=== PATIENT | female | born 1990 | race Caucasian/White ===

== ENCOUNTER 2020-12-11 07:59 | Outpatient (CLI) | payer OTHER, SELFPAY ==
--- NOTE | ~2020-12-11 | XR_ITS ---
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 TECHNIQUE: The patient drank water-soluble contrast. Fluoroscopy of the esophagus, stomach, and small bowel was performed. Fluoroscopy exposure time was 0.7 minutes. Radiographs of the abdomen were obta ined. The total number of images was 32. COMPARISON: None. FINDINGS: UPPER GASTROINTESTINAL SERIES: There is no mass or stricture of the esophagus. Esophageal motility is normal. There is a small slidi ng hiatal hernia. There was spontaneous gastroesophageal reflux. The stomach shows a normal folding p attern. SMALL BOWEL SERIES: The small bowel shows a normal folding pattern. There is reflux of contrast into the biliary tree. Tr ansit time to the colon was 30 minutes. A metal pointer was placed at the skin wound. There is no con trast in the body wall. No visible fistula. IMPRESSION: 1. No fistula identified. 2. Small sliding hiatal hernia. 3. Spontaneous gastroesophageal reflux. Reviewed, dictated and finalized at location A.
--- NOTE | ~2020-12-11 | XR_ITS ---
EXAMINATION: XR fistula/abscess DATE: 12/11/2020 08:54 INDICATION: Enterocutaneous fistula. TECHNIQUE: I introduced a syringe tip into the right abdominal wound and injected Omnipaque 240. Two fluoroscopic images were obtained. Fluoroscopy exposure time was 0.1 minutes. COMPARISON: None. FINDINGS: Contrast does not enter the wound beyond pooling at the skin. IMPRESSION: 1. No fistula identified. Reviewed, dictated and finalized at location A. IMPRESSION: 1. No fistula identified.
== END 2020-12-11 08:00 | disposition home or self-care (01) ==
PROVIDERS: PCP Family Medicine; Visit Provider Family Medicine
DX: T81.89XA Other complications of procedures, not elsewhere classified, initial encounter (principal); K44.9 Diaphragmatic hernia without obstruction or gangrene; K21.9 Gastro-esophageal reflux disease without esophagitis
CPT/HCPCS: 74240; 74248; 76080; Q9966

== ENCOUNTER 2020-12-16 07:47 | Outpatient (CLI) | payer OTHER, SELFPAY ==
--- NOTE | ~2020-12-16 | CT_ITS ---
EXAMINATION: CT abdomen pelvis w con DATE: 12/16/2020 08:21 INDICATION: Open wound of abdominal wall TECHNIQUE: Computed tomography (CT) of the abdomen and pelvis was performed with 100 cc Omnipaque 350 intravenous contrast. Automated exposure control and iterative reconstruction technique were employe d. Exam dose: 1436.06 mGy-cm total exam DLP. COMPARISON: None. FINDINGS: There is discoid atelectasis and/or scarring at the lung bases. Small bilateral fat-containing foramen of [place]chdalek hernias. Heart size is within normal range. No pericardial or pleural effusion. The gallbladder is present. There is a soft tissue tract from the skin surface at the right anterior abdominal wall to the right upper quadrant at the gallbladder. There is mild gallbladder wall thicken ing, measuring approximately 3 mm. There is pneumobilia, with air identified in the hepatic ducts as well as common bile duct. Common bi le duct measures up to 11 mm. No hepatic space-occupying mass lesion is evident. Splenic size is within normal range. No pancreatic mass lesion or calcification or pancreatic duct dilatation is evident. Normal adrenal glands. No renal mass lesion or urinary tract calculus or hydroureteronephrosis is evident. The urinary bladd er, uterus and adnexal areas are Small sliding hiatal hernia. No bowel obstruction, bowel wall thickening, pneumatosis or intraperitoneal free air There is opaque material within the appendix. No appendiceal dilatation or wall thickening or periapp endiceal fat stranding is noted. Normal caliber of the abdominal aorta. No intraperitoneal or retroperitoneal or pelvic mass lesion or adenopathy or ascites. 3.5 cm wide fat-containing umbilical hernia. Included skeletal structures are unremarkable. IMPRESSION: Cholecystostomy tract at right upper quadrant Mild gallbladder wall thickening Pneumobilia Small sliding hiatal hernia 3.5 cm wide fat-containing umbilical hernia Reviewed, dictated and finalized at Location A. Reviewed, dictated and finalized at location B.
== END 2020-12-16 07:48 | disposition home or self-care (01) ==
LOC: ANHIMG 07:56
PROVIDERS: PCP Family Medicine; Visit Provider Family Medicine
DX: S30.92XA Unspecified superficial injury of abdominal wall, initial encounter (principal); X58.XXXA Exposure to other specified factors, initial encounter; K44.9 Diaphragmatic hernia without obstruction or gangrene; Z90.49 Acquired absence of other specified parts of digestive tract
CPT/HCPCS: 74177; Q9967

== ENCOUNTER 2020-12-25 11:52 | Outpatient (CLI) | payer OTHER, SELFPAY ==
--- NOTE | ~2020-12-25 | NM_ITS ---
EXAMINATION: NM hepatobiliary wo pharm DATE: 12/25/2020 14:16 INDICATION: Unspecified abdominal pain. Open wound suspicious for a cholecystocutaneous fistula. COMPARISON: None. TECHNIQUE: 3.9 mCi Tc-99m mebrofenin (Choletec) was administered intravenously. Scintigraphic images of the abdomen were obtained for one hour. At 1 hour additional anterior and right lateral scintigra ms were obtained. FINDINGS: There is normal clearance of radiotracer from the blood pool. There is homogeneous tracer u ptake by the liver. Activity progresses to the bowel and gallbladder (or reportedly gallbladder remn ant). There is spontaneous partial emptying of the gallbladder at the 1 hour time period. No evident tract of activity extending towards the skin surface along the anterolateral right upper quadrant to suggest bile leak/fistulous tract. IMPRESSION: 1. No evident bile leak/fistulous tract. 2. Normal filling and spontaneous partial emptying of the gallbladder (reportedly gallbladder remnant ). Reviewed, dictated and finalized at location A. IMPRESSION: 1. No evident bile leak/fistulous tract. 2. Normal filling and spontaneous partial emptying of the gallbladder (reported ly gallbladder remnant).
--- NOTE | 2020-12-26 13:07 | WPDWOUNDNOTE ---
Wound Care Note Date/Time: 12/26/20 12:07 History: This patient is a pleasant morbidly obese 30-year-old white female who has a chronic wound in the right upper quadrant that it is a draining site from a previous MANPREET drain after a failed cholecystectomy. The patient has surgery in order again where because of major inflammation in around the gallbladder she had a partial cholecystectomy with a drainage procedure. Subsequently she then had an ERCP which led to no common bile duct stent and an injury to the duodenum followed by pancreatitis. She continued to be followed out there till she moved back here. We were asked to help her with this wound once she moved back here. This is a site where her last drain was removed she had a MANPREET drain in place for some time. Please see the history on her residual visit from the 2 wound clinic last month for a more extensive history regarding all that happened in [place]. Wound history: Recent history on the wound is that when she 1st presented here there was a 1 x 1 cm opening in the right upper quadrant at a site where she had previously had a MANPREET drain. She was getting about 30-40 cc of brownish fluid out from this each day. She had not been trying to pack it. Previously. Subsequently we did a upper GI study with Gastrografin which showed no leakage from the duodenum ruling out duodenal fall fistula. Two days ago she then underwent a HIDA scan to check for possible biliary leak. This showed that the remnant of the gallbladder did fill and spontaneously empty about 1 hour after the study. But there was no radiotracer tracing up to the skin in the area of the current wound. Therefore, believe we proving that she does not have a fistula related to either the gallbladder or the duodenum. Perhaps this is just a granulation lined tract from having the drain so long therefore we will try to pack it with silver rope and let it heal slowly from the inside out. She has been packing it just at night wearing a bag during the day and the drainage has decreased to about 10-20 cc each day that she has had on the last 2 days. Wound width: 0.5 cm Wound length: 0.5 cm Wound depth: 9 cm Drainage: Serosanguineous ( approximately 10-20 cc in the bag each day for the last 2-3 days ). Surrounding tissue appearance: normal appearing skin in the right upper quadrant Tunneling: none Percentage granulation tissue: 100% Treatment/Procedures: probe today to 9 cm. Applied a thin packing of quarter-inch silver rope and covered with 4 x 4. Dressings: 4 x 4 covering the packing. Assessment and Plan Assessment and plan (1) Abdominal fistula: Code(s): K63.2 - Fistula of intestine Status: Acute Assessment and Plan: This is not a fistula to either duodenum or the gallbladder eminent has noted by her recent imaging. We hope to get this to close from the inside out by using silver rope to pack it. Discussed with the patient today. She will follow up in 2 weeks. (2) History of major abdominal surgery: Code(s): Z98.890 - Other specified postprocedural states Status: Acute Assessment and Plan: Patient apparently had a very inflamed gallbladder had a partial cholecystectomy with removal of stones in or again last year. (3) Morbid obesity: Code(s): E66.01 - Morbid (severe) obesity due to excess calories Status: Acute Assessment and Plan: Patient remained suggest severely overweight. Encouraged her to follow low-fat diet. (4) Delayed surgical wound healing: Qualifiers: Encounter type: subsequent encounter Qualified Code(s): T81.89XD - Other complications of procedures, not elsewhere classified, subsequent encounter Code(s): T81.89XA - Other complications of procedures, not elsewhere classified, initial encounter Status: Acute Assessment and Plan: See wound care note above. Review of Systems Constitutional: Constitutional: Reports no ad
== END 2020-12-25 11:53 | disposition home or self-care (01) ==
LOC: ANHIMG 11:54
PROVIDERS: PCP Family Medicine; Visit Provider Surgery
DX: K63.2 Fistula of intestine (principal); Z98.890 Other specified postprocedural states; E66.01 Morbid (severe) obesity due to excess calories; T81.89XD Other complications of procedures, not elsewhere classified, subsequent encounter; R10.9 Unspecified abdominal pain
CPT/HCPCS: 78226; A9537

== ENCOUNTER 2021-02-22 09:39 | Emergency (ER) | payer OTHER, SELFPAY ==
--- NOTE | ~2021-02-22 | CT_ITS ---
EXAMINATION: CT abdomen pelvis w con DATE: 02/22/2021 13:20 INDICATION: Epigastric abdominal pain. TECHNIQUE: Computed tomography (CT) of the abdomen and pelvis was performed with 100 mL Omnipaque 350 intravenous contrast. Automated exposure control and iterative reconstruction technique were employe d. The dose-length product was 1441.97 mGy-cm. COMPARISON: CT abdomen and pelvis 12/16/2020 FINDINGS: The visualized portions of the lung bases demonstrate mild atelectasis. There is a staple l ine in left lower lobe. No pleural effusion. The heart size is normal. No pericardial effusion. There is a small sliding hiatal hernia. There is pneumobilia in the liver, likely secondary to sphincterot sobeida. There is a gallstone in the gallbladder, which is normal in size. There is a tract from the gall bladder to the skin. There is fat stranding around the tract in the abdominal wall, consistent with i nflammation. The pancreas, spleen, adrenal glands, and kidneys are normal. There is an umbilical tyson ia containing fat. There are no dilated loops of bowel. The appendix is normal. There are no patholog ically enlarged lymph nodes. There is no free intraperitoneal fluid. There is mild thoracic spondylos is. IMPRESSION: 1. Inflammation in the abdominal wall around an old cholecystostomy tube tract, stable from 12/16/2020 . 2. Cholelithiasis. No evidence of acute cholecystitis. 3. Umbilical hernia containing fat. Reviewed, dictated and finalized at location A. IMPRESSION: 1. Inflammation in the abdominal wall around an old cholecystostomy tube tract, stable from 12/16/2020. 2. Cholelithiasis. No evidence of acute cholecystitis. 3. Umbilical hernia containing fat.
--- NOTE | ~2021-02-22 | US_ITS ---
EXAMINATION: US abdomen limited DATE: 02/22/2021 12:15 INDICATION: Right upper quadrant abdominal pain. TECHNIQUE: Multiple grayscale and Doppler ultrasound images of the abdomen were obtained. COMPARISON: CT abdomen and pelvis 12/16/2020 FINDINGS: The visualized portions of the head and body of the pancreas are normal. The liver demonstr ates pneumobilia, likely secondary to sphincterotomy. There is normal flow in main portal vein. The g allbladder is normal in size and contains a gallstone. No gallbladder wall thickening or sonographic Carrillo sign. The common duct is normal and measures 5 mm. IMPRESSION: 1. Cholelithiasis. No evidence of acute cholecystitis. Reviewed, dictated and finalized at location A.
[2021-02-22 09:53] VITALS: BP 154/64; PULSE 93; RESP 18; TEMP 36.8; O2SAT 99
[2021-02-22 10:27] LABS: Basophils Percent Auto 0.2 % (0.2-1.2); Eosinophils Absolute Auto 0.1 K/mm3 (0-0.3); Eosinophils Percent Auto 1.5 % (0-4.4); Hematocrit 34.8 % (37.0-47.0); Hemoglobin 11.2 g/dL (12.0-15.0); Immature Granulocyte Absolute 0.04 K/mm3 (0.00-0.031); Immature Granulocyte Percent A 0.4 % (0-0.5); Lymphocytes Absolute Auto 1.78 K/mm3 (0.9-3.2); Lymphocytes Percent Auto 19.1 % (18.3-44.2); Mean Corpuscular HGB Conc 32.2 g/dl (32-36); Mean Corpuscular Hemoglobin 27.5 pg (26-34); Mean Corpuscular Volume 85.5 fl (80-100); Mean Platelet Volume 9.1 fl (7.4-10.4); Monocytes Absolute Auto 0.4 K/mm3 (0.1-0.6); Monocytes Percent Auto 3.9 % (2.6-8.5); Neutrophils Percent Auto 74.9 % (45.5-73.1); Platelet Count Result 281 k/mm3 (150-375); Red Blood Count 4.07 M/mm3 (4.2-5.4); Red Cell Distribution Width 13.1 % (11.5-14.5); White Blood Count 9.3 K/mm3 (4.5-10.0)
[2021-02-22 10:36] LABS: Alanine Aminotransferase 13 U/L (4-35); Albumin Level 3.9 g/dL (3.5-5.1); Alkaline Phosphatase 107 U/L (38-126); Anion Gap 6 mmol/L (8-16); Aspartate Amino Transferase 21 U/L (14-36); Bilirubin,Total 0.3 mg/dL (0.2-1.3); Blood Urea Nitrogen 12 mg/dL (7-17); Carbon Dioxide 30 mmol/L (22-30); Chloride 107 mmol/L (98-107); Estimated CRCL calculation 129 ml/min; Estimated Glomerular Filt Rate > 60; Glucose 95 mg/dL (65-105); Lipase 79 U/L (23-300); Potassium 3.9 mmol/L (3.4-5.0); Sodium 143 mmol/L (137-145)
[2021-02-22 10:54] LABS: Add Urine Microscopic? YES; Appearance Urine Cloudy (Clear); Bacteria Urine 2+ /hpf; Bilirubin Urine Negative (Negative); Blood Urine Negative (Negative); Glucose Urine UA Negative (Negative); Ketones Urine Negative (Negative); Leukocyte Esterase Ur 2+ LEU/UL (Negative); Mucus Urine Rare /lpf; Nitrate Urine Negative (Negative); Protein Urine 1+ mg/dL (Negative); Specific Grav Ur 1.017 (1.001-1.035); Squamous Epithelial Cell Urine Many /hpf (Few); Urobilinogen Urine Negative mg/dL (<2.0); WBC Urine 16-20 /hpf
[2021-02-22 10:55] LABS: Color Urine Yellow (Yellow)
--- NOTE | 2021-02-22 11:43 | ED.GENADULT ---
HPI - General Adult General Chief complaint: Abdominal Pain Stated complaint: right abd pain Time Seen by Provider: 02/22/21 10:38 Source: patient Mode of arrival: ambulatory Limitations: no limitations History of Present Illness HPI narrative: Patient presents for evaluation of abdominal pain in the right upper quadrant. She states she has experienced pain in affected area for the last five days. The majority of the week her pain was dull. She is unsure whether pain was intermittent or constant. She states that she was alternating between tylenol and ibuprofen. This morning she woke from sleep due to increase in her pain. She states her current pain is sharp and radiates into the right lower back. Of noted she is currently being followed by surgeon, Dr Uribe, for a wound to RUQ. She underwent partial cholecystectomy in 2019 while she was living in [place]. Partial as opposed to full cholecystectomy was performed due to major inflammatory changes in region of gallbladder. Following her surgery she had an ERCP and common bile duct stent placement. She had an injury to duodenum followed by pancreatitis. She has a chronic wound to RUQ following drain placement associated with her cholecystectomy. She denies any fever, chills, nausea, vomiting, urinary symptoms, vaginal bleeding. She is some chronic clear vaginal discharge which is unchanged. She states that applying pressure manually with her hand to RUQ helps alleviate her pain. Related Data Home Medications Medication Instructions Recorded Confirmed acetaminophen 500 mg tablet 1,000 mg PO BID tablet 11/22/20 12/26/20 Allergies Allergy/AdvReac Type Severity Reaction Status Date / Time adhesive tape AdvReac Rash Verified 02/22/21 10:26 TAPE Allergy Unknown PULLED Uncoded 02/22/21 09:57 SKIN OFF Review of Systems Review of Systems: Narrative: CONSTITUTIONAL: Denies fever, chills, or sweats. EYES: Denies visual changes, redness, or discharge. ENT: Denies rhinorrhea, congestion, sore throat, or otalgia. CARDIOVASCULAR: Denies chest pain, palpitations, or edema. RESPIRATORY: Denies cough or dyspnea. GASTROINTESTINAL: Reports abdominal pain. Denies nausea, vomiting, or diarrhea. GENITOURINARY: Denies dysuria or hematuria. SKIN: Denies rash or itching. MUSCULOSKELETAL: Denies back pain, joint pain, or myalgia. NEUROLOGIC: Denies headache, numbness, dizziness, or weakness. PSYCHIATRIC: Denies anxiety or depression. [facility] Past Medical History Medical History (Updated 02/22/21 @ 14:54 by JOBY Andrew, ) Allergies Asthma Asthma Delayed surgical wound healing History of jejunostomy tube placement History of sepsis (~10/2019) perforated duodenum from surgical procedure Hx of gangrene (~07/2019) gangrenous gall bladder, ruptured GB Insomnia Irregular periods/menstrual cycles Morbid obesity (Unknown) Open wound of umbilical region (~04/27/20) Psoriatic arthritis Surgical History Surgical History History of cholecystectomy (~07/2019) History of tonsillectomy Family History Family History Father Thyroid disorder Sleep apnea Mother Asthma Diabetes mellitus Hypertension Cerebrovascular accident Arthritis at at 58 Sibling Diabetes mellitus Hypertension Sjogren's disease at age 38 Social History Social History Social History: Works at [employer]. Lives with her and 3 children. Smoking status: Former smoker Tobacco type: cigarettes Smoking end date: 09/27/17 Alcohol intake: current Drinks per week: 1 Gender identity (if verbalized by the patient): Female Agree to blood products: Yes Exam Narrative: Exam Narrative: GENERAL: Well-appearing, well-nourished, and in no acute distress. HEAD: Normocephali
[2021-02-22] MEDS: MORPHINE SULFATE (*CRX) 2 MG/ML INJ IV PUSH (11:47)
[2021-02-22 12:00] VITALS: BP 160/98; PULSE 80; RESP 16; O2SAT 98
[2021-02-22] MEDS: oxyCODONE/ACETAMINOPHEN (*CRX) 5-325 MG TABLET 2 TABLET PO (14:06)
[2021-02-22 15:20] VITALS: BP 134/91; PULSE 70; RESP 16; O2SAT 97
--- NOTE | 2021-02-28 12:23 | WPDWOUNDNOTE ---
Wound Care Note Date/Time: 02/28/21 12:23 History: History: This patient is a pleasant morbidly obese 30-year-old white female who has a chronic wound in the right upper quadrant that it is a draining site from a previous MalenKrodt drain after a failed cholecystectomy. The patient had surgery in [place] last year but because of major inflammation in around the gallbladder she had a partial cholecystectomy with a drainage procedure. (Drain left in the gallbladder reaminate). Subsequently she then had an ERCP which led to no common bile duct stent and an injury to the duodenum followed by pancreatitis. She continued to be followed out there until she moved back here. We were asked to help her with this wound once she moved back here. This is a site where her last drain was removed and after review of records that were recently sent I believe she had a MalenKrodt drain in place for some time. Please see the history on her original visit to the wound clinic last month for a more extensive history regarding all that happened in [place]. Wound history: Wound history: Recent history on the wound is that when she first presented here there was a 1 x 1 cm opening in the right upper quadrant at a site where she had previously had a GB drain. She was getting about 30-40 cc of brownish fluid out from this each day. She had not been trying to pack it previously. Subsequently we did a upper GI study with Gastrografin which showed no leakage from the duodenum thereby ruling out duodenal fall fistula. Several days later she then underwent a HIDA scan to check for possible biliary leak. This showed that the remnant of the gallbladder did fill and spontaneously empty about 1 hour after the study, but that there was no radiotracer tracing up to the skin in the area of the current wound. Therefore, I believe we have proven that she does not have a fistula related to either the gallbladder or the duodenum. Perhaps this is just a granulation lined tract from having the drain so long. Therefore, we will try to pack it with silver rope and let it heal slowly from the inside out. She had been packing it just at night and wearing a bag over the opening during the day and the drainage has decreased to about 20 cc each day. Several visits ago we asked the patient to do continuous packing with the silver rope. Also, then two of the nights over each week she has placed a bag over this and taken the packing out for about 12 hours. These 2 time she had 20 and 22 cc come out into the bag before her most recent visit. She stated that this was a clearish yellow fluid. She still has some upper abdominal pain periodically but she is taking Protonix 40 mg once a day before she lays down at night and that seems to help some. between this visit in the last she had 1 ER visit where she you noticed increasing abdominal pain. A CT scan of the abdomen pelvis was done which showed some inflammatory change along the tract of the wound in the right upper quadrant which did traced track down toward the gallbladder but there was no obvious connection to the gallbladder. this also showed small umbilical hernia without bowel in it. The CT did read that there was a gallstone in the remaining gallbladder which at least on this study they seemed indicate was almost a normal sized gallbladder. There was no surrounding inflammation on around the gallbladder itself. There were no intra-abdominal abscesses. The patient bag the wound last night overnight and had just a small amount of fluid come into the bag not even measurable. Since leaving the ER she has found that she had a urinary tract infection so the PCP she now has has started her on antibiotic for 10 days. We will see if this has any help. They also gave her some more pain pills and she is trying to cut back on the she will try to use just ibuprofen 600 mg 3 or 4 times a day and cut back as much she can on the narcotic. I will plan to see
== END 2021-02-22 15:20 | disposition home or self-care (01) ==
PROVIDERS: Emergency Medicine; Emergency Provider Nurse Practitioner; PCP Family Medicine
DX: K80.20 Calculus of gallbladder without cholecystitis without obstruction (principal); J45.909 Unspecified asthma, uncomplicated; E66.01 Morbid (severe) obesity due to excess calories; Z68.42 Body mass index [BMI] 45.0-49.9, adult; L40.50 Arthropathic psoriasis, unspecified; Z87.891 Personal history of nicotine dependence; K42.9 Umbilical hernia without obstruction or gangrene
CPT/HCPCS: 36415; 74177; 76705; 80053; 81001; 81025; 83690; 85025; 87077; 87086; 87088; 87186; 96374; 99284; A9270; J2270; Q9967

== ENCOUNTER 2021-02-28 08:02 | Outpatient (RCR) | payer OTHER, SELFPAY ==
[2020-12-05 12:52] VITALS: BMI 47.0
--- NOTE | 2020-12-05 15:15 | WPDWOUNDNOTE ---
Wound Care Note Date/Time: 12/05/20 14:15 History: No known allergies to medications. Past Medical History: Psoriatic arthritis on immunosuppressant therapy, asthma, obesity, insomnia, allergies, previous acute cholecystitis with perforation and subsequent complications/sepsis in 2018 Past Surgical History: Multiple previous abdominal surgeries starting with a laparoscopic cholecystectomy for a perforated gangrenous gallbladder in August of 2019. Requesting records from [place], [place] to verify previous surgeries. See description of other surgeries below in the wound history section. Social History: Has three children (vaginal deliveries x 3). Previous smoker, quit 3 years ago. No illicit drug use. Works as a school bus attendant. Recently moved here in the fall from [place], [place]. No pertinent family history. Wound history: This is a patient that was seen in Dr. Bermudez's office by Rula Lazo NP on 11/22/20 to establish care as a new patient. She was referred to the wound clinic by her PCP for an abdominal wound. She previously was followed by her PCP and a [facility] in [place]. Her [facility] followed her for her psoriatic arthritis and had been prescribing Tremfya for this. Her last dose was just over 8 weeks ago, and she states she typically takes this every 8 weeks. She had started this last April she believes. The patient now presents today in the wound clinic for evaluation of an abdominal wound. I have been called by the wound clinic nurse, Aysha, to come evaluate this abdominal wound. The patient reports having a laparoscopic cholecystectomy in August of 2019. She was told her gallbladder was gangrenous and perforated at the time of surgery. She was also told that they left about 1/4th of the gallbladder on the bed of the liver during the surgery and then kept a drain in her RUQ of her abdomen. This drain was in place for at least 8 weeks. She reports having some issues with the sutures falling out and the drain having to be either replaced or pushed back in because of this. It sounds like she probably had a bile leak post-op and they attempted to place a biliary stent. She reports that they may have done this procedure with endoscopy and laparoscopy, but is unsure why or how. She reports then that during this surgery her duodenum and pancreas was nicked and she was told this would heal without intervention. She then had a gastrostomy-jejunostomy tube placed for her to get nutrition through this tube and bypass the duodenum to allow it to heal after it was damaged in surgery. She reports that she was not taking anything by mouth and only fed with tube feedings, up until around February of 2020. In that timeframe, she was also readmitted to the hospital for sepsis, potentially from the perforated bowel. She states that she was admitted for 2 months and then was eventually discharged. She reports that her RUQ abdominal drain was eventually removed as well in November of 2019 and she was told that the hole from the drain would heal up. Her G-J tube was removed she thinks in February of 2020 and she was tolerating a regular diet by March. She reports that the wound from the G-J tube healed up and is now a scare, but the wound from the RUQ surgical drain has remained open and continues to drain a bloody, clear drainage. She applies a dry dressing over this wound every day. Over the past year, the wound has decreased to about 1/2 the size, but remains open and drainage. She takes gabapentin that she states is for the abdominal pain where the wound is and has been weaned off of oxycodone for the pain. She reports it is drying machine back tender and painful at times. Reports now tolerating a regular diet and moving her bowels normally. She reports having a follow-up with her previous surgeons and they had released her last summer suggesting that the wound would eventually heal. She reports having multiple studies done, including a gastrografin study and other tests to lo
--- NOTE | 2021-01-15 13:28 | WPDWOUNDNOTE ---
Wound Care Note Date/Time: 01/15/21 12:28 He returns today for follow-up on her chronic wound in the right upper quadrant the abdomen. This was at a site where a drain was left as a cholecystostomy tube within the remnant of her gallbladder after a partial cholecystectomy. History: This patient is a pleasant morbidly obese 30-year-old white female who has a chronic wound in the right upper quadrant that it is a draining site from a previous MalenKrodt drain after a failed cholecystectomy. The patient had surgery in [facility] last year but because of major inflammation in around the gallbladder she had a partial cholecystectomy with a drainage procedure. (Drain left in the gallbladder reaminate). Subsequently she then had an ERCP which led to no common bile duct stent and an injury to the duodenum followed by pancreatitis. She continued to be followed out there till she moved back here. We were asked to help her with this wound once she moved back here. This is a site where her last drain was removed and after review of records that were recently sent I believe she had a MalenKrodt drain in place for some time. Please see the history on her original visit to the wound clinic last month for a more extensive history regarding all that happened in [place]. Wound history: Wound history: Recent history on the wound is that when she 1st presented here there was a 1 x 1 cm opening in the right upper quadrant at a site where she had previously had a GB drain. She was getting about 30-40 cc of brownish fluid out from this each day. She had not been trying to pack it. Previously. Subsequently we did a upper GI study with Gastrografin which showed no leakage from the duodenum ruling out duodenal fall fistula. several days before her last visit she then underwent a HIDA scan to check for possible biliary leak. This showed that the remnant of the gallbladder did fill and spontaneously empty about 1 hour after the study. But there was no radiotracer tracing up to the skin in the area of the current wound. Therefore, I believe we have proven that she does not have a fistula related to either the gallbladder or the duodenum. Perhaps this is just a granulation lined tract from having the drain so long. Therefore we will try to pack it with silver rope and let it heal slowly from the inside out. She had been packing it just at night wearing a bag during the day and the drainage has decreased to about 20 cc each day that she has had on the last 2 days. after last visit we asked the patient to do continuous packing with the silver rope. Also to of the nights over the last week she has placed a bag over this and taken the packing out for about 12 hours. These 2 time she had 20 and 22 cc come out into the bag. She stated was a clearish yellow fluid. She still has some upper abdominal pain periodically but she is taking Protonix 40 mg once a day before she lays down at night. Wound approximation: No Wound width: .07 cm Wound length: 0.6 cm Wound depth: 8.6 cm Drainage: Still slightly brownish yellow in color. When the patient did not pack it and 4 bag over the area for about 12 hours she had 20 and 22 cc out respectively. Surrounding tissue appearance: Normal skin surrounds this opening and there is some granulation tissue on the edges. Further out on the skin she has some reddish rash like change and we will use antifungal powder on this. Tunneling: None other than the the wound that goes down 8 cm Percentage granulation tissue: 100% Treatment/Procedures: today after probing and I did use 2 separate silver nitrate sticks to place all the way in total pressure one-way then the other way to cauterize the very base of the wound. We then packed it with split silver rope that was about 1/4 inch wide and punched the packing at the external opening to keep it open. Dressings: Patient places 4x4s over the external portion of the drain which collects any fluid the comes o
--- NOTE | 2021-01-25 23:23 | WPDWOUNDNOTE ---
Wound Care Note Date/Time: 01/24/21 12:23 History: This patient is a pleasant morbidly obese 30-year-old white female who has a chronic wound in the right upper quadrant that it is a draining site from a previous MalenKrodt drain after a failed cholecystectomy. (In escense this was a drian left as a Cholecystostomy drain in the remnant of her GB). The patient had surgery in [place] last year but because of major inflammation in around the gallbladder she had a partial cholecystectomy with a drainage procedure. (Drain left in the gallbladder remnant). Subsequently she then had an ERCP which led to no common bile duct stent and an injury to the duodenum followed by pancreatitis. She continued to be followed out there till she moved back here. We were asked to help her with this wound once she moved back here late this winter. This is a site where her last drain was removed and after review of records that were recently sent I believe she had a MalenKrodt drain in place for some time. Please see the history on her original visit to the wound clinic last month for a more extensive history regarding all that happened in [place]. Wound history: Wound history: Recent history on the wound is that when she 1st presented here there was a 1 x 1 cm opening in the right upper quadrant at a site where she had previously had a GB drain. She was getting about 30-40 cc of brownish fluid out from this each day. She had not been trying to pack it. Previously. Subsequently we did a upper GI study with Gastrografin which showed no leakage from the duodenum ruling out duodenal fistula. Several days before her last visit she then underwent a HIDA scan to check for possible biliary leak. This showed that the remnant of the gallbladder did fill and spontaneously empty about 1 hour after the study. But there was no radiotracer tracing up to the skin in the area of the current wound. Therefore, I believe we have proven that she does not have a fistula related to either the gallbladder or the duodenum. Perhaps this is just a granulation lined tract from having the drain in place for so long. Therefore, we will try to pack it with silver rope and let it heal slowly from the inside out. She had been packing it just at night wearing a bag during the day and the drainage has decreased to about 20 cc each day that she has had on the last 2 days prior to her last (01/15) visit. After the last visit we asked the patient to do continuous packing with the silver rope. Also two of the nights over the last week she has placed a bag over this and taken the packing out for about 12 hours. These 2 time she had 20 and 15 cc come out into the bag. She stated was a clearish yellow fluid. She still has some upper abdominal pain periodically but she is taking Protonix 40 mg once a day before she lays down at night. SHe states today that she does believe that she is getting the packing well down inside the tract each time. she is having in general less pain in and around the are of the open wound. Wound approximation: No Wound width: 0.5 cm Wound length: 0.5 cm Wound depth: 7.5 cm Drainage: Bloody after probing. otherwise she states it is a clear color after leaving the packing out and baging the opening overnight. Surrounding tissue appearance: [place] and granulating Tunneling: no Percentage granulation tissue: 100 % Treatment/Procedures: AgNo3 used again to cauterize the very depth of the wound (X2). Pt tolerated the Rx well without much pain. Dressings: Silver rope packing cut to a 1/4 width and packed all the way to the bottom of the wound. Covered with 4 X 4 gauze after appying some skin protectent to the skin of the abdomen surrounding the opening. Assessment and Plan Assessment and plan (1) Open abdominal wall wound: Onset Date: ~10/2019 Qualifiers: Encounter type: subsequent encounter Qualified Code(s): S31.109D - Unspecified open wound of abdominal wall, unspecified
--- NOTE | 2021-02-07 16:53 | WPDWOUNDNOTE ---
Wound Care Note Date/Time: 02/07/21 12:03 History: This patient is a pleasant morbidly obese 30-year-old white female who has a chronic wound in the right upper quadrant that it is a draining site from a previous MalenKrodt drain after a failed cholecystectomy. (In essence this was a drain left as a Cholecystostomy drain in the remnant of her GB). The patient had surgery in [place] last year but because of major inflammation in around the gallbladder she had a partial cholecystectomy with a drainage procedure. (Drain left in the gallbladder remnant). Subsequently she then had an ERCP which led to a common bile duct stent and an injury to the duodenum followed by pancreatitis. She continued to be followed out there till she moved back here. We were asked to help her with this wound once she moved back here late this winter. This is a site where her last drain was removed and after review of records that were recently sent from [place] I believe she had a MalenKrodt drain in place in her GB remnant for some time. Please see the history on her original visit to the wound clinic 2 months ago for a more extensive history regarding all that happened in [place]. Wound history: Wound history: Recent history on the wound is that when she 1st presented here there was a 1 x 1 cm opening in the right upper quadrant at a site where she had previously had a GB drain. She was getting about 30-40 cc of brownish fluid out from this each day. She had not been trying to pack it. Previously. Subsequently we did a upper GI study with Gastrografin which showed no leakage from the duodenum ruling out duodenal fistula. Several days before her visit two times ago she then underwent a HIDA scan to check for possible biliary leak. This showed that the remnant of the gallbladder did fill and spontaneously empty about 1 hour after the study, but there was no radiotracer tracing up to the skin in the area of the current wound. Therefore, I believe we have proven that she does not have a fistula related to either the gallbladder or the duodenum. Perhaps this is just a granulation lined tract from having the drain in place for so long. Therefore, we will try to pack it with silver rope and let it heal slowly from the inside out. She had been packing it just at night wearing a bag during the day and the drainage has decreased to about 20 cc each day that she has had on the last 2 days prior to her (01/15) visit. After the last visit we asked the patient to do continuous packing with the silver rope. Also two of the nights over the last week she has placed a bag over this and taken the packing out for about 12 hours. These 2 time she had 15 cc come out into the bag each time. She stated was a pinkish fluid. She still has some upper abdominal pain periodically but she is taking Protonix 40 mg once a day before she lays down at night. She is also trying to follow a low-fat diet and lose weight. Se states today that she does believe that she is getting the packing well down inside the tract each time. She is having in general less pain in and around the are of the open wound. -- the wound is less deep and starting to granulate in and the edges but still open externally. Wound width: 0.5 cm Wound length: 0.6 cm Wound depth: 5.5 cm Drainage: [place] to yellow Surrounding tissue appearance: normal without cellulitis Tunneling: just straight depth. Percentage granulation tissue: 100% Treatment/Procedures: I used silver nitrate to cauterize the depth of the wound again. Dressings: Silver rope packing followed by 4 x 4 gauze and tape Assessment and Plan Assessment and plan (1) Open abdominal wall wound: Onset Date: ~10/2019 Qualifiers: Encounter type: subsequent encounter Qualified Code(s): S31.109D - Unspecified open wound of abdominal wall, unspecified quadrant without penetration into peritoneal cavity, subsequent encounter Code(s): S31.109A
--- NOTE | 2021-02-14 13:55 | WPDWOUNDNOTE ---
Wound Care Note Date/Time: 01/09/21 12:55 History: This patient is a pleasant morbidly obese 30-year-old white female who has a chronic wound in the right upper quadrant that it is a draining site from a previous MalenKrodt drain after a failed cholecystectomy. The patient had surgery in [facility] last year but because of major inflammation in around the gallbladder she had a partial cholecystectomy with a drainage procedure. (Drain left in the gallbladder reaminate). Subsequently she then had an ERCP which led to no common bile duct stent and an injury to the duodenum followed by pancreatitis. She continued to be followed out there till she moved back here. We were asked to help her with this wound once she moved back here. This is a site where her last drain was removed and after review of records that were recently sent I believe she had a MalenKrodt drain in place for some time. Please see the history on her original visit to the wound clinic last month for a more extensive history regarding all that happened in [place]. Wound history: Wound history: Recent history on the wound is that when she 1st presented here there was a 1 x 1 cm opening in the right upper quadrant at a site where she had previously had a GB drain. She was getting about 30-40 cc of brownish fluid out from this each day. She had not been trying to pack it. Previously. Subsequently we did a upper GI study with Gastrografin which showed no leakage from the duodenum ruling out duodenal fall fistula. several days before her last visit she then underwent a HIDA scan to check for possible biliary leak. This showed that the remnant of the gallbladder did fill and spontaneously empty about 1 hour after the study. But there was no radiotracer tracing up to the skin in the area of the current wound. Therefore, I believe we have proven that she does not have a fistula related to either the gallbladder or the duodenum. Perhaps this is just a granulation lined tract from having the drain so long. Therefore we will try to pack it with silver rope and let it heal slowly from the inside out. She had been packing it just at night wearing a bag during the day and the drainage has decreased to about 20 cc each day that she has had on the last 2 days. after last visit we asked the patient to do continuous packing with the silver rope. Also to of the nights over the last week she has placed a bag over this and taken the packing out for about 12 hours. These 2 time she had 20 and 22 cc come out into the bag. She stated was a clearish yellow fluid. She still has some upper abdominal pain periodically but she is taking Protonix 40 mg once a day before she lays down at night Wound approximation: No ( still o.9 x 0.8 cm in size) Wound width: 0.9 cm Wound length: 0.7 cm Wound depth: 7.5 cm Drainage: clear yellowish Surrounding tissue appearance: no surrounding erythema or skin changes Tunneling: none other than straight down along the old drain site Percentage granulation tissue: 100% Treatment/Procedures: silver nitrate was used to cauterize the base of the wound and then silver rope was packed into the wound. Dressings: We are using silver rope split long sarah down into the wound as a wick and then punch in at the external opening and covering with some 4 x 4 gauze and tape. Patient will bag the wound twice overnight and tell us how much she records out of the bag or into the bag when she visits the next visit. Assessment and Plan Assessment and plan (1) Abdominal pain: Code(s): R10.9 - Unspecified abdominal pain Status: Acute Assessment and Plan: Usually controlled with Tylenol now (2) GERD without esophagitis: Onset Date: Unknown Code(s): K21.9 - Gastro-esophageal reflux disease without esophagitis Status: Acute Assessment and Plan: on pantoprazole. (3) Open abdominal wall wound: Onset Date: ~10/2019 Qualifiers:
== END 2021-03-05 23:59 | disposition home or self-care (01) ==
LOC: ANHWOC 08:02
PROVIDERS: PCP Family Medicine; Referring Provider Surgery; Visit Provider Nurse Practitioner Family
DX: T81.89XD Other complications of procedures, not elsewhere classified, subsequent encounter (principal)
CPT/HCPCS: 99212; 99213; A9270; G0463

== ENCOUNTER 2021-05-02 09:22 | Outpatient (CLI) | payer OTHER, SELFPAY ==
--- NOTE | ~2021-05-02 | CT_ITS ---
EXAMINATION: XR fistula/abscess, CT abdomen w con DATE: 05/02/2021 11:50 INDICATION: Chronic draining right upper quadrant abdominal wound. TECHNIQUE: 1. 5 fluoroscopic images of the right upper quadrant were obtained prior to and during injection of 2 0 mL of Omnipaque 240 into the red rubber catheter which had been placed by Dr. Uribe into the sinu s tract draining wound. This was performed following assessment of the initial postcontrast CT images to assess for positioning of the right rubber catheter. 2. Computed tomography (CT) of the abdomen was performed with 100 mL Omnipaque-[address] Additional delayed images were obtained following injection of an additional 20 mL Omnipaque-240 into the red rubber catheter. The dose-length product was 1705.01 mGy-cm. COMPARISON: CT dated 02/22/2021 FINDINGS: Fluoroscopy: Initial valve lapper image demonstrated the right proper catheter tip projecting over the region of the caud al tip of the liver. There is excreted contrast in the right renal collecting system from the immedia tely prior contrast enhanced CT. With contrast injection there is reflux of the majority of the injec [place] contrast along the sinus tract. There is however a thin tract of contrast which appears to extend deeper into a small ovoid space in expected position of the gallbladder fossa. CT: Unchanged small regions of pleural parenchymal scarring at the anterior right middle lobe and posteri or left lower lobe, the latter along a small suture line. Additional unchanged mild discoid atelectas is/scarring in the right lower lobe. Heart size is normal. No pericardial or pleural effusion. Small sliding-type hiatal hernia. Spleen, pancreas, bilateral adrenal glands and kidneys are normal. Partia lly visualized fat-containing umbilical hernia measuring at least 5.8 x 3.7 cm maximal transaxial dim ensions and extending through a 2.8 x 2.1 cm orifice. Visualized portion of the bowels are unremarkab le. No pathologically enlarged abdominal or pelvic lymphadenopathy. Mild lower thoracic spondylosis. Pneumobilia in the intra and extrahepatic biliary ducts likely related to prior sphincterotomy associ ated with a prior partial cholecystectomy. The red rubber catheter extends through a sinus tract exte nding from the skin surface with the distal tip within the anterior abdominal wall the right upper qu adrant in relatively close proximity to the splenic flexure of the colon as well as the gallbladder r emnant. On the delayed images following contrast injection contrast is seen extending deep to the ant erior abdominal wall with minute focus of contrast at the wall of the gallbladder remnant. A small am ount of contrast is seen layering dependently within the gallbladder remnant. This appears to outline approximately 1.3 cm stone at the neck of the gallbladder. No evident extension of contrast into the cystic duct or more distal common bile duct. IMPRESSION: 1. 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 There is also a 1.3 cm gallstone at the neck of the gallbladder which no contrast passes beyond, potentially impacted. 2. Small fat-containing umbilical hernia. Reviewed, dictated and finalized at location A. IMPRESSION: 1. 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 There is also a 1.3 cm gallstone at the neck of the g allbladder which no contrast passes beyond, potentially impacted. 2. Small fat-containing umbilical hernia.
== END 2021-05-02 09:23 | disposition home or self-care (01) ==
PROVIDERS: PCP Family Medicine; Visit Provider Surgery
DX: S31.109A Unspecified open wound of abdominal wall, unspecified quadrant without penetration into peritoneal cavity, initial encounter (principal); R10.9 Unspecified abdominal pain; K80.80 Other cholelithiasis without obstruction; K42.9 Umbilical hernia without obstruction or gangrene
CPT/HCPCS: 36415; 74160; 76080; 80053; 82150; 82248; 82565; 83690; 85025; 99212; G0463; Q9966; Q9967

== ENCOUNTER 2021-05-02 09:31 | Outpatient (CLI) | payer OTHER, SELFPAY ==
[2021-05-02 10:02] LABS: Basophils Percent Auto 0.3 % (0.2-1.2); Eosinophils Absolute Auto 0.2 K/mm3 (0-0.3); Eosinophils Percent Auto 2.4 % (0-4.4); Hematocrit 36.1 % (37.0-47.0); Hemoglobin 11.5 g/dL (12.0-15.0); Immature Granulocyte Absolute 0.03 K/mm3 (0.00-0.031); Immature Granulocyte Percent A 0.4 % (0-0.5); Lymphocytes Absolute Auto 1.73 K/mm3 (0.9-3.2); Lymphocytes Percent Auto 22.9 % (18.3-44.2); Mean Corpuscular HGB Conc 31.9 g/dl (32-36); Mean Corpuscular Hemoglobin 27.2 pg (26-34); Mean Corpuscular Volume 85.3 fl (80-100); Mean Platelet Volume 8.9 fl (7.4-10.4); Monocytes Absolute Auto 0.4 K/mm3 (0.1-0.6); Monocytes Percent Auto 5.8 % (2.6-8.5); Neutrophils Absolute Auto 5.2 K/mm3 (1.3-6.7); Neutrophils Percent Auto 68.2 % (45.5-73.1); Platelet Count Result 234 k/mm3 (150-375); Red Blood Count 4.23 M/mm3 (4.2-5.4); Red Cell Distribution Width 13.5 % (11.5-14.5); White Blood Count 7.6 K/mm3 (4.5-10.0)
[2021-05-02 10:29] LABS: Alanine Aminotransferase 14 U/L (4-35); Albumin Level 4.1 g/dL (3.5-5.1); Alkaline Phosphatase 90 U/L (38-126); Amylase 57 U/L (30-110); Anion Gap 10 mmol/L (8-16); Aspartate Amino Transferase 25 U/L (14-36); Bilirubin,Total 0.1 mg/dL (0.2-1.3); Blood Urea Nitrogen 14 mg/dL (7-17); Calcium 9.2 mg/dL (8.4-10.2); Carbon Dioxide 24 mmol/L (22-30); Chloride 104 mmol/L (98-107); Estimated Glomerular Filt Rate > 60; Glucose 99 mg/dL (65-110); Lipase 104 U/L (23-300); Potassium 3.9 mmol/L (3.4-5.0); Sodium 138 mmol/L (137-145)
== END 2021-05-02 09:32 | disposition home or self-care (01) ==
PROVIDERS: PCP Family Medicine; Visit Provider Surgery
DX: Z01.812 Encounter for preprocedural laboratory examination (principal); S31.109A Unspecified open wound of abdominal wall, unspecified quadrant without penetration into peritoneal cavity, initial encounter; K81.9 Cholecystitis, unspecified
CPT/HCPCS: 36415; 80053; 82150; 82248; 82565; 83690; 85025; 99212; G0463

== ENCOUNTER → 2021-05-03 00:26 | Outpatient (CLI) | payer OTHER, SELFPAY ==
[2021-05-03 21:24] LABS: SARS-CoV-2 RNA PCR Negative
== END ==
PROVIDERS: PCP Family Medicine; Visit Provider Surgery
DX: Z01.812 Encounter for preprocedural laboratory examination (principal); Z20.822 Contact with and (suspected) exposure to COVID-19
CPT/HCPCS: C9803; U0003; U0005

== ENCOUNTER 2021-05-06 19:05 | Observation (INO) | payer OTHER, SELFPAY ==
[2021-04-28 15:19] VITALS: BMI 47.2
--- NOTE | 2021-05-02 19:31 | WPDANESEPP ---
Anes - Eval Pre Procedure Procedure: Operation Date: 05/05/21 14:00 Proposed Procedures p Laparoscopic Cholecystectomy with Intraoperative Cholangiogram, possible Open, possible Excision of Old Drain Tube Tract-Right Upper Quadrant - Leo Uribe MD Date/Time: 05/02/21 19:31 Pre Op Diagnosis: Cholecystitis Patient Data Age: 30 Gender: F Height: 1.63 m Weight: 124.74 kg Allergies Allergy/AdvReac Type Severity Reaction Status Date / Time adhesive tape AdvReac Rash Verified 04/28/21 15:22 TAPE Allergy Unknown PULLED Uncoded 04/28/21 15:22 SKIN OFF Home Medications Medication Instructions Recorded Confirmed Type norgestimate-ethinyl estradiol 1 tablet PO DAILY #28 tablet 12/26/20 04/08/21 Rx 0.18 mg/0.215mg/0.25mg-35 mcg(28)tablet gabapentin 300 mg capsule 300 mg PO TID #270 cap 02/25/21 04/08/21 Rx tramadol 100 mg tablet 100 mg PO Q6H PRN #10 tablet 04/03/21 04/08/21 Rx albuterol sulfate 90 mcg/actuation 1 inh INHALATION Q4H PRN #8.5 g 04/08/21 04/08/21 Rx aerosol inhaler amoxicillin 875 mg-potassium 1 tablet PO BID #20 tablet 04/08/21 04/08/21 Rx clavulanate 125 mg tablet hydroxyzine HCl 10 mg tablet See Rx Instructions PO QHS PRN #60 04/14/21 Rx tablet pantoprazole 40 mg tablet,delayed 40 mg PO QAM 56 Days #56 tablet 04/23/21 Rx release oxycodone-acetaminophen 5 mg-325 1 tablet PO Q6H PRN #20 tablet 04/24/21 Rx mg tablet Patient hx anesthesia problems: none Family hx anesthesia problems: none PMFSH Past Medical History Medical History (Updated 05/02/21 @ 19:32 by Aníbal Leal DO) Allergies Asthma Asthma 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, continuous use of opioids oxycodone Delayed surgical wound healing History of jejunostomy tube placement History of sepsis (~10/2019) perforated duodenum from surgical procedure Hx of gangrene (~07/2019) gangrenous gall bladder, ruptured GB Insomnia Irregular periods/menstrual cycles Morbid obesity (Unknown) Open wound of umbilical region (~04/27/20) Psoriatic arthritis (Unknown) Surgical History Surgical History History of cholecystectomy (~07/2019) History of tonsillectomy Family History Family History Father Thyroid disorder Sleep apnea Mother Asthma Diabetes mellitus Hypertension Cerebrovascular accident Arthritis at at 58 Sibling Diabetes mellitus Hypertension Sjogren's disease at age 38 Social History Social History Social History: Works at [employer]. Lives with her and 3 children. Smoking status: Never smoker Tobacco type: cigarettes Smoking end date: 09/27/17 Alcohol intake: current Drinks per week: 1 Gender identity (if verbalized by the patient): Female Spiritual care concerns: No Agree to blood products: Yes Exam Day of Procedure 05/02/21 19:31
[2021-05-05] VITALS (11 sets, daily range): BP systolic 104–149; BP diastolic 53–88; PULSE 77–92; RESP 10–24; TEMP 36.6–36.9; O2SAT 94–99; BMI 49.4
--- NOTE | 2021-05-05 07:25 | WPDWOUNDNOTE ---
Wound Care Note Date/Time: 05/05/21 07:25 History: This patient is a pleasant morbidly obese 30-year-old white female who has a chronic wound in the right upper quadrant that it is a draining site from a previous Malenkrodt drain after a failed cholecystectomy. The patient had surgery in [place] last year but because of major inflammation in around the gallbladder she had a partial cholecystectomy with a drainage procedure. (Drain left in the gallbladder reaminate). Subsequently she then had an ERCP which led to a common bile duct stent and an injury to the duodenum followed by pancreatitis. She continued to be followed out there until she moved back here. We were asked to help her with this wound once she moved back here. This is a site where her last drain was removed and after review of records that were recently sent I believe she had a MalenKrodt drain in place for some time. Please see the history on her original visit to the wound clinic last month for a more extensive history regarding all that happened in [place]. Wound history: Wound history: Recent history on the wound is that when she first presented here there was a 1 x 1 cm opening in the right upper quadrant at a site where she had previously had a GB drain. She was getting about 30-40 cc of brownish fluid out from this each day. She had not been trying to pack it previously. Subsequently we did a upper GI study with Gastrografin which showed no leakage from the duodenum thereby ruling out duodenal fistula. Several days later she then underwent a HIDA scan to check for possible biliary leak. This showed that the remnant of the gallbladder did fill and spontaneously empty about 1 hour after the study, but that there was no radiotracer tracing up to the skin in the area of the current wound. Therefore, I believe we have proven that she does not have a fistula related to either the gallbladder or the duodenum. Perhaps this is just a granulation lined tract from having the drain so long. Therefore, we will try to pack it with silver rope and let it heal slowly from the inside out. She had been packing it just at night and wearing a bag over the opening during the day and the drainage has decreased to about 20 cc each day as of early January. Several visits ago we asked the patient to do continuous packing with the silver rope. Also, then on the night before coming in for her appt she has placed a bag over this and taken a measurement of how much fluid comes out. She stated that this was a slightly yellowish clear fluid that came out last night. There was about 5 cc of drainage last night. She still has some upper abdominal pain periodically but she is taking Protonix 40 mg once a day before she lays down at night and that seems to help some. for about 2 weeks she tried 100 mg Tramadol with success, but then had some increase in the abdominal pain so serveral days ago I sent in another script for Hydrocodone/Acetaminophen and this has again helped her more. 03/28/2021--Patient reports that she did bag the wound last evening and got 10 cc or so of slightly reddish fluid out of opening. She has been gradually shortening the silver rope that she has been packing into the wound. Otherwise no changes. She has backed off to only 1 pain pill a day usually at bedtime. (Lortab 02/18). She has taken ibuprofen q.6 hours around the clock. 04/15/2021 --- The wound is pink and granulating well, but does not seem to want to heal in from the inside out. 05/02/2021 ---- Over the last 4 weeks the patient has not seen any significant improvement in the granulating tract that is still open in the right upper quadrant of the abdomen. She did bag it overnight prior to this visit and there was less than 10 cc of slightly grayish yellow fluid in the ostomy bag that was removed today at this visit. There been other changes. The patient still occasionally takes pain medication for abdominal pain. She reports that
--- NOTE | 2021-05-05 07:58 | PM.HPGS ---
History of Present Illness History of Present Illness Consent: Risks, benefits, and alternatives have been discussed and questions answered. Patient agrees to proceed with procedure. Chief complaint: Cholecystitis Narrative: Apolonia Bailey is a 30 year old female : This patient is a pleasant morbidly obese 30-year-old white female who has a chronic wound in the right upper quadrant that it is a draining site from a previous Malenkrodt drain after a failed cholecystectomy. The patient had surgery in [place] last year but because of major inflammation in around the gallbladder she had a partial cholecystectomy with a drainage procedure. (Drain left in the gallbladder reaminate). Subsequently she then had an ERCP which led to a common bile duct stent and an injury to the duodenum followed by pancreatitis. She continued to be followed out there until she moved back here. We were asked to help her with this wound once she moved back here. This is a site where her last drain was removed and after review of records that were recently sent I believe she had a MalenKrodt drain in place for some time. Please see the history on her original visit to the wound clinic last month for a more extensive history regarding all that happened in [place]. Wound history: Recent history on the wound is that when she first presented here there was a 1 x 1 cm opening in the right upper quadrant at a site where she had previously had a GB drain. She was getting about 30-40 cc of brownish fluid out from this each day. She had not been trying to pack it previously. Subsequently we did a upper GI study with Gastrografin which showed no leakage from the duodenum thereby ruling out duodenal fistula. Several days later she then underwent a HIDA scan to check for possible biliary leak. This showed that the remnant of the gallbladder did fill and spontaneously empty about 1 hour after the study, but that there was no radiotracer tracing up to the skin in the area of the current wound. Therefore, I believe we have proven that she does not have a fistula related to either the gallbladder or the duodenum. Perhaps this is just a granulation lined tract from having the drain so long. Therefore, we will try to pack it with silver rope and let it heal slowly from the inside out. She had been packing it just at night and wearing a bag over the opening during the day and the drainage has decreased to about 20 cc each day as of early January. Several visits ago we asked the patient to do continuous packing with the silver rope. Also, then on the night before coming in for her appt she has placed a bag over this and taken a measurement of how much fluid comes out. She stated that this was a slightly yellowish clear fluid that came out last night. There was about 5 cc of drainage last night. She still has some upper abdominal pain periodically but she is taking Protonix 40 mg once a day before she lays down at night and that seems to help some. for about 2 weeks she tried 100 mg Tramadol with success, but then had some increase in the abdominal pain so serveral days ago I sent in another script for Hydrocodone/Acetaminophen and this has again helped her more. 03/28/2021--Patient reports that she did bag the wound last evening and got 10 cc or so of slightly reddish fluid out of opening. She has been gradually shortening the silver rope that she has been packing into the wound. Otherwise no changes. She has backed off to only 1 pain pill a day usually at bedtime. (Lortab 02/18). She has taken ibuprofen q.6 hours around the clock. 04/15/2021 --- The wound is pink and granulating well, but does not seem to want to heal in from the inside out. 05/02/2021--- patient has small amount of yellowish drainage come out this when it was bag. This date she had a CT scan of the abdomen abdomen with contrast prior to and after having a fistulogram of the opening described above. This revealed a thread-like
--- NOTE | 2021-05-05 11:46 | P.PNAN_ITS ---
Anes - Eval Final PreProcedure Day of Procedure 05/05/21 11:46 Patient weight: normal Heart: regular rate and rhythm Lungs: clear to auscultation Airway: Mallampati scale class II Neurological: alert and oriented Last oral intake: >/= 8 hours ASA classification: III Emergent: no Anesthetic plan: proceed Anesthesia type and monitoring: general ETT and standard monitoring Informed Consent: The patient's anesthetic plan and its attendant risks and b enefits were discussed with the patient/family/POA. Questions were solicited and answers provided to the satisfaction of the patient/family/POA.
[2021-05-05] MEDS: ACETAMINOPHEN 500 MG TABLET 1000 MG PO (12:46)
[2021-05-05] MEDS: KETOROLAC 15 MG/ML VIAL (*BKC) IV PUSH (12:47)
[2021-05-05] MEDS: LACTATED RINGERS 1,000 ML 30 ML IV CONT ×2 (12:47→20:24)
--- NOTE | 2021-05-05 13:59 | SUR.PREOP ---
Confirmed with Dr. Uribe that the patient will receive ancef 3gm for this procedure. OK to prepare ancef 3gm.
[2021-05-05] MEDS: SCOPOLAMINE 1.5 MG PATCH TRANSDERM (14:09)
--- NOTE | 2021-05-05 14:10 | SUR.PREOP ---
patient updated on slight delay to surgery start, possibly [id number]
--- NOTE | 2021-05-05 14:18 | WPDHPUPDATE1 ---
History and Physical Update Update Date/Time: 05/05/21 14:18 History and Physical has been reviewed, including an updated exam of the patient. There are NO changes in the patient's condition. Risks, benefits, and alternatives have been discussed and questions answered. Patient agrees to proceed with procedure.
[2021-05-05] MEDS: ceFAZolin 3 GM/D5W 100 ML 100 ML IVPB (14:50)
[2021-05-05] MEDS: BUPIVACAINE/EPINEPHRINE 0.5% 50 ML VIAL (15:26)
[2021-05-05] MEDS: ceFAZolin SODIUM 1 GM VIAL IV PUSH (18:31)
--- NOTE | 2021-05-05 20:14 | W.PM.PROC2 ---
Procedure Note - Detailed Date of Procedure 05/05/21 Pre-op Diagnosis 1. Chronic Cholecystitis with cholelithiasis without obstruction 2. Chronic draining wound right upper quadrant 3. Moderate-sized umbilical hernia. Post-op Diagnosis other (Same other than 4. Extensive adhesions within the upper abdomen on the right.) Procedure Performed Laparoscopic cholecystectomy with intraoperative cholangiogram 2. Extensive lysis of adhesions greater than 1 hour (laparoscopic) 3. Excision of chronic granulating wound tract right upper quadrant. 4. Repair with sutures of moderate size umbilical hernia. Surgeon Leo Uribe MD Traffic Signal Mechanic Bettie [email or web address].OR Gis Developer (for 1st 2 hours) then Rosie GARCIA for 2nd 2 hrs. Anesthesia general Indications Please see history physical Patient has had a chronic draining sinus from an old cholecystostomy tube after she underwent a partial cholecystectomy in July 2020 when she was living in [place]. With imaging it was found that she still had a nearly normal size gallbladder and review of [facility] records showed that she also had a ERCP with sphincterotomy and a perforation of the duodenum which required subsequent GJ tube placement and multiple percutaneous drainage of abscesses. Been trying to get the chronic wound where cholecystostomy tube used to be closed over the last 4 months however this has not been successful. Studies have revealed that this may still connect her gallbladder and that there was a 3 cm stone within her gallbladder. Therefore because of continued upper abdominal pain she needs to have her gallbladder removed. She realizes that she has more than a 50 50 chance that we may have to convert to an open procedure for this operation. Findings Extensive adhesions to the anterior abdominal wall of the omentum and right side of the transverse colon along with the adhesions to the gallbladder and duodenum and the right lobe of the liver under surface. After extensive lysis of adhesions for greater than 1 hour I was able to expose the gallbladder and other than dense adhesions around it that were filmy and able to be dissected we had no further problems performing the laparoscopic cholecystectomy with intraoperative cholangiogram Intraop cholangiogram revealed what appeared to be some small bubbles of air in the common duct which passed out on the 2nd run. She was known to have pneumobilia because of a previous ERCP by her CT scan last Wednesday. Otherwise cholangiogram was unremarkable and showed a greater than 2 cm long cystic duct. Description of Procedure Procedure Details: Patient was seen preoperatively in the holding area and risks, benefits and alternatives confirmed. Patient was taken to the operating room and general anesthesia was induced. A time out was then preformed with the surgery team confirming patient and site of surgery. The abdomen was prepped and draped in the usual sterile fashion. Prior to making any incisions I used a 14 red rubber catheter to cannulate the chronic draining sinus in the right upper quadrant of the abdomen inserting this about 7 cm and then suturing it to the skin with a 2-0 silk suture. Incision was made and a fairly long transverse one just below the umbilicus. She had an obvious fairly large umbilical hernia and so I carefully dissected out the hernia sac down to the fascial defect which was circular and about 3 cm in diameter. As I dissected the skin of the umbilicus off the umbilical hernia sac I ran into a chronic skin wound there that I thought had been healed but was still granulating in . This led to an approximately 2 cm long by 1 cm wide defect in the skin of the umbilicus. At the end of surgery all the granulation tissue in this area was excised and this was run closed with a 4-0 Monocryl suture. Once the hernia sac was well dissected out, I amputated it and some omentum at its base and expose the fascial defect. Then stay sutures of 0 Vicryl were placed on either
[2021-05-05] MEDS: diphenhydrAMINE HCl INJ 50 MG/ML VIAL 12.5 MG IV PUSH ×2 (20:34→20:46)
[2021-05-05] MEDS: fentaNYL CITRATE INJ (*CRX) 100 MCG/2 ML VIAL 25 MCG IV PUSH ×3 (21:16→22:09)
[2021-05-05] MEDS: ONDANSETRON INJ 4 MG/2 ML VIAL IV PUSH (22:07)
[2021-05-05] MEDS: MORPHINE SULFATE (*CRX) 4 MG/ML INJ IV PUSH (23:18)
[2021-05-05] MEDS: ceFAZolin 2 GM/D5W 50 ML 2 GM/50 ML BAG IVPB (23:27)
[2021-05-05] MEDS: LACTATED RINGERS 1,000 ML 100 ML IV CONT (23:27)
[2021-05-06] VITALS (9 sets, daily range): BP systolic 93–129; BP diastolic 50–69; PULSE 85–104; RESP 16–20; TEMP 36.3–37.3; O2SAT 95–99
--- NOTE | ~2021-05-06 | XR_ITS ---
EXAMINATION: XR cholangiogram surg 1st inj DATE: 05/05/2021 18:17 INDICATION: Intraoperative evaluation during laparoscopic cholecystectomy TECHNIQUE: Multiple fluoroscopic images of the right upper quadrant were obtained during intraoperati ve cholangiography. A total of 273 fluoroscopic images were obtained. The amount of fluoroscopy time used during this procedure was 0.8 minutes. Total DAP was 1.17 mGycm^2 COMPARISON: CT dated 05/02/2021 FINDINGS: Cannulation of the cystic duct demonstrates filling of a normal caliber common bile duct. T here are a few lucent filling defects in the distal duct on the initial run of images which are too c hange in size and configuration during the course of the injection most consistent with gas bubbles a nd with corresponding pneumobilia evident on the prior CT. Contrast extends into the duodenum and kami tral intrahepatic biliary tree which appear normal. 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 No evident bile leak. IMPRESSION: 1. Small lucent filling defects in the distal common bile duct which change in size and configuration of the course of the injection consistent with previously seen pneumobilia. Reviewed, dictated and finalized at location A. IMPRESSION: 1. Small lucent filling defects in the distal common bile duct which change in size and configuration of the course of the injection consistent with previousl y seen pneumobilia.
--- NOTE | ~2021-05-06 | XR_ITS ---
EXAMINATION: XR chest 2V DATE: 05/07/2021 16:14 INDICATION: Postoperative fever TECHNIQUE: AP and lateral views of the chest are obtained. COMPARISON: None available FINDINGS: There are minimal opacities of the lung bases. There is no pleural effusion or pneumothorax . The cardiomediastinal silhouette is normal. The visualized bones and soft tissues are unremarkable. IMPRESSION: 1. Minimal opacities of the lung bases, likely atelectasis. Reviewed, dictated and finalized at location B.
[2021-05-06] MEDS: MORPHINE SULFATE (*CRX) 4 MG/ML INJ IV PUSH ×5 (02:15→17:45)
[2021-05-06] MEDS: ceFAZolin 2 GM/D5W 50 ML 2 GM/50 ML BAG IVPB ×3 (05:36→20:55)
[2021-05-06 06:22] LABS: Alanine Aminotransferase 12 U/L (4-35); Albumin Level 3.4 g/dL (3.5-5.1); Alkaline Phosphatase 83 U/L (38-126); Anion Gap 9 mmol/L (8-16); Aspartate Amino Transferase 20 U/L (14-36); Bilirubin,Total 0.4 mg/dL (0.2-1.3); Blood Urea Nitrogen 10 mg/dL (7-17); Calcium 8.5 mg/dL (8.4-10.2); Carbon Dioxide 22 mmol/L (22-30); Chloride 103 mmol/L (98-107); Estimated CRCL calculation 154 ml/min; Estimated Glomerular Filt Rate > 60; Glucose 110 mg/dL (65-110); Hematocrit 33.8 % (37.0-47.0); Hemoglobin 10.9 g/dL (12.0-15.0); Mean Corpuscular HGB Conc 32.2 g/dl (32-36); Mean Corpuscular Hemoglobin 27.3 pg (26-34); Mean Corpuscular Volume 84.7 fl (80-100); Mean Platelet Volume 9.3 fl (7.4-10.4); Platelet Count Result 209 k/mm3 (150-375); Potassium 4.1 mmol/L (3.4-5.0); Red Blood Count 3.99 M/mm3 (4.2-5.4); Red Cell Distribution Width 13.4 % (11.5-14.5); Sodium 134 mmol/L (137-145); White Blood Count 13.5 K/mm3 (4.5-10.0)
--- NOTE | 2021-05-06 07:51 | ADMGEN ---
This patient, Apolonia Bailey, was admitted to [facility] Surg Room 319-01. Patient/family oriented to hospital policies and general routines including ID bracelet, bed and alarms, visiting hours, pain management, procedures, bathroom and other care routines, personal items, smoking policy, room service/diet, and visiting hours. Information on how to activate the Rapid Response Team has been discussed. Patient/Family are encouraged to report perceived risks to care and to ask questions if they do not understand what they are told or what they should do. Patient's VS were stable on arrival though she was very sleepy/sedated and had a poor attention span. After allowing her to rest for 1 hour I was able to ask her admission questions. She stated that her pain was 7-9 through the shift and she appeared to be resting quietly for approximately 1-2 hours between doses of morphine.
[2021-05-06] MEDS: HYDROcodone/acetaminophen (*CRX) 7.5-325 MG TABLET 1 TAB PO ×2 (09:40→16:27)
[2021-05-06] MEDS: GABAPENTIN 300 MG CAPSULE PO ×3 (09:58→18:07)
[2021-05-06] MEDS: ENOXAPARIN 40 MG/0.4 ML SYRINGE SUB-Q (09:59)
--- NOTE | 2021-05-06 14:51 | WPDANESPN ---
Anes - Prog Note Post-Op Date/Time: 05/06/21 14:51 Cardiovascular status: normal Respiratory status: normal Airway patency: baseline Mental status: baseline Post-Op hydration status: normal Vital Signs: Last Vital Signs Temp 36.3 C L 05/06/21 12:05 Pulse 91 05/06/21 12:05 Resp 20 05/06/21 12:05 BP 119/64 05/06/21 12:05 Pulse Ox 96 05/06/21 12:05 Pain Score (VAS): 3 I/O: Intake & Output 05/05/21 05/06/21 05/06/21 23:59 07:59 15:59 Intake Total 1450 750 460 Output Total 250 1945 Balance 1200 -1195 460 Laboratory Tests 05/06/21 05:48 05/06/21 05:48 05/06/21 05/06/21 05:48 05:48 WBC 13.5 H RBC 3.99 L Hgb 10.9 L Hct 33.8 L MCV 84.7 MCH 27.3 MCHC 32.2 RDW 13.4 Plt Count 209 MPV 9.3 Sodium 134 L Potassium 4.1 Chloride 103 Carbon Dioxide 22 Anion Gap 9 BUN 10 Creatinine 0.60 L Estim Creat Clear Calc 154 Estimated GFR > 60 Glucose 110 Calcium 8.5 Total Bilirubin 0.4 AST 20 ALT 12 Alkaline Phosphatase 83 Total Protein 6.0 L Albumin 3.4 L Post-procedural complaints: none Patient Feedback: Patient satisfied with anesthetic care.
[2021-05-06] MEDS: IBUPROFEN IV 600 MG in SODIUM CHLORIDE 0.9% IV 100 ML 200 MG IVPB (17:59)
[2021-05-06] MEDS: HYDROcodone/acetaminophen (*CRX) 10-325 MG TABLET 1 TAB PO (20:55)
--- NOTE | 2021-05-06 21:26 | PM.PNGS ---
Progress Note: A&P Assessment and Plan (1) Cholecystitis: Onset Date: ~10/2019 Code(s): K81.9 - Cholecystitis, unspecified Status: Acute Assessment and Plan: I have been working with the nurse all day to try to control the patient's pain. The plan is to go to alternating ibuprofen hydrocodone 10/325 to try to get the patient to stop using IV pain medication. Will shoot to try to discharge lunch. Strongly encouraged the patient to get walk hour after she has taken of the 2 above medicines. We have also talked using abdominal binder because of the pressure she feels near the umbilicus to see if that will help with support. (2) Chronic narcotic use: Code(s): F11.90 - Opioid use, unspecified, uncomplicated Status: Acute Assessment and Plan: I have discussed with the patient plan to increase her to 10/325 [place] will be more pull it to Percocet she was taking in prior to the surgery and alternating that 600 mg of ibuprofen so that she can take something every 3 hours for pain. Patient's nurse expressed concern to me that she sees the patient feeling fairly comfortable but still asking for pain medicine. This is often behavior known for patients with chronic use of narcotics. Try to work the patient now to get her over surgical pain and then consider referral to a pain management group for weaning from the narcotics. (3) Abdominal pain: Onset Date: ~01/2021 Code(s): R10.9 - Unspecified abdominal pain Status: Acute Assessment and Plan: secondary to surgical discomfort. (4) GERD without esophagitis: Onset Date: Unknown Code(s): K21.9 - Gastro-esophageal reflux disease without esophagitis Status: Acute Assessment and Plan: will resume p.o. Protonix and do twice a day for a while. (5) History of major abdominal surgery: Onset Date: ~10/2019 Code(s): Z98.890 - Other specified postprocedural states Status: Acute Assessment and Plan: See H and P. Patient very difficult or again last fall when she presented with acute cholecystitis and procedures including a partial cholecystectomy. (6) Morbid obesity: Onset Date: Unknown Code(s): E66.01 - Morbid (severe) obesity due to excess calories Status: Acute (7) Psoriatic arthritis: Onset Date: Unknown Code(s): L40.50 - Arthropathic psoriasis, unspecified Status: Acute Assessment and Plan: When she presented with her original disease in organ she was on a immunosuppressive for her psoriatic arthritis. At this time she is this has not been since started seeing in September 2020. (8) Incarcerated umbilical hernia: Code(s): K42.0 - Umbilical hernia with obstruction, without gangrene Status: Acute Assessment and Plan: This was repaired with sutures at the time of closure from the surgery 05/05. There was omentum incarcerated within hernia sac. Because of the size of this and may be contributing to patient's pain issues. Will her start trying to wear abdominal binder when she gets up and around and increase her pain medication. Subjective Subjective Date/Time Seen: 05/06/21 21:26 Post Op day: 1 (Covering slowly status post difficult laparoscopic cholecystectomy with repair of umbilical hernia.) Patient reports: still having pain Interval history: tolerating a low-fat diet. The nausea has passed which was the main reason for keeping overnight. However, new has a Marcial which is a intolerance to pain and requirement for high-dose narcotics. Patient has a history using chronic narcotics due to her long-term wounds and history difficult surgery last year in [place]. She also has morbid obesity. Patient's nurse reports she has been trying to get her to get out of but this is been very difficult patient keeps saying that her pain is 8/10 whenever she tries to move. Review of Systems Constitutional: Constitutional:
[2021-05-06] MEDS: IBUPROFEN 600 MG TABLET PO (23:25)
[2021-05-06] MEDS: PANTOPRAZOLE 40 MG TABLET PO (23:26)
[2021-05-07] MEDS: IBUPROFEN 600 MG TABLET PO ×3 (05:08→17:45)
[2021-05-07 06:00] VITALS: BP 104/62; PULSE 102; RESP 18; TEMP 37.8; O2SAT 95
[2021-05-07] MEDS: HYDROcodone/acetaminophen (*CRX) 10-325 MG TABLET 1 TAB PO ×3 (06:04→14:57)
[2021-05-07 06:35] LABS: Basophils Percent Auto 0.3 % (0.2-1.2); Eosinophils Absolute Auto 0.1 K/mm3 (0-0.3); Eosinophils Percent Auto 0.9 % (0-4.4); Hematocrit 31.2 % (37.0-47.0); Hemoglobin 9.8 g/dL (12.0-15.0); Immature Granulocyte Absolute 0.05 K/mm3 (0.00-0.031); Immature Granulocyte Percent A 0.5 % (0-0.5); Lymphocytes Absolute Auto 1.45 K/mm3 (0.9-3.2); Lymphocytes Percent Auto 14.3 % (18.3-44.2); Mean Corpuscular HGB Conc 31.4 g/dl (32-36); Mean Corpuscular Hemoglobin 27.2 pg (26-34); Mean Corpuscular Volume 86.7 fl (80-100); Monocytes Absolute Auto 0.8 K/mm3 (0.1-0.6); Monocytes Percent Auto 8.1 % (2.6-8.5); Neutrophils Absolute Auto 7.7 K/mm3 (1.3-6.7); Neutrophils Percent Auto 75.9 % (45.5-73.1); Platelet Count Result 172 k/mm3 (150-375); White Blood Count 10.1 K/mm3 (4.5-10.0)
[2021-05-07 06:47] LABS: Alanine Aminotransferase 7 U/L (4-35); Albumin Level 3.1 g/dL (3.5-5.1); Alkaline Phosphatase 76 U/L (38-126); Anion Gap 8 mmol/L (8-16); Aspartate Amino Transferase 13 U/L (14-36); Bilirubin,Total 0.3 mg/dL (0.2-1.3); Blood Urea Nitrogen 6 mg/dL (7-17); Calcium 8.3 mg/dL (8.4-10.2); Carbon Dioxide 24 mmol/L (22-30); Chloride 102 mmol/L (98-107); Estimated CRCL calculation 154 ml/min; Estimated Glomerular Filt Rate > 60; Glucose 95 mg/dL (65-110); Potassium 3.7 mmol/L (3.4-5.0); Sodium 134 mmol/L (137-145)
[2021-05-07 08:10] VITALS: TEMP 36.8
[2021-05-07] MEDS: ENOXAPARIN 40 MG/0.4 ML SYRINGE SUB-Q (08:35)
[2021-05-07] MEDS: PANTOPRAZOLE 40 MG TABLET PO (08:36)
[2021-05-07] MEDS: GABAPENTIN 300 MG CAPSULE PO ×3 (08:36→17:39)
[2021-05-07 12:08] VITALS: O2SAT 95
[2021-05-07 14:00] VITALS: BP 118/63; PULSE 117; RESP 16; TEMP 38.3; O2SAT 97
--- NOTE | 2021-05-07 14:16 | PM.DS ---
DS: Admitting Diagnosis Admitting Diagnosis 1. chronic cholecystitis with cholelithiasis 2. abdominal pain 3. chronic right upper quadrant wound (status post cholecystostomy tube placement 2019). DS: Discharge Diagnosis Discharge Diagnosis (1) Cholecystitis: Onset Date: ~10/2019 Code(s): K81.9 - Cholecystitis, unspecified Status: Acute Assessment and Plan: patient had a difficult laparoscopic cholecystectomy and was very nauseated after the procedure requiring admission. Subsequently she had difficulty getting off narcotics because of her long history of narcotic use since her abdominal surgery in [place] in 2019. (2) Abdominal pain: Onset Date: ~01/2021 Code(s): R10.9 - Unspecified abdominal pain Status: Acute Assessment and Plan: I believe this was a combination of her chronic right upper quadrant wound and chronic cholecystitis. (3) Chronic narcotic use: Onset Date: ~2019 Code(s): F11.90 - Opioid use, unspecified, uncomplicated Status: Acute Assessment and Plan: Patient has been taking Percocet 5/325 periodically at home sometimes 3 times a day sometimes just once at night before she goes to bed. This been ongoing since she had her difficult show cholecystectomy and multiple drainage procedures in [place] last year. (4) Incarcerated umbilical hernia: Onset Date: ~2019 Code(s): K42.0 - Umbilical hernia with obstruction, without gangrene Status: Acute Assessment and Plan: I suspect this was actually a ventral incisional hernia at the umbilicus at the site where she had the incision to enter abdomen for her previously failed laparoscopic cholecystectomy. Of note she did have a granulating vertical approximately 1.5 cm wound in the umbilicus from that previous surgery was never healed most likely because of poor circulation due to the herniation. (5) History of major abdominal surgery: Onset Date: ~10/2019 Code(s): Z98.890 - Other specified postprocedural states Status: Acute Assessment and Plan: When she lives on the [facility] she developed acute cholecystitis while she was on immunosuppressive for her psoriatic arthritis. I suspect from reviewing the old records that she had delayed presentation and then a very difficult hospital course and surgery to try to remove her gallbladder. She states that they removed almost 3/4 of her gallbladder however on imaging here and also at the time of surgery she has almost a normal gallbladder size now. (6) Open abdominal wall wound: Onset Date: ~10/2019 Qualifiers: Encounter type: subsequent encounter Qualified Code(s): S31.109D - Unspecified open wound of abdominal wall, unspecified quadrant without penetration into peritoneal cavity, subsequent encounter Code(s): S31.109A - Unspecified open wound of abdominal wall, unspecified quadrant without penetration into peritoneal cavity, initial encounter Status: Acute Assessment and Plan: From review of the old records from the [facility] surgery last year I believe this was the site where a cholecystostomy tube was eventually removed and it never granulated in. CT scan and fistulogram done at this wound site 3 days before the current surgery in planning for my surgery showed a very here like tract from the base of the wound going to the gallbladder with small opacification of the gallbladder at the very end of the injection. Therefore this confirms that this was most likely her tract from her cholecystostomy tube drain. Also the reason why it continued to drain and not heal. (7) Morbid obesity: Onset Date: Unknown Code(s): E66.01 - Morbid (severe) obesity due to excess calories Status: Acute Assessment and Plan: With the weight this time when she came into the hospital she has almost super [place] morbid of the city therefore I have discussed with her contin
[2021-05-07 17:13] LABS: Add Urine Microscopic? YES; Appearance Urine Cloudy (Clear); Bacteria Urine Trace /hpf; Bilirubin Urine Negative (Negative); Blood Urine 1+ (Negative); Color Urine Yellow (Yellow); Glucose Urine UA Negative (Negative); Ketones Urine Negative (Negative); Leukocyte Esterase Ur 3+ LEU/UL (Negative); Mucus Urine Rare /lpf; Nitrate Urine Negative (Negative); Protein Urine 1+ mg/dL (Negative); Specific Grav Ur 1.014 (1.001-1.035); Squamous Epithelial Cell Urine Rare /hpf (Few); Urobilinogen Urine Negative mg/dL (<2.0); WBC Urine 31-50 /hpf
== END 2021-05-07 19:40 | disposition home or self-care (01) ==
LOC: ANHSURGERY 19:17 → ANH3MEDSUR 19:17
PROVIDERS: Admitting Provider Surgery; PCP Family Medicine; Visit Provider Surgery
PROC: 0FT44ZZ Resection of Gallbladder, Percutaneous Endoscopic Approach (ICD-10-PCS; CPT 47562; principal; 2021-05-05 14:00)
DX: K80.10 Calculus of gallbladder with chronic cholecystitis without obstruction (principal); K42.0 Umbilical hernia with obstruction, without gangrene; K66.0 Peritoneal adhesions (postprocedural) (postinfection); S31.109A Unspecified open wound of abdominal wall, unspecified quadrant without penetration into peritoneal cavity, initial encounter; R50.9 Fever, unspecified; R11.0 Nausea; R10.9 Unspecified abdominal pain; J45.909 Unspecified asthma, uncomplicated; K21.9 Gastro-esophageal reflux disease without esophagitis; L40.50 Arthropathic psoriasis, unspecified; Z98.890 Other specified postprocedural states; Z79.51 Long term (current) use of inhaled steroids; E66.01 Morbid (severe) obesity due to excess calories; Z68.42 Body mass index [BMI] 45.0-49.9, adult; Z79.891 Long term (current) use of opiate analgesic
CPT/HCPCS: 47563; 36415; 71046; 74300; 80053; 81001; 85025; 85027; 87086; 87088; 88302; 88304; A9270; C1713; G0378; G0379; J0131; J0690; J1100; J1170; J1200; J1650; J1741; J1885; J2250; J2270; J2405; J2704; J2710; J3010; J7030; J7120; Q9966

== ENCOUNTER 2021-06-10 07:30 | Outpatient (RCR) | payer OTHER, SELFPAY ==
[2021-03-06 00:08] VITALS: BMI 47.0
--- NOTE | 2021-03-14 11:58 | WPDWOUNDNOTE ---
Wound Care Note Date/Time: 03/14/21 11:58 History: This patient is a pleasant morbidly obese 30-year-old white female who has a chronic wound in the right upper quadrant that it is a draining site from a previous MalenKrodt drain after a failed cholecystectomy. The patient had surgery in [place] last year but because of major inflammation in around the gallbladder she had a partial cholecystectomy with a drainage procedure. (Drain left in the gallbladder reaminate). Subsequently she then had an ERCP which led to a common bile duct stent and an injury to the duodenum followed by pancreatitis. She continued to be followed out there until she moved back here. We were asked to help her with this wound once she moved back here. This is a site where her last drain was removed and after review of records that were recently sent I believe she had a MalenKrodt drain in place for some time. Please see the history on her original visit to the wound clinic last month for a more extensive history regarding all that happened in [place]. . Wound history: Wound history: Wound history: Recent history on the wound is that when she first presented here there was a 1 x 1 cm opening in the right upper quadrant at a site where she had previously had a GB drain. She was getting about 30-40 cc of brownish fluid out from this each day. She had not been trying to pack it previously. Subsequently we did a upper GI study with Gastrografin which showed no leakage from the duodenum thereby ruling out duodenal fistula. Several days later she then underwent a HIDA scan to check for possible biliary leak. This showed that the remnant of the gallbladder did fill and spontaneously empty about 1 hour after the study, but that there was no radiotracer tracing up to the skin in the area of the current wound. Therefore, I believe we have proven that she does not have a fistula related to either the gallbladder or the duodenum. Perhaps this is just a granulation lined tract from having the drain so long. Therefore, we will try to pack it with silver rope and let it heal slowly from the inside out. She had been packing it just at night and wearing a bag over the opening during the day and the drainage has decreased to about 20 cc each day. Several visits ago we asked the patient to do continuous packing with the silver rope. Also, then two of the nights over each week she has placed a bag over this and taken the packing out for about 12 hours. These 2 time she had 20 and 22 cc come out into the bag before her most recent visit. She stated that this was a clearish yellow fluid. She still has some upper abdominal pain periodically but she is taking Protonix 40 mg once a day before she lays down at night and that seems to help some. Between the last visit and the previous, she had 1 ER visit where she noticed increasing abdominal pain. A CT scan of the abdomen pelvis was done which showed some inflammatory change along the tract of the wound in the right upper quadrant which did track down toward the gallbladder but there was no obvious connection to the gallbladder. This also showed a small umbilical hernia without bowel in it. The CT did read that there was a gallstone in the remaining gallbladder which at least on this study they seemed indicate was almost a normal sized gallbladder. There was no surrounding inflammation or around the gallbladder itself. There were no intra-abdominal abscesses. The patient did put a bag on the wound last night overnight and had really no fluid come into the bag . Wound width: 0.5 cm Wound length: 0.5 cm Wound depth: 10 cm Drainage: minimal Surrounding tissue appearance: normal skin Tunneling: just the depth noted above. Percentage granulation tissue: 100% Treatment/Procedures: continued packing with a strip of silver rope. Over the next 2 weeks she will gradually put less and less and see if this will seal in. Dressings: Silver rope fol
--- NOTE | 2021-03-28 15:28 | WPDWOUNDNOTE ---
Wound Care Note Date/Time: 03/28/21 15:28 History: This patient is a pleasant morbidly obese 30-year-old white female who has a chronic wound in the right upper quadrant that it is a draining site from a previous Malenkrodt drain after a failed cholecystectomy. The patient had surgery in [place] last year but because of major inflammation in around the gallbladder she had a partial cholecystectomy with a drainage procedure. (Drain left in the gallbladder reaminate). Subsequently she then had an ERCP which led to a common bile duct stent and an injury to the duodenum followed by pancreatitis. She continued to be followed out there until she moved back here. We were asked to help her with this wound once she moved back here. This is a site where her last drain was removed and after review of records that were recently sent I believe she had a MalenKrodt drain in place for some time. Please see the history on her original visit to the wound clinic last month for a more extensive history regarding all that happened in [place]. Wound history: Recent history on the wound is that when she first presented here there was a 1 x 1 cm opening in the right upper quadrant at a site where she had previously had a GB drain. She was getting about 30-40 cc of brownish fluid out from this each day. She had not been trying to pack it previously. Subsequently we did a upper GI study with Gastrografin which showed no leakage from the duodenum thereby ruling out duodenal fistula. Several days later she then underwent a HIDA scan to check for possible biliary leak. This showed that the remnant of the gallbladder did fill and spontaneously empty about 1 hour after the study, but that there was no radiotracer tracing up to the skin in the area of the current wound. Therefore, I believe we have proven that she does not have a fistula related to either the gallbladder or the duodenum. Perhaps this is just a granulation lined tract from having the drain so long. Therefore, we will try to pack it with silver rope and let it heal slowly from the inside out. She had been packing it just at night and wearing a bag over the opening during the day and the drainage has decreased to about 20 cc each day as of early January.. Several visits ago we asked the patient to do continuous packing with the silver rope. Also, then on the night before coming in for her appt she has placed a bag over this and taken a measurement of how much fluid comes out. She stated that this was a slighly reddish fluid that came out last night. She still has some upper abdominal pain periodically but she is taking Protonix 40 mg once a day before she lays down at night and that seems to help some. 03/28/2021--Patient reports that she did bag the wound last evening and got 10 cc or so of slightly reddish fluid out of opening. She has been gradually shortening the silver rope that she has been packing into the wound. Otherwise no changes. She has backed off to only 1 pain pill a day usually at bedtime. (Lortab 02/18). She has taken ibuprofen q.6 hours around the clock. Wound approximation: No Wound width: 1 cm Wound length: 1 cm Wound depth: 8 cm Drainage: reddish clear Surrounding tissue appearance: normal Tunneling: yes --- to the depth noted above. Percentage granulation tissue: 100 % Treatment/Procedures: I used approximately 3 silver nitrates sticks to cauterized the inner lining of this tract. Dressings: An approximate 7 cm length of quarter-inch wide silver rope was placed into the wound has packing and then it was covered with 2 x 2, 4 x 4 and tape Assessment and Plan Assessment and plan (1) Open abdominal wall wound: Onset Date: ~10/2019 Qualifiers: Encounter type: subsequent encounter Qualified Code(s): S31.109D - Unspecified open wound of abdominal wall, unspecified quadrant without penetration into peritoneal cavity, subsequent encounter Code(s): S31.109A - Unspec
--- NOTE | 2021-04-15 19:34 | WPDWOUNDNOTE ---
Wound Care Note Date/Time: 04/15/21 19:34 History: This patient is a pleasant morbidly obese 30-year-old white female who has a chronic wound in the right upper quadrant that it is a draining site from a previous Malenkrodt drain after a failed cholecystectomy. The patient had surgery in [place] last year but because of major inflammation in around the gallbladder she had a partial cholecystectomy with a drainage procedure. (Drain left in the gallbladder reaminate). Subsequently she then had an ERCP which led to a common bile duct stent and an injury to the duodenum followed by pancreatitis. She continued to be followed out there until she moved back here. We were asked to help her with this wound once she moved back here. This is a site where her last drain was removed and after review of records that were recently sent I believe she had a MalenKrodt drain in place for some time. Please see the history on her original visit to the wound clinic last month for a more extensive history regarding all that happened in [place]. Wound history: Wound history: Recent history on the wound is that when she first presented here there was a 1 x 1 cm opening in the right upper quadrant at a site where she had previously had a GB drain. She was getting about 30-40 cc of brownish fluid out from this each day. She had not been trying to pack it previously. Subsequently we did a upper GI study with Gastrografin which showed no leakage from the duodenum thereby ruling out duodenal fistula. Several days later she then underwent a HIDA scan to check for possible biliary leak. This showed that the remnant of the gallbladder did fill and spontaneously empty about 1 hour after the study, but that there was no radiotracer tracing up to the skin in the area of the current wound. Therefore, I believe we have proven that she does not have a fistula related to either the gallbladder or the duodenum. Perhaps this is just a granulation lined tract from having the drain so long. Therefore, we will try to pack it with silver rope and let it heal slowly from the inside out. She had been packing it just at night and wearing a bag over the opening during the day and the drainage has decreased to about 20 cc each day as of early January. Several visits ago we asked the patient to do continuous packing with the silver rope. Also, then on the night before coming in for her appt she has placed a bag over this and taken a measurement of how much fluid comes out. She stated that this was a slightly yellowish clear fluid that came out last night. There was about 5 cc of drainage last night. She still has some upper abdominal pain periodically but she is taking Protonix 40 mg once a day before she lays down at night and that seems to help some. for about 2 weeks she tried 100 mg Tramadol with success, but then had some increase in the abdominal pain so serveral days ago I sent in another script for Hydrocodone/Acetaminophen and this has again helped her more. 03/28/2021--Patient reports that she did bag the wound last evening and got 10 cc or so of slightly reddish fluid out of opening. She has been gradually shortening the silver rope that she has been packing into the wound. Otherwise no changes. She has backed off to only 1 pain pill a day usually at bedtime. (Lortab 02/18). She has taken ibuprofen q.6 hours around the clock. 04/15/2021 --- The wound is pink and granulating well, but does not seem to want to heal in from the inside out. Wound approximation: No Wound width: 0.5 cm Wound length: 0.5 cm Wound depth: 7 - 8 cm Drainage: clear yellow Surrounding tissue appearance: normal slightly irritated skin. Tunneling: no Percentage granulation tissue: 100 % Treatment/Procedures: I used AgNo3 to again cauterize the ruiz of the tract at the 6 and 4 cm levels today. WE then packed it again with silver rope and covered it with gauze. Dressings: It was packed again with silver rope and cov
--- NOTE | 2021-05-27 13:09 | WPDWOUNDNOTE ---
Wound Care Note Date/Time: 05/27/21 13:09 History: Apolonia is a morbidly obese 30-year-old female who had a chronic wound in the right upper quadrant that it is a draining site from a previous drain after a failed cholecystectomy. The patient had surgery in [place] last year but because of major inflammation in and around the gallbladder she had a partial cholecystectomy with a drainage procedure. (Drain left in the gallbladder reaminate). Subsequently she then had an ERCP which led to a common bile duct stent and an injury to the duodenum followed by pancreatitis. She continued to be followed out there until she moved back here late last year. We were asked to help her with this wound once she moved to [place]. This is a site where her last drain was removed and after review of records that were sent, it appears she had that drain in place for some time. Please see the history on her original visit to the wound clinic for a more extensive history from her care in [place]. She also holds the diagnosis of psoriatic arthritis and was previously treated with Humira and Tremfya for this. She was off all medications prior to surgery. She has seen Rheumatology 1 week ago, who is keeping her off all biologics, and decided to start her on Otezla. She does reports arthralgias and takes Ibuprofen during the day to help with this pain currently. She will follow-up again with Rheumatology in 3 months. Wound history: Patient underwent a a laparoscopic cholecystectomy with IOC and extensive lysis and adhesions greater than 1 hour, excision of chronic granulating wound tract right upper quadrant, and repair with sutures of moderate size umbilical hernia on 05/05/21. Pathology showed a hernia sac with omentum and chronic cholecystitis with cholelithiasis and one benign reactive lymph node. Patient reports she continues to improve post-operatively. She was transitioned from [place] to Tramadol for pain control, and has only been taking one Tramadol at night for comfort and Ibuprofen throughout the day. This has controlled her pain well. She does not feel that Tylenol helps with her pain. She reports having RUQ pain near the incisions and open wound, but this has improved over the past two weeks. She is tolerating a low fat diet without any issues. She reports having some nausea after taking her Otezla in the morning and at night, but this improves if the medication is taken with food or if she eats quickly after. No vomiting. Bowels are moving normally. She has been packing the RUQ wound with silver Ag rope and the umbilical wound with iodoform gauze, then covering with ABDs. She reports only having to change these ABD dressings once daily, and there is only scant bloody drainage from the RUQ wound. The umbilical wound does have some serosanguineous drainage that is saturated on most of the dressing, but the drainage seems to be decreasing since surgery. Showering daily still. No fever or chills. No other complaints at this time. She presents in the wound clinic today for wound check and post-op evaluation. Wound approximation: No Wound width: RUQ: Umbilical: Wound length: RUQ: Umbilical: Wound depth: RUQ: Umbilical: Drainage: RUQ: no significant drainage noted Umbilical: serosanguineous drainage Surrounding tissue appearance: RUQ: some mild superficial red irritation of the skin superior to the open wound, no signs of infection/cellulitis, skin intact Umbilical: inferior to the umbilical wound is superficial maceration and irritation of the skin with a small open area that has healthy granulation tissue forming All other incisions, and the site where previous MANPREET drain was removed, are healing well with small scab overlying the incision where the MANPREET drain was located. Percentage granulation tissue: RUQ: 100% Umbilical: 100% Treatment/Procedures: Dressings changed and wounds evaluated. Dressings: RUQ wound: pack with silver Ag rope, apply antifungal powder to skin irritation around woun
--- NOTE | 2021-06-10 16:59 | WPDWOUNDNOTE ---
Wound Care Note Date/Time: 06/10/21 11:59 History: Apolonia is a morbidly obese 30-year-old female who had a chronic wound in the right upper quadrant that it is a draining site from a previous drain after a partial cholecystectomy with placement of a cholecystostomy tube in or again during 2019. The patient had surgery in [place] last year but because of major inflammation in and around the gallbladder she had a partial cholecystectomy with a drainage procedure. (Drain left in the gallbladder reaminate). Subsequently she then had an ERCP which led to a common bile duct stent and an injury to the duodenum followed by pancreatitis. She continued to be followed out there until she moved back here late last year. We were asked to help her with this wound once she moved to [place]. This is a site where her last drain was removed and after review of records that were sent, it appears she had that drain in place for some time. Please see the history on her original visit to the wound clinic for a more extensive history from her care in [place]. She also holds the diagnosis of psoriatic arthritis and was previously treated with Humira and Tremfya for this. She was off all medications prior to her recent surgery. She has now seen Rheumatology 3 weeks ago, and is keeping her off all biologics, and decided to start her on Otezla. She does report arthralgias and takes Ibuprofen during the day to help with this pain currently. She will follow-up again with Rheumatology in 3 months. Wound history: Wound history: Patient underwent a a laparoscopic cholecystectomy with IOC and extensive lysis and adhesions greater than 1 hour, excision of chronic granulating wound tract right upper quadrant, and repair with sutures of a moderate size umbilical hernia on 05/05/21. Pathology showed a hernia sac with omentum and chronic cholecystitis with cholelithiasis and one benign reactive lymph node. Patient reports she continues to improve post-operatively. She was transitioned from [place] to Tramadol for pain control, and has only been taking one Tramadol at night for comfort and Ibuprofen throughout the day. This has controlled her pain well. She does not feel that Tylenol helps with her pain. She reports having RUQ pain near the incisions and open wound, but this has improved. She is tolerating a low fat diet without any issues. She reports having some nausea after taking her Otezla in the morning and at night, but this improves if the medication is taken with food or if she eats quickly after. No vomiting. Bowels are moving normally. She has been packing the RUQ wound with silver Ag rope and the umbilical wound with iodoform gauze, then covering with ABDs. She reports only having to change these ABD dressings once daily, and there is only scant bloody drainage from the RUQ wound. The umbilical wound does have some now serous drainage that is saturated on most of the dressing, but the drainage seems to be decreasing since surgery. Showering daily still. No fever or chills. No other complaints at this time. She presents in the wound clinic today for wound check and post-op evaluation. Wound approximation: No Wound width: Right upper quadrant: 0.6 cm Umbilical: 0.5 cm Wound length: Right upper quadrant: 0.5 cm Umbilical: 0.5 cm Wound depth: Right upper quadrant: 2.5 cm Umbilical: 4 cm Drainage: Right upper quadrant: Serosanguineous Umbilical: Serous Surrounding tissue appearance: patient has dry crusty use slightly reddish patches around each of the openings at the 2 sites listed above. She wonders if this may be some element of her psoriasis coming back however she has started Ozempic based on recommendations from a new market research senior project manager she is seen at [place]. Tunneling: None Percentage granulation tissue: 100% Treatment/Procedures: continue packing was silver rope at the right upper quadrant site Continue packing with a single strand of plain Nu Gauze followed by
== END 2021-06-12 23:59 | disposition home or self-care (01) ==
LOC: ANHWOC 07:30
PROVIDERS: PCP Family Medicine; Referring Provider Nurse Practitioner Family; Visit Provider Surgery
DX: T81.31XD Disruption of external operation (surgical) wound, not elsewhere classified, subsequent encounter (principal)
CPT/HCPCS: 99212; 99213; A9270; G0463

== ENCOUNTER 2021-07-07 10:53 | Emergency (ER) | payer OTHER, SELFPAY ==
--- NOTE | ~2021-07-07 | XR_ITS ---
EXAMINATION: XR chest 2V DATE: 07/07/2021 11:08 INDICATION: Cough and upper back pain. TECHNIQUE: PA and lateral views of the chest were obtained. COMPARISON: Chest radiograph dated 05/07/2021 FINDINGS: Persistent mild opacities at the bilateral lung bases with blunting at the costophrenic angles but no t at the posterior sulci most consistent with chronic atelectasis/scarring. Remainder of the lungs ar e clear. No pulmonary edema, pleural effusion or pneumothorax. The cardiomediastinal silhouette is no rmal. Cholecystectomy clips in the upper abdomen. Visualized bones and soft tissues are unremarkable. IMPRESSION: 1. Unchanged mild bibasilar atelectasis/scarring. Reviewed, dictated and finalized at location A.
--- NOTE | 2021-07-07 10:55 | ED.URI ---
HPI - URI/Sore Throat General Chief Complaint: Upper Respiratory Infection Stated Complaint: cough Time Seen by Provider: 07/07/21 10:56 Source: patient and RN notes reviewed History of Present Illness HPI Narrative: Patient is a 31-year-old female who presents the urgent care with complaints of cough, runny nose and pain across the back. Patient states that the pain started happening after her bad cough. States that she has had some postop surgical pain from her cholecystitis in April however it is exacerbated within the last week. Patient believes it is due to the cough and not post surgery. States that she has not followed up with her surgeon regarding her pain. Currently denies of any abdominal pain, nausea, vomiting, fever. States that she is taken DayQuil for her symptoms one time. Denies of any shortness of breath or chest pain. Patient has been seen at her doctor's office approximately every week this year. Appears that patient has many chronic issues. No other acute complaints. No acute distress noted. Patient aware of the plan of care. Some parts of this dictation were generated by voice recognition software and may contain typographical and/or grammatical inaccuracies. Related Data Home Medications Medication Instructions Recorded Confirmed vitamin B complex [B 1 tablet PO DAILY 05/05/21 05/30/21 Complex-Vitamin B12] Allergies Allergy/AdvReac Type Severity Reaction Status Date / Time amoxicillin Allergy Mild Rash Verified 06/05/21 08:11 adhesive tape AdvReac Rash Verified 05/30/21 15:00 TAPE Allergy Unknown PULLED Uncoded 05/30/21 15:00 SKIN OFF Review of Systems Review of Systems: CONSTITUTIONAL: Denies fever, chills, or sweats. EYES: Denies visual changes, redness, or discharge. ENT: Denies congestion, sore throat, or otalgia. Reports of rhinorrhea CARDIOVASCULAR: Denies chest pain, palpitations, or edema. RESPIRATORY: Reports of nonproductive cough GASTROINTESTINAL: Denies abdominal pain, nausea, vomiting, or diarrhea. GENITOURINARY: Denies dysuria or hematuria. SKIN: Denies rash or itching. MUSCULOSKELETAL: Reports of upper back pain NEUROLOGIC: Denies headache, numbness, or weakness. All other systems reviewed are negative, except as documented in HPI. [facility] Past Medical History Medical History (Updated 07/07/21 @ 11:31 by JOBY Tirado) Allergies Asthma Asthma 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, continuous use of opioids oxycodone Delayed surgical wound healing History of jejunostomy tube placement History of sepsis (~10/2019) perforated duodenum from surgical procedure Hx of gangrene (~07/2019) gangrenous gall bladder, ruptured GB Immunosuppression due to drug therapy Insomnia Irregular periods/menstrual cycles Morbid obesity (Unknown) Open wound of umbilical region (~04/27/20) Psoriatic arthritis (Unknown) Surgical History Surgical History (Updated 05/30/21 @ 16:07 by Rula Lazo NP) History of cholecystectomy (~07/2019) 05/05/21 Laparoscopic cholecystectomy with intraoperative cholangiogram 2. Extensive lysis of adhesions greater than 1 hour (laparoscopic) 3. Excision of chronic granulating wound tract right upper quadrant. 4. Repair with sutures of moderate size umbilical hernia. History of tonsillectomy Family History Family History Father Thyroid disorder Sleep apnea Mother Asthma Diabetes mellitus Hypertension Cerebrovascular accident Arthritis at at 58 Sibling Diabetes mellitus Hypertension Sjogren's disease at age 38 Social History Social History Social History: Works at [employer]. Lives with her and 3 children. Smoking packs per day: 1 Smoking cigarettes per day: 20.0 Years smoked: 10 Smoking pack-years: 10.00 Smoking status: Former smoker Smoking end date:
[2021-07-07 11:01] VITALS: BP 146/97; PULSE 92; RESP 16; TEMP 37.1; O2SAT 99
== END 2021-07-07 11:34 | disposition home or self-care (01) ==
PROVIDERS: Emergency Provider Nurse Practitioner Family; PCP Family Medicine
DX: R05.9 Cough, unspecified (principal); Z87.891 Personal history of nicotine dependence; J45.909 Unspecified asthma, uncomplicated; E66.01 Morbid (severe) obesity due to excess calories; Z68.42 Body mass index [BMI] 45.0-49.9, adult; L40.50 Arthropathic psoriasis, unspecified; Z93.4 Other artificial openings of gastrointestinal tract status
CPT/HCPCS: 71046; 99213; G0463

== ENCOUNTER 2021-07-12 10:48 | Emergency (ER) | payer OTHER, SELFPAY ==
--- NOTE | ~2021-07-12 | CT_ITS ---
EXAMINATION: CT abdomen pelvis w con DATE: 07/12/2021 12:05 INDICATION: Epigastric pain. History of perforated ulcer. TECHNIQUE: Computed tomography (CT) of the abdomen and pelvis was performed with 100 cc Omnipaque 350 intravenous contrast. The dose-length product was 1419.80 mGy-cm. Automated exposure control and ite rative reconstruction technique were employed. COMPARISON: CT dated 05/02/2021. FINDINGS: Heart size is normal. No significant pleural or pericardial effusion. There is pneumobilia. Status post cholecystectomy. Small hiatal hernia. Small umbilical hernia with fistula to the skin macias rface. Mild surrounding inflammation. The spleen, pancreas, adrenal glands and kidneys are unremarkable. No free air or free fluid. No acut e osseous abnormality. IMPRESSION: 1. Small umbilical hernia with fistula extending to the skin surface. Mild surrounding inflammatory c hanges seen, suspicious for superimposed infection. 2: Status post cholecystectomy with pneumobilia. Reviewed, dictated and finalized at location A. IMPRESSION: 1. Small umbilical hernia with fistula extending to the skin surface. Mild surr ounding inflammatory changes seen, suspicious for superimposed infection. 2: Status post cholecystectomy with pneumobilia.
[2021-07-12 11:08] VITALS: BP 155/97; PULSE 77; RESP 18; TEMP 36.8; O2SAT 99
[2021-07-12 11:22] LABS: Basophils Percent Auto 0.3 % (0.2-1.2); Eosinophils Absolute Auto 0.1 K/mm3 (0-0.3); Eosinophils Percent Auto 0.8 % (0-4.4); Hematocrit 39.7 % (37.0-47.0); Hemoglobin 12.8 g/dL (12.0-15.0); Immature Granulocyte Absolute 0.06 K/mm3 (0.00-0.031); Immature Granulocyte Percent A 0.4 % (0-0.5); Lymphocytes Absolute Auto 3.05 K/mm3 (0.9-3.2); Lymphocytes Percent Auto 20.3 % (18.3-44.2); Mean Corpuscular HGB Conc 32.2 g/dl (32-36); Mean Corpuscular Hemoglobin 28.1 pg (26-34); Mean Corpuscular Volume 87.3 fl (80-100); Monocytes Percent Auto 6.5 % (2.6-8.5); Neutrophils Absolute Auto 10.8 K/mm3 (1.3-6.7); Neutrophils Percent Auto 71.7 % (45.5-73.1); Platelet Count Result 342 k/mm3 (150-375); Red Blood Count 4.55 M/mm3 (4.2-5.4); Red Cell Distribution Width 13.5 % (11.5-14.5)
[2021-07-12] MEDS: SODIUM CHLORIDE 0.9% IV 1,000 ML 999 ML IV CONT (11:22)
[2021-07-12] MEDS: ONDANSETRON INJ 4 MG/2 ML VIAL IV PUSH (11:22)
[2021-07-12] MEDS: FAMOTIDINE 20 MG/2 ML VIAL IV PUSH (11:22)
[2021-07-12 11:26] LABS: Add Urine Microscopic? YES; Appearance Urine Cloudy (Clear); Bacteria Urine Trace /hpf; Bilirubin Urine Negative (Negative); Blood Urine Negative (Negative); Color Urine Yellow (Yellow); Glucose Urine UA Negative (Negative); Ketones Urine Negative (Negative); Leukocyte Esterase Ur 3+ LEU/UL (Negative); Mucus Urine Rare /lpf; Nitrate Urine Negative (Negative); Protein Urine Negative (Negative); Specific Grav Ur 1.019 (1.001-1.035); Squamous Epithelial Cell Urine Many /hpf (Few); Urobilinogen Urine Negative mg/dL (<2.0); WBC Urine >75 /hpf
[2021-07-12 11:38] LABS: Alanine Aminotransferase 33 U/L (4-35); Albumin Level 4.8 g/dL (3.5-5.1); Alkaline Phosphatase 160 U/L (38-126); Anion Gap 11 mmol/L (8-16); Aspartate Amino Transferase 59 U/L (14-36); Bilirubin,Total 0.7 mg/dL (0.2-1.3); Blood Urea Nitrogen 22 mg/dL (7-17); Calcium 9.5 mg/dL (8.4-10.2); Carbon Dioxide 26 mmol/L (22-30); Chloride 103 mmol/L (98-107); Estimated CRCL calculation 113 ml/min; Estimated Glomerular Filt Rate > 60; Glucose 99 mg/dL (65-110); Lipase 202 U/L (23-300); Sodium 140 mmol/L (137-145)
--- NOTE | 2021-07-12 12:20 | ED.ABDPAIN ---
HPI - Abdominal Pain General Chief Complaint: Abdominal Pain Stated Complaint: abdominal pain Time Seen by Provider: 07/12/21 11:02 Source: patient History of Present Illness HPI narrative: Patient presents with abdominal pain. Patient reports pain has been present for the past several days and getting worse she was seen in urgent care given steroids but that did not resolve her pain so she came to the ER for evaluation. Pain is achy, constant, radiates up into her chest associated with nausea but no vomiting she does report some diarrhea. She reports prior history of cholecystectomy twice . She reports subjective fevers at home denies urinary symptoms Related Data Home Medications Medication Instructions Recorded Confirmed vitamin B complex [B 1 tablet PO DAILY 05/05/21 05/30/21 Complex-Vitamin B12] Allergies Allergy/AdvReac Type Severity Reaction Status Date / Time amoxicillin Allergy Mild Rash Verified 07/12/21 11:01 adhesive tape AdvReac Rash Verified 07/12/21 11:01 TAPE Allergy Unknown PULLED Uncoded 07/12/21 11:01 SKIN OFF Review of Systems Review of Systems: CONSTITUTIONAL: Reports subjective fevers EYES: Denies visual changes, redness, or discharge. ENT: Denies rhinorrhea, congestion, sore throat, or otalgia. CARDIOVASCULAR: Denies chest pain, palpitations, or edema. RESPIRATORY: Denies cough or dyspnea. GASTROINTESTINAL: Reports abdominal pain nausea and diarrhea GENITOURINARY: Denies dysuria or hematuria. SKIN: Denies rash or itching. MUSCULOSKELETAL: Denies back pain, joint pain, or myalgia. NEUROLOGIC: Denies headache, numbness, dizziness, or weakness. PSYCHIATRIC: Denies anxiety or depression. All systems reviewed & are unremarkable except as noted in HPI and below PMFSH Past Medical History Medical History Allergies Asthma Asthma Bronchocentric granulomatosis 2012 Chronic, continuous use of opioids oxycodone Delayed surgical wound healing History of jejunostomy tube placement History of sepsis (~10/2019) perforated duodenum from surgical procedure Hx of gangrene (~07/2019) gangrenous gall bladder, ruptured GB Immunosuppression due to drug therapy Insomnia Irregular periods/menstrual cycles Morbid obesity (Unknown) Open wound of umbilical region (~04/27/20) Psoriatic arthritis (Unknown) Surgical History Surgical History History of cholecystectomy (~07/2019) 05/05/21 Laparoscopic cholecystectomy with intraoperative cholangiogram 2. Extensive lysis of adhesions greater than 1 hour (laparoscopic) 3. Excision of chronic granulating wound tract right upper quadrant. 4. Repair with sutures of moderate size umbilical hernia. History of tonsillectomy Family History Family History Father Thyroid disorder Sleep apnea Mother Asthma Diabetes mellitus Hypertension Cerebrovascular accident Arthritis at at 58 Sibling Diabetes mellitus Hypertension Sjogren's disease at age 38 Social History Social History Social History: Works at [employer]. Lives with her and 3 children. Smoking packs per day: 1 Smoking cigarettes per day: 20.0 Years smoked: 10 Smoking pack-years: 10.00 Smoking status: Former smoker Smoking end date: 04/28/17 Alcohol intake: current Drinks per week: 1 Substance use: never Gender identity (if verbalized by the patient): Female Sexual Orientation (if Verbalized by the Patient): Straight or Heterosexual Spiritual care concerns: No Agree to blood products: Yes Exam Narrative: GENERAL: Well-appearing, well-nourished, and in no acute distress. HEAD: Normocephalic, atraumatic. EYES: PERRLA and EOMI. ENT: Nares clear, no rhinorrhea or epistaxis. Mucous membranes moist. NECK:
[2021-07-12] MEDS: LIDOCAINE HCL 2% VISC SOLN 15 ML UDC 20 ML PO (13:31)
[2021-07-12] MEDS: MAG HYDROX/AL HYDROX/SIMETH 30 ML UDC PO (13:31)
== END 2021-07-12 13:49 | disposition home or self-care (01) ==
PROVIDERS: Emergency Provider Emergency Medicine; PCP Family Medicine
DX: K29.70 Gastritis, unspecified, without bleeding (principal); N39.0 Urinary tract infection, site not specified; J45.909 Unspecified asthma, uncomplicated; E66.01 Morbid (severe) obesity due to excess calories; Z68.42 Body mass index [BMI] 45.0-49.9, adult; Z87.891 Personal history of nicotine dependence; K42.9 Umbilical hernia without obstruction or gangrene
CPT/HCPCS: 36415; 74177; 80053; 81001; 81025; 83690; 85025; 87077; 87086; 87088; 96361; 96374; 96375; 99284; A9270; J2405; J7030; Q9967

== ENCOUNTER 2021-07-22 07:26 | Outpatient (RCR) | payer OTHER, SELFPAY ==
[2021-06-13 00:03] VITALS: BMI 47.0
--- NOTE | 2021-06-24 16:21 | WPDWOUNDNOTE ---
Wound Care Note Date/Time: 06/24/21 12:21 History: Apolonia is a morbidly obese 30-year-old female who had a chronic wound in the right upper quadrant that it is a draining site from a previous drain after a failed cholecystectomy. The patient had surgery in [place] last year but because of major inflammation in and around the gallbladder she had a partial cholecystectomy with a drainage procedure. (Drain left in the gallbladder reaminate). Subsequently she then had an ERCP which led to a common bile duct stent and an injury to the duodenum followed by pancreatitis. She continued to be followed out there until she moved back here late last year. We were asked to help her with this wound once she moved to [place]. This is a site where her last drain was removed and after review of records that were sent, it appears she had that drain in place for some time. Please see the history on her original visit to the wound clinic for a more extensive history from her care in [place]. She also holds the diagnosis of psoriatic arthritis and was previously treated with Humira and Tremfya for this. She was off all medications prior to surgery. After surgery, she has been following up with Rheumatology and was started on Otezla. She reports this has helped with her pain from the psoriatic arthritis, but not as helpful as the Tremfya. She plans to continue on this while healing from the surgery. Wound history: Patient underwent a a laparoscopic cholecystectomy with IOC and extensive lysis and adhesions greater than 1 hour, excision of chronic granulating wound tract right upper quadrant, and repair with sutures of moderate size umbilical hernia on 05/05/21. Following surgery, she has been seen in the wound clinic for wound checks and post-op care. She was last seen by Dr. Uribe about 2 weeks ago. At that time, her RUQ abdominal wound and umbilical wound had come down in size/depth. She reports that since that last visit she has stopped packing the RUQ wound because there has been no drainage the opening of the wound was painful to even pack since it was so small. She feels it has closed. Umbilical wound she has been packing daily with iodoform gauze. She reports that she has also been washing over these wounds daily. She feels the surrounding irritated skin has also improved with the antifungal ointment. No fever or chills. She reports just bloody drainage from the umbilical incision. Tolerating her diet and moving her bowels normally. No other complaints at this time. She presents today for a wound check. Wound approximation: No Wound width: RUQ: 0.3 cm Umbilical: GRAHAM due to body habitus and location Wound length: RUQ: 0.3 cm Umbilical: GRAHAM due to body habitus and location Wound depth: RUQ: 2.5 cm Umbilical: 4.8 cm Drainage: RUQ: scant serous drainage Umbilical: bloody drainage Surrounding tissue appearance: RUQ: superficial maceration improving Umbilical: superficial maceration improving Percentage granulation tissue: 100% Treatment/Procedures: Dressing change, wound care, and assessment. Dressings: Apply triple care antifungal ointment to surrounding reddened skin around both wounds on the abdomen. Cover RUQ abdominal wound with gauze and tape, change daily. Pack umbilical wound with silver rope and cover with gauze and tape, change daily. Assessment and Plan Assessment and plan (1) Open abdominal wall wound: Onset Date: ~10/2019 Qualifiers: Encounter type: subsequent encounter Qualified Code(s): S31.109D - Unspecified open wound of abdominal wall, unspecified quadrant without penetration into peritoneal cavity, subsequent encounter Code(s): S31.109A - Unspecified open wound of abdominal wall, unspecified quadrant without penetration into peritoneal cavity, initial encounter Status: Acute Assessment and Plan: Continues to slowly heal following surgery. Continue to wash over wounds daily with soap and water, and
--- NOTE | 2021-07-22 20:43 | WPDWOUNDNOTE ---
Wound Care Note Date/Time: 07/22/21 12:43 History: Apolonia is a morbidly obese 30-year-old female who had a chronic wound in the right upper quadrant that it is a draining site from a previous drain after a failed cholecystectomy. The patient had surgery in [place] last year but because of major inflammation in and around the gallbladder she had a partial cholecystectomy with a drainage procedure. (Drain left in the gallbladder reaminate). Subsequently she then had an ERCP which led to a common bile duct stent and an injury to the duodenum followed by pancreatitis. She continued to be followed out there until she moved back here late last year. We were asked to help her with this wound once she moved to [place]. This is a site where her last drain was removed and after review of records that were sent, it appears she had that drain in place for some time. Please see the history on her original visit to the wound clinic for a more extensive history from her care in [place]. She also holds the diagnosis of psoriatic arthritis and was previously treated with Humira and Tremfya for this. She was off all medications prior to her recent surgery, which was a completion cholecystectomy, laparoscopic. After surgery, she has been following up with Rheumatology and was started on Otezla. She reports this has helped with her pain from the psoriatic arthritis, but not as helpful as the Tremfya. She plans to continue on this while healing from the surgery and then switch back to the Tremfya which was better for her arthritis. . Wound history: Wound history: Patient underwent a a laparoscopic cholecystectomy with IOC and extensive lysis for greater than 1 hour, excision of chronic granulating wound tract right upper quadrant, and repair with sutures of a moderate sized umbilical hernia on 05/05/21. Following surgery, she has been seen in the wound clinic for wound checks and post-op care. 4 weeks ago her RUQ abdominal wound (old cholecystostomy tube site) and umbilical wound had come down in size/depth. She reports that since that last visit At which time she saw our nurse practitioner Roseanna, she has stopped packing the RUQ wound because there has been no drainage the opening of the wound was painful to even pack since it was so small. She feels it has closed. The umbilical wound she had been packing daily with iodoform gauze at that time, but she has not needed any drainage from her umbilicus and has not seen any open wound. She reports that she has also been washing over these wounds daily. She feels the surrounding irritated skin has also improved with the antifungal ointment. However now she has some breakdown from her psoriatic arthritis and psoriasis with very pink reddish skin around both her umbilicus several the place on her abdomen and around the old site of the cholecystostomy tube which is closed. She has had no fever or chills. She reports just bloody drainage from the umbilical incision. She is tolerating her diet and moving her bowels normally. I encouraged her to still follow low-fat diet and follow up with her maintenance services dispatcher to convert to the Tremfya. No other complaints at this time. She presents today for a wound check. Assessment and Plan Assessment and plan (1) Encounter for surgical aftercare following surgery on the digestive system: Code(s): Z48.815 - Encounter for surgical aftercare following surgery on the digestive system Status: Acute Assessment and Plan: Patient is now close to 3 months postop from the umbilical hernia repair and laparoscopic cholecystectomy with IOC. All wounds appear to be healed now. She is released from my care. I told her was okay to proceed with changing over to a different drug for her arthritis that works better. She will discuss this with maintenance services dispatcher. Will not be planning to provide her with any more narcotic pain medicines. She will need to get these from her PCP or maintenance services dispatcher if there are
== END 2021-07-30 13:46 | disposition home or self-care (01) ==
LOC: ANHWOC 07:26
PROVIDERS: PCP Family Medicine; Referring Provider Nurse Practitioner Family; Visit Provider Surgery
DX: Z48.815 Encounter for surgical aftercare following surgery on the digestive system (principal); T81.89XD Other complications of procedures, not elsewhere classified, subsequent encounter
CPT/HCPCS: 99212; G0463

== ENCOUNTER 2021-08-11 14:53 | Inpatient (IN) | payer OTHER, SELFPAY ==
[2021-08-11] VITALS (20 sets, daily range): BP systolic 95–146; BP diastolic 65–101; PULSE 99–148; RESP 14–25; TEMP 36.4–37.9; O2SAT 93–98; BMI 48.9
--- NOTE | ~2021-08-11 | XR_ITS ---
EXAMINATION: XR chest 1V portable DATE: 08/15/2021 22:07 INDICATION: Shortness of breath and sudden onset midsternal chest pain TECHNIQUE: frontal view of the chest was obtained. COMPARISON: Chest radiograph dated 08/11/[address] dated 08/13/2021 FINDINGS: Minimal progression in still relatively mild airspace opacities in the bilateral mid and lower lung z ones with appearance on prior CT suggesting COVID pneumonia. No pleural effusion or pneumothorax. The cardiomediastinal silhouette is normal. IMPRESSION: 1. Slight progression in opacities in the bilateral mid and lower lung zones suspicious for pneumonia , specifically COVID, with differential including mild pulmonary edema. Reviewed, dictated and finalized at location A. CAR DRIVER IMPRESSION: 1. Slight progression in opacities in the bilateral mid and lower lung zones macias spicious for pneumonia, specifically COVID, with differential including mild pu lmonary edema.
--- NOTE | ~2021-08-11 | XR_ITS ---
EXAMINATION: XR chest 2V DATE: 08/11/2021 15:26 INDICATION: Shortness of breath. COVID-19 positive. TECHNIQUE: Frontal and lateral views of the chest were obtained. COMPARISON: Chest 2 views 07/07/2021, CT abdomen and pelvis 07/12/2021 FINDINGS: There is a staple line in left lower lung zone. There are mild airspace opacities in right lower lung zone and left mid and lower lung zones. No pleural effusion or pneumothorax. The heart siz e is normal. Surgical clips in the right upper quadrant are likely from cholecystectomy. IMPRESSION: 1. Worsened mild airspace opacities in right lower lung zone and left mid and lower lung zones, consi stent with atelectasis/scarring versus pneumonia. Reviewed, dictated and finalized at location A. ICIAN PRACTICE MANAGER IMPRESSION: 1. Worsened mild airspace opacities in right lower lung zone and left mid and l ower lung zones, consistent with atelectasis/scarring versus pneumonia.
--- NOTE | ~2021-08-11 | CT_ITS ---
EXAMINATION: CTA chest DATE: 08/13/2021 17:54 INDICATION: Back pain. COVID positive with hypoxia and shortness of breath. TECHNIQUE: Computed tomographic angiography (CTA) of the chest was performed without and with 100 mL Omnipaque-350 intravenous contrast. Volume-rendered 3D-reconstructions of the aorta and large arterie s were constructed by the technologist on a separate workstation. Automated exposure control and iter ative reconstruction technique were employed. The dose-length product was 890.27 mGy-cm. COMPARISON: CT abdomen dated 05/02/2021 FINDINGS: Suture line extending across the basilar left lower lobe. Unchanged regions of pleural parenchymal sc arring at the periphery of the bilateral lower lungs. New scattered patchy groundglass opacities and linear atelectasis/scarring throughout both lungs consistent with COVID pneumonia. No pleural effusio n or pneumothorax. Although not performed as a dedicated pulmonary embolism protocol study there is g ood contrast bifurcation of the pulmonary arteries demonstrating no pulmonary embolism. Heart size is normal. No pericardial effusion. Thoracic aorta is normal in caliber with no dissection. No patholog ically enlarged thoracic lymphadenopathy. Small sliding-type hiatal hernia. Pneumobilia likely relate d to prior cholecystectomy and centrally with surgical clips at the gallbladder fossa. Mild upper tho racic levocurvature. Likely developmental fusion at the medial aspect of the posterior left 11th and 12th ribs. IMPRESSION: 1. Normal caliber thoracic aorta with no dissection. 2. Scattered patchy airspace opacities throughout both lungs with appearance favoring COVID pneumonia . Pulmonary edema considered less likely. 3. Small sliding-type hiatal hernia. Reviewed, dictated and finalized at location A. SPEED WARPER TENDER IMPRESSION: 1. Normal caliber thoracic aorta with no dissection. 2. Scattered patchy airspace opacities throughout both lungs with appearance fa voring COVID pneumonia. Pulmonary edema considered less likely. 3. Small sliding-type hiatal hernia.
--- NOTE | ~2021-08-11 | XR_ITS ---
EXAMINATION: XR chest 1V portable EXAM DATE: 08/19/2021 05:48 INDICATION: COVID 19. TECHNIQUE: Portable AP frontal chest x-ray was obtained. Comparison is made to prior examination from 08/15/2021. FINDINGS: There is bilateral ill-defined airspace disease, pneumonia and/or edema. The cardiomediasti nal silhouette is prominent but magnified on this AP technique. Small pleural effusions. No pneumotho rax. There are mild bony degenerative changes. IMPRESSION: No significant change in ill-defined bilateral pneumonia or edema. Reviewed, dictated and finalized at location A. N RESOURCES TALENT MANAGER
--- NOTE | ~2021-08-11 | CT_ITS ---
EXAMINATION: CTA chest PE protocol DATE: 08/15/2021 22:47 INDICATION: Sudden onset sharp midsternal chest pain TECHNIQUE: Computed tomography (CT) pulmonary angiogram of the chest was performed with 100 mL Omnipa que-350 intravenous contrast. Additional 3D reconstructions utilizing coronal maximum intensity proje ction (MIP) were performed. The dose-length product was 884.09 mGy-cm. COMPARISON: 08/13/2021 FINDINGS: Excellent contrast opacification of the pulmonary arteries. There is mild streak artifact from dense contrast in the superior vena cava and right atrium. Mild scattered respiratory motion artifact. This mildly decreases sensitivity in some of the smaller pulmonary arteries. No pulmonary embolism. Enhan cing tenosynovitis extending along the basilar left lower lobe. Chronic pleural parenchymal scarring along the bilateral lung bases. Minimal interval progression in additional more recent patchy groundg lass opacities and linear atelectasis/scarring throughout both lungs consistent with COVID pneumonia. No pleural effusion or pneumothorax. Heart size is normal. No pericardial effusion. Thoracic aorta i s normal in caliber with no dissection. No pathologically enlarged thoracic lymphadenopathy. Small s liding-type hiatal hernia. Pneumobilia likely related to prior cholecystectomy and some chronic mucou s surgical clips at the gallbladder fossa. Mild upper thoracic levocurvature. Likely developmental fu allie at the radial aspect of the posterior left 11th and 12th ribs. IMPRESSION: 1. No pulmonary embolism. 2. Slight interval progression in scattered patchy airspace opacities throughout both lungs with appe arance favoring COVID pneumonia. Pulmonary edema considered less likely. 3. Small sliding-type hiatal hernia. Reviewed, dictated and finalized at location A. PULLING MACHINE OPERATOR IMPRESSION: 1. No pulmonary embolism. 2. Slight interval progression in scattered patchy airspace opacities throughou t both lungs with appearance favoring COVID pneumonia. Pulmonary edema consider ed less likely. 3. Small sliding-type hiatal hernia.
--- NOTE | 2021-08-11 15:04 | ECG_ITS ---
Measurements Intervals Rebecca Rate: 117 P: 50 MT: 125 QRS: 26 QRSD: 82 T: 35 QT: 307 QTc: 430 Interpretive Statements SINUS TACHYCARDIA DELAYED PRECORDIAL R/S TRANSITION CONSIDER INFERIOR INFARCT, AGE INDETERMINATE BASELINE ARTIFACT- I, III, AVR, AVL ABNORMAL ECG Electronically Signed On 08-11-2021 15:13:26 GENERAL PRODUCTION MANAGER by Nuno Rosenberg D.O.
[2021-08-11 15:22] LABS: Basophils Percent Auto 0.1 % (0.2-1.2); Hematocrit 42.7 % (37.0-47.0); Hemoglobin 13.6 g/dL (12.0-15.0); Immature Granulocyte Absolute 0.05 K/mm3 (0.00-0.031); Immature Granulocyte Percent A 0.5 % (0-0.5); Lymphocytes Absolute Auto 0.64 K/mm3 (0.9-3.2); Lymphocytes Percent Auto 5.8 % (18.3-44.2); Mean Corpuscular HGB Conc 31.9 g/dl (32-36); Mean Corpuscular Hemoglobin 27.8 pg (26-34); Mean Corpuscular Volume 87.3 fl (80-100); Mean Platelet Volume 8.7 fl (7.4-10.4); Monocytes Absolute Auto 0.3 K/mm3 (0.1-0.6); Monocytes Percent Auto 2.8 % (2.6-8.5); Neutrophils Percent Auto 90.8 % (45.5-73.1); Platelet Count Result 195 k/mm3 (150-375); Red Blood Count 4.89 M/mm3 (4.2-5.4); Red Cell Distribution Width 14.5 % (11.5-14.5)
[2021-08-11 15:31] LABS: Potassium 3.7 mmol/L (3.4-5.0)
[2021-08-11 15:37] LABS: Anion Gap 10 mmol/L (8-16); Blood Urea Nitrogen 16 mg/dL (7-17); Calcium 9.8 mg/dL (8.4-10.2); Carbon Dioxide 27 mmol/L (22-30); Chloride 104 mmol/L (98-107); Estimated CRCL calculation 147 ml/min; Estimated Glomerular Filt Rate > 60; Glucose 123 mg/dL (65-110); Sodium 141 mmol/L (137-145)
--- NOTE | 2021-08-11 21:13 | PC.NURSE ---
Pt off floor to radiology
--- NOTE | 2021-08-11 21:42 | ED.SOB ---
HPI - SOB/Dyspnea General Chief Complaint: Shortness of Breath/Dyspnea Stated Complaint: COVID +, SOB Time Seen by Provider: 08/11/21 21:07 Source: patient Mode of arrival: ambulatory Limitations: no limitations History of Present Illness HPI Narrative: Patient is a 31-year-old female complaining of shortness of breath, body aches, fever, cough, loss of taste and smell started 5 days ago, was diagnosed with Covid this past Wednesday. Patient states that she is unvaccinated. Related Data Home Medications Medication Instructions Recorded Confirmed vitamin B complex [B 1 tablet PO DAILY 05/05/21 05/30/21 Complex-Vitamin B12] Allergies Allergy/AdvReac Type Severity Reaction Status Date / Time amoxicillin Allergy Mild Rash Verified 08/11/21 21:28 adhesive tape AdvReac Rash Verified 08/11/21 21:28 TAPE Allergy Unknown PULLED Uncoded 08/11/21 21:28 SKIN OFF Review of Systems Review of Systems: All systems reviewed & are unremarkable except as noted in HPI and below Constitutional: Constitutional: Denies excessive sweating, Denies fatigue, Denies headache(s), Denies lethargy, Denies weakness and Denies weight loss Eyes: Eyes: Denies blurry vision, Denies change in vision and Denies loss of vision ENT: Denies dizziness, Denies ear discharge, Denies headache(s), Denies lip swelling, Denies epistaxis, Denies nasal congestion, Denies neck pain, Denies throat swelling and Denies tongue swelling Cardiovascular: Cardiovascular: Denies chest pain, Denies chest pain at rest, Denies chest pain with activity, Denies diaphoresis, Denies rapid heart rate, Denies edema, Denies irregular heart rhythm, Denies lightheadedness and Denies palpitations Respiratory: Respiratory: Denies chest congestion and Denies hemoptysis Gastrointestinal: Gastrointestinal: Denies abdominal pain, Denies melena, Denies hematochezia, Denies diarrhea, Denies nausea, Denies vomiting and Denies hematemesis Musculoskeletal: Musculoskeletal: Denies abnormal gait, Denies deformity, Denies joint swelling, Denies limited range of motion, Denies neck pain and Denies numbness Neurologic: Denies Abnormal speech present, Denies abnormal gait, Denies confusion, Denies dizziness, Denies headache(s), Denies focal weakness, Denies loss of vision, Denies numbness, Denies Other visual disturbances, Denies Sensory deficit (Neuro) and Denies weakness Psychiatric: Psychiatric: Denies confusion, Denies depression, Denies auditory hallucinations, Denies homicidal ideation and Denies suicidal ideation Endocrine: Endocrine: Denies cold intolerance, Denies excessive sweating, Denies fatigue, Denies heat intolerance and Denies palpitations Hematologic/Lymphatic: Hematologic/Lymphatic: Denies easy bleeding and Denies easy bruising Allergic/Immunologic: Allergic/Immunologic: Denies lip swelling, Denies throat swelling and Denies tongue swelling PMFSH Past Medical History Medical History Allergies Asthma Asthma 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, continuous use of opioids oxycodone Delayed surgical wound healing possibly related to the immunosuppressive arthritis drugs History of jejunostomy tube placement History of sepsis (~10/2019) perforated duodenum from surgical procedure Hx of gangrene (~07/2019) gangrenous gall bladder, ruptured GB Immunosuppression due to drug therapy Insomnia Irregular periods/menstrual cycles Morbid obesity (Unknown) Open wound of umbilical region (~04/27/20) Psoriatic arthritis (Unknown) Surgical History Surgical History History of cholecystectomy (~07/2019) 05/05/21 Laparoscopic cholecystectomy with intraoperative cholangiogram 2. Extensive lysis of adhesions greater than 1 hour (laparoscopic) 3. Excision of chronic granulating wound tract right upper quadrant. 4. Repair with sutures of moderate size umbilical hernia. History
[2021-08-11 22:00] LABS: Lactic Acid Reflex 1.9 mmol/L (0.7-2.1)
[2021-08-11 22:09] LABS: NT Pro B Type Natriuretic Pept 90 pg/mL (5-100)
[2021-08-11 22:09] LABS: D Dimer 0.27 ug/mL (<0.48)
[2021-08-11 22:15] LABS: Alveolar/Arterial O2 Gradient 47.1 mmHg; Base Excess ABG 3.7 mEq/l (+/-2.0); Carboxyhemoglobin 0.7 % THb (0-2.0); Fractional Inspired Oxygen 21 %; HCO3 ABG 26.6 mEq/l (22.0-26.0); Methemoglobin ABG 0.1 %THb (0-1.5); Oxygen Content ABG 17.9 %vol (16.0-22.0); Oxygen Saturation ABG 93.4 % (95.0-100.0); Oxyhemoglobin 91.7 % THb (90.0-100.0); PO2 ABG 60.7 mmHg (80.0-100.0); PO2 FiO2 Ratio Arterial Blood 2.89 %; Reduced Hemoglobin 7.5 %THb (0-5.0); Total Hemoglobin 13.9 g/dL (12.0-18.0); pH ABG 7.499 (7.350-7.450)
[2021-08-11 22:16] LABS: Device ROOM AIR; Modified Allen's Test Pass; Site Drawn RIGHT RADIAL
[2021-08-11] MEDS: ALBUTEROL SULFATE NEB 2.5 MG/0.5 ML INH 5 MG INHALATION (22:20)
[2021-08-11] MEDS: IPRATROPIUM BR 0.02% INH SOLN 0.5 MG/2.5 ML VIAL INHALATION (22:21)
--- NOTE | 2021-08-11 22:22 | PC.NURSE ---
Blood cultures drawn and sent x2
[2021-08-11] MEDS: DEXAMETHASONE SOD PHOS INJ 4 MG/ML VIAL 10 MG IV PUSH (22:35)
[2021-08-11] MEDS: HYDROcodone/acetaminophen (*CRX) 5-325 MG TABLET 2 TAB PO (23:17)
[2021-08-12] VITALS (11 sets, daily range): BP systolic 114–140; BP diastolic 65–85; PULSE 64–125; RESP 15–20; TEMP 35.8–36.8; O2SAT 84–98; BMI 48.9
--- NOTE | 2021-08-12 00:46 | ADMGEN ---
This patient, Apolonia Bailey, was admitted to [facility] Surg Room 329-01. Patient/family oriented to hospital policies and general routines including ID bracelet, bed and alarms, visiting hours, pain management, procedures, bathroom and other care routines, personal items, smoking policy, room service/diet, and visiting hours. Information on how to activate the Rapid Response Team has been discussed. Patient/Family are encouraged to report perceived risks to care and to ask questions if they do not understand what they are told or what they should do.
--- NOTE | 2021-08-12 01:25 | PM.IMHP ---
H&P: HPI History of Present Illness Date/Time: 08/12/21 01:25 Chief Complaint: SHORTNESS OF BREATH Narrative: This is a 31-year-old female with past medical history significant for morbid obesity, psoriasis, psoriatic arthritis, 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 Patient presented to the emergency room due to shortness of breath ,cough, chills, fevers, rigors, decreased appetite, loss of sense of taste and smell some nausea and diarrhea according to patient she had tested positive for COVID last Wednesday and she presented today to the emergency room due to worsening of symptoms. In emergency room preliminary workup was significant for chest x-ray with airspace opacities. It was noted the patient was on clindamycin q.i.d. and she had a surgical procedure back in June. Review of Systems Review of Systems: Shortness of breath, cough, sputum production, chills ,fevers, rigors. Constitutional: Constitutional: Reports chills, Reports fatigue, Reports fever(s), Reports malaise and Reports night sweats Eyes: Eyes: Denies change in vision ENT: Denies dysphagia, Denies vertigo, Denies dizziness, Denies nasal congestion, Denies nasal discharge, Denies nasal obstruction and Denies odynophagia Cardiovascular: Cardiovascular: Denies chest pain at rest, Denies irregular heart rhythm, Denies lightheadedness, Denies radiating jaw, neck or arm pain, Denies palpitations, Denies dyspnea, Denies dyspnea on exertion, Denies orthopnea and Denies paroxysmal nocturnal dyspnea Respiratory: Respiratory: Reports change in phlegm color, Reports cough, Reports excessive phlegm production and Reports dyspnea Gastrointestinal: Gastrointestinal: Denies abdominal pain, Denies dyspepsia, Denies heartburn, Reports diarrhea and Reports vomiting Genitourinary: Genitourinary: Denies dysuria Musculoskeletal: Musculoskeletal: Reports myalgias Integumentary/Breasts: Skin/Breast: Denies rash Neurologic: Denies dizziness, Denies focal weakness and Denies Sensory deficit (Neuro) Psychiatric: Psychiatric: Reports no additional psychiatric complaints and Reports as per HPI Endocrine: Endocrine: Reports no additional endocrine complaints and Reports as per HPI Hematologic/Lymphatic: Hematologic/Lymphatic: Reports no additional hematologic/lymphatic complaints and Reports as per HPI Allergic/Immunologic: Allergic/Immunologic: Reports no additional allergic/immunologic complaints and Reports as per HPI [facility] Past Medical History Medical History (Updated 08/12/21 @ 04:01 by Rhina Martinez MD) Allergies Asthma Asthma 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, continuous use of opioids oxycodone Delayed surgical wound healing possibly related to the immunosuppressive arthritis drugs History of jejunostomy tube placement History of sepsis (~10/2019) perforated duodenum from surgical procedure Hx of gangrene (~07/2019) gangrenous gall bladder, ruptured GB Immunosuppression due to drug therapy Insomnia Irregular periods/menstrual cycles Morbid obesity (Unknown) Open wound of umbilical region (~04/27/20) Psoriatic arthritis (Unknown) Surgical History Surgical History History of cholecystectomy (~07/2019) 05/05/21 Laparoscopic cholecystectomy with intraoperative cholangiogram 2. Extensive lysis of adhesions greater than 1 hour (laparoscopic) 3. Excision of chronic granulating wound tract right upper quadrant. 4. Repair with sutures of moderate size umbilical hernia. History of tonsillectomy Family History Family History Father Thyroid disorder Sleep apnea Mother Asthma Diabetes mellitus Hypertension Cerebrovascular accident Arthritis at at 58 Sibling Diabetes mellitus Hypertension Sjogren's disease at age 38 Social History Soc
[2021-08-12 06:36] LABS: Alanine Aminotransferase 21 U/L (4-35); Estimated CRCL calculation 172 ml/min; Estimated Glomerular Filt Rate > 60
[2021-08-12 06:51] LABS: INR 0.9; Prothrombin Time 11.7 Seconds (11.1-14.7)
[2021-08-12] MEDS: DEXAMETHASONE SOD PHOS INJ 4 MG/ML VIAL IV PUSH ×4 (07:18→23:54)
[2021-08-12] MEDS: REMDESIVIR 200 MG/NS 250 ML 200 MG/250 ML BAG 250 MG IVPB (07:19)
[2021-08-12 07:33] LABS: Basophils Percent Auto 0.1 % (0.2-1.2); Hematocrit 41.1 % (37.0-47.0); Immature Granulocyte Absolute 0.04 K/mm3 (0.00-0.031); Immature Granulocyte Percent A 0.4 % (0-0.5); Lymphocytes Absolute Auto 0.75 K/mm3 (0.9-3.2); Lymphocytes Percent Auto 7.2 % (18.3-44.2); Mean Corpuscular HGB Conc 31.6 g/dl (32-36); Mean Corpuscular Hemoglobin 27.9 pg (26-34); Mean Corpuscular Volume 88.2 fl (80-100); Mean Platelet Volume 8.4 fl (7.4-10.4); Monocytes Absolute Auto 0.2 K/mm3 (0.1-0.6); Monocytes Percent Auto 1.9 % (2.6-8.5); Neutrophils Absolute Auto 9.4 K/mm3 (1.3-6.7); Neutrophils Percent Auto 90.4 % (45.5-73.1); Platelet Count Result 168 k/mm3 (150-375); Red Blood Count 4.66 M/mm3 (4.2-5.4); Red Cell Distribution Width 14.7 % (11.5-14.5); White Blood Count 10.4 K/mm3 (4.5-10.0)
[2021-08-12 07:48] LABS: Alanine Aminotransferase 21 U/L (4-35); Albumin Level 3.9 g/dL (3.5-5.1); Alkaline Phosphatase 79 U/L (38-126); Anion Gap 6 mmol/L (8-16); Aspartate Amino Transferase 21 U/L (14-36); Bilirubin,Total 0.4 mg/dL (0.2-1.3); Blood Urea Nitrogen 19 mg/dL (7-17); Calcium 9.3 mg/dL (8.4-10.2); Carbon Dioxide 31 mmol/L (22-30); Chloride 99 mmol/L (98-107); Estimated CRCL calculation 146 ml/min; Estimated Glomerular Filt Rate > 60; Glucose 137 mg/dL (65-110); Potassium 4.1 mmol/L (3.4-5.0); Sodium 136 mmol/L (137-145)
[2021-08-12] MEDS: PANTOPRAZOLE 40 MG TABLET PO (08:38)
[2021-08-12] MEDS: CLINDAMYCIN HCL 150 MG CAP 300 MG PO ×4 (08:38→20:45)
[2021-08-12] MEDS: ENOXAPARIN 40 MG/0.4 ML SYRINGE SUB-Q ×2 (08:38→20:44)
[2021-08-12] MEDS: GABAPENTIN 300 MG CAPSULE PO ×3 (08:38→17:07)
--- NOTE | 2021-08-12 12:20 | PM.IMPN ---
Progress Note: A&P Assessment and Plan (1) Pneumonia due to COVID-19 virus: Code(s): U07.1 - COVID-19; J12.82 - Pneumonia due to coronavirus disease 2019 Status: Acute Assessment and Plan: Covid positive last Wednesday remdesivir and dexamethasone started day 1 No oxygen demand Chest xray: Worsened mild airspace opacities in right lower lung zone and left mid and lower lung zones, consistent with atelectasis/scarring versus pneumonia. Will start azithromycin Blood cultures pending Inflammatory makers: Dimer 0.27, will check inflammatory markers BNP is 90 Albuterol inhaler 1 puff Q4h PRN Supplemental oxygen if indicated Cornete and IS (2) Asthma: Qualifiers: Asthma complication type: uncomplicated Asthma persistence: intermittent Asthma severity: mild Qualified Code(s): J45.20 - Mild intermittent asthma, uncomplicated Code(s): J45.909 - Unspecified asthma, uncomplicated Status: Acute Assessment and Plan: Albuterol inhaler No wheezes noted on exam (3) Morbid obesity: Onset Date: Unknown Code(s): E66.01 - Morbid (severe) obesity due to excess calories Status: Acute Assessment and Plan: Lifestyle and diet modification 1800 calorie restricted diet carb consistent District Sales Representative consult (4) Delayed surgical wound healing: Qualifiers: Encounter type: subsequent encounter Qualified Code(s): T81.89XD - Other complications of procedures, not elsewhere classified, subsequent encounter Code(s): T81.89XA - Other complications of procedures, not elsewhere classified, initial encounter Status: Inactive Assessment and Plan: This is no longer a problem, wounds are healed Local care Wound nurse consult Dressing and care per wound nurse. Wonder if this is why she is on the clindamycin (5) Psoriatic arthritis: Onset Date: Unknown Code(s): L40.50 - Arthropathic psoriasis, unspecified Status: Acute Assessment and Plan: Patient gets monthly shots, just got her shot last week For follow up in the outpatient setting (6) Irregular periods/menstrual cycles: Code(s): N92.6 - Irregular menstruation, unspecified Status: Acute Assessment and Plan: Holding norgestimate due to patient's increased risk for acute DVT (7) GERD without esophagitis: Onset Date: Unknown Code(s): K21.9 - Gastro-esophageal reflux disease without esophagitis Status: Acute Assessment and Plan: Continue pantoprazole (8) Back pain: Code(s): M54.9 - Dorsalgia, unspecified Status: Acute Assessment and Plan: Rating her back pain a 05/[address] scan [place] 5/325mg PO Q6hr Onetime dose of 1mg Morphine IV Time Spent With Patient Time with patient: Greater than 35 minutes Subjective Date/time seen: 08/12/21 12:20 Interval history: Date/Time: 08/12/21 01:25 Narrative: This is a 31-year-old female with past medical history significant for morbid obesity, psoriasis, psoriatic arthritis, 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 Patient presented to the emergency room due to shortness of breath ,cough, chills, fevers, rigors, decreased appetite, loss of sense of taste and smell some nausea and diarrhea according to patient she had tested positive for COVID last Wednesday and she presented today to the emergency room due to worsening of symptoms. In emergency room preliminary workup was significant for chest x-ray with airspace opacities. It was noted the patient was on clindamycin q.i.d. and she had a surgical procedure back in June. Date/time seen 08/12/21 12:20 Today patient stated that she almost had a near syncopal episode in the bathroom today. She stated that she was up brushing her teeth when
--- NOTE | 2021-08-12 12:20 | P.PNIM_ITS ---
Progress Note: A&P Assessment and Plan (1) Pneumonia due to COVID-19 virus: Code(s): U07.1 - COVID-19; J12.82 - Pneumonia due to coronavirus disease 2018 Status: Acute Assessment and Plan: * Covid positive last Wednesday * remdesivir and dexamethasone started day 1 * No oxygen demand * Chest xray: Worsened mild airspace opacities in right lower lung zone and left mid and lower lung zones, consistent with atelectasis/scarring versus pneumonia. * Will start azithromycin * Blood cultures pending * Inflammatory makers: Dimer 0.27, will check inflammatory markers * BNP is 90 * Albuterol inhaler 1 puff Q4h PRN * Supplemental oxygen if indicated * Cornete and IS (2) Asthma: Qualifiers: Asthma complication type: uncomplicated Asthma persistence: intermittent Asthma severity: mild Qualified Code(s): J45.20 - Mild intermittent asthma, uncomplicated Code(s): J45.909 - Unspecified asthma, uncomplicated Status: Acute Assessment and Plan: * Albuterol inhaler * No wheezes noted on exam (3) Morbid obesity: Onset Date: Unknown Code(s): E66.01 - Morbid (severe) obesity due to excess calories Status: Acute Assessment and Plan: * Lifestyle and diet modification * 1800 calorie restricted diet carb consistent * Chicken And Fish Cleaner consult (4) Delayed surgical wound healing: Qualifiers: Encounter type: subsequent encounter Qualified Code(s): T81.89XD - Other complications of procedures, not elsewhere classified, subsequent encounter Code(s): T81.89XA - Other complications of procedures, not elsewhere classified, initial encounter Status: Inactive Assessment and Plan: * This is no longer a problem, wounds are healed * Local care * Wound nurse consult * Dressing and care per wound nurse. * Wonder if this is why she is on the clindamycin (5) Psoriatic arthritis: Onset Date: Unknown Code(s): L40.50 - Arthropathic psoriasis, unspecified Status: Acute Assessment and Plan: * Patient gets monthly shots, just got her shot last week * For follow up in the outpatient setting (6) Irregular periods/menstrual cycles: Code(s): N92.6 - Irregular menstruation, unspecified Status: Acute Assessment and Plan: * Holding norgestimate due to patient's increased risk for acute DVT (7) GERD without esophagitis: Onset Date: Unknown Code(s): K21.9 - Gastro-esophageal reflux disease without esophagitis Status: Acute Assessment and Plan: * Continue pantoprazole (8) Back pain: Code(s): M54.9 - Dorsalgia, unspecified Status: Acute Assessment and Plan: * Rating her back pain a 05/06 * Consider CT scan * [place] 5/325mg PO Q6hr * Onetime dose of 1mg Morphine IV Time Spent With Patient Time with patient: Greater than 35 minutes Subjective Date/time seen: 08/12/21 12:20 Interval history: Date/Time: 08/12/21 01:25 Narrative: This is a 31-year-old female with past medical history significant for morbid obesity, psoriasis, psoriatic arthritis, chronic right upper quadrant wound sequelae of acute cholecystitis, multiple surgical procedures to the abdom en. Patient presented to the emergency room due to shortness of breath ,cough, chills, fevers, rigors, decrease
[2021-08-12] MEDS: ALBUTEROL SULFATE (*SP) AEROSOL 1 PUFF INHALATION (13:04)
[2021-08-12] MEDS: MORPHINE SULFATE (*CRX) 2 MG/ML INJ 1 MG IV PUSH (13:52)
[2021-08-12] MEDS: HYDROcodone/acetaminophen (*CRX) 5-325 MG TABLET 1 TAB PO ×2 (17:17→23:53)
[2021-08-12] MEDS: hydrOXYzine HCL 10 MG TABLET PO (23:56)
[2021-08-13] VITALS (9 sets, daily range): BP systolic 122–127; BP diastolic 62–78; PULSE 55–91; RESP 16–22; TEMP 35.8–36.7; O2SAT 92–97
[2021-08-13] MEDS: DEXAMETHASONE SOD PHOS INJ 4 MG/ML VIAL IV PUSH ×3 (05:50→17:58)
[2021-08-13 06:27] LABS: Basophils Percent Auto 0.1 % (0.2-1.2); Immature Granulocyte Absolute 0.05 K/mm3 (0.00-0.031); Immature Granulocyte Percent A 0.5 % (0-0.5); Lymphocytes Absolute Auto 0.86 K/mm3 (0.9-3.2); Lymphocytes Percent Auto 8.5 % (18.3-44.2); Mean Corpuscular HGB Conc 31.7 g/dl (32-36); Mean Corpuscular Hemoglobin 27.9 pg (26-34); Mean Platelet Volume 8.7 fl (7.4-10.4); Monocytes Absolute Auto 0.3 K/mm3 (0.1-0.6); Monocytes Percent Auto 2.8 % (2.6-8.5); Neutrophils Percent Auto 88.1 % (45.5-73.1); Platelet Count Result 192 k/mm3 (150-375); Red Blood Count 4.66 M/mm3 (4.2-5.4); Red Cell Distribution Width 14.6 % (11.5-14.5); White Blood Count 10.2 K/mm3 (4.5-10.0)
[2021-08-13 06:49] LABS: INR 0.9; Prothrombin Time 12.5 Seconds (11.1-14.7)
[2021-08-13 06:54] LABS: Alanine Aminotransferase 20 U/L (4-35); Albumin Level 4.1 g/dL (3.5-5.1); Alkaline Phosphatase 77 U/L (38-126); Anion Gap 9 mmol/L (8-16); Aspartate Amino Transferase 20 U/L (14-36); Bilirubin,Total 0.4 mg/dL (0.2-1.3); Blood Urea Nitrogen 18 mg/dL (7-17); CRP 5.2 mg/dL (<1.0); Calcium 9.1 mg/dL (8.4-10.2); Carbon Dioxide 28 mmol/L (22-30); Chloride 98 mmol/L (98-107); Estimated CRCL calculation 146 ml/min; Estimated Glomerular Filt Rate > 60; Glucose 128 mg/dL (65-110); Lactate Dehydrogenase 498 U/L (313-618); Magnesium 2.1 mg/dL (1.6-2.3); Sodium 135 mmol/L (137-145)
[2021-08-13 06:57] LABS: Potassium 4.2 mmol/L (3.4-5.0)
[2021-08-13 07:22] LABS: D Dimer 0.17 ug/mL (<0.48)
[2021-08-13] MEDS: HYDROcodone/acetaminophen (*CRX) 5-325 MG TABLET 1 TAB PO ×3 (08:40→22:06)
[2021-08-13] MEDS: CLINDAMYCIN HCL 150 MG CAP 300 MG PO ×4 (08:41→22:02)
[2021-08-13] MEDS: ENOXAPARIN 40 MG/0.4 ML SYRINGE SUB-Q ×2 (08:41→22:01)
[2021-08-13] MEDS: PANTOPRAZOLE 40 MG TABLET PO (08:41)
[2021-08-13] MEDS: GABAPENTIN 300 MG CAPSULE PO ×3 (08:41→17:57)
--- NOTE | 2021-08-13 10:00 | PM.IMPN ---
Progress Note: A&P Assessment and Plan (1) Pneumonia due to COVID-19 virus: Code(s): U07.1 - COVID-19; J12.82 - Pneumonia due to coronavirus disease 2019 Status: Acute Assessment and Plan: Covid positive last Wednesday remdesivir and dexamethasone started day 2 Desaturated last evening and required oxygen supplementations Chest xray: Worsened mild airspace opacities in right lower lung zone and left mid and lower lung zones, consistent with atelectasis/scarring versus pneumonia. Will start azithromycin Blood cultures pending Inflammatory makers: Dimer 0.27, CRp 5.2, LDH 498, Ferritin 69.30, Dimer 0.17 BNP is 90 Albuterol inhaler 1 puff Q4h PRN Supplemental oxygen if indicated Cornete and IS (2) Hypoxia: Code(s): R09.02 - Hypoxemia Status: Acute Assessment and Plan: Desaturated to 82% last evening Supplemental oxygen of 2-3L per NC placed Probably related to covid 19 Wean as tolerated (3) Asthma: Qualifiers: Asthma severity: mild Asthma persistence: intermittent Asthma complication type: uncomplicated Qualified Code(s): J45.20 - Mild intermittent asthma, uncomplicated Code(s): J45.909 - Unspecified asthma, uncomplicated Status: Acute Assessment and Plan: Albuterol inhaler No wheezes noted on exam (4) Morbid obesity: Onset Date: Unknown Code(s): E66.01 - Morbid (severe) obesity due to excess calories Status: Acute Assessment and Plan: Lifestyle and diet modification 1800 calorie restricted diet carb consistent Yarn Salvager consult (5) Delayed surgical wound healing: Qualifiers: Encounter type: subsequent encounter Qualified Code(s): T81.89XD - Other complications of procedures, not elsewhere classified, subsequent encounter Code(s): T81.89XA - Other complications of procedures, not elsewhere classified, initial encounter Status: Inactive Assessment and Plan: This is no longer a problem, wounds are healed Local care Wound nurse consult Dressing and care per wound nurse. Wonder if this is why she is on the clindamycin (6) Psoriatic arthritis: Onset Date: Unknown Code(s): L40.50 - Arthropathic psoriasis, unspecified Status: Acute Assessment and Plan: Patient gets monthly shots, just got her shot last week Due to her monthly shots patient is more immunocompromised and more susceptible to illness For follow up in the outpatient setting (7) Back pain: Code(s): M54.9 - Dorsalgia, unspecified Status: Acute Assessment and Plan: Rating her back pain a 05/[address] ordered [place] 5/325mg PO Q6hr Onetime dose of 1mg Morphine IV Time Spent With Patient Time with patient: Greater than 35 minutes Subjective Date/time seen: 08/13/21 1000 Interval history: Date/Time: 08/12/21 01:25 Narrative: This is a 31-year-old female with past medical history significant for morbid obesity, psoriasis, psoriatic arthritis, 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 Patient presented to the emergency room due to shortness of breath ,cough, chills, fevers, rigors, decreased appetite, loss of sense of taste and smell some nausea and diarrhea according to patient she had tested positive for COVID last Wednesday and she presented today to the emergency room due to worsening of symptoms. In emergency room preliminary workup was significant for chest x-ray with airspace opacities. It was noted the patient was on clindamycin q.i.d. and she had a surgical procedure back in June. Date/time seen 08/12/21 12:20 Today patient stated that she almost had a near syncopal episode in the bathroom today. She stated that she was up brushing her teeth when she stated that her knees got weak and felt as if they were goi
--- NOTE | 2021-08-13 10:00 | P.PNIM_ITS ---
Progress Note: A&P Assessment and Plan (1) Pneumonia due to COVID-19 virus: Code(s): U07.1 - COVID-19; J12.82 - Pneumonia due to coronavirus disease 2019 Status: Acute Assessment and Plan: * Covid positive last Wednesday * remdesivir and dexamethasone started day 2 * Desaturated last evening and required oxygen supplementations * Chest xray: Worsened mild airspace opacities in right lower lung zone and left mid and lower lung zones, consistent with atelectasis/scarring versus pneumonia. * Will start azithromycin * Blood cultures pending * Inflammatory makers: Dimer 0.27, CRp 5.2, LDH 498, Ferritin 69.30, Dimer 0.17 * BNP is 90 * Albuterol inhaler 1 puff Q4h PRN * Supplemental oxygen if indicated * Cornete and IS (2) Hypoxia: Code(s): R09.02 - Hypoxemia Status: Acute Assessment and Plan: * Desaturated to 82% last evening * Supplemental oxygen of 2-3L per NC placed * Probably related to covid 19 * Wean as tolerated (3) Asthma: Qualifiers: Asthma severity: mild Asthma persistence: intermittent Asthma complication type: uncomplicated Qualified Code(s): J45.20 - Mild intermittent asthma, uncomplicated Code(s): J45.909 - Unspecified asthma, uncomplicated Status: Acute Assessment and Plan: * Albuterol inhaler * No wheezes noted on exam (4) Morbid obesity: Onset Date: Unknown Code(s): E66.01 - Morbid (severe) obesity due to excess calories Status: Acute Assessment and Plan: * Lifestyle and diet modification * 1800 calorie restricted diet carb consistent * Hood Fitter consult (5) Delayed surgical wound healing: Qualifiers: Encounter type: subsequent encounter Qualified Code(s): T81.89XD - Other complications of procedures, not elsewhere classified, subsequent encounter Code(s): T81.89XA - Other complications of procedures, not elsewhere classified, initial encounter Status: Inactive Assessment and Plan: * This is no longer a problem, wounds are healed * Local care * Wound nurse consult * Dressing and care per wound nurse. * Wonder if this is why she is on the clindamycin (6) Psoriatic arthritis: Onset Date: Unknown Code(s): L40.50 - Arthropathic psoriasis, unspecified Status: Acute Assessment and Plan: * Patient gets monthly shots, just got her shot last week * Due to her monthly shots patient is more immunocompromised and more susceptible to illness * For follow up in the outpatient setting (7) Back pain: Code(s): M54.9 - Dorsalgia, unspecified Status: Acute Assessment and Plan: * Rating her back pain a 05/06 * Chest CT ordered * [place] 5/325mg PO Q6hr * Onetime dose of 1mg Morphine IV Time Spent With Patient Time with patient: Greater than 35 minutes Subjective Date/time seen: 08/13/21 1000 Interval history: Date/Time: 08/12/21 01:25 Narrative: This is a 31-year-old female with past medical history significant for morbid obesity, psoriasis, psoriatic arthritis, 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 Patient presented to the emergency room due to shortness of breath ,cough, chills, fevers, rigors, decreased appetite, loss of sense of taste and smell some nausea and diarrhea according to artis
[2021-08-13] MEDS: REMDESIVIR 100 MG/NS 250 ML 100 MG/250 ML BAG 250 MG IVPB (11:00)
[2021-08-13] MEDS: ALBUTEROL SULFATE (*SP) AEROSOL 1 PUFF INHALATION (11:16)
[2021-08-13] MEDS: hydrOXYzine HCL 10 MG TABLET PO (22:07)
[2021-08-14] VITALS (11 sets, daily range): BP systolic 105–123; BP diastolic 49–73; PULSE 65–95; RESP 18–20; TEMP 36.1–36.9; O2SAT 90–98
[2021-08-14] MEDS: DEXAMETHASONE SOD PHOS INJ 4 MG/ML VIAL IV PUSH ×4 (00:36→16:36)
[2021-08-14 06:56] LABS: Alanine Aminotransferase 19 U/L (4-35); Albumin Level 3.8 g/dL (3.5-5.1); Alkaline Phosphatase 77 U/L (38-126); Anion Gap 10 mmol/L (8-16); Aspartate Amino Transferase 20 U/L (14-36); Bilirubin,Total 0.3 mg/dL (0.2-1.3); Blood Urea Nitrogen 20 mg/dL (7-17); Calcium 9.1 mg/dL (8.4-10.2); Carbon Dioxide 26 mmol/L (22-30); Chloride 99 mmol/L (98-107); Estimated CRCL calculation 146 ml/min; Estimated Glomerular Filt Rate > 60; Glucose 121 mg/dL (65-110); Magnesium 2.1 mg/dL (1.6-2.3); Potassium 4.1 mmol/L (3.4-5.0); Sodium 135 mmol/L (137-145)
[2021-08-14 08:04] LABS: Basophils Percent Auto 0.1 % (0.2-1.2); Hematocrit 38.8 % (37.0-47.0); Hemoglobin 12.7 g/dL (12.0-15.0); Immature Granulocyte Absolute 0.03 K/mm3 (0.00-0.031); Immature Granulocyte Percent A 0.3 % (0-0.5); Lymphocytes Absolute Auto 0.87 K/mm3 (0.9-3.2); Lymphocytes Percent Auto 9.6 % (18.3-44.2); Mean Corpuscular HGB Conc 32.7 g/dl (32-36); Mean Corpuscular Hemoglobin 27.7 pg (26-34); Mean Corpuscular Volume 84.7 fl (80-100); Mean Platelet Volume 8.7 fl (7.4-10.4); Monocytes Absolute Auto 0.2 K/mm3 (0.1-0.6); Monocytes Percent Auto 2.5 % (2.6-8.5); Neutrophils Percent Auto 87.5 % (45.5-73.1); Platelet Count Result 217 k/mm3 (150-375); Red Blood Count 4.58 M/mm3 (4.2-5.4); Red Cell Distribution Width 14.6 % (11.5-14.5); White Blood Count 9.1 K/mm3 (4.5-10.0)
[2021-08-14] MEDS: CLINDAMYCIN HCL 150 MG CAP 300 MG PO ×4 (08:56→21:11)
[2021-08-14] MEDS: HYDROcodone/acetaminophen (*CRX) 5-325 MG TABLET 1 TAB PO ×3 (08:56→22:40)
[2021-08-14] MEDS: GABAPENTIN 300 MG CAPSULE PO ×3 (08:57→16:36)
[2021-08-14] MEDS: PANTOPRAZOLE 40 MG TABLET PO (08:57)
[2021-08-14] MEDS: ENOXAPARIN 40 MG/0.4 ML SYRINGE SUB-Q ×2 (08:57→21:12)
--- NOTE | 2021-08-14 10:30 | P.PNIM_ITS ---
Progress Note: A&P Assessment and Plan (1) Pneumonia due to COVID-19 virus: Code(s): U07.1 - COVID-19; J12.82 - Pneumonia due to coronavirus disease 2019 Status: Acute Assessment and Plan: * Covid positive last Wednesday * remdesivir and dexamethasone started day 3 * Desaturated last evening and required oxygen supplementations * Chest xray: Worsened mild airspace opacities in right lower lung zone and left mid and lower lung zones, consistent with atelectasis/scarring versus pneumonia. * Will start azithromycin day 2 * Blood cultures NGTD * Inflammatory makers: Dimer 0.27, CRp 5.2, LDH 498, Ferritin 69.30, Dimer 0.17 from 08/13/21 * Chest CTA showed PNA consistent with COVID * Give 20mg IV lasix x 1 * Albuterol inhaler 1 puff Q4h PRN * Supplemental oxygen if indicated * Cornete and IS (2) Hypoxia: Code(s): R09.02 - Hypoxemia Status: Acute Assessment and Plan: * Desaturation noted to 88 * Supplemental oxygen of per NC placed * Probably related to covid 19 * Wean as tolerated (3) Asthma: Qualifiers: Asthma complication type: uncomplicated Asthma persistence: intermittent Asthma severity: mild Qualified Code(s): J45.20 - Mild intermittent asthma, uncomplicated Code(s): J45.909 - Unspecified asthma, uncomplicated Status: Acute Assessment and Plan: * Albuterol inhaler * No wheezes noted on exam (4) Morbid obesity: Onset Date: Unknown Code(s): E66.01 - Morbid (severe) obesity due to excess calories Status: Acute Assessment and Plan: * Lifestyle and diet modification * changed to regular diet * Talked to patient about lifestyle changes * Buckle Strap Puncher consult (5) Psoriatic arthritis: Onset Date: Unknown Code(s): L40.50 - Arthropathic psoriasis, unspecified Status: Acute Assessment and Plan: * Patient gets monthly shots, just got her shot last week * Due to her monthly shots patient is more immunocompromised and more susceptible to illness * For follow up in the outpatient setting (6) Back pain: Code(s): M54.9 - Dorsalgia, unspecified Status: Acute Assessment and Plan: * Rating her back pain a 8/10 * Chest CT ordered * [place] 5/325mg PO Q6hr * Onetime dose of 1mg Morphine IV (7) Tachycardia: Code(s): R00.0 - Tachycardia, unspecified Status: Acute Assessment and Plan: * Heart rate does elevate with activity in the 130s * Subsides on its own * Monitor Time Spent With Patient Time with patient: Greater than 35 minutes Subjective Date/time seen: 08/14/21 10:30 Interval history: Date/Time: 08/12/21 01:25 Narrative: This is a 31-year-old female with past medical history significant for morbid obesity, psoriasis, psoriatic arthritis, 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 Patient presented to the emergency room due to shortness of breath ,cough, chills, fevers, rigors, decreased appetite, loss of sense of taste and smell some nausea and diarrhea according to patient she had tested positive for COVID last Wednesday and she presented today to the emergency room due to worsening of symptoms. In emergency room preliminary workup was significant for chest x- ray with airspace opacities. It was noted the patient was on clindamycin q.i.d. and she had a
--- NOTE | 2021-08-14 10:30 | PM.IMPN ---
Progress Note: A&P Assessment and Plan (1) Pneumonia due to COVID-19 virus: Code(s): U07.1 - COVID-19; J12.82 - Pneumonia due to coronavirus disease 2019 Status: Acute Assessment and Plan: Covid positive last Wednesday remdesivir and dexamethasone started day 3 Desaturated last evening and required oxygen supplementations Chest xray: Worsened mild airspace opacities in right lower lung zone and left mid and lower lung zones, consistent with atelectasis/scarring versus pneumonia. Will start azithromycin day 2 Blood cultures NGTD Inflammatory makers: Dimer 0.27, CRp 5.2, LDH 498, Ferritin 69.30, Dimer 0.17 from 08/13/21 Chest CTA showed PNA consistent with COVID Give 20mg IV lasix x 1 Albuterol inhaler 1 puff Q4h PRN Supplemental oxygen if indicated Cornete and IS (2) Hypoxia: Code(s): R09.02 - Hypoxemia Status: Acute Assessment and Plan: Desaturation noted to 88 Supplemental oxygen of per NC placed Probably related to covid 19 Wean as tolerated (3) Asthma: Qualifiers: Asthma complication type: uncomplicated Asthma persistence: intermittent Asthma severity: mild Qualified Code(s): J45.20 - Mild intermittent asthma, uncomplicated Code(s): J45.909 - Unspecified asthma, uncomplicated Status: Acute Assessment and Plan: Albuterol inhaler No wheezes noted on exam (4) Morbid obesity: Onset Date: Unknown Code(s): E66.01 - Morbid (severe) obesity due to excess calories Status: Acute Assessment and Plan: Lifestyle and diet modification changed to regular diet Talked to patient about lifestyle changes Microsoft Application Developer consult (5) Psoriatic arthritis: Onset Date: Unknown Code(s): L40.50 - Arthropathic psoriasis, unspecified Status: Acute Assessment and Plan: Patient gets monthly shots, just got her shot last week Due to her monthly shots patient is more immunocompromised and more susceptible to illness For follow up in the outpatient setting (6) Back pain: Code(s): M54.9 - Dorsalgia, unspecified Status: Acute Assessment and Plan: Rating her back pain a 8/[address] ordered [place] 5/325mg PO Q6hr Onetime dose of 1mg Morphine IV (7) Tachycardia: Code(s): R00.0 - Tachycardia, unspecified Status: Acute Assessment and Plan: Heart rate does elevate with activity in the 130s Subsides on its own Monitor Time Spent With Patient Time with patient: Greater than 35 minutes Subjective Date/time seen: 08/14/21 10:30 Interval history: Date/Time: 08/12/21 01:25 Narrative: This is a 31-year-old female with past medical history significant for morbid obesity, psoriasis, psoriatic arthritis, 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 Patient presented to the emergency room due to shortness of breath ,cough, chills, fevers, rigors, decreased appetite, loss of sense of taste and smell some nausea and diarrhea according to patient she had tested positive for COVID last Wednesday and she presented today to the emergency room due to worsening of symptoms. In emergency room preliminary workup was significant for chest x-ray with airspace opacities. It was noted the patient was on clindamycin q.i.d. and she had a surgical procedure back in June. Date/time seen 08/12/21 12:20 Today patient stated that she almost had a near syncopal episode in the bathroom today. She stated that she was up brushing her teeth when she stated that her knees got weak and felt as if they were going to give out. She was also having a BM at that time. She does look like she feels a bit puny. She is also complaining of a dry cough. She is hungry and is wondering where her lunch tray is at. She would also like to have some breathing treatments or albuter
[2021-08-14] MEDS: REMDESIVIR 100 MG/NS 250 ML 100 MG/250 ML BAG 250 MG IVPB (10:45)
[2021-08-14] MEDS: FUROSEMIDE INJ 40 MG/4 ML VIAL 20 MG IV PUSH (16:39)
[2021-08-15] VITALS (8 sets, daily range): BP systolic 117–135; BP diastolic 58–87; PULSE 60–85; RESP 12–20; TEMP 36.6–37; O2SAT 90–95
[2021-08-15 06:26] LABS: Basophils Percent Auto 0.1 % (0.2-1.2); Eosinophils Percent Auto 0.4 % (0-4.4); Hematocrit 43.5 % (37.0-47.0); Hemoglobin 13.9 g/dL (12.0-15.0); Immature Granulocyte Absolute 0.04 K/mm3 (0.00-0.031); Immature Granulocyte Percent A 0.5 % (0-0.5); Immature Platelet Fraction Pct 2.3 % (0.9-11.2); Lymphocytes Absolute Auto 0.85 K/mm3 (0.9-3.2); Lymphocytes Percent Auto 11.6 % (18.3-44.2); Mean Corpuscular Hemoglobin 28.3 pg (26-34); Mean Corpuscular Volume 88.4 fl (80-100); Mean Platelet Volume 9.6 fl (7.4-10.4); Monocytes Absolute Auto 0.2 K/mm3 (0.1-0.6); Monocytes Percent Auto 2.7 % (2.6-8.5); Neutrophils Absolute Auto 6.2 K/mm3 (1.3-6.7); Neutrophils Percent Auto 84.7 % (45.5-73.1); Platelet Count Result 223 k/mm3 (150-375); Red Blood Count 4.92 M/mm3 (4.2-5.4); Red Cell Distribution Width 14.6 % (11.5-14.5); White Blood Count 7.4 K/mm3 (4.5-10.0)
[2021-08-15 06:37] LABS: Alanine Aminotransferase 18 U/L (4-35); Alkaline Phosphatase 77 U/L (38-126); Anion Gap 8 mmol/L (8-16); Aspartate Amino Transferase 20 U/L (14-36); Bilirubin,Total 0.6 mg/dL (0.2-1.3); Blood Urea Nitrogen 26 mg/dL (7-17); Calcium 9.2 mg/dL (8.4-10.2); Carbon Dioxide 28 mmol/L (22-30); Chloride 99 mmol/L (98-107); Estimated CRCL calculation 146 ml/min; Estimated Glomerular Filt Rate > 60; Glucose 126 mg/dL (65-110); Magnesium 2.5 mg/dL (1.6-2.3); Potassium 4.7 mmol/L (3.4-5.0); Sodium 135 mmol/L (137-145)
[2021-08-15 06:41] LABS: INR 0.9; Prothrombin Time 12.2 Seconds (11.1-14.7)
[2021-08-15] MEDS: GABAPENTIN 300 MG CAPSULE PO ×2 (10:03→17:36)
[2021-08-15] MEDS: REMDESIVIR 100 MG/NS 250 ML 100 MG/250 ML BAG 250 MG IVPB (10:03)
[2021-08-15] MEDS: ENOXAPARIN 40 MG/0.4 ML SYRINGE SUB-Q ×2 (10:03→21:11)
[2021-08-15] MEDS: CLINDAMYCIN HCL 150 MG CAP 300 MG PO ×3 (10:04→21:11)
[2021-08-15] MEDS: PANTOPRAZOLE 40 MG TABLET PO (10:05)
--- NOTE | 2021-08-15 10:20 | P.PNIM_ITS ---
Progress Note: A&P Assessment and Plan (1) Pneumonia due to COVID-19 virus: Code(s): U07.1 - COVID-19; J12.82 - Pneumonia due to coronavirus disease 2019 Status: Acute Assessment and Plan: * Covid positive last Wednesday * remdesivir and dexamethasone started day 4 * Desaturated last evening and required oxygen supplementations * Chest xray: Worsened mild airspace opacities in right lower lung zone and left mid and lower lung zones, consistent with atelectasis/scarring versus pneumonia. * Will start azithromycin day 3 * Blood cultures NGTD * Inflammatory makers: Dimer 0.27, CRp 5.2, LDH 498, Ferritin 69.30, Dimer 0.17 will repeat in the AM * Chest CTA showed PNA consistent with COVID * Give 20mg IV lasix x 1 * Albuterol inhaler 1 puff Q4h PRN * Supplemental oxygen if indicated * Cornete and IS (2) Hypoxia: Code(s): R09.02 - Hypoxemia Status: Acute Assessment and Plan: * Desaturation noted to 87 * Supplemental oxygen of 2L per NC, titrated down to room air and maintain saturations of 90% with activity and talking * Probably related to covid 19 * Wean as tolerated (3) Acute respiratory failure due to COVID-19: Code(s): U07.1 - COVID-19; J96.00 - Acute respiratory failure, unspecified whether with hypoxia or hypercapnia Status: Acute Assessment and Plan: * See hypoxia (4) Asthma: Qualifiers: Asthma severity: mild Asthma persistence: intermittent Asthma complication type: uncomplicated Qualified Code(s): J45.20 - Mild intermittent asthma, uncomplicated Code(s): J45.909 - Unspecified asthma, uncomplicated Status: Acute Assessment and Plan: * Albuterol inhaler * No wheezes noted on exam (5) Morbid obesity: Onset Date: Unknown Code(s): E66.01 - Morbid (severe) obesity due to excess calories Status: Acute Assessment and Plan: * Lifestyle and diet modification * changed to regular diet * Talked to patient about lifestyle changes * Concrete Batcher consult (6) Psoriatic arthritis: Onset Date: Unknown Code(s): L40.50 - Arthropathic psoriasis, unspecified Status: Acute Assessment and Plan: * Patient gets monthly shots, just got her shot last week * Due to her monthly shots patient is more immunocompromised and more susceptible to illness * For follow up in the outpatient setting (7) Back pain: Code(s): M54.9 - Dorsalgia, unspecified Status: Acute Assessment and Plan: * Rating her back pain a 05/06 * Chest CT ordered * [place] 5/325mg PO Q6hr * Onetime dose of 1mg Morphine IV (8) Tachycardia: Code(s): R00.0 - Tachycardia, unspecified Status: Acute Assessment and Plan: * Heart rate does elevate with activity in the 130s * Subsides on its own * Monitor Time Spent With Patient Time with patient: Greater than 35 minutes Subjective Date/time seen: 08/15/21 15:47 Interval history: Date/Time: 08/12/21 01:25 Narrative: This is a 31-year-old female with past medical history significant for morbid obesity, psoriasis, psoriatic arthritis, 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 Patient presented to the emergency room due to shortness of breath ,cough, chills, fevers, rigors, decreased appetite, loss of sense of taste a
--- NOTE | 2021-08-15 10:20 | PM.IMPN ---
Progress Note: A&P Assessment and Plan (1) Pneumonia due to COVID-19 virus: Code(s): U07.1 - COVID-19; J12.82 - Pneumonia due to coronavirus disease 2019 Status: Acute Assessment and Plan: Covid positive last Wednesday remdesivir and dexamethasone started day 4 Desaturated last evening and required oxygen supplementations Chest xray: Worsened mild airspace opacities in right lower lung zone and left mid and lower lung zones, consistent with atelectasis/scarring versus pneumonia. Will start azithromycin day 3 Blood cultures NGTD Inflammatory makers: Dimer 0.27, CRp 5.2, LDH 498, Ferritin 69.30, Dimer 0.17 will repeat in the AM Chest CTA showed PNA consistent with COVID Give 20mg IV lasix x 1 Albuterol inhaler 1 puff Q4h PRN Supplemental oxygen if indicated Cornete and IS (2) Hypoxia: Code(s): R09.02 - Hypoxemia Status: Acute Assessment and Plan: Desaturation noted to 87 Supplemental oxygen of 2L per NC, titrated down to room air and maintain saturations of 90% with activity and talking Probably related to covid 19 Wean as tolerated (3) Acute respiratory failure due to COVID-19: Code(s): U07.1 - COVID-19; J96.00 - Acute respiratory failure, unspecified whether with hypoxia or hypercapnia Status: Acute Assessment and Plan: See hypoxia (4) Asthma: Qualifiers: Asthma severity: mild Asthma persistence: intermittent Asthma complication type: uncomplicated Qualified Code(s): J45.20 - Mild intermittent asthma, uncomplicated Code(s): J45.909 - Unspecified asthma, uncomplicated Status: Acute Assessment and Plan: Albuterol inhaler No wheezes noted on exam (5) Morbid obesity: Onset Date: Unknown Code(s): E66.01 - Morbid (severe) obesity due to excess calories Status: Acute Assessment and Plan: Lifestyle and diet modification changed to regular diet Talked to patient about lifestyle changes Combat Systems Engineer consult (6) Psoriatic arthritis: Onset Date: Unknown Code(s): L40.50 - Arthropathic psoriasis, unspecified Status: Acute Assessment and Plan: Patient gets monthly shots, just got her shot last week Due to her monthly shots patient is more immunocompromised and more susceptible to illness For follow up in the outpatient setting (7) Back pain: Code(s): M54.9 - Dorsalgia, unspecified Status: Acute Assessment and Plan: Rating her back pain a 05/[address] ordered [place] 5/325mg PO Q6hr Onetime dose of 1mg Morphine IV (8) Tachycardia: Code(s): R00.0 - Tachycardia, unspecified Status: Acute Assessment and Plan: Heart rate does elevate with activity in the 130s Subsides on its own Monitor Time Spent With Patient Time with patient: Greater than 35 minutes Subjective Date/time seen: 08/15/21 15:47 Interval history: Date/Time: 08/12/21 01:25 Narrative: This is a 31-year-old female with past medical history significant for morbid obesity, psoriasis, psoriatic arthritis, 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 Patient presented to the emergency room due to shortness of breath ,cough, chills, fevers, rigors, decreased appetite, loss of sense of taste and smell some nausea and diarrhea according to patient she had tested positive for COVID last Wednesday and she presented today to the emergency room due to worsening of symptoms. In emergency room preliminary workup was significant for chest x-ray with airspace opacities. It was noted the patient was on clindamycin q.i.d. and she had a surgical procedure back in June. Date/time seen 08/12/21 12:20 Today patient stated that she almost had a near syncopal episode in the bathroom today. She stated that she was up brushing her teeth when she state
[2021-08-15] MEDS: HYDROcodone/acetaminophen (*CRX) 5-325 MG TABLET 1 TAB PO (12:12)
[2021-08-15] MEDS: FUROSEMIDE INJ 40 MG/4 ML VIAL 20 MG IV PUSH (17:40)
--- NOTE | 2021-08-15 21:53 | ECG_ITS ---
Measurements Intervals [place] Rate: 75 P: 43 IL: 129 QRS: 49 QRSD: 85 T: 34 QT: 372 QTc: 416 Interpretive Statements SINUS RHYTHM DELAYED PRECORDIAL R/S TRANSITION MINIMAL Q WAVES- INFERIOPR LEADS BORDERLINE ECG Electronically Signed On 08-16-2021 7:59:58 CASTING COORDINATOR by Nuno Rosenberg D.O.
[2021-08-15 22:37] LABS: Alveolar/Arterial O2 Gradient 79.4 mmHg; Base Excess ABG 1.2 mEq/l (+/-2.0); Fractional Inspired Oxygen 26 %; HCO3 ABG 24.5 mEq/l (22.0-26.0); Oxygen Content ABG 19.5 %vol (16.0-22.0); Oxygen Saturation ABG 93.7 % (95.0-100.0); Oxyhemoglobin 92.5 % THb (90.0-100.0); PCO2 ABG 35.3 mmHg (35.0-45.0); PO2 ABG 64.2 mmHg (80.0-100.0); PO2 FiO2 Ratio Arterial Blood 2.47 %
[2021-08-15 22:38] LABS: Device NASAL CANNULA; Liters per Minute 1.5 LPM; Modified Allen's Test Pass; Site Drawn RIGHT RADIAL
[2021-08-15 22:55] LABS: Troponin I < 0.012 ng/mL (0.000-0.034)
[2021-08-16] VITALS (9 sets, daily range): BP systolic 113–156; BP diastolic 68–91; PULSE 57–99; RESP 18–20; TEMP 35.7–36.8; O2SAT 91–98
[2021-08-16] MEDS: HYDROcodone/acetaminophen (*CRX) 5-325 MG TABLET 1 TAB PO ×3 (00:06→18:18)
--- NOTE | 2021-08-16 08:45 | PM.IMPN ---
Progress Note: A&P Assessment and Plan (1) Pneumonia due to COVID-19 virus: Code(s): U07.1 - COVID-19; J12.82 - Pneumonia due to coronavirus disease 2019 Status: Acute Assessment and Plan: Covid positive last Wednesday remdesivir and dexamethasone started day 5 Desaturated last evening and required oxygen supplementations Chest xray: Worsened mild airspace opacities in right lower lung zone and left mid and lower lung zones, consistent with atelectasis/scarring versus pneumonia. Will start azithromycin day 4 Blood cultures NGTD Inflammatory makers: Dimer 0.27, CRp <0.5, LDH 502, Ferritin 53.10 Chest CTA showed PNA consistent with COVID Albuterol inhaler 1 puff Q4h PRN Supplemental oxygen increasing Encouraged prone positioning Actamera 800mg IV 08/16/21 Cornete and IS She might be getting worse due to immunocompromise from her psoriasis medication (2) Acute respiratory failure due to COVID-19: Code(s): U07.1 - COVID-19; J96.00 - Acute respiratory failure, unspecified whether with hypoxia or hypercapnia Status: Acute Assessment and Plan: Patient stated that she desaturated to the 70s with no noted recovery Maintained a saturation of 85% and need to be titrated up Supplemental oxygen at 4 L continue to wean to maintain saturation greater than 90% Related to COVID-19 Blood gas indicated hypoxia with a saturation of 93% CT of the chest showed mild progression of covid Check BNP (3) Asthma: Qualifiers: Asthma severity: mild Asthma persistence: intermittent Asthma complication type: uncomplicated Qualified Code(s): J45.20 - Mild intermittent asthma, uncomplicated Code(s): J45.909 - Unspecified asthma, uncomplicated Status: Acute Assessment and Plan: Albuterol inhaler No wheezes noted on exam (4) Morbid obesity: Onset Date: Unknown Code(s): E66.01 - Morbid (severe) obesity due to excess calories Status: Acute Assessment and Plan: Lifestyle and diet modification changed to regular diet Talked to patient about lifestyle changes Waterproof Bag Cutting Machine Operator consult (5) Psoriatic arthritis: Onset Date: Unknown Code(s): L40.50 - Arthropathic psoriasis, unspecified Status: Acute Assessment and Plan: Patient gets monthly shots, just got her shot last week Due to her monthly shots patient is more immunocompromised and more susceptible to illness For follow up in the outpatient setting (6) Back pain: Code(s): M54.9 - Dorsalgia, unspecified Status: Acute Assessment and Plan: Rating her back pain a 8/10 No back issues noted on CT [place] 5/325mg PO Q6hr (7) Tachycardia: Code(s): R00.0 - Tachycardia, unspecified Status: Acute Assessment and Plan: Heart rate does elevate with activity in the 130s Subsides on its own Monitor (8) Chest pain: Code(s): R07.9 - Chest pain, unspecified Status: Acute Assessment and Plan: Complained of chest pain over night Stated that it started in back and radiated to the epigastric region Could be GERD, will increase protonix to BID Trop neg, chest CT showed no PE mildly progression of COVID, EKG showed sinus rhythm the rate is 70 Not show any signs of CAD or ischemic changes Time Spent With Patient Time with patient: Greater than 35 minutes Subjective Date/time seen: 08/16/21 08:45 Interval history: Date/Time: 08/12/21 01:25 Narrative: This is a 31-year-old female with past medical history significant for morbid obesity, psoriasis, psoriatic arthritis, 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 Patient presented to the emergency room due to shortness of breath ,cough, chills, fevers, rigors, decreased appetite, loss of sense of taste and smell some nausea and di
--- NOTE | 2021-08-16 08:45 | P.PNIM_ITS ---
Progress Note: A&P Assessment and Plan (1) Pneumonia due to COVID-19 virus: Code(s): U07.1 - COVID-19; J12.82 - Pneumonia due to coronavirus disease 2019 Status: Acute Assessment and Plan: * Covid positive last Wednesday * remdesivir and dexamethasone started day 5 * Desaturated last evening and required oxygen supplementations * Chest xray: Worsened mild airspace opacities in right lower lung zone and left mid and lower lung zones, consistent with atelectasis/scarring versus pneumonia. * Will start azithromycin day 4 * Blood cultures NGTD * Inflammatory makers: Dimer 0.27, CRp <0.5, LDH 502, Ferritin 53.10 * Chest CTA showed PNA consistent with COVID * Albuterol inhaler 1 puff Q4h PRN * Supplemental oxygen increasing * Encouraged prone positioning * Actamera 800mg IV 08/16/21 * Cornete and IS * She might be getting worse due to immunocompromise from her psoriasis medication (2) Acute respiratory failure due to COVID-19: Code(s): U07.1 - COVID-19; J96.00 - Acute respiratory failure, unspecified whether with hypoxia or hypercapnia Status: Acute Assessment and Plan: * Patient stated that she desaturated to the 70s with no noted recovery * Maintained a saturation of 85% and need to be titrated up * Supplemental oxygen at 4 L continue to wean to maintain saturation greater than 90% * Related to COVID-19 * Blood gas indicated hypoxia with a saturation of 93% * CT of the chest showed mild progression of covid * Check BNP (3) Asthma: Qualifiers: Asthma severity: mild Asthma persistence: intermittent Asthma complication type: uncomplicated Qualified Code(s): J45.20 - Mild intermittent asthma, uncomplicated Code(s): J45.909 - Unspecified asthma, uncomplicated Status: Acute Assessment and Plan: * Albuterol inhaler * No wheezes noted on exam (4) Morbid obesity: Onset Date: Unknown Code(s): E66.01 - Morbid (severe) obesity due to excess calories Status: Acute Assessment and Plan: * Lifestyle and diet modification * changed to regular diet * Talked to patient about lifestyle changes * Practice Physician consult (5) Psoriatic arthritis: Onset Date: Unknown Code(s): L40.50 - Arthropathic psoriasis, unspecified Status: Acute Assessment and Plan: * Patient gets monthly shots, just got her shot last week * Due to her monthly shots patient is more immunocompromised and more susceptible to illness * For follow up in the outpatient setting (6) Back pain: Code(s): M54.9 - Dorsalgia, unspecified Status: Acute Assessment and Plan: * Rating her back pain a 8/10 * No back issues noted on CT * [place] 5/325mg PO Q6hr (7) Tachycardia: Code(s): R00.0 - Tachycardia, unspecified Status: Acute Assessment and Plan: * Heart rate does elevate with activity in the 130s * Subsides on its own * Monitor (8) Chest pain: Code(s): R07.9 - Chest pain, unspecified Status: Acute Assessment and Plan: * Complained of chest pain over night * Stated that it started in back and radiated to the epigastric region * Could be GERD, will increase protonix to BID * Trop neg, chest CT showed no PE mildly progression of COVID, EKG showed sinus rhythm the rate is 70 * Not show any signs of CAD or ischemic changes
[2021-08-16] MEDS: ENOXAPARIN 40 MG/0.4 ML SYRINGE SUB-Q ×2 (08:49→21:07)
[2021-08-16] MEDS: PANTOPRAZOLE 40 MG TABLET PO (08:50)
[2021-08-16] MEDS: CLINDAMYCIN HCL 150 MG CAP 300 MG PO ×4 (08:50→21:07)
[2021-08-16] MEDS: GABAPENTIN 300 MG CAPSULE PO ×3 (08:50→17:00)
[2021-08-16 08:55] LABS: Hematocrit 41.5 % (37.0-47.0); Hemoglobin 13.5 g/dL (12.0-15.0); Immature Granulocyte Absolute 0.07 K/mm3 (0.00-0.031); Immature Granulocyte Percent A 0.7 % (0-0.5); Lymphocytes Absolute Auto 1.11 K/mm3 (0.9-3.2); Lymphocytes Percent Auto 10.8 % (18.3-44.2); Mean Corpuscular HGB Conc 32.5 g/dl (32-36); Mean Corpuscular Hemoglobin 28.1 pg (26-34); Mean Corpuscular Volume 86.5 fl (80-100); Mean Platelet Volume 8.7 fl (7.4-10.4); Monocytes Absolute Auto 0.3 K/mm3 (0.1-0.6); Monocytes Percent Auto 2.8 % (2.6-8.5); Neutrophils Absolute Auto 8.9 K/mm3 (1.3-6.7); Neutrophils Percent Auto 85.7 % (45.5-73.1); Platelet Count Result 238 k/mm3 (150-375); Red Cell Distribution Width 14.3 % (11.5-14.5); White Blood Count 10.3 K/mm3 (4.5-10.0)
[2021-08-16 09:07] LABS: Alanine Aminotransferase 20 U/L (4-35); Albumin Level 3.9 g/dL (3.5-5.1); Alkaline Phosphatase 73 U/L (38-126); Anion Gap 6 mmol/L (8-16); Aspartate Amino Transferase 20 U/L (14-36); Bilirubin,Total 0.4 mg/dL (0.2-1.3); Blood Urea Nitrogen 27 mg/dL (7-17); CRP < 0.5 mg/dL (<1.0); Calcium 9.1 mg/dL (8.4-10.2); Carbon Dioxide 30 mmol/L (22-30); Chloride 97 mmol/L (98-107); Estimated CRCL calculation 127 ml/min; Estimated Glomerular Filt Rate > 60; Glucose 114 mg/dL (65-110); Lactate Dehydrogenase 502 U/L (313-618); Magnesium 2.5 mg/dL (1.6-2.3); Potassium 4.3 mmol/L (3.4-5.0); Sodium 133 mmol/L (137-145)
[2021-08-16 09:21] LABS: INR 0.9; Prothrombin Time 12.3 Seconds (11.1-14.7)
[2021-08-16 10:18] LABS: D Dimer 0.27 ug/mL (<0.48)
[2021-08-16] MEDS: REMDESIVIR 100 MG/NS 250 ML 100 MG/250 ML BAG 250 MG IVPB (11:23)
[2021-08-16 11:44] LABS: NT Pro B Type Natriuretic Pept 27 pg/mL (5-100)
[2021-08-16] MEDS: TOCILIZUMAB 800 MG in SODIUM CHLORIDE 0.9% IV 60 ML 100 MG IVPB (14:00)
[2021-08-17] VITALS (7 sets, daily range): BP systolic 113–129; BP diastolic 64–81; PULSE 60–87; RESP 16–20; TEMP 36.1–37.1; O2SAT 91–98
[2021-08-17] MEDS: HYDROcodone/acetaminophen (*CRX) 5-325 MG TABLET 1 TAB PO ×4 (00:27→23:23)
[2021-08-17] MEDS: hydrOXYzine HCL 10 MG TABLET PO ×2 (00:28→23:22)
[2021-08-17 06:55] LABS: Basophils Percent Auto 0.2 % (0.2-1.2); Hematocrit 42.8 % (37.0-47.0); Hemoglobin 13.9 g/dL (12.0-15.0); Immature Granulocyte Absolute 0.07 K/mm3 (0.00-0.031); Immature Granulocyte Percent A 0.7 % (0-0.5); Lymphocytes Absolute Auto 0.91 K/mm3 (0.9-3.2); Mean Corpuscular HGB Conc 32.5 g/dl (32-36); Mean Corpuscular Hemoglobin 27.6 pg (26-34); Mean Corpuscular Volume 84.9 fl (80-100); Mean Platelet Volume 8.4 fl (7.4-10.4); Monocytes Absolute Auto 0.2 K/mm3 (0.1-0.6); Monocytes Percent Auto 2.1 % (2.6-8.5); Neutrophils Absolute Auto 8.9 K/mm3 (1.3-6.7); Platelet Count Result 244 k/mm3 (150-375); Red Blood Count 5.04 M/mm3 (4.2-5.4); Red Cell Distribution Width 13.8 % (11.5-14.5); White Blood Count 10.1 K/mm3 (4.5-10.0)
--- NOTE | 2021-08-17 07:10 | PM.IMPN ---
Progress Note: A&P Assessment and Plan (1) Pneumonia due to COVID-19 virus: Code(s): U07.1 - COVID-19; J12.82 - Pneumonia due to coronavirus disease 2019 Status: Acute Assessment and Plan: Covid positive last Wednesday remdesivir and dexamethasone started day 5, resume for 5 more days Still hovering in the high 80s on room air Chest xray: Worsened mild airspace opacities in right lower lung zone and left mid and lower lung zones, consistent with atelectasis/scarring versus pneumonia. 08/15/2021 Will start azithromycin day 5 Blood cultures NGTD Inflammatory makers: Dimer 0.27, CRP <0.5, LDH 502, Ferritin 53.10 Chest CTA showed PNA consistent with COVID Albuterol inhaler 1 puff Q4h PRN Supplemental oxygen increasing Encouraged prone positioning Actamera 800mg IV 08/16/21 Cornete and IS She might be getting worse due to immunocompromise from her psoriasis medication (2) Acute respiratory failure due to COVID-19: Code(s): U07.1 - COVID-19; J96.00 - Acute respiratory failure, unspecified whether with hypoxia or hypercapnia Status: Acute Assessment and Plan: Patient remains on oxygen Maintained a saturation of 85% on room air Supplemental oxygen at 2 L, continue to wean to maintain saturation greater than 90% Related to COVID-19 CT of the chest showed mild progression of covid BNP 27 (3) Asthma: Qualifiers: Asthma severity: mild Asthma persistence: intermittent Asthma complication type: uncomplicated Qualified Code(s): J45.20 - Mild intermittent asthma, uncomplicated Code(s): J45.909 - Unspecified asthma, uncomplicated Status: Acute Assessment and Plan: Albuterol inhaler No wheezes noted on exam (4) Morbid obesity: Onset Date: Unknown Code(s): E66.01 - Morbid (severe) obesity due to excess calories Status: Acute Assessment and Plan: Lifestyle and diet modification changed to regular diet Talked to patient about lifestyle changes Hemodialysis Technician consult (5) Psoriatic arthritis: Onset Date: Unknown Code(s): L40.50 - Arthropathic psoriasis, unspecified Status: Acute Assessment and Plan: Patient gets monthly shots, just got her shot last week Due to her monthly shots patient is more immunocompromised and more susceptible to illness For follow up in the outpatient setting (6) Back pain: Code(s): M54.9 - Dorsalgia, unspecified Status: Acute Assessment and Plan: Seems to be resolved at this time No back issues noted on CT [place] 5/325mg PO Q6hr (7) Tachycardia: Code(s): R00.0 - Tachycardia, unspecified Status: Acute Assessment and Plan: Heart rate does elevate with activity in the 130s Subsides on its own Monitor (8) Chest pain: Code(s): R07.9 - Chest pain, unspecified Status: Acute Assessment and Plan: Complained of chest pain over night 08/16/21 Seems to be resolved, no notable chest pain overnight Stated that it started in back and radiated to the epigastric region Could be GERD, will increase protonix to BID Trop neg, chest CT showed no PE mildly progression of COVID, EKG showed sinus rhythm the rate is 70 Not show any signs of CAD or ischemic changes Time Spent With Patient Time with patient: Greater than 35 minutes Subjective Date/time seen: 08/17/21 07:10 Interval history: Date/Time: 08/12/21 01:25 Narrative: This is a 31-year-old female with past medical history significant for morbid obesity, psoriasis, psoriatic arthritis, 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 Patient presented to the emergency room due to shortness of breath ,cough, chills, fevers, rigors, decreased appetite, loss of sense of taste and smell some nausea and diarrhea according to patient
--- NOTE | 2021-08-17 07:10 | P.PNIM_ITS ---
Progress Note: A&P Assessment and Plan (1) Pneumonia due to COVID-19 virus: Code(s): U07.1 - COVID-19; J12.82 - Pneumonia due to coronavirus disease 2019 Status: Acute Assessment and Plan: * Covid positive last Wednesday * remdesivir and dexamethasone started day 5, resume for 5 more days * Still hovering in the high 80s on room air * Chest xray: Worsened mild airspace opacities in right lower lung zone and left mid and lower lung zones, consistent with atelectasis/scarring versus pneumonia. 08/15/2021 * Will start azithromycin day 5 * Blood cultures NGTD * Inflammatory makers: Dimer 0.27, CRP <0.5, LDH 502, Ferritin 53.10 * Chest CTA showed PNA consistent with COVID * Albuterol inhaler 1 puff Q4h PRN * Supplemental oxygen increasing * Encouraged prone positioning * Actamera 800mg IV 08/16/21 * Cornete and IS * She might be getting worse due to immunocompromise from her psoriasis medication (2) Acute respiratory failure due to COVID-19: Code(s): U07.1 - COVID-19; J96.00 - Acute respiratory failure, unspecified whether with hypoxia or hypercapnia Status: Acute Assessment and Plan: * Patient remains on oxygen * Maintained a saturation of 85% on room air * Supplemental oxygen at 2 L, continue to wean to maintain saturation greater than 90% * Related to COVID-19 * CT of the chest showed mild progression of covid * BNP 27 (3) Asthma: Qualifiers: Asthma severity: mild Asthma persistence: intermittent Asthma complication type: uncomplicated Qualified Code(s): J45.20 - Mild intermittent asthma, uncomplicated Code(s): J45.909 - Unspecified asthma, uncomplicated Status: Acute Assessment and Plan: * Albuterol inhaler * No wheezes noted on exam (4) Morbid obesity: Onset Date: Unknown Code(s): E66.01 - Morbid (severe) obesity due to excess calories Status: Acute Assessment and Plan: * Lifestyle and diet modification * changed to regular diet * Talked to patient about lifestyle changes * Sand Conditioner consult (5) Psoriatic arthritis: Onset Date: Unknown Code(s): L40.50 - Arthropathic psoriasis, unspecified Status: Acute Assessment and Plan: * Patient gets monthly shots, just got her shot last week * Due to her monthly shots patient is more immunocompromised and more susceptible to illness * For follow up in the outpatient setting (6) Back pain: Code(s): M54.9 - Dorsalgia, unspecified Status: Acute Assessment and Plan: * Seems to be resolved at this time * No back issues noted on CT * [place] 5/325mg PO Q6hr (7) Tachycardia: Code(s): R00.0 - Tachycardia, unspecified Status: Acute Assessment and Plan: * Heart rate does elevate with activity in the 130s * Subsides on its own * Monitor (8) Chest pain: Code(s): R07.9 - Chest pain, unspecified Status: Acute Assessment and Plan: * Complained of chest pain over night 08/16/21 * Seems to be resolved, no notable chest pain overnight * Stated that it started in back and radiated to the epigastric region * Could be GERD, will increase protonix to BID * Trop neg, chest CT showed no PE mildly progression of COVID, EKG showed sinus rhythm the rate is 70 * Not show any signs of CAD or ischemic changes Time Spent With Patient
[2021-08-17 07:29] LABS: Alanine Aminotransferase 22 U/L (4-35); Albumin Level 3.9 g/dL (3.5-5.1); Alkaline Phosphatase 69 U/L (38-126); Anion Gap 11 mmol/L (8-16); Aspartate Amino Transferase 19 U/L (14-36); Bilirubin,Total 0.4 mg/dL (0.2-1.3); Blood Urea Nitrogen 23 mg/dL (7-17); Calcium 9.2 mg/dL (8.4-10.2); Carbon Dioxide 24 mmol/L (22-30); Chloride 99 mmol/L (98-107); Estimated CRCL calculation 146 ml/min; Estimated Glomerular Filt Rate > 60; Glucose 123 mg/dL (65-110); Magnesium 2.4 mg/dL (1.6-2.3); Potassium 4.3 mmol/L (3.4-5.0); Sodium 134 mmol/L (137-145)
[2021-08-17] MEDS: CLINDAMYCIN HCL 150 MG CAP 300 MG PO ×4 (07:57→20:47)
[2021-08-17] MEDS: GABAPENTIN 300 MG CAPSULE PO ×3 (07:57→17:13)
[2021-08-17] MEDS: PANTOPRAZOLE 40 MG TABLET PO (07:58)
[2021-08-17] MEDS: ENOXAPARIN 40 MG/0.4 ML SYRINGE SUB-Q ×2 (07:58→20:48)
[2021-08-17 12:28] LABS: INR 0.9; Prothrombin Time 12.2 Seconds (11.1-14.7)
[2021-08-17] MEDS: REMDESIVIR 100 MG/NS 250 ML 100 MG/250 ML BAG 250 MG IVPB (13:29)
[2021-08-18 04:00] VITALS: BP 128/61; PULSE 56; RESP 20; TEMP 37.1; O2SAT 96
[2021-08-18 06:03] LABS: Basophils Percent Auto 0.3 % (0.2-1.2); Hematocrit 43.7 % (37.0-47.0); Hemoglobin 14.4 g/dL (12.0-15.0); Immature Granulocyte Absolute 0.09 K/mm3 (0.00-0.031); Lymphocytes Absolute Auto 0.88 K/mm3 (0.9-3.2); Mean Corpuscular Hemoglobin 27.9 pg (26-34); Mean Corpuscular Volume 84.7 fl (80-100); Mean Platelet Volume 8.5 fl (7.4-10.4); Monocytes Absolute Auto 0.3 K/mm3 (0.1-0.6); Monocytes Percent Auto 3.1 % (2.6-8.5); Neutrophils Absolute Auto 7.5 K/mm3 (1.3-6.7); Neutrophils Percent Auto 85.6 % (45.5-73.1); Platelet Count Result 234 k/mm3 (150-375); Red Blood Count 5.16 M/mm3 (4.2-5.4); Red Cell Distribution Width 13.5 % (11.5-14.5); White Blood Count 8.8 K/mm3 (4.5-10.0)
[2021-08-18 06:10] LABS: INR 0.9
[2021-08-18 06:13] LABS: Alanine Aminotransferase 24 U/L (4-35); Albumin Level 3.9 g/dL (3.5-5.1); Alkaline Phosphatase 68 U/L (38-126); Anion Gap 5 mmol/L (8-16); Aspartate Amino Transferase 21 U/L (14-36); Bilirubin,Total 0.4 mg/dL (0.2-1.3); Blood Urea Nitrogen 24 mg/dL (7-17); Calcium 9.1 mg/dL (8.4-10.2); Carbon Dioxide 29 mmol/L (22-30); Chloride 99 mmol/L (98-107); Estimated CRCL calculation 127 ml/min; Estimated Glomerular Filt Rate > 60; Glucose 128 mg/dL (65-110); Magnesium 2.4 mg/dL (1.6-2.3); Potassium 4.4 mmol/L (3.4-5.0); Sodium 133 mmol/L (137-145)
[2021-08-18] MEDS: ALBUTEROL SULFATE (*SP) AEROSOL 1 PUFF INHALATION (06:53)
[2021-08-18 08:00] VITALS: BP 121/69; PULSE 79; RESP 21; TEMP 35.7; O2SAT 91
[2021-08-18] MEDS: GABAPENTIN 300 MG CAPSULE PO ×3 (08:04→16:04)
[2021-08-18] MEDS: CLINDAMYCIN HCL 150 MG CAP 300 MG PO ×4 (08:04→20:46)
[2021-08-18] MEDS: PANTOPRAZOLE 40 MG TABLET PO (08:04)
[2021-08-18] MEDS: ENOXAPARIN 40 MG/0.4 ML SYRINGE SUB-Q ×2 (08:04→20:46)
[2021-08-18] MEDS: HYDROcodone/acetaminophen (*CRX) 5-325 MG TABLET 1 TAB PO ×3 (08:06→23:04)
--- NOTE | 2021-08-18 09:40 | P.PNIM_ITS ---
Progress Note: A&P Assessment and Plan (1) Pneumonia due to COVID-19 virus: Code(s): U07.1 - COVID-19; J12.82 - Pneumonia due to coronavirus disease 2018 Status: Acute Assessment and Plan: * Covid positive last Wednesday * remdesivir and dexamethasone started day 5, resume for 5 more days, day 7 * Maintaining 90-91% on room air * Chest xray: Worsened mild airspace opacities in right lower lung zone and left mid and lower lung zones, consistent with atelectasis/scarring versus pneumonia. 08/15/2021, will repeat in the am * Will start azithromycin day 5, completed * Blood cultures NGTD * Inflammatory makers: Dimer 0.27, CRP <0.5, LDH 502, Ferritin 53.10 08/16/21 * Chest CTA showed PNA consistent with COVID * Albuterol inhaler 1 puff Q4h PRN * Encouraged prone positioning she performed overnight * Actamera 800mg IV 08/16/21 * Cornete and IS * She might be getting worse due to immunocompromise from her psoriasis medication * Home O2 evaluation upon discharge (2) Acute respiratory failure due to COVID-19: Code(s): U07.1 - COVID-19; J96.00 - Acute respiratory failure, unspecified whether with hypoxia or hypercapnia Status: Acute Assessment and Plan: * Patient remains on oxygen * Maintained a saturation of 90-91% on room air * Supplemental oxygen wean to maintain saturation greater than 90% * Related to COVID-19 * CT of the chest showed mild progression of covid 08/15/21 * BNP 27 08/16/21 * reports feeling better with intermittent doses of lasix will give her onetime dose (3) Asthma: Qualifiers: Asthma severity: mild Asthma persistence: intermittent Asthma complication type: uncomplicated Qualified Code(s): J45.20 - Mild intermittent asthma, uncomplicated Code(s): J45.909 - Unspecified asthma, uncomplicated Status: Acute Assessment and Plan: * Albuterol inhaler * No wheezes noted on exam (4) Morbid obesity: Onset Date: Unknown Code(s): E66.01 - Morbid (severe) obesity due to excess calories Status: Acute Assessment and Plan: * Lifestyle and diet modification * changed to regular diet * Talked to patient about lifestyle changes * Airline Pilot Flight Instructor consult (5) Psoriatic arthritis: Onset Date: Unknown Code(s): L40.50 - Arthropathic psoriasis, unspecified Status: Acute Assessment and Plan: * Patient gets monthly shots, just got her shot last week * Due to her monthly shots patient is more immunocompromised and more susceptible to illness * For follow up in the outpatient setting (6) Back pain: Code(s): M54.9 - Dorsalgia, unspecified Status: Acute Assessment and Plan: * Seems to be resolved at this time * No back issues noted on CT * [place] 5/325mg PO Q6hr (7) Tachycardia: Code(s): R00.0 - Tachycardia, unspecified Status: Acute Assessment and Plan: * Heart rate does elevate with activity in the 130s * Subsides on its own * Monitor (8) Chest pain: Code(s): R07.9 - Chest pain, unspecified Status: Acute Assessment and Plan: * Complained of chest pain over night 08/16/21 * Seems to be resolved, no notable chest pain overnight * Stated that it started in back and radiated to the epigastric region * Could be GERD, will increase protonix to BID * Trop neg, chest CT showed no PE mildly progression o
--- NOTE | 2021-08-18 09:40 | PM.IMPN ---
Progress Note: A&P Assessment and Plan (1) Pneumonia due to COVID-19 virus: Code(s): U07.1 - COVID-19; J12.82 - Pneumonia due to coronavirus disease 2019 Status: Acute Assessment and Plan: Covid positive last Wednesday remdesivir and dexamethasone started day 5, resume for 5 more days, day 7 Maintaining 90-91% on room air Chest xray: Worsened mild airspace opacities in right lower lung zone and left mid and lower lung zones, consistent with atelectasis/scarring versus pneumonia. 08/15/2021, will repeat in the am Will start azithromycin day 5, completed Blood cultures NGTD Inflammatory makers: Dimer 0.27, CRP <0.5, LDH 502, Ferritin 53.10 08/16/21 Chest CTA showed PNA consistent with COVID Albuterol inhaler 1 puff Q4h PRN Encouraged prone positioning she performed overnight Actamera 800mg IV 08/16/21 Cornete and IS She might be getting worse due to immunocompromise from her psoriasis medication Home O2 evaluation upon discharge (2) Acute respiratory failure due to COVID-19: Code(s): U07.1 - COVID-19; J96.00 - Acute respiratory failure, unspecified whether with hypoxia or hypercapnia Status: Acute Assessment and Plan: Patient remains on oxygen Maintained a saturation of 90-91% on room air Supplemental oxygen wean to maintain saturation greater than 90% Related to COVID-19 CT of the chest showed mild progression of covid 08/15/21 BNP 27 08/16/21 reports feeling better with intermittent doses of lasix will give her onetime dose (3) Asthma: Qualifiers: Asthma severity: mild Asthma persistence: intermittent Asthma complication type: uncomplicated Qualified Code(s): J45.20 - Mild intermittent asthma, uncomplicated Code(s): J45.909 - Unspecified asthma, uncomplicated Status: Acute Assessment and Plan: Albuterol inhaler No wheezes noted on exam (4) Morbid obesity: Onset Date: Unknown Code(s): E66.01 - Morbid (severe) obesity due to excess calories Status: Acute Assessment and Plan: Lifestyle and diet modification changed to regular diet Talked to patient about lifestyle changes [place] consult (5) Psoriatic arthritis: Onset Date: Unknown Code(s): L40.50 - Arthropathic psoriasis, unspecified Status: Acute Assessment and Plan: Patient gets monthly shots, just got her shot last week Due to her monthly shots patient is more immunocompromised and more susceptible to illness For follow up in the outpatient setting (6) Back pain: Code(s): M54.9 - Dorsalgia, unspecified Status: Acute Assessment and Plan: Seems to be resolved at this time No back issues noted on CT [place] 5/325mg PO Q6hr (7) Tachycardia: Code(s): R00.0 - Tachycardia, unspecified Status: Acute Assessment and Plan: Heart rate does elevate with activity in the 130s Subsides on its own Monitor (8) Chest pain: Code(s): R07.9 - Chest pain, unspecified Status: Acute Assessment and Plan: Complained of chest pain over night 08/16/21 Seems to be resolved, no notable chest pain overnight Stated that it started in back and radiated to the epigastric region Could be GERD, will increase protonix to BID Trop neg, chest CT showed no PE mildly progression of COVID, EKG showed sinus rhythm the rate is 70 Not show any signs of CAD or ischemic changes Time Spent With Patient Time with patient: Greater than 35 minutes Subjective Date/time seen: 08/18/21 0940 Interval history: Date/Time: 08/12/21 01:25 Narrative: This is a 31-year-old female with past medical history significant for morbid obesity, psoriasis, psoriatic arthritis, 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 Patient presented to the emergency room due to
[2021-08-18] MEDS: REMDESIVIR 100 MG/NS 250 ML 100 MG/250 ML BAG 250 MG IVPB (10:14)
[2021-08-18 11:50] VITALS: BP 116/72; PULSE 91; RESP 21; TEMP 36; O2SAT 91
[2021-08-18] MEDS: FUROSEMIDE INJ 40 MG/4 ML VIAL IV PUSH (12:04)
[2021-08-18 16:00] VITALS: BP 120/79; PULSE 94; RESP 21; TEMP 36.1; O2SAT 94
[2021-08-18 20:00] VITALS: BP 105/77; PULSE 68; PULSE 77; RESP 16; RESP 20; TEMP 36.1; O2SAT 94; O2SAT 95
[2021-08-18] MEDS: hydrOXYzine HCL 10 MG TABLET PO (23:06)
[2021-08-18 23:50] VITALS: PULSE 62; RESP 17; O2SAT 96
[2021-08-19] VITALS (10 sets, daily range): BP systolic 100–131; BP diastolic 64–72; PULSE 62–99; RESP 16–20; TEMP 35.9–36.4; O2SAT 88–95
[2021-08-19 06:39] LABS: Basophils Percent Auto 0.2 % (0.2-1.2); Hematocrit 43.1 % (37.0-47.0); Hemoglobin 14.4 g/dL (12.0-15.0); Lymphocytes Absolute Auto 0.91 K/mm3 (0.9-3.2); Lymphocytes Percent Auto 9.3 % (18.3-44.2); Mean Corpuscular HGB Conc 33.4 g/dl (32-36); Mean Corpuscular Hemoglobin 27.7 pg (26-34); Mean Platelet Volume 8.6 fl (7.4-10.4); Monocytes Absolute Auto 0.4 K/mm3 (0.1-0.6); Monocytes Percent Auto 3.6 % (2.6-8.5); Neutrophils Absolute Auto 8.4 K/mm3 (1.3-6.7); Neutrophils Percent Auto 85.9 % (45.5-73.1); Platelet Count Result 296 k/mm3 (150-375); Red Blood Count 5.19 M/mm3 (4.2-5.4); Red Cell Distribution Width 13.7 % (11.5-14.5); White Blood Count 9.7 K/mm3 (4.5-10.0)
[2021-08-19 06:56] LABS: Alanine Aminotransferase 26 U/L (4-35); Albumin Level 3.9 g/dL (3.5-5.1); Alkaline Phosphatase 68 U/L (38-126); Anion Gap 10 mmol/L (8-16); Aspartate Amino Transferase 21 U/L (14-36); Bilirubin,Total 0.5 mg/dL (0.2-1.3); Blood Urea Nitrogen 29 mg/dL (7-17); Carbon Dioxide 25 mmol/L (22-30); Chloride 98 mmol/L (98-107); Estimated CRCL calculation 146 ml/min; Estimated Glomerular Filt Rate > 60; Glucose 117 mg/dL (65-110); Magnesium 2.4 mg/dL (1.6-2.3); Potassium 4.2 mmol/L (3.4-5.0); Sodium 133 mmol/L (137-145)
[2021-08-19 06:57] LABS: INR 0.9; Prothrombin Time 12.3 Seconds (11.1-14.7)
[2021-08-19] MEDS: CLINDAMYCIN HCL 150 MG CAP 300 MG PO ×2 (09:00→13:40)
[2021-08-19] MEDS: GABAPENTIN 300 MG CAPSULE PO ×2 (09:00→13:40)
[2021-08-19] MEDS: ENOXAPARIN 40 MG/0.4 ML SYRINGE SUB-Q (09:00)
[2021-08-19] MEDS: PANTOPRAZOLE 40 MG TABLET PO (09:00)
[2021-08-19] MEDS: HYDROcodone/acetaminophen (*CRX) 5-325 MG TABLET 1 TAB PO (09:06)
--- NOTE | 2021-08-19 10:30 | PM.DS ---
DS: Admitting Diagnosis Discharge Date Date of service 08/19/2021 at 10:30 Admitting Diagnosis COVID-19 pneumonia DS: Discharge Diagnosis Discharge Diagnosis (1) Pneumonia due to COVID-19 virus: Code(s): U07.1 - COVID-19; J12.82 - Pneumonia due to coronavirus disease 2018 Status: Acute Assessment and Plan: Covid positive last Wednesday remdesivir and dexamethasone started day 5, resume for 5 more days, day 7 Maintaining 90-91% on room air Chest xray: Worsened mild airspace opacities in right lower lung zone and left mid and lower lung zones, consistent with atelectasis/scarring versus pneumonia. 08/15/2021, will repeat in the am Will start azithromycin day 5, completed Blood cultures NGTD Inflammatory makers: Dimer 0.27, CRP <0.5, LDH 502, Ferritin 53.10 08/16/21 Chest CTA showed PNA consistent with COVID Albuterol inhaler 1 puff Q4h PRN Encouraged prone positioning she performed overnight Actamera 800mg IV 08/16/21 Cornete and IS She might be getting worse due to immunocompromise from her psoriasis medication Home O2 evaluation upon discharge (2) Acute respiratory failure due to COVID-19: Code(s): U07.1 - COVID-19; J96.00 - Acute respiratory failure, unspecified whether with hypoxia or hypercapnia Status: Acute Assessment and Plan: Patient remains on oxygen Maintained a saturation of 90-91% on room air Supplemental oxygen wean to maintain saturation greater than 90% Related to COVID-19 CT of the chest showed mild progression of covid 08/15/21 BNP 27 08/16/21 reports feeling better with intermittent doses of lasix will give her onetime dose (3) Asthma: Qualifiers: Asthma complication type: uncomplicated Asthma persistence: intermittent Asthma severity: mild Qualified Code(s): J45.20 - Mild intermittent asthma, uncomplicated Code(s): J45.909 - Unspecified asthma, uncomplicated Status: Acute Assessment and Plan: Albuterol inhaler No wheezes noted on exam (4) Morbid obesity: Onset Date: Unknown Code(s): E66.01 - Morbid (severe) obesity due to excess calories Status: Acute Assessment and Plan: Lifestyle and diet modification changed to regular diet Talked to patient about lifestyle changes [id number] Operator consult (5) Psoriatic arthritis: Onset Date: Unknown Code(s): L40.50 - Arthropathic psoriasis, unspecified Status: Acute Assessment and Plan: Patient gets monthly shots, just got her shot last week Due to her monthly shots patient is more immunocompromised and more susceptible to illness For follow up in the outpatient setting (6) Back pain: Code(s): M54.9 - Dorsalgia, unspecified Status: Acute Assessment and Plan: Seems to be resolved at this time No back issues noted on CT [place] 5/325mg PO Q6hr (7) Tachycardia: Code(s): R00.0 - Tachycardia, unspecified Status: Acute Assessment and Plan: Heart rate does elevate with activity in the 130s Subsides on its own Monitor (8) Chest pain: Code(s): R07.9 - Chest pain, unspecified Status: Acute Assessment and Plan: Complained of chest pain over night 08/16/21 Seems to be resolved, no notable chest pain overnight Stated that it started in back and radiated to the epigastric region Could be GERD, will increase protonix to BID Trop neg, chest CT showed no PE mildly progression of COVID, EKG showed sinus rhythm the rate is 70 Not show any signs of CAD or ischemic changes DS: Summary Hospital Course Hospital Course: Patient is a 31-year-old female with a past medical history of asthma, psoriatic arthritis, appendectomy who presented to the ED with shortness of breath patient had tested COVID positive on 08/08/2021. Since admission patient was treated with 8 days of remdesivir and Decadron.
--- NOTE | 2021-08-19 10:30 | P.DS_ITS ---
DS: Admitting Diagnosis Discharge Date Date of service 08/19/2021 at 10:30 Admitting Diagnosis COVID-19 pneumonia DS: Discharge Diagnosis Discharge Diagnosis (1) Pneumonia due to COVID-19 virus: Code(s): U07.1 - COVID-19; J12.82 - Pneumonia due to coronavirus disease 2018 Status: Acute Assessment and Plan: * Covid positive last Wednesday * remdesivir and dexamethasone started day 5, resume for 5 more days, day 7 * Maintaining 90-91% on room air * Chest xray: Worsened mild airspace opacities in right lower lung zone and left mid and lower lung zones, consistent with atelectasis/scarring versus pneumonia. 08/15/2021, will repeat in the am * Will start azithromycin day 5, completed * Blood cultures NGTD * Inflammatory makers: Dimer 0.27, CRP <0.5, LDH 502, Ferritin 53.10 08/16/21 * Chest CTA showed PNA consistent with COVID * Albuterol inhaler 1 puff Q4h PRN * Encouraged prone positioning she performed overnight * Actamera 800mg IV 08/16/21 * Cornete and IS * She might be getting worse due to immunocompromise from her psoriasis medication * Home O2 evaluation upon discharge (2) Acute respiratory failure due to COVID-19: Code(s): U07.1 - COVID-19; J96.00 - Acute respiratory failure, unspecified whether with hypoxia or hypercapnia Status: Acute Assessment and Plan: * Patient remains on oxygen * Maintained a saturation of 90-91% on room air * Supplemental oxygen wean to maintain saturation greater than 90% * Related to COVID-19 * CT of the chest showed mild progression of covid 08/15/21 * BNP 27 08/16/21 * reports feeling better with intermittent doses of lasix will give her onetime dose (3) Asthma: Qualifiers: Asthma complication type: uncomplicated Asthma persistence: intermittent Asthma severity: mild Qualified Code(s): J45.20 - Mild intermittent asthma, uncomplicated Code(s): J45.909 - Unspecified asthma, uncomplicated Status: Acute Assessment and Plan: * Albuterol inhaler * No wheezes noted on exam (4) Morbid obesity: Onset Date: Unknown Code(s): E66.01 - Morbid (severe) obesity due to excess calories Status: Acute Assessment and Plan: * Lifestyle and diet modification * changed to regular diet * Talked to patient about lifestyle changes * Route Salesperson consult (5) Psoriatic arthritis: Onset Date: Unknown Code(s): L40.50 - Arthropathic psoriasis, unspecified Status: Acute Assessment and Plan: * Patient gets monthly shots, just got her shot last week * Due to her monthly shots patient is more immunocompromised and more susceptible to illness * For follow up in the outpatient setting (6) Back pain: Code(s): M54.9 - Dorsalgia, unspecified Status: Acute Assessment and Plan: * Seems to be resolved at this time * No back issues noted on CT * [place] 5/325mg PO Q6hr (7) Tachycardia: Code(s): R00.0 - Tachycardia, unspecified Status: Acute Assessment and Plan: * Heart rate does elevate with activity in the 130s * Subsides on its own * Monitor (8) Chest pain: Code(s): R07.9 - Chest pain, unspecified Status: Acute Assessment and Plan: * Complained of chest pain over night 08/16/21 * Seems to be resolved, no notable chest pain overnight * Stated that it started in back
[2021-08-19] MEDS: REMDESIVIR 100 MG/NS 250 ML 100 MG/250 ML BAG 200 MG IVPB (10:37)
--- NOTE | 2021-08-19 11:40 | HOMEO2EVAL ---
Evaluation was performed at [facility] Home Oxygen Evaluation RC: Home Oxygen (O2) Evaluation Start: 08/19/21 10:06 Freq: ONCE Status: Active Protocol: RPE Activity Type Activity Date Activity User E-Sign Co-Sign Detail Recorded Client Recorded Date Recorded By Document 08/19/21 11:20 ТАТЬЯНА [id number] 08/19/21 11:40 ТАТЬЯНА Document 08/19/21 11:25 [email or web address] 08/19/21 11:40 ТАТЬЯНА Document 08/19/21 11:26 ТАТЬЯНА [email or web address] 08/19/21 11:40 ТАТЬЯНА Document 08/19/21 11:27 ТАТЬЯНА [id number] 08/19/21 11:40 ТАТЬЯНА Document 08/19/21 11:35 ТАТЬЯНА [id number] 08/19/21 11:40 ТАТЬЯНА 08/19/21 08/19/21 08/19/21 11:20 11:25 11:26 Home O2 Evaluation Test Phase Resting Exercise Exercise Oxygen Delivery Room Air Room Air Nasal Cannula Oxygen Flow Rate (L/min) 1 Pulse Oximetry (90-100 %) 94 88 L 88 L Pulse Rate (60-100 beats/min) 82 99 Ambulation Distance (feet) Home Oxygen Evaluation Comments Treatment Charges O2 Evaluation - Inpatient 08/19/21 08/19/21 11:27 11:35 Home O2 Evaluation Test Phase Exercise Resting Oxygen Delivery Nasal Cannula Room Air Oxygen Flow Rate (L/min) 2 Pulse Oximetry (90-100 %) 90 93 Pulse Rate (60-100 beats/min) 85 Ambulation Distance (feet) 150 Home Oxygen Evaluation Comments Pt requires 2 L O2 with activity Treatment Charges
--- NOTE | 2021-08-19 11:47 | PCRCNOTE ---
Home O2 eval completed. O2 needed with activity at 2 L. Set up with [facility]. Tank in room prior to D/C for transport home. RN notified.
== END 2021-08-19 15:30 | disposition home or self-care (01) | DRG 177 ==
LOC: ANHED 22:40 → ANH3MEDSUR 23:15
PROVIDERS: Emergency Medicine; Nurse Practitioner; Admitting Provider Internal Medicine; Emergency Provider Emergency Medicine; PCP Family Medicine; Visit Provider Nurse Practitioner
DX: U07.1 COVID-19 (principal); J12.82 Pneumonia due to coronavirus disease 2019; J96.01 Acute respiratory failure with hypoxia; Z68.42 Body mass index [BMI] 45.0-49.9, adult; J45.909 Unspecified asthma, uncomplicated; E66.01 Morbid (severe) obesity due to excess calories; L40.50 Arthropathic psoriasis, unspecified; R00.0 Tachycardia, unspecified; N92.6 Irregular menstruation, unspecified; K21.9 Gastro-esophageal reflux disease without esophagitis; M54.9 Dorsalgia, unspecified; Z90.49 Acquired absence of other specified parts of digestive tract; Z87.891 Personal history of nicotine dependence
CPT/HCPCS: 36415; 36600; 71045; 71046; 71275; 80048; 80053; 81025; 82375; 82565; 82728; 82805; 83050; 83605; 83615; 83735; 83880; 84460; 84484; 85025; 85055; 85380; 85610; 86140; 87040; 93005; 94618; 94640; 94667; 96365; 96372; 96375; 96376; 99285; A9270; G0378; J0456; J0696; J1100; J1650; J1940; J2270; Q0249; Q9967

== ENCOUNTER 2021-09-29 16:02 | Outpatient (CLI) | payer OTHER, SELFPAY ==
--- NOTE | ~2021-09-29 | US_ITS ---
EXAMINATION: US renal BI EXAM DATE: 09/29/2021 16:52 INDICATION: Painful menstruation, dysuria. TECHNIQUE: Multiple grayscale and Doppler images of the kidneys were obtained (by a technologist who performed the scan) and subsequently reviewed. Comparison is made to prior examination from 02/23/2020 . FINDINGS: Right kidney: There is normal contour and echogenicity. It measures 9.5 x 4.8 x 5.2 centimeters. Th ere are no focal renal lesions identified. There is no hydronephrosis. Left kidney: There is normal contour and echogenicity. It measures 11.5 x 4.9 x 4.5 centimeters. Th ere are no focal renal lesions identified. There is no hydronephrosis. Bladder unremarkable. IMPRESSION: Sonographically unremarkable kidneys and bladder. Reviewed, dictated and finalized at location A. OSITE WORKER
== END 2021-09-29 16:03 | disposition home or self-care (01) ==
LOC: ANHIMG 16:09
PROVIDERS: PCP Family Medicine; Visit Provider Nurse Practitioner
DX: R30.9 Painful micturition, unspecified (principal)
CPT/HCPCS: 76775

== ENCOUNTER 2022-01-07 14:23 | Outpatient (CLI) | payer OTHER, SELFPAY ==
--- NOTE | ~2022-01-07 | CT_ITS ---
EXAMINATION: CT abdomen pelvis wo con DATE: 01/07/2022 14:42 INDICATION: RIGHT FLANK PAIN TECHNIQUE: Computed tomography (CT) of the abdomen and pelvis was performed without intravenous contr ast. Automated exposure control and iterative reconstruction technique were employed. The dose-length product was 1530.22 mGy-cm. COMPARISON: 07/12/2021. FINDINGS: Lower thorax: Bibasilar respiratory motion artifact, atelectasis, and scarring. Small hiatal hernia. Liver: Normal. Biliary/Gallbladder: Gallbladder is absent. No bile duct dilation. Pneumobilia, unchanged. Spleen: Normal. Pancreas: No mass or duct dilation. Adrenals:No mass. Kidneys: No mass, stone, or hydronephrosis. GI tract: No small or large bowel dilation. Normal appendix. Mesentery/Peritoneum: No ascites, mass, or free air. Very mild thickening of the right lateral conal fascia. Prominent right lower quadrant lymph nodes measuring up to 8 mm. Retroperitoneum: No mass. Pelvis: Pelvic organs are within normal limits. 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 Moderate fat-containing uncomplicated umbilical hernia. No acute osseous finding. Additional Findings: None. IMPRESSION: No definite acute abdominopelvic process detected. Prominent right lower quadrant lymph nodes and mil d adjacent fascial inflammatory change, with an absolutely normal-appearing appendix. These findings could represent mesenteric adenitis in the appropriate clinical context, keeping in mind this remains the diagnosis of exclusion. Reviewed, dictated and finalized at location K. IMPRESSION: No definite acute abdominopelvic process detected. Prominent right lower quadra nt lymph nodes and mild adjacent fascial inflammatory change, with an absolutel y normal-appearing appendix. These findings could represent mesenteric adenitis in the appropriate clinical context, keeping in mind this remains the diagnosi s of exclusion.
== END 2022-01-07 14:24 | disposition home or self-care (01) ==
LOC: ANHIMG 14:27
PROVIDERS: PCP Family Medicine; Visit Provider Nurse Practitioner
DX: R10.9 Unspecified abdominal pain (principal)
CPT/HCPCS: 74176

== ENCOUNTER 2022-05-08 12:31 | Outpatient (CLI) | payer BC, OTHER, SELFPAY ==
[2022-05-08 18:53] LABS: Basophils Percent Auto 0.4 % (0.2-1.2); Eosinophils Absolute Auto 0.2 K/mm3 (0-0.3); Hematocrit 36.3 % (37.0-47.0); Hemoglobin 11.5 g/dL (12.0-15.0); Immature Granulocyte Absolute 0.02 K/mm3 (0.00-0.031); Immature Granulocyte Percent A 0.2 % (0-0.5); Lymphocytes Absolute Auto 2.17 K/mm3 (0.9-3.2); Lymphocytes Percent Auto 20.4 % (18.3-44.2); Mean Corpuscular HGB Conc 31.7 g/dl (32-36); Mean Corpuscular Hemoglobin 27.4 pg (26-34); Mean Corpuscular Volume 86.4 fl (80-100); Mean Platelet Volume 9.9 fl (7.4-10.4); Monocytes Absolute Auto 0.5 K/mm3 (0.1-0.6); Monocytes Percent Auto 4.5 % (2.6-8.5); Neutrophils Absolute Auto 7.7 K/mm3 (1.3-6.7); Neutrophils Percent Auto 72.5 % (45.5-73.1); Platelet Count Result 259 k/mm3 (150-375); Red Cell Distribution Width 13.9 % (11.5-14.5); White Blood Count 10.7 K/mm3 (4.5-10.0)
[2022-05-08 19:35] LABS: Alanine Aminotransferase 18 U/L (6-35); Albumin Level 3.7 g/dL (3.5-5.1); Alkaline Phosphatase 97 U/L (38-126); Amylase 53 U/L (30-110); Anion Gap 10 mmol/L (8-16); Aspartate Amino Transferase 24 U/L (14-36); Bilirubin,Total 0.4 mg/dL (0.2-1.3); Blood Urea Nitrogen 11 mg/dL (7-17); Calcium 9.1 mg/dL (8.4-10.2); Carbon Dioxide 25 mmol/L (22-30); Chloride 105 mmol/L (98-107); Cholesterol 179 mg/dL (0-200); Estimated Glomerular Filt Rate > 60; Glucose 101 mg/dL (65-110); HDL Direct 32 mg/dL; Lipase 49 U/L (23-300); Potassium 3.9 mmol/L (3.4-5.0); Sodium 140 mmol/L (137-145); Triglycerides 214 mg/dL (<150)
[2022-05-08 19:45] LABS: LDL Cholesterol Direct 99 mg/dL
== END 2022-05-08 12:32 | disposition home or self-care (01) ==
LOC: ANHGOSHLAB 12:34
PROVIDERS: PCP Nurse Practitioner Family; Visit Provider Nurse Practitioner Family
DX: Z13.220 Encounter for screening for lipoid disorders (principal); R10.12 Left upper quadrant pain
CPT/HCPCS: 36415; 80053; 80061; 82150; 83690; 85025

== ENCOUNTER 2022-06-02 10:02 | Outpatient (CLI) | payer BC, OTHER, SELFPAY ==
--- NOTE | ~2022-06-02 | XR_ITS ---
EXAMINATION: XR lumbar spine min 4V DATE: 06/02/2022 11:13 INDICATION: Arthropathic psoriasis TECHNIQUE: Anteroposterior, lateral, and bilateral oblique views of the lumbar spine, and cone-down l ateral view of the lumbosacral junction were obtained. COMPARISON: None. FINDINGS: Bone alignment is normal. There is no fracture. There is mild lower thoracic spondylosis. M ild facet osteoarthritis is noted in the lower lumbar spine. Cholecystectomy clips are present in the right upper quadrant. IMPRESSION: 1. Mild spondylosis of the lower thoracic and lower lumbar spine. Reviewed, dictated and finalized at location B.
--- NOTE | ~2022-06-02 | XR_ITS ---
EXAMINATION: XR hand BI arthritis min 3V DATE: 06/02/2022 11:13 INDICATION: Arthropathic psoriasis, unspecified. TECHNIQUE: 4 views of right hand and 4 views of left hand on a total of 7 radiographs were obtained. COMPARISON: None. FINDINGS: RIGHT HAND: Bone alignment is normal. No fracture. Joint spaces are well maintained. LEFT HAND: Bone alignment is normal. No fracture. Joint spaces are well maintained. IMPRESSION: 1. No arthritis. Reviewed, dictated and finalized at location A. IMPRESSION: 1. No arthritis.
--- NOTE | ~2022-06-02 | XR_ITS ---
EXAMINATION: XR sacroiliac joints min 3V DATE: 06/02/2022 11:13 INDICATION: Arthropathic psoriasis, unspecified. TECHNIQUE: 3 views of the sacroiliac joints were obtained. COMPARISON: CT abdomen and pelvis 01/07/2022 FINDINGS: Bone alignment is normal. No fracture. There is mild osteoarthritis of the sacroiliac joint s. IMPRESSION: 1. Mild osteoarthritis of the sacroiliac joints. No evidence of inflammatory arthropathy. Reviewed, dictated and finalized at location A. IMPRESSION: 1. Mild osteoarthritis of the sacroiliac joints. No evidence of inflammatory ar thropathy.
--- NOTE | ~2022-06-02 | XR_ITS ---
EXAM: XR foot LT standing 2V, XR foot RT standing 2V DATE: 06/02/2022 11:13 HISTORY: L40.50 - Arthropathic psoriasis, unspecified CHRONIC PAIN . COMPARISON: None available. FINDINGS: Uncomplicated appearing hardware fixation of the right proximal fifth metatarsal Normal mi neralization. No fracture or dislocation. No lytic or blastic lesion. Hallux valgus with first MTP de generative change, severe in the right foot, mild in the left foot. Small right os navicularis. Large , fused left os navicularis. Loss of the longitudinal arch bilaterally. Bilateral mild plantar and Ac hilles enthesopathy No erosion or periosteal change. Soft tissues within normal limits. Prominent os trigonum bilaterally. Small bilateral ankle effusions. IMPRESSION: No radiographic evidence of erosive arthropathy in the feet. Prominent left os trigonum a nd bilaterally prominent os trigonum which can be a source of chronic pain in some patients. Severe r ight hallux valgus and first MTP degenerative change. Bilateral pes planus. Reviewed, dictated and finalized at location K. IMPRESSION: No radiographic evidence of erosive arthropathy in the feet. Promin ent left os trigonum and bilaterally prominent os trigonum which can be a sourc e of chronic pain in some patients. Severe right hallux valgus and first MTP de generative change. Bilateral pes planus.
[2022-06-02 10:41] LABS: Hematocrit 36.8 % (37.0-47.0); Hemoglobin 12.2 g/dL (12.0-15.0); Mean Corpuscular HGB Conc 33.2 g/dl (32-36); Mean Corpuscular Hemoglobin 28.3 pg (26-34); Mean Corpuscular Volume 85.4 fl (80-100); Mean Platelet Volume 9.6 fl (7.4-10.4); Platelet Count Result 286 k/mm3 (150-375); Red Blood Count 4.31 M/mm3 (4.2-5.4); Red Cell Distribution Width 13.9 % (11.5-14.5); White Blood Count 13.4 K/mm3 (4.5-10.0)
[2022-06-02 10:48] LABS: Alanine Aminotransferase 14 U/L (6-35); Albumin Level 3.9 g/dL (3.5-5.1); Alkaline Phosphatase 106 U/L (38-126); Anion Gap 9 mmol/L (8-16); Aspartate Amino Transferase 20 U/L (14-36); Bilirubin,Total 0.5 mg/dL (0.2-1.3); Blood Urea Nitrogen 16 mg/dL (7-17); CRP 2.3 mg/dL (<1.0); Carbon Dioxide 27 mmol/L (22-30); Chloride 104 mmol/L (98-107); Creatine Kinase 39 U/L (30-135); Estimated Glomerular Filt Rate > 60; Glucose 112 mg/dL (65-110); Potassium 3.7 mmol/L (3.4-5.0); Sodium 140 mmol/L (137-145)
[2022-06-02 11:12] LABS: Appearance Urine Cloudy (Clear); Bilirubin Urine Negative (Negative); Blood Urine 3+ (Negative); Color Urine Yellow (Yellow); Glucose Urine UA Negative (Negative); Ketones Urine Negative (Negative); Leukocyte Esterase Ur 3+ LEU/UL (Negative); Nitrate Urine Negative (Negative); Protein Urine 1+ mg/dL (Negative); Urobilinogen Urine 0.2 mg/dL (<2.0)
[2022-06-02 11:14] LABS: Complement C3 148 mg/dL (88-165); Rheumatoid Factor < 8.6 IU/ML (<12)
[2022-06-02 11:36] LABS: Add Urine Microscopic? YES
[2022-06-02 11:37] LABS: Bacteria Urine 2+ /hpf; RBC Urine 21-50 /hpf (0-2); Squamous Epithelial Cell Urine Many /hpf (Few); WBC Clumps Urine Present /hpf; WBC Urine >75 /hpf (0-3)
[2022-06-02 11:45] LABS: Hepatitis B Surface Antigen Negative (Negative)
[2022-06-02 12:16] LABS: Hepatitis C Virus Antibody Negative (Negative)
[2022-06-02 12:24] LABS: Erythrocyte Sedimentation Rate 51 mm/hr (0-20)
[2022-06-02 14:34] LABS: Hepatitis B Surface Anti Res Indeterminate
[2022-06-04 03:48] LABS: Angiotensin Converting Enzyme 25 U/L (9-67)
[2022-06-04 14:21] LABS: NIL 0.01 IU/mL; Quantiferon TB Plus, 1T NEGATIVE (NEGATIVE)
[2022-06-04 19:46] LABS: SM Antibody <1.0; SM/RNP Antibody <1.0
[2022-06-04 22:46] LABS: Anti Cyclic Citrullinated Pept <16 Units (<20)
[2022-06-09 12:14] LABS: Anti Nuclear Antibody Pattern Nuclear, Speckled; Anti Nuclear Antibody Titer 1:40 (Negative)
[2022-06-10 16:21] LABS: SS-A <1.0; SS-B <1.0
== END 2022-06-02 10:03 | disposition home or self-care (01) ==
LOC: ANHLAB 10:09
PROVIDERS: PCP Family Medicine; Visit Provider Internal Medicine
DX: L40.50 Arthropathic psoriasis, unspecified (principal); M19.90 Unspecified osteoarthritis, unspecified site; M47.898 Other spondylosis, sacral and sacrococcygeal region; M47.815 Spondylosis without myelopathy or radiculopathy, thoracolumbar region
CPT/HCPCS: 36415; 72110; 72202; 73130; 73620; 80053; 81001; 82164; 82550; 85027; 85652; 86038; 86039; 86140; 86160; 86200; 86225; 86235; 86430; 86480; 86706; 86803; 87086; 87088; 87340

== ENCOUNTER 2022-06-11 06:45 | Outpatient (CLI) | payer BC, OTHER, SELFPAY ==
--- NOTE | ~2022-06-11 | MR_ITS ---
EXAMINATION: MR sacroiliac jts wo/w con DATE: 06/11/2022 07:45 INDICATION: Sacroiliitis. Possible psoriatic arthritis. TECHNIQUE: Magnetic resonance imaging (MRI) of the sacrum and coccyx was performed without and with 1 5 mL Multihance intravenous contrast. Sequences included sagittal PD-weighted FS FSE, coronal obliqu e T2-weighted FS FSE, coronal oblique T1-weighted FSE, oblique axial T2-weighted FS FSE, oblique axia l fluid sensitive FSE STIR, oblique axial T1-weighted FS FSE and oblique axial T1-weighted FSE. Nilson tional postcontrast axial and coronal T1-weighted FS FSE sequences were also obtained. COMPARISON: Radiographs dated 06/02/2022 FINDINGS: Mild joint space narrowing at the bilateral sacroiliac joints. Thickening of the low signal intensity along the articular cortex at the iliac side of the bilateral sacroiliac joints. At the inferior rig ht sacroiliac joint there are small enhancing erosions which would be consistent with a sacroiliitis. No other erosions or enhancing synovitis. Visualized portion of the bilateral hip joint spaces appea r normal. Bone marrow signal is otherwise normal. No fracture or pathologic marrow replacing process. Bilateral adnexal cysts, the larger on the left measuring 2.9 cm in maximal diameter with several cy sts on the right, the largest measuring 1.3 cm. IMPRESSION: 1. Mild asymmetric bilateral sacroiliitis with a few right-sided enhancing erosions which would be co nsistent with an inflammatory sacroiliitis such as psoriatic arthritis. Differential would include ot her inflammatory arthritides, gout or osteoarthritis. Reviewed, dictated and finalized at location A. IMPRESSION: 1. Mild asymmetric bilateral sacroiliitis with a few right-sided enhancing eros ions which would be consistent with an inflammatory sacroiliitis such as psoria tic arthritis. Differential would include other inflammatory arthritides, gout or osteoarthritis.
== END 2022-06-11 06:46 | disposition home or self-care (01) ==
PROVIDERS: PCP Family Medicine; Visit Provider Internal Medicine
DX: L40.50 Arthropathic psoriasis, unspecified (principal); M46.1 Sacroiliitis, not elsewhere classified
CPT/HCPCS: 72197; A9577

== ENCOUNTER 2022-08-07 10:15 | Outpatient (CLI) | payer BC, OTHER, SELFPAY ==
[2022-08-07 18:32] LABS: Appearance Urine Cloudy (Clear); Bilirubin Urine Negative (Negative); Blood Urine Negative (Negative); Color Urine Yellow (Yellow); Glucose Urine UA Negative (Negative); Hemoglobin 12.2 g/dL (12.0-15.0); Ketones Urine Negative (Negative); Leukocyte Esterase Ur 1+ LEU/UL (Negative); Mean Corpuscular Hemoglobin 29.2 pg (26-34); Mean Corpuscular Volume 88.5 fl (80-100); Mean Platelet Volume 9.6 fl (7.4-10.4); Nitrate Urine Negative (Negative); Platelet Count Result 305 k/mm3 (150-375); Protein Urine Negative (Negative); Red Blood Count 4.18 M/mm3 (4.2-5.4); Red Cell Distribution Width 13.6 % (11.5-14.5); Specific Grav Ur >= 1.030 (1.001-1.035); Urobilinogen Urine 0.2 mg/dL (<2.0); White Blood Count 9.5 K/mm3 (4.5-10.0); pH Urine 5.5 (5.0-9.0)
[2022-08-07 18:34] LABS: Alanine Aminotransferase 17 U/L (6-35); Albumin Level 4.1 g/dL (3.5-5.1); Alkaline Phosphatase 77 U/L (38-126); Anion Gap 13 mmol/L (8-16); Aspartate Amino Transferase 20 U/L (14-36); Bilirubin,Total 0.3 mg/dL (0.2-1.3); Blood Urea Nitrogen 17 mg/dL (7-17); CRP 2.4 mg/dL (<1.0); Calcium 8.8 mg/dL (8.4-10.2); Carbon Dioxide 21 mmol/L (22-30); Chloride 106 mmol/L (98-107); Estimated Glomerular Filt Rate > 60; Glucose 104 mg/dL (65-110); Potassium 3.9 mmol/L (3.4-5.0); Sodium 140 mmol/L (137-145)
[2022-08-07 18:39] LABS: Bacteria Urine Trace /hpf; Mucus Urine Rare /lpf; RBC Urine 0-2 /hpf (0-2); Squamous Epithelial Cell Urine Many /hpf (Few)
[2022-08-07 18:41] LABS: Add Urine Microscopic? YES
[2022-08-07 19:02] LABS: Erythrocyte Sedimentation Rate 33 mm/hr (0-20)
== END 2022-08-07 10:16 | disposition home or self-care (01) ==
LOC: ANHGOSHLAB 10:18
PROVIDERS: PCP Family Medicine; Visit Provider Internal Medicine
DX: L40.50 Arthropathic psoriasis, unspecified (principal); M19.90 Unspecified osteoarthritis, unspecified site
CPT/HCPCS: 36415; 80053; 81001; 85027; 85652; 86140; 87086

== ENCOUNTER 2023-01-04 12:28 | Outpatient (CLI) | payer BC, OTHER, SELFPAY ==
--- NOTE | 2023-01-04 12:32 | ECG_ITS ---
Measurements Intervals [place] Rate: 88 P: 53 WA: 133 QRS: 57 QRSD: 93 T: 43 QT: 373 QTc: 452 Interpretive Statements SINUS RHYTHM NORMAL ECG COMPARED TO ECG 08/15/2021 22:15:14 NO SIGNIFICANT CHANGES Electronically Signed On 01-04-2023 17:04:20 CDT by Alexandru Powers M.D.
== END 2023-01-04 12:29 | disposition home or self-care (01) ==
PROVIDERS: PCP Family Medicine; Visit Provider Nurse Practitioner Family
DX: Z01.818 Encounter for other preprocedural examination (principal)
CPT/HCPCS: 93005

== ENCOUNTER 2023-01-26 18:57 | Emergency (ER) | payer BC, OTHER, SELFPAY ==
--- NOTE | ~2023-01-26 | XR_ITS ---
EXAMINATION: XR chest 2V Exam Date/Time: 01/26/2023 19:14 CDT HISTORY: SOB, L.UPPER CP ON INSPIRATION. HAD GASTRIC BYPASS RECENTLY Comparison: 08/19/2021; CTPA 08/15/2021. RESULT: Lines, tubes, and devices: Cholecystectomy clips. Lungs and pleura: Segmental consolidation in the superior and lateral portion of the left lower lobe . Linear bibasilar opacities, likely representing scar/atelectasis. Hemidiaphragm flattening as can b e seen with emphysematous change. Cardiomediastinal silhouette: Stable. Other: No acute osseous or upper abdominal finding. IMPRESSION: Left lower lobe consolidation, concerning for pneumonia. Reviewed, dictated and finalized at location K.
--- NOTE | ~2023-01-26 | CT_ITS ---
EXAMINATION: CTA chest PE protocol DATE: 01/26/2023 21:25 INDICATION: recent sx, shortness of breath TECHNIQUE: Computed tomography angiography (CTA) of the chest was performed with 100 mL Omnipaque-350 intravenous contrast timed to evaluate the pulmonary arteries. Coronal maximum intensity projection 3D-reconstructions were created by the technologist. The dose-length product (DLP) was 823.18 mGy-cm. Automated exposure control and iterative reconstruction technique were employed. COMPARISON: X-ray chest, same date; CTPA 08/15/2021. FINDINGS: Lung parenchyma and airways: Segmental consolidation in the left lower lobe. Bibasilar scarring. No C T evidence of emphysematous change. Pleura: Unremarkable. Thoracic inlet, axillae and chest wall: Unremarkable. Thoracic aorta: Normal. Mediastinum: Lymphadenopathy. Heart and pericardium: Normal. Coronary artery calcifications: Absent. Upper abdomen: Pneumobilia. Bones: No acute osseous finding. Pulmonary arteries: Study quality: Adequate. No pulmonary emboli detected. IMPRESSION: No CT evidence of acute pulmonary embolus. Left lower lobe pneumonia. Mediastinal lymphadenopathy. Reviewed, dictated and finalized at location K. IMPRESSION: No CT evidence of acute pulmonary embolus. Left lower lobe pneumonia. Mediastin al lymphadenopathy.
[2023-01-26 19:07] VITALS: BP 132/92; PULSE 118; RESP 20; TEMP 37; O2SAT 97
--- NOTE | 2023-01-26 19:12 | ECG_ITS ---
Measurements Intervals [place] Rate: 119 P: 42 W[place]: 121 QRS: 34 QRSD: 89 T: 46 QT: 391 QTc: 551 Interpretive Statements SINUS TACHYCARDIA DELAYED PRECORDIAL R/S TRANSITION BORDERLINE ST-T WAVE ABNORMALITY- DIFFUSE LEADS BASELINE ARTIFACT- III, AVL ABNORMAL ECG COMPARED TO ECG 01/04/2023 12:48:08 SINUS TACHYCARDIA NOW PRESENT Electronically Signed On 01-26-2023 21:26:42 CDT by Nuno Rosenberg D.O.
[2023-01-26 20:04] VITALS: TEMP 37.6
[2023-01-26 20:15] LABS: Basophils Percent Auto 0.2 % (0.2-1.2); Eosinophils Absolute Auto 0.4 K/mm3 (0-0.3); Eosinophils Percent Auto 2.4 % (0-4.4); Hematocrit 34.6 % (37.0-47.0); Hemoglobin 11.3 g/dL (12.0-15.0); Immature Granulocyte Absolute 0.07 K/mm3 (0.00-0.031); Immature Granulocyte Percent A 0.5 % (0-0.5); Lymphocytes Absolute Auto 1.35 K/mm3 (0.9-3.2); Lymphocytes Percent Auto 8.8 % (18.3-44.2); Mean Corpuscular HGB Conc 32.7 g/dl (32-36); Mean Corpuscular Hemoglobin 27.7 pg (26-34); Mean Corpuscular Volume 84.8 fl (80-100); Mean Platelet Volume 8.5 fl (7.4-10.4); Monocytes Absolute Auto 0.9 K/mm3 (0.1-0.6); Monocytes Percent Auto 5.8 % (2.6-8.5); Neutrophils Absolute Auto 12.6 K/mm3 (1.3-6.7); Neutrophils Percent Auto 82.3 % (45.5-73.1); Platelet Count Result 361 k/mm3 (150-375); Red Blood Count 4.08 M/mm3 (4.2-5.4); Red Cell Distribution Width 13.8 % (11.5-14.5); White Blood Count 15.3 K/mm3 (4.5-10.0)
[2023-01-26 20:24] VITALS: O2SAT 97
[2023-01-26 20:25] LABS: Alanine Aminotransferase 17 U/L (6-35); Albumin Level 3.8 g/dL (3.5-5.1); Alkaline Phosphatase 82 U/L (38-126); Anion Gap 6 mmol/L (8-16); Aspartate Amino Transferase 23 U/L (14-36); Bilirubin,Total 0.6 mg/dL (0.2-1.3); Blood Urea Nitrogen 5 mg/dL (7-17); Calcium 8.8 mg/dL (8.4-10.2); Carbon Dioxide 31 mmol/L (22-30); Chloride 99 mmol/L (98-107); Estimated CRCL calculation 143 ml/min; Estimated Glomerular Filt Rate > 60; Glucose 104 mg/dL (65-110); Potassium 3.1 mmol/L (3.4-5.0); Sodium 136 mmol/L (137-145)
[2023-01-26 20:26] LABS: Lactic Acid Reflex 0.8 mmol/L (0.7-2.0)
[2023-01-26] MEDS: HYDROmorphone HCL INJ (*CRX) 1 MG/ML SYR 0.5 MG IV PUSH (20:59)
[2023-01-26] MEDS: SODIUM CHLORIDE 0.9% IV 2,000 ML 999 ML IV CONT (21:02)
[2023-01-26 21:31] VITALS: BP 133/69; PULSE 96; RESP 20; O2SAT 97
--- NOTE | 2023-01-26 21:35 | ED.GENADULT ---
HPI - General Adult General Chief complaint: Shortness of Breath/Dyspnea Stated complaint: shortness of breath Time Seen by Provider: 01/26/23 20:18 History of Present Illness HPI narrative: A 32-year-old female presents ED with chief complaint of chest pain shortness of breath. The patient had a gastric sleeve procedure approximately 1 week ago. After she was discharged she was doing well until yesterday when she developed a sharp pain in the back left of her chest. It is nonradiating 7 out 10 intensity and constant. It is getting worse. It is worse with deep breaths. It is associated with fever, productive cough. She has no swelling of her lower extremities or history of DVT. She has been taking Hycet at home although she did develop a rash. She take Tylenol prior to arrival. Related Data Home Medications Medication Instructions Recorded Confirmed duloxetine 30 mg capsule,delayed 30 mg PO BID 01/08/23 01/08/23 release methocarbamol 750 mg tablet 750 mg PO TID PRN 01/08/23 01/08/23 Allergies Allergy/AdvReac Type Severity Reaction Status Date / Time zolpidem [From Ambien] Allergy Severe Rash Verified 01/08/23 11:30 amoxicillin Allergy Mild Rash Verified 01/08/23 11:30 adhesive tape AdvReac Rash, Verified 01/08/23 11:30 Pulled skin off PMFSH Past Medical History Medical History (Updated 01/26/23 @ 23:52 by Jace Wells MD) Abdominal wall pain Allergies Asthma Asthma 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, continuous use of opioids oxycodone COVID-19 GERD without esophagitis History of jejunostomy tube placement History of sepsis (~10/2019) perforated duodenum from surgical procedure Hx of gangrene (~07/2019) gangrenous gall bladder, ruptured GB Immunosuppression due to drug therapy Insomnia Morbid obesity (Unknown) Open wound of umbilical region (~04/27/20) Pneumonia Psoriatic arthritis (Unknown) Surgical History Surgical History History of abdominal surgery 2018 -2020 - exploratory la History of cholecystectomy (~07/2019) 05/05/21 Laparoscopic cholecystectomy with intraoperative cholangiogram 2. Extensive lysis of adhesions greater than 1 hour (laparoscopic) 3. Excision of chronic granulating wound tract right upper quadrant. 4. Repair with sutures of moderate size umbilical hernia. History of foot surgery 2009 - ORIF fracture 5th metatarsal. History of tonsillectomy Family History Family History Father Thyroid disorder Sleep apnea Mother Asthma Diabetes mellitus Hypertension Cerebrovascular accident Arthritis at at 58 Sibling Diabetes mellitus Hypertension Sjogren's disease at age 38 Social History Social History Social History: Works at [employer]. Lives with her and 3 children. Smoking packs per day: 1 Smoking cigarettes per day: 20.0 Years smoked: 10 Smoking pack-years: 10.00 Smoking status: Former smoker Tobacco type: cigarettes Second hand tobacco smoke exposure: No Smoking end date: 06/01/17 Alcohol intake: unknown Drinks per week: 1 Substance use: never Substance use type: does not use Lack of Transportation: No Lack of Food: Never True Current Housing: I Have Housing Concerned About Future Housing: No Difficulty Paying Gas/Electric Bills: No Difficulty Paying for Meds: No Currently Unemployed: No Education: High School Diploma/GED Difficulty w/ Childcare or Family Care: No Living arrangements: with family Occupation/Education: occupation Gender identity (if verbalized by the patient): Female Sexual Orientation (if Verbalized by the Patient): Straight or Heterosexual Spiritual care concerns: No Agree to blood products: Yes Exam Narrative: APPEARANCE: Patient appears uncomfortabl
[2023-01-26] MEDS: POTASSIUM CHLORIDE 20 MEQ TABLET 40 MEQ PO (22:39)
[2023-01-26 23:45] VITALS: BP 112/78; PULSE 90; RESP 20; O2SAT 97
[2023-01-27 00:07] VITALS: BP 122/71; PULSE 94; RESP 20; O2SAT 100
== END 2023-01-27 00:08 | disposition home or self-care (01) ==
PROVIDERS: Emergency Provider Emergency Medicine; PCP Family Medicine
DX: J18.9 Pneumonia, unspecified organism (principal); J45.909 Unspecified asthma, uncomplicated; L40.50 Arthropathic psoriasis, unspecified; K21.9 Gastro-esophageal reflux disease without esophagitis; E66.01 Morbid (severe) obesity due to excess calories; Z68.42 Body mass index [BMI] 45.0-49.9, adult; Z90.49 Acquired absence of other specified parts of digestive tract; Z86.16 Personal history of COVID-19; Z87.01 Personal history of pneumonia (recurrent); Z87.891 Personal history of nicotine dependence; R00.0 Tachycardia, unspecified; R94.31 Abnormal electrocardiogram [ECG] [EKG]
CPT/HCPCS: 36415; 71046; 71275; 80053; 83605; 85025; 87040; 93005; 96365; 96367; 96375; 99284; A9270; J0131; J0456; J0696; J1170; J7030; Q9967

== ENCOUNTER 2023-03-10 11:09 | Emergency (ER) | payer BC, OTHER, SELFPAY ==
--- NOTE | ~2023-03-10 | XR_ITS ---
EXAMINATION: XR chest 2V INDICATION: Shortness of breath TECHNIQUE: PA and lateral views of the chest are obtained. COMPARISON: None available at the time of interpretation FINDINGS: There are airspace opacities in the superior segment of the left lower lobe. There is a que stionable suture line in the left lower lobe. There are small pleural effusions. No pneumothorax is i dentified. The cardiomediastinal silhouette is normal. The visualized bones and soft tissues are unre markable. Surgical clips in the right upper quadrant are likely from prior cholecystectomy. IMPRESSION: 1. Left lower lobe pneumonia. Consider followup radiographs or chest CT in six weeks if symptoms pers ist after appropriate therapy or if the patient is at high risk for malignancy. 2. Small pleural effusions with probable associated atelectasis. Reviewed, dictated and finalized at location A. IMPRESSION: 1. Left lower lobe pneumonia. Consider followup radiographs or chest CT in six weeks if symptoms persist after appropriate therapy or if the patient is at hig h risk for malignancy. 2. Small pleural effusions with probable associated atelectasis.
--- NOTE | ~2023-03-10 | CT_ITS ---
Clinical Indication: Chest pain, pneumonia CT Angiogram of the Chest with Contrast: Technique: Contiguous sections were acquired throughout the chest after intravenous administration of 100 cc of Omnipaque 350. Dose reduction technique was used on this scan by utilizing automated expos ure control and iterative reconstruction technique. The dose-length product (DLP) was 731.74 mGy-cm. COMPARISON: 01/26/2023 Findings: There is a single enlarged left paratracheal lymph node. No other lymphadenopathy evident. There is n o filling defect in the pulmonary arterial tree to suggest pulmonary embolus. There is no evidence of aortic dissection or aneurysm. There is no evidence of pleural or pericardial effusion. There is extensive left upper lobe consolidation, consistent with pneumonia, especially involving the superior segment. Probable focal nodular scarring at the left lung apex is unchanged. Images through the upper abdomen reveal pneumobilia and cholecystectomy clips. Impression: Left lower lobe pneumonia is essentially unchanged from prior exam. Given lack of interval change, co nsider less typical chronic pneumonias or underlying neoplasm. Consider tissue sampling as indicated. Single enlarged left paratracheal lymph node, unchanged. Reviewed, dictated and finalized at [facility]. Impression: Left lower lobe pneumonia is essentially unchanged from prior exam. Given lack of interval change, consider less typical chronic pneumonias or underlying neop lasm. Consider tissue sampling as indicated. Single enlarged left paratracheal lymph node, unchanged.
[2023-03-11 12:44] LABS: Basophils Percent Auto 0.3 % (0.2-1.2); Eosinophils Absolute Auto 0.2 K/mm3 (0-0.3); Eosinophils Percent Auto 2.4 % (0-4.4); Hematocrit 31.6 % (37.0-47.0); Immature Granulocyte Absolute 0.03 K/mm3 (0.00-0.031); Immature Granulocyte Percent A 0.3 % (0-0.5); Immature Platelet Fraction Pct 1.6 % (0.9-11.2); Lymphocytes Absolute Auto 1.85 K/mm3 (0.9-3.2); Lymphocytes Percent Auto 19.9 % (18.3-44.2); Mean Corpuscular HGB Conc 31.6 g/dl (32-36); Mean Corpuscular Hemoglobin 26.9 pg (26-34); Mean Corpuscular Volume 84.9 fl (80-100); Mean Platelet Volume 8.9 fl (7.4-10.4); Monocytes Absolute Auto 0.5 K/mm3 (0.1-0.6); Monocytes Percent Auto 5.6 % (2.6-8.5); Neutrophils Absolute Auto 6.7 K/mm3 (1.3-6.7); Neutrophils Percent Auto 71.5 % (45.5-73.1); Platelet Count Result 407 k/mm3 (150-375); Red Blood Count 3.72 M/mm3 (4.2-5.4); Red Cell Distribution Width 14.3 % (11.5-14.5); White Blood Count 9.3 K/mm3 (4.5-10.0)
[2023-03-11 12:55] LABS: D Dimer 0.66 ug/mL (<0.48)
[2023-03-11 12:56] LABS: Alanine Aminotransferase 40 U/L (6-35); Albumin Level 3.9 g/dL (3.5-5.1); Alkaline Phosphatase 86 U/L (38-126); Anion Gap 7 mmol/L (8-16); Aspartate Amino Transferase 34 U/L (14-36); Bilirubin,Total 0.5 mg/dL (0.2-1.3); Blood Urea Nitrogen 9 mg/dL (7-17); Calcium 8.6 mg/dL (8.4-10.2); Carbon Dioxide 30 mmol/L (22-30); Chloride 102 mmol/L (98-107); Estimated Glomerular Filt Rate > 60; Glucose 90 mg/dL (65-110); Potassium 3.2 mmol/L (3.4-5.0); Sodium 139 mmol/L (137-145); Total Protein 7.6 g/dL (6.3-8.2); Troponin I < 0.012 ng/mL (0.000-0.034)
== END 2023-03-10 20:10 | disposition home or self-care (01) ==
LOC: ANHED 16:48
PROVIDERS: Emergency Provider Physician Assistant; PCP Family Medicine
DX: J18.9 Pneumonia, unspecified organism (principal); Z98.84 Bariatric surgery status
CPT/HCPCS: 36415; 71046; 71275; 80053; 84484; 85025; 85055; 85380; 87040; 96374; 96375; 99284; A9270; J0456; J0696; J2270; J2405; Q9967

== ENCOUNTER 2023-03-24 11:37 | Outpatient (CLI) | payer BC, OTHER, SELFPAY ==
--- NOTE | ~2023-03-24 | XR_ITS ---
Clinical Indication: Pneumonia PA and lateral views of the chest: Comparison: 03/10/2023 Findings: Persistent left perihilar consolidation is present. Suspected minimal bilateral pleural eff usions. Right lung otherwise clear. Cardiomediastinal silhouette is within normal limits. Bones and soft tissues are unremarkable. Impression: Stable left perihilar consolidation, compatible with pneumonia. Continued follow-up advised. Minimal bilateral pleural effusions. Reviewed, dictated and finalized at location M. Impression: Stable left perihilar consolidation, compatible with pneumonia. Continued follo w-up advised. Minimal bilateral pleural effusions.
== END 2023-03-24 11:38 | disposition home or self-care (01) ==
PROVIDERS: PCP Nurse Practitioner Family; Visit Provider Nurse Practitioner Family
DX: J18.9 Pneumonia, unspecified organism (principal); J90 Pleural effusion, not elsewhere classified
CPT/HCPCS: 71046

== ENCOUNTER 2023-04-20 09:02 | Outpatient (CLI) | payer BC, OTHER, SELFPAY ==
--- NOTE | ~2023-04-20 | XR_ITS ---
XR chest 2V DATE: 04/20/2023 09:17 INDICATION: Pneumonia follow-up TECHNIQUE: PA and lateral views COMPARISON: 03/16/2023 PA and lateral chest FINDINGS: There is prominent consolidation at the superior segment of the left lower lobe, with lesse r infiltrate and/atelectasis elsewhere in the left lower lobe. There is mild left lung atelectasis co mpared to the right. The consolidation appears slightly improved compared to 03/16/2023. Continued fol low-up is recommended. Minimal blunting of the costophrenic angles may indicate slight pleural effusions. Normal heart size. Surgical clips, right upper quadrant, consistent with cholecystectomy. IMPRESSION: Possible slight improvement of prominent left lower lobe superior segment consolidation s marie 03/24/2023. Continued follow-up is recommended Reviewed, dictated and finalized at location L. IMPRESSION: Possible slight improvement of prominent left lower lobe superior s egment consolidation since 03/24/2023. Continued follow-up is recommended
== END 2023-04-20 09:03 | disposition home or self-care (01) ==
PROVIDERS: PCP Nurse Practitioner Family; Visit Provider Nurse Practitioner Family
DX: J18.9 Pneumonia, unspecified organism (principal)
CPT/HCPCS: 71046

== ENCOUNTER 2023-04-21 16:50 | Outpatient (CLI) | payer BC, OTHER, SELFPAY ==
[2023-04-21 17:38] LABS: Basophils Percent Auto 0.3 % (0.2-1.2); Eosinophils Absolute Auto 0.2 K/mm3 (0-0.3); Hemoglobin 10.8 g/dL (12.0-15.0); Immature Granulocyte Absolute 0.05 K/mm3 (0.00-0.031); Immature Granulocyte Percent A 0.4 % (0-0.5); Lymphocytes Absolute Auto 2.35 K/mm3 (0.9-3.2); Lymphocytes Percent Auto 20.4 % (18.3-44.2); Mean Corpuscular HGB Conc 30.9 g/dl (32-36); Mean Corpuscular Hemoglobin 25.8 pg (26-34); Mean Corpuscular Volume 83.7 fl (80-100); Mean Platelet Volume 8.8 fl (7.4-10.4); Monocytes Absolute Auto 0.5 K/mm3 (0.1-0.6); Monocytes Percent Auto 4.6 % (2.6-8.5); Neutrophils Absolute Auto 8.3 K/mm3 (1.3-6.7); Neutrophils Percent Auto 72.3 % (45.5-73.1); Platelet Count Result 422 k/mm3 (150-375); Red Blood Count 4.18 M/mm3 (4.2-5.4); Red Cell Distribution Width 14.1 % (11.5-14.5); White Blood Count 11.5 K/mm3 (4.5-10.0)
[2023-04-21 18:04] LABS: CRP 4.3 mg/dL (<1.0); Creatine Kinase 31 U/L (30-135)
[2023-04-21 18:28] LABS: Erythrocyte Sedimentation Rate 76 mm/hr (0-20)
[2023-04-22 07:51] LABS: Rheumatoid Factor < 12.0 IU/ML (<12)
[2023-04-23 11:34] LABS: NIL 0.01 IU/mL; Quantiferon TB Plus, 1T NEGATIVE (NEGATIVE)
[2023-04-25 14:54] LABS: Immunoglobulin G, Serum 1086 mg/dL (600-1640); Immunoglobulin G1 751 mg/dL (382-929); Immunoglobulin G2 257 mg/dL (241-700); Immunoglobulin G3 65 mg/dL (22-178); Immunoglobulin G4 77.3 mg/dL (4.0-86.0)
[2023-04-26 12:55] LABS: Blastomyces Antibody Negative (Negative)
[2023-04-26 22:09] LABS: Anti Cyclic Citrullinated Pept <16 Units (<20)
[2023-04-27 04:53] LABS: Immunoglobulin A 476 mg/dL (47-310); Immunoglobulin G 1220 mg/dL (600-1640); Immunoglobulin M 105 mg/dL (50-300)
[2023-04-27 08:30] LABS: Immunoglobulin E 100 kU/L (<=114)
[2023-04-27 08:32] LABS: Aspergillus Fumigatus K/UL <0.10 (<0.10); Conventional Class 0 (0)
[2023-04-27 17:23] LABS: Aspergillus fumigatus (m3) IgG 10.8 mcg/mL (<2.0)
[2023-04-28 16:44] LABS: Coccidioides Ab to F Ag (IgG) NEGATIVE; Coccidioides Ab to TP Ag (IgM) NEGATIVE
[2023-04-28 21:52] LABS: ANCA Screen C-ANCA POS (Negative); C-ANCA Titer Reflex Chg Test YES
== END 2023-04-21 16:51 | disposition home or self-care (01) ==
PROVIDERS: PCP Nurse Practitioner Family; Visit Provider Internal Medicine Pulmonary Disease
DX: J84.9 Interstitial pulmonary disease, unspecified (principal); J44.9 Chronic obstructive pulmonary disease, unspecified; J98.4 Other disorders of lung; R91.1 Solitary pulmonary nodule; J45.909 Unspecified asthma, uncomplicated
CPT/HCPCS: 36415; 82085; 82550; 82784; 82785; 82787; 85025; 85652; 86001; 86003; 86036; 86140; 86200; 86331; 86430; 86480; 86606; 86609; 86612; 86635; 87015; 87070; 87102; 87106; 87116; 87205; 87206

== ENCOUNTER 2023-04-27 09:58 | Outpatient (CLI) | payer BC, OTHER, SELFPAY ==
[2023-05-02 14:30] LABS: ANA Cascade Screen Positive (Negative)
[2023-05-02 17:40] LABS: Chromatin (Nucleosomal) Ab <1.0; Chromatin Antibody Charge YES; DNA (ds) Antibody Charge YES; RNP Antibody <1.0; RNP Antibody Charge YES; Sm Antibody <1.0; Sm Antibody Charge YES; Sm/RNP Antibody <1.0; Sm/RNP Antibody Charge YES
[2023-05-02 19:20] LABS: JO1 Antibody Charge YES; Jo-1 Antibody <1.0; SCL70 Antibody Charge YES; SSA Antibody Charge YES; SSB Antibody Charge YES; Sjogren's Antibody (SS-B) <1.0
[2023-05-02 20:25] LABS: Centromere Antibody Charge YES; Centromere B Antibody 1.4; Ribosomal Antibody <1.0; Ribosomal Antibody Charge YES
== END 2023-04-27 09:59 | disposition home or self-care (01) ==
PROVIDERS: PCP Nurse Practitioner Family; Visit Provider Internal Medicine Pulmonary Disease
DX: J84.9 Interstitial pulmonary disease, unspecified (principal)
CPT/HCPCS: 36415; 86038; 87070; 87205

== ENCOUNTER 2023-04-30 11:57 | Outpatient (CLI) | payer BC, OTHER, SELFPAY | END 2023-04-30 11:58 | disposition home or self-care (01) | LOC: ANHLAB 11:59 | PROVIDERS: PCP Nurse Practitioner Family; Visit Provider Internal Medicine Pulmonary Disease | DX: J18.9 Pneumonia, unspecified organism (principal) | CPT/HCPCS: 87015; 87116; 87206 ==

== ENCOUNTER 2023-05-14 08:33 | Outpatient (CLI) | payer BC, OTHER, SELFPAY ==
--- NOTE | ~2023-05-14 | XR_ITS ---
EXAMINATION: XR chest 2V DATE: 05/14/2023 08:43 INDICATION: Left upper lobe pneumonia. TECHNIQUE: Frontal and lateral views of the chest were obtained. COMPARISON: Chest 2 views 04/20/2023, 03/24/2023, chest CT 03/10/2023, 01/26/23 FINDINGS: There are airspace opacities in superior segment left lower lobe. There is a staple line in left lung lower lobe. There is mild atelectasis at the lung bases. No pleural effusion or pneumothor ax. The heart size is normal. IMPRESSION: 1. Persistent airspace opacities in superior segment left lower lobe, consistent with pneumonia. Reviewed, dictated and finalized at location A. IMPRESSION: 1. Persistent airspace opacities in superior segment left lower lobe, consisten t with pneumonia.
== END 2023-05-14 08:34 | disposition home or self-care (01) ==
LOC: ANHIMG 08:36
PROVIDERS: PCP Nurse Practitioner Family; Visit Provider Internal Medicine Pulmonary Disease
DX: J18.9 Pneumonia, unspecified organism (principal)
CPT/HCPCS: 71046

== ENCOUNTER 2023-05-24 09:18 | Outpatient (CLI) | payer OTHER, SELFPAY ==
[2023-05-24 10:37] LABS: INR 1.1; Partial Thromboplastin Time 31.2 SECONDS (22.3-36.8); Prothrombin Time 14.5 Seconds (11.1-14.7)
[2023-05-24 10:44] LABS: Alanine Aminotransferase 18 U/L (6-35); Albumin Level 4.1 g/dL (3.5-5.1); Alkaline Phosphatase 80 U/L (38-126); Anion Gap 12 mmol/L (8-16); Aspartate Amino Transferase 23 U/L (14-36); Bilirubin,Total 0.5 mg/dL (0.2-1.3); Blood Urea Nitrogen 6 mg/dL (7-17); Calcium 8.8 mg/dL (8.4-10.2); Carbon Dioxide 28 mmol/L (22-30); Chloride 101 mmol/L (98-107); Estimated Glomerular Filt Rate > 60; Glucose 100 mg/dL (65-110); Potassium 2.8 mmol/L (3.4-5.0); Sodium 141 mmol/L (137-145)
[2023-05-24 10:55] LABS: Basophils Percent Auto 0.4 % (0.2-1.2); Eosinophils Absolute Auto 0.1 K/mm3 (0-0.3); Eosinophils Percent Auto 1.5 % (0-4.4); Hematocrit 34.9 % (37.0-47.0); Hemoglobin 10.9 g/dL (12.0-15.0); Immature Granulocyte Absolute 0.01 K/mm3 (0.00-0.031); Immature Granulocyte Percent A 0.2 % (0-0.5); Lymphocytes Absolute Auto 0.73 K/mm3 (0.9-3.2); Lymphocytes Percent Auto 16.1 % (18.3-44.2); Mean Corpuscular HGB Conc 31.2 g/dl (32-36); Mean Corpuscular Hemoglobin 25.6 pg (26-34); Mean Corpuscular Volume 82.1 fl (80-100); Mean Platelet Volume 9.4 fl (7.4-10.4); Monocytes Absolute Auto 0.5 K/mm3 (0.1-0.6); Neutrophils Absolute Auto 3.2 K/mm3 (1.3-6.7); Neutrophils Percent Auto 70.8 % (45.5-73.1); Platelet Count Result 279 k/mm3 (150-375); Red Blood Count 4.25 M/mm3 (4.2-5.4); Red Cell Distribution Width 14.6 % (11.5-14.5); White Blood Count 4.5 K/mm3 (4.5-10.0)
== END 2023-05-24 09:19 | disposition home or self-care (01) ==
LOC: ANHLAB 09:19
PROVIDERS: PCP Nurse Practitioner Family; Visit Provider Internal Medicine Pulmonary Disease
DX: J18.9 Pneumonia, unspecified organism (principal); J44.9 Chronic obstructive pulmonary disease, unspecified
CPT/HCPCS: 36415; 80053; 85025; 85610; 85730

== ENCOUNTER 2023-05-26 01:15 | Day surgery (SDC) | payer OTHER, SELFPAY ==
[2023-05-17 15:54] VITALS: BMI 39.9
[2023-05-26] VITALS (8 sets, daily range): BP systolic 120–149; BP diastolic 78–104; PULSE 69–80; RESP 14–27; TEMP 36.2; O2SAT 99–100
--- NOTE | ~2023-05-26 | XR_ITS ---
EXAMINATION: XR chest 1V portable Exam Date/Time: 05/26/2023 14:25 CDT HISTORY: POST BRONCH Comparison: Same date at 12:24 PM. RESULT: Lines, tubes, and devices: None. Lungs and pleura: Worsening airspace disease in the left upper and midlung. No pneumothorax. Cardiomediastinal silhouette: Stable. Other: No acute osseous or upper abdominal finding. IMPRESSION: Worsening left upper/mid lung airspace disease, may represent asymmetric edema, aspiration/airway flu id, atelectasis, or pulmonary hemorrhage. Reviewed, dictated and finalized at location K. IMPRESSION: Worsening left upper/mid lung airspace disease, may represent asymmetric edema, aspiration/airway fluid, atelectasis, or pulmonary hemorrhage.
--- NOTE | ~2023-05-26 | XR_ITS ---
XR chest 1V portable DATE: 05/26/2023 12:29 INDICATION: Pre-bronchoscopy TECHNIQUE: Portable AP chest on 05/26/2023 at 1224 hours COMPARISON: 05/14/2023 2 view chest FINDINGS: There are patchy bilateral pulmonary infiltrates, most prominent in the left mid lung, invo lving both mid and lower lung black. There are small bilateral pleural effusions. Normal heart size. IMPRESSION: Persistent bilateral pulmonary infiltrates, greater on left, mildly increased since 2022 Reviewed, dictated and finalized at location B. IMPRESSION: Persistent bilateral pulmonary infiltrates, greater on left, mildly increased since 05/26/2023
[2023-05-26 11:44] LABS: Potassium 3.7 mmol/L (3.4-5.0)
--- NOTE | 2023-05-26 12:24 | PM.IMHP ---
H&P: HPI History of Present Illness Date/Time: 05/26/23 12:24 Chief Complaint: The patient presents for outpatient bronchoscopy Narrative: 32-year-old with a history of asthma, bronchocentric granulomatosis 2011, GERD, and psoriatic arthritis on Taltz (ixekizumab, anti [id number]), status post bariatric surgery in 01/17, gangrenous ruptured gallbladder 07/2019. Patient currently with non resolving consolidation of the superior segment of the left lower lobe despite multiple courses of antibiotics. She presents for bronchoscopy. Patient states that over the last week she has had increased coughing and continues to have phlegm which is pinkish in color. She has been afebrile. Patient seen in the clinic on 04/21/2023 with following note: Regarding her broncho centric granulomatosis the patient developed respiratory symptoms when she was in organ at age 22 in 2012.? She had persistent cough and was 1st diagnosed with chronic bronchitis.? A chest x-ray in 2013 showed a spot on her lung that increased in size with subsequent x-rays.? She was initially placed on a prednisone taper and this helped her symptoms and the prednisone was tapered off and she got .? Throughout her her lung symptoms improved but after a few weeks later she developed worsening cold symptoms with cough, sneezing, chest pain.? Patient underwent CT scans and ultimately had an open lung biopsy in 2013.? The open lung biopsy was reviewed by [facility] and she was told she had acute necrotizing bronchiolitis, bronchocentric granulomatosis with abscesses and also told she had cryptogenic organizing pneumonia.? She was placed on a prednisone 100 mg a day and her symptoms went away and she was tapered over a year.? In 2014 she got and was again tapered off steroids and after this she had no further problems.? She tells me that she was followed by her folder and notcher through 2017 and 2018 an organ and she has been off medicines for this lung condition since then.? I have none of these medical records Regarding her asthma the patient was diagnosed at age 14 and her asthma symptoms include dyspnea on exertion, wheezing, intermittent cough, intermittent phlegm production.? Her asthma triggers include seasonal changes, dust, sinus drainage, reflux, strong perfumes and strong chemicals. The patient started smoking in 2005 and quit in 2016 at 1 pack per day for total of 12 pack years.? Patient was exposed to secondhand smoke from her mother.? Patient denies vaping, illicit drug use.? 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 The [facility] does not recommend respiratory protection.? Currently patient is taking albuterol 1-2 puffs a day and the patient says that she has been instructed not to take any inhaled corticosteroids for 6 months after her gastric sleeve which was performed on 01/20/2023. 11/27/2022.? Patient saw Rheumatology:? Notes state in May 2019 she developed a rash was diagnosed with psoriasis by Dermatology and given Humira from 06/2019 to 08/2019 then had a gallbladder infection and surgery with rupture.? Humira was stopped, readmitted 10/2019 to 12/2019 due to infection.? She took Otezla from 04/2021 through 07/2021 and stopped due to in efficiency.? She was on Temfya through 03/2022 and in 05/2022 she was still in excruciating pain.? Pam (ixekizumab) since 05/2022, she had a painful left elbow with no other painful joints, pam is helping.? Prednisone 10 mg a day for 5 days with a taper to off over 20 days. 01/26/2023: ?Patient presented to the emergency department with shortness of breath and dyspnea.? Status post gastric sleeve about 7 days ago and she developed 1 day of sharp left back pain, 7 and 10 intensity. ?Room air saturations 97%.? White blood cell count 15.3, creatinine 0.6, serum bicarbonate 31, eosinoph
--- NOTE | 2023-05-26 12:51 | WPDANESEPPF ---
Anes - Initial Pre Proc Eval Procedure: Operation Date: 05/26/23 13:15 Proposed Procedures p Flexible Bronchoscopy With Fluoroscopy - Deni Horvath MD Date/Time: 05/26/23 12:51 Surgeon: Deni Horvath MD Pre Op Diagnosis: Left Lower Lobe Pneumonia Patient Data Age: 33 Gender: F Height: 1.6 m Weight: 99.1 kg Last Vital Signs Temp 97.1 F L 05/26/23 11:18 Pulse 69 05/26/23 11:18 Resp 18 05/26/23 11:18 BP 138/78 05/26/23 11:18 Pulse Ox 99 05/26/23 11:18 O2 Del Method Room Air 05/26/23 11:18 Allergies Allergy/AdvReac Type Severity Reaction Status Date / Time amoxicillin Allergy Severe Swelling Verified 05/26/23 11:17 of Lip/Tongue/Throat zolpidem [From Ambien] Allergy Severe Rash Verified 05/26/23 11:17 adhesive tape Allergy Intermediate Rash, Verified 05/26/23 11:17 Pulled skin off Home Medications Medication Instructions Recorded Confirmed Type pantoprazole 40 mg tablet,delayed 40 mg PO DAILY #90 tabs 01/04/23 05/17/23 Rx release methocarbamol 750 mg tablet 750 mg PO TID PRN Pain 01/08/23 05/17/23 History ondansetron 4 mg disintegrating 4 mg PO Q8H PRN nausea and 01/26/23 05/17/23 Rx tablet vomiting #30 tabs albuterol sulfate 90 mcg/actuation 1 inh inhalation Q4H PRN shortness 01/28/23 05/17/23 Rx aerosol inhaler (Ventolin HFA) of breath or wheezing #8.5 grams duloxetine 60 mg capsule,delayed 60 mg PO BID #180 caps 05/04/23 05/17/23 Rx release hydroxychloroquine 200 mg tablet 400 mg PO DAILY #180 tabs 05/04/23 05/17/23 Rx (Plaquenil) Adult Multivitamin with Iron 1 cap PO DAILY 05/17/23 05/17/23 History Calcium 500 + D (D3) 1 cap PO DAILY 05/17/23 05/17/23 History trazodone 50 mg tablet 50 mg PO QHS 05/17/23 05/17/23 History potassium chloride 20 mEq 40 meq PO DAILY #6 tabs 05/24/23 05/26/23 Rx tablet,extended release(part/cryst) Laboratory Tests 05/26/23 11:34 Potassium 3.7 mmol/L (3.4-5.0) Patient hx anesthesia problems: none Family hx anesthesia problems: none Results Review: All pre-operative results and documents have been reviewed as part of the pre-operative evaluation. [facility] Past Medical History Medical History Abdominal wall pain Allergies Asthma Asthma 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, continuous use of opioids oxycodone COVID-19 GERD without esophagitis History of jejunostomy tube placement History of sepsis (~10/2019) perforated duodenum from surgical procedure Hx of gangrene (~07/2019) gangrenous gall bladder, ruptured GB Immunosuppression due to drug therapy Insomnia Morbid obesity (Unknown) Open wound of umbilical region (~04/27/20) Pneumonia Psoriatic arthritis (Unknown) Surgical History Surgical History History of abdominal surgery 2018 -2020 - exploratory la History of cholecystectomy (~07/2019) 05/05/21 Laparoscopic cholecystectomy with intraoperative cholangiogram 2. Extensive lysis of adhesions greater than 1 hour (laparoscopic) 3. Excision of chronic granulating wound tract right upper quadrant. 4. Repair with sutures of moderate size umbilical hernia. History of foot surgery 2008 - ORIF fracture 5th metatarsal. History of tonsillectomy Family History Family History Father Thyroid disorder Sleep apnea Mother Asthma Diabetes mellitus Hypertension Cerebrovascular accident Arthritis at at 58 Sibling Diabetes mellitus Hypertension Sjogren's disease at age 38 Social History Social History Social History: Works at [employer]. Lives with her and 3 children. Smoking packs per day: 1 Smoking cigarettes per day: 20.0 Years smoked: 10 Smoking pack-years: 10.00 Smoking status: Former smoker Tobac
[2023-05-26] MEDS: LACTATED RINGERS 1,000 ML 150 ML IV CONT (13:41)
[2023-05-26] MEDS: LIDOCAINE HCL 2% LOCAL INJ 20 ML VIAL INFILTRATE (14:16)
--- NOTE | 2023-05-26 14:18 | SUR.OPER ---
150 ml NS in and 40ml out for BAL. 10ml NS in and 18 ml out for washings.
[2023-05-26 16:00] LABS: Source Bronchial Fluid Bronchial Lavage
[2023-05-26 16:01] LABS: Appearance Bronchial Fluid Hazy; Color Bronchial Fluid Colorless; Lymphocytes Bronchial Fluid 15 %; Macrophages Bronchial Fluid 12; Monocytes Bronchial Fluid 40 %; Neutrophils Bronchial Fluid 33 %
[2023-05-26 16:02] LABS: Eosinophils Bronchial Fluid 0 %; Other Cells Bronchial Fluid 0 %
== END 2023-05-26 15:41 | disposition home or self-care (01) ==
PROVIDERS: PCP Nurse Practitioner Family; Visit Provider Internal Medicine Pulmonary Disease
PROC: BB1DZZZ Fluoroscopy of Upper Airways (ICD-10-PCS; CPT 31624; principal; 2023-05-26 13:00)
DX: J18.9 Pneumonia, unspecified organism (principal); J45.909 Unspecified asthma, uncomplicated; K21.9 Gastro-esophageal reflux disease without esophagitis; L40.50 Arthropathic psoriasis, unspecified; Z79.51 Long term (current) use of inhaled steroids; Z87.891 Personal history of nicotine dependence; E66.9 Obesity, unspecified; Z68.38 Body mass index [BMI] 38.0-38.9, adult
CPT/HCPCS: 31624; 36415; 71045; 84132; 85999; 87015; 87070; 87102; 87116; 87205; 87206; J2405; J2704; J7040; J7120

== ENCOUNTER 2023-06-07 11:39 | Outpatient (CLI) | payer OTHER, SELFPAY ==
[2023-06-07 13:07] LABS: Basophils Percent Auto 0.5 % (0.2-1.2); Eosinophils Absolute Auto 0.2 K/mm3 (0-0.3); Eosinophils Percent Auto 2.3 % (0-4.4); Hematocrit 34.8 % (37.0-47.0); Immature Granulocyte Absolute 0.02 K/mm3 (0.00-0.031); Immature Granulocyte Percent A 0.2 % (0-0.5); Lymphocytes Absolute Auto 2.15 K/mm3 (0.9-3.2); Mean Corpuscular HGB Conc 31.6 g/dl (32-36); Mean Corpuscular Hemoglobin 26.4 pg (26-34); Mean Corpuscular Volume 83.7 fl (80-100); Mean Platelet Volume 9.4 fl (7.4-10.4); Monocytes Absolute Auto 0.5 K/mm3 (0.1-0.6); Monocytes Percent Auto 5.8 % (2.6-8.5); Neutrophils Absolute Auto 5.4 K/mm3 (1.3-6.7); Neutrophils Percent Auto 65.2 % (45.5-73.1); Platelet Count Result 300 k/mm3 (150-375); Red Blood Count 4.16 M/mm3 (4.2-5.4); Red Cell Distribution Width 14.6 % (11.5-14.5); White Blood Count 8.3 K/mm3 (4.5-10.0)
[2023-06-07 13:20] LABS: Appearance Urine Turbid (Clear); Bacteria Urine 4+ /hpf; Bilirubin Urine 1+ (Negative); Blood Urine Negative (Negative); Calcium Oxalate Crystals Urine Present /hpf; Color Urine Dark Yellow (Yellow); Glucose Urine UA Negative (Negative); Ketones Urine Trace mg/dL (Negative); Leukocyte Esterase Ur 2+ LEU/UL (Negative); Mucus Urine Present /lpf; Need Manual Microscopic Reviewed; Nitrate Urine Negative (Negative); Protein Urine 2+ mg/dL (Negative); Specific Grav Ur 1.033 (1.001-1.035); Squamous Epithelial Cell Urine Many /hpf (Few); WBC Urine >100 /hpf; pH Urine 5.5 (5.0-9.0)
[2023-06-07 13:22] LABS: Add Urine Microscopic? YES
[2023-06-07 13:37] LABS: Alanine Aminotransferase 24 U/L (6-35); Albumin Level 4.1 g/dL (3.5-5.1); Alkaline Phosphatase 91 U/L (38-126); Anion Gap 9 mmol/L (8-16); Aspartate Amino Transferase 30 U/L (14-36); Bilirubin,Total 0.5 mg/dL (0.2-1.3); Blood Urea Nitrogen 11 mg/dL (7-17); Calcium 9.1 mg/dL (8.4-10.2); Carbon Dioxide 30 mmol/L (22-30); Chloride 104 mmol/L (98-107); Estimated Glomerular Filt Rate > 60; Glucose 88 mg/dL (65-110); Potassium 2.8 mmol/L (3.4-5.0); Sodium 143 mmol/L (137-145)
[2023-06-10 19:23] LABS: Aspergillus Fumigatus K/UL <0.10 (<0.10); Conventional Class 0 (0)
[2023-06-12 18:12] LABS: Aspergillus fumigatus (m3) IgG 9.9 mcg/mL (<2.0)
== END 2023-06-07 11:40 | disposition home or self-care (01) ==
LOC: ANHLAB 11:41
PROVIDERS: PCP Nurse Practitioner Family; Visit Provider Internal Medicine Pulmonary Disease
DX: J18.1 Lobar pneumonia, unspecified organism (principal); J44.9 Chronic obstructive pulmonary disease, unspecified
CPT/HCPCS: 36415; 80053; 81001; 85025; 86001; 86003; 86606; 87086; 87088

== ENCOUNTER 2023-06-10 13:09 | Outpatient (CLI) | payer OTHER, SELFPAY ==
--- NOTE | ~2023-06-10 | CT_ITS ---
EXAMINATION: CT diagnostic chest wo con DATE: 06/10/2023 13:25 INDICATION: Lobar pneumonia, unspecified organism TECHNIQUE: Computed tomography (CT) of the chest was performed without intravenous contrast. The dose -length product (DLP) was 534.92 mGy-cm. Automated exposure control and iterative reconstruction tech nique were employed. COMPARISON: 03/10/2023 FINDINGS: There are persistent but decreased airspace opacities of the left lower lobe. No new airspa ce opacities are identified. There is a stable 9 mm nodule of the left lung apex. Mild mediastinal ly mphadenopathy persists with interval improvement. The heart size is normal. Changes in the stomach li luciana reflect gastric sleeve surgery. There is chronic pneumobilia in the liver. There is mild thoraci c spondylosis. IMPRESSION: 1. Persistent but improving left lower lobe pneumonia. Reviewed, dictated and finalized at location F.
== END 2023-06-10 13:10 | disposition home or self-care (01) ==
PROVIDERS: PCP Nurse Practitioner Family; Visit Provider Internal Medicine Pulmonary Disease
DX: J18.1 Lobar pneumonia, unspecified organism (principal)
CPT/HCPCS: 71250

== ENCOUNTER 2023-11-01 18:44 | Emergency (ER) | payer OTHER, SELFPAY ==
--- NOTE | ~2023-11-01 | XR_ITS ---
EXAMINATION: XR chest 2V Exam Date/Time: 11/01/2023 23:30 DIE MACHINE OPERATOR HISTORY: L anterolateral chest pain Comparison: 09/08/2023 and 05/14/2023; CT chest 06/10/2023. RESULT: Lines, tubes, and devices: Suture line versus chronic calcification in the left lower lung. Cholecys tectomy clips. Lungs and pleura: No focal consolidation, effusion, or pneumothorax. Chronic mid and bilateral lower lung scarring and pleural blunting. Stable left upper lobe nodular opacity Cardiomediastinal silhouette: Stable. Other: No acute osseous or upper abdominal finding. IMPRESSION: No acute cardiopulmonary process. Reviewed, dictated and finalized at location K. MACHINE OPERATOR
--- NOTE | ~2023-11-01 | CT_ITS ---
EXAMINATION: CTA chest PE protocol DATE: 11/02/2023 01:02 INDICATION: Left chest pain. TECHNIQUE: Computed tomography angiography (CTA) of the chest was performed with 100 mL Omnipaque-350 intravenous contrast timed to evaluate the pulmonary arteries. Coronal maximum intensity projection 3D-reconstructions were created by the technologist. Automated exposure control and iterative reconst ruction technique were employed. The dose-length product was 735.16 mGy-cm. COMPARISON: Chest CT 06/10/2023, 08/15/21 FINDINGS: There are mild airspace opacities with architectural distortion and volume loss in all lobe s, worst in left lower lobe, consistent with atelectasis and chronic lung disease. There is a staple line in left lower lobe. There is a stable 9 mm nodule in left upper lobe, likely benign. No pleural effusion. The heart size is normal. No pericardial effusion. There is no pulmonary embolus. There is a small sliding hiatal hernia. There are surgical changes in the stomach, likely a gastric sleeve pro cedure. Pneumobilia is noted, likely secondary to sphincterotomy. Again seen is mild intrahepatic ted iary duct dilatation without change, likely secondary to cholecystectomy. There is mild thoracic spon dylosis. IMPRESSION: 1. No pulmonary embolus. 2. Atelectasis and chronic lung disease involving all lobes, worst in left lower lobe. Reviewed, dictated and finalized at location A. TICE OFFICE ASSOCIATE IMPRESSION: 1. No pulmonary embolus. 2. Atelectasis and chronic lung disease involving all lobes, worst in left lowe r lobe.
--- NOTE | 2023-11-01 18:49 | ECG_ITS ---
Measurements Intervals Marcella Rate: 82 P: 32 WI: 122 QRS: 21 QRSD: 89 T: 30 QT: 364 QTc: 426 Interpretive Statements SINUS RHYTHM INTERPRETATION BASED ON A DEFAULT AGE OF 40 YEARS COMPARED TO ECG 01/26/2023 19:54:35 SINUS RHYTHM NOW PRESENT Electronically Signed On 11-02-2023 8:40:15 THEATRICAL VARIETY AGENT by Wendy Barroso M.D.
[2023-11-01 19:15] VITALS: BP 131/85; PULSE 86; TEMP 36.1; O2SAT 95
[2023-11-01 21:35] VITALS: BP 147/87; PULSE 85; TEMP 36.2; O2SAT 94
[2023-11-01 22:40] VITALS: BP 127/87; PULSE 89; RESP 20; O2SAT 97
[2023-11-01] MEDS: SODIUM CHLORIDE 0.9% IV 1,000 ML 999 ML IV CONT (23:44)
[2023-11-01] MEDS: MORPHINE SULFATE (*CRX) 4 MG/ML INJ IV PUSH (23:45)
[2023-11-01 23:58] LABS: Basophils Percent Auto 0.2 % (0.2-1.2); Eosinophils Absolute Auto 0.3 K/mm3 (0-0.3); Eosinophils Percent Auto 1.9 % (0-4.4); Hematocrit 36.4 % (37.0-47.0); Hemoglobin 11.4 g/dL (12.0-15.0); Immature Granulocyte Absolute 0.04 K/mm3 (0.00-0.031); Immature Granulocyte Percent A 0.3 % (0-0.5); Lymphocytes Absolute Auto 2.91 K/mm3 (0.9-3.2); Lymphocytes Percent Auto 22.1 % (18.3-44.2); Mean Corpuscular HGB Conc 31.3 g/dl (32-36); Mean Corpuscular Hemoglobin 28.2 pg (26-34); Mean Corpuscular Volume 90.1 fl (80-100); Mean Platelet Volume 9.2 fl (7.4-10.4); Monocytes Absolute Auto 0.8 K/mm3 (0.1-0.6); Monocytes Percent Auto 6.2 % (2.6-8.5); Neutrophils Absolute Auto 9.1 K/mm3 (1.3-6.7); Neutrophils Percent Auto 69.3 % (45.5-73.1); Platelet Count Result 283 k/mm3 (150-375); Red Blood Count 4.04 M/mm3 (4.2-5.4); Red Cell Distribution Width 13.7 % (11.5-14.5); White Blood Count 13.2 K/mm3 (4.5-10.0)
[2023-11-02 00:03] LABS: Appearance Urine Cloudy (Clear); Bacteria Urine None Seen /hpf; Bilirubin Urine Negative (Negative); Blood Urine Negative (Negative); Color Urine Dark Yellow (Yellow); Glucose Urine UA Negative (Negative); Ketones Urine Negative (Negative); Leukocyte Esterase Ur 2+ LEU/UL (Negative); Nitrate Urine Negative (Negative); Non Pathogenic Casts 0-2; Protein Urine Negative (Negative); RBC Urine 0-2 /hpf (0-2); Specific Grav Ur 1.026 (1.001-1.035); Squamous Epithelial Cell Urine Occasional /hpf (Few); WBC Urine 21-50 /hpf
[2023-11-02 00:07] LABS: Add Urine Microscopic? YES
[2023-11-02 00:09] LABS: Prothrombin Time 13.5 Seconds (11.1-14.7)
[2023-11-02 00:10] LABS: Partial Thromboplastin Time 26.4 SECONDS (22.3-36.8)
[2023-11-02 00:11] LABS: Alanine Aminotransferase 14 U/L (6-35); Albumin Level 4.1 g/dL (3.5-5.1); Alkaline Phosphatase 76 U/L (38-126); Anion Gap 4 mmol/L (8-16); Aspartate Amino Transferase 27 U/L (14-36); Blood Urea Nitrogen 17 mg/dL (7-17); Calcium 9.1 mg/dL (8.4-10.2); Carbon Dioxide 31 mmol/L (22-30); Chloride 105 mmol/L (98-107); Estimated CRCL calculation 105 ml/min; Estimated Glomerular Filt Rate > 60; Glucose 96 mg/dL (65-110); Lipase 60 U/L (23-300); Magnesium 2.2 mg/dL (1.6-2.3); Potassium 3.6 mmol/L (3.4-5.0); Sodium 140 mmol/L (137-145)
[2023-11-02 00:21] LABS: NT Pro B Type Natriuretic Pept 71 pg/mL (19.9-100); Troponin I < 0.012 ng/mL (0.000-0.034)
[2023-11-02 00:26] LABS: Creatine Kinase 24 U/L (30-135)
[2023-11-02 02:22] VITALS: BP 118/77; PULSE 73; RESP 14; O2SAT 98
[2023-11-02] MEDS: MORPHINE SULFATE (*CRX) 4 MG/ML INJ IV PUSH (02:22)
[2023-11-02 02:25] VITALS: PULSE 75
--- NOTE | 2023-11-02 02:42 | ED.CHESTPAIN ---
HPI - Chest Pain General Chief Complaint: Chest Pain Stated Complaint: L LATERAL SIDE PAIN Time Seen by Provider: 11/01/23 22:36 History of Present Illness HPI narrative: 33-year-old female with a history of microscopic polyangiitis reports for evaluation for left-sided posterior rib/back pain for the past few weeks that is now radiating to her anterior chest wall today. She describes the chest pain as ?tight?. States the back and chest pain is worse with movement. Reports mild cough, denies shortness of breath, fever, abdominal pain, nausea vomiting, diarrhea. She is also reporting dysuria and generalized muscle cramping. She has been taking Tylenol without improvement. Related Data Home Medications Medication Instructions Recorded Confirmed Adult Multivitamin with Iron 1 cap PO DAILY 05/17/23 05/17/23 Calcium 500 + D (D3) 1 cap PO DAILY 05/17/23 05/17/23 trazodone 50 mg tablet 50 mg PO QHS 05/17/23 05/17/23 Allergies Allergy/AdvReac Type Severity Reaction Status Date / Time amoxicillin Allergy Severe Swelling Verified 05/26/23 11:17 of Lip/Tongue/Throat zolpidem [From Ambien] Allergy Severe Rash Verified 05/26/23 11:17 adhesive tape Allergy Intermediate Rash, Verified 05/26/23 11:17 Pulled skin off Review of Systems Review of Systems: CONSTITUTIONAL: Denies fever, chills, or sweats. EYES: Denies visual changes, redness, or discharge. ENT: Denies rhinorrhea, congestion, sore throat, or otalgia. CARDIOVASCULAR: See HPI RESPIRATORY: Denies cough or dyspnea. GASTROINTESTINAL: Denies abdominal pain, nausea, vomiting, or diarrhea. GENITOURINARY: Denies dysuria or hematuria. SKIN: Denies rash or itching. MUSCULOSKELETAL: Denies back pain, joint pain, or myalgia. NEUROLOGIC: Denies headache, numbness, or weakness. PSYCHIATRIC: Denies anxiety or depression. [facility] Past Medical History Medical History Abdominal wall pain Allergies Asthma Asthma Bronchocentric granulomatosis 2012 Chronic, continuous use of opioids oxycodone COVID-19 GERD without esophagitis History of jejunostomy tube placement History of sepsis (~10/2019) perforated duodenum from surgical procedure Hx of gangrene (~07/2019) gangrenous gall bladder, ruptured GB Immunosuppression due to drug therapy Insomnia Morbid obesity (Unknown) Open wound of umbilical region (~04/27/20) Pneumonia Psoriatic arthritis (Unknown) Surgical History Surgical History History of abdominal surgery 2018 -2020 - exploratory la History of cholecystectomy (~07/2019) 05/05/21 Laparoscopic cholecystectomy with intraoperative cholangiogram 2. Extensive lysis of adhesions greater than 1 hour (laparoscopic) 3. Excision of chronic granulating wound tract right upper quadrant. 4. Repair with sutures of moderate size umbilical hernia. History of foot surgery 2008 - ORIF fracture 5th metatarsal. History of tonsillectomy Family History Family History Father Thyroid disorder Sleep apnea Mother Asthma Diabetes mellitus Hypertension Cerebrovascular accident Arthritis at at 58 Sibling Diabetes mellitus Hypertension Sjogren's disease at age 38 Social History Social History Social History: Works at [employer]. Lives with her and 3 children. Smoking packs per day: 1 Smoking cigarettes per day: 20.0 Years smoked: 10 Smoking pack-years: 10.00 Smoking status: Former smoker Tobacco type: cigarettes Second hand tobacco smoke exposure: No Smoking end date: 06/01/17 Alcohol intake: current Drinks per week: 1 Substance use: never Substance use type: does not use Lack of Transportation: No Lack of Food: Never True Current Housing: I Have Housing Con
[2023-11-02 02:53] LABS: Troponin I < 0.012 ng/mL (0.000-0.034)
[2023-11-02] MEDS: SULFAMETHOXAZOLE/TRIMETHOPRIM 800/160 MG DS TABLET 1 TAB PO (04:15)
[2023-11-02 04:19] VITALS: BP 120/84; PULSE 77; RESP 15; O2SAT 99
== END 2023-11-02 04:21 | disposition home or self-care (01) ==
PROVIDERS: Emergency Provider Physician Assistant
DX: R07.89 Other chest pain (principal); N30.00 Acute cystitis without hematuria; J45.909 Unspecified asthma, uncomplicated; E66.01 Morbid (severe) obesity due to excess calories; Z68.36 Body mass index [BMI] 36.0-36.9, adult; L40.50 Arthropathic psoriasis, unspecified; Z86.16 Personal history of COVID-19; Z87.01 Personal history of pneumonia (recurrent); Z87.891 Personal history of nicotine dependence; Z90.49 Acquired absence of other specified parts of digestive tract
CPT/HCPCS: 36415; 71046; 71275; 80053; 81001; 82550; 83690; 83735; 83880; 84484; 85025; 85610; 85730; 87086; 93005; 96361; 96374; 96375; 99284; A9270; J1200; J2270; J2405; J2930; J7030; Q9967

== ENCOUNTER 2023-11-02 05:31 | Emergency (ER) | payer OTHER, SELFPAY ==
[2023-11-02 05:34] VITALS: BP 152/99; PULSE 96; RESP 17; TEMP 36.4; O2SAT 97
[2023-11-02] MEDS: methylPREDNISolone SOD SUCC 125 MG VIAL IV PUSH (05:53)
[2023-11-02] MEDS: FAMOTIDINE 20 MG/2 ML VIAL IV PUSH (05:53)
[2023-11-02] MEDS: diphenhydrAMINE HCl INJ 50 MG/ML VIAL IV PUSH (05:53)
--- NOTE | 2023-11-02 06:19 | ED.GENADULT ---
HPI - General Adult General Chief complaint: Allergic Reaction Stated complaint: hives, throat closing, SOB, dry heaving Time Seen by Provider: 11/02/23 05:46 History of Present Illness HPI narrative: patient is a 33-year-old female who presents emergency department with chief complaint of urticaria a itching. Patient reports that she was seen in the emergency department and diagnosed with the UTI started on Bactrim and reports that she has been having itching that developed since then has a tingling sensation in her throat. Related Data Home Medications Medication Instructions Recorded Confirmed Adult Multivitamin with Iron 1 cap PO DAILY 05/17/23 05/17/23 Calcium 500 + D (D3) 1 cap PO DAILY 05/17/23 05/17/23 trazodone 50 mg tablet 50 mg PO QHS 05/17/23 05/17/23 Allergies Allergy/AdvReac Type Severity Reaction Status Date / Time amoxicillin Allergy Severe Swelling Verified 05/26/23 11:17 of Lip/Tongue/Throat zolpidem [From Ambien] Allergy Severe Rash Verified 05/26/23 11:17 adhesive tape Allergy Intermediate Rash, Verified 05/26/23 11:17 Pulled skin off Review of Systems Review of Systems: A 10 system review of systems was completed on the patient and is negative except for what is stated in the HPI. Nursing and ancillary documentation was reviewed. [facility] Past Medical History Medical History Abdominal wall pain Allergies Asthma Asthma 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, continuous use of opioids oxycodone COVID-19 GERD without esophagitis History of jejunostomy tube placement History of sepsis (~10/2019) perforated duodenum from surgical procedure Hx of gangrene (~07/2019) gangrenous gall bladder, ruptured GB Immunosuppression due to drug therapy Insomnia Morbid obesity (Unknown) Open wound of umbilical region (~04/27/20) Pneumonia Psoriatic arthritis (Unknown) Surgical History Surgical History History of abdominal surgery 2018 -2020 - exploratory la History of cholecystectomy (~07/2019) 05/05/21 Laparoscopic cholecystectomy with intraoperative cholangiogram 2. Extensive lysis of adhesions greater than 1 hour (laparoscopic) 3. Excision of chronic granulating wound tract right upper quadrant. 4. Repair with sutures of moderate size umbilical hernia. History of foot surgery 2009 - ORIF fracture 5th metatarsal. History of tonsillectomy Family History Family History Father Thyroid disorder Sleep apnea Mother Asthma Diabetes mellitus Hypertension Cerebrovascular accident Arthritis at at 58 Sibling Diabetes mellitus Hypertension Sjogren's disease at age 38 Social History Social History Social History: Works at [employer] Lives with her and 3 children. Smoking packs per day: 1 Smoking cigarettes per day: 20.0 Years smoked: 10 Smoking pack-years: 10.00 Smoking status: Former smoker Tobacco type: cigarettes Second hand tobacco smoke exposure: No Smoking end date: 06/01/17 Alcohol intake: current Drinks per week: 1 Substance use: never Substance use type: does not use Lack of Transportation: No Lack of Food: Never True Current Housing: I Have Housing Concerned About Future Housing: No Difficulty Paying Gas/Electric Bills: No Difficulty Paying for Meds: No Currently Unemployed: No Education: High School Diploma/GED Difficulty w/ Childcare or Family Care: No Living arrangements: with family Occupation/Education: occupation Gender identity (if verbalized by the patient): Female Sexual Orientation (if Verbalized by the Patient): Straight or Heterosexual Spiritual care concerns: No Agree to blood products: Yes
[2023-11-02] MEDS: ONDANSETRON INJ 4 MG/2 ML VIAL (06:21)
[2023-11-02 07:32] VITALS: BP 123/79; PULSE 72; RESP 20; O2SAT 96
== END 2023-11-02 07:33 | disposition home or self-care (01) ==
PROVIDERS: Emergency Provider Emergency Medicine
DX: T78.40XA Allergy, unspecified, initial encounter (principal); N39.0 Urinary tract infection, site not specified; J45.909 Unspecified asthma, uncomplicated; K21.9 Gastro-esophageal reflux disease without esophagitis
CPT/HCPCS: 96374; 96375; 99284; J1200; J2405; J2930

== ENCOUNTER 2023-11-10 17:48 | Emergency (ER) | payer OTHER, SELFPAY ==
[2023-11-10 18:22] VITALS: BP 143/95; PULSE 99; RESP 18; TEMP 37.1; O2SAT 97
[2023-11-10 21:08] LABS: Basophils Absolute Auto 0.1 K/mm3 (0.0-0.1); Basophils Percent Auto 0.5 % (0.2-1.2); Eosinophils Absolute Auto 0.2 K/mm3 (0-0.3); Eosinophils Percent Auto 1.9 % (0-4.4); Hematocrit 35.6 % (37.0-47.0); Hemoglobin 11.1 g/dL (12.0-15.0); Immature Granulocyte Absolute 0.05 K/mm3 (0.00-0.031); Immature Granulocyte Percent A 0.5 % (0-0.5); Lymphocytes Absolute Auto 2.39 K/mm3 (0.9-3.2); Lymphocytes Percent Auto 22.2 % (18.3-44.2); Mean Corpuscular HGB Conc 31.2 g/dl (32-36); Mean Corpuscular Hemoglobin 28.3 pg (26-34); Mean Corpuscular Volume 90.8 fl (80-100); Mean Platelet Volume 8.8 fl (7.4-10.4); Monocytes Absolute Auto 0.7 K/mm3 (0.1-0.6); Monocytes Percent Auto 6.4 % (2.6-8.5); Neutrophils Absolute Auto 7.4 K/mm3 (1.3-6.7); Neutrophils Percent Auto 68.5 % (45.5-73.1); Platelet Count Result 285 k/mm3 (150-375); Red Blood Count 3.92 M/mm3 (4.2-5.4); Red Cell Distribution Width 14.5 % (11.5-14.5); White Blood Count 10.8 K/mm3 (4.5-10.0)
[2023-11-10 21:21] LABS: Alanine Aminotransferase 14 U/L (6-35); Alkaline Phosphatase 90 U/L (38-126); Anion Gap 3 mmol/L (8-16); Aspartate Amino Transferase 20 U/L (14-36); Bilirubin,Total 0.9 mg/dL (0.2-1.3); Blood Urea Nitrogen 14 mg/dL (7-17); Calcium 9.1 mg/dL (8.4-10.2); Carbon Dioxide 32 mmol/L (22-30); Chloride 102 mmol/L (98-107); Estimated CRCL calculation 105 ml/min; Estimated Glomerular Filt Rate > 60; Glucose 89 mg/dL (65-110); Potassium 3.8 mmol/L (3.4-5.0); Sodium 137 mmol/L (137-145)
[2023-11-10 21:30] VITALS: BP 129/74; PULSE 68; RESP 16; TEMP 37.1; O2SAT 97
[2023-11-10 21:43] LABS: Appearance Urine Cloudy (Clear); Bacteria Urine None Seen /hpf; Bilirubin Urine Negative (Negative); Blood Urine Trace (Negative); Color Urine Yellow (Yellow); Glucose Urine UA Negative (Negative); Ketones Urine Negative (Negative); Leukocyte Esterase Ur 2+ LEU/UL (Negative); Nitrate Urine Negative (Negative); Non Pathogenic Casts 0-2; Protein Urine Negative (Negative); RBC Urine 0-2 /hpf (0-2); Specific Grav Ur 1.022 (1.001-1.035); Squamous Epithelial Cell Urine None seen /hpf (Few); WBC Urine 21-50 /hpf
[2023-11-10 21:44] LABS: Add Urine Microscopic? YES
--- NOTE | 2023-11-10 21:45 | ED.BACK ---
HPI - Back Pain/Injury General Chief Complaint: Back Pain/Injury Stated Complaint: B/L flank pain Time Seen by Provider: 11/10/23 21:00 History of Present Illness HPI Narrative: Patient is a 33-year-old female who presents to the emergency department this afternoon complaining of bilateral flank pain and joint pain. Patient does have a history of microscopic polyangiitis and psoriatic arthritis and follows up with [facility] through [facility]. Patient also admits to having a history of recurrent urinary tract infections and recently was treated for urinary tract infection approximately 1 week ago and finished a course of antibiotics with cephalexin. Patient states that her urinary symptoms improved while she was on the antibiotics and this morning she woke up with flank pain. She is unsure if the kidney pain is due to her microscopic polyangiitis or a kidney infection such as pyelonephritis. Patient also admits that she has been having rib pain which she attributes to her autoimmune diseases. Patient is currently denying any chest pain or shortness of breath. The remainder history of present illness and review of systems negative unless stated otherwise in HPI. Related Data Home Medications Medication Instructions Recorded Confirmed Adult Multivitamin with Iron 1 cap PO DAILY 05/17/23 05/17/23 Calcium 500 + D (D3) 1 cap PO DAILY 05/17/23 05/17/23 trazodone 50 mg tablet 50 mg PO QHS 05/17/23 05/17/23 Allergies Allergy/AdvReac Type Severity Reaction Status Date / Time amoxicillin Allergy Severe Swelling Verified 11/10/23 17:49 of Lip/Tongue/Throat zolpidem [From Ambien] Allergy Severe Rash Verified 11/10/23 17:49 adhesive tape Allergy Intermediate Rash, Verified 11/10/23 17:49 Pulled skin off sulfamethoxazole Allergy Hives Verified 11/10/23 17:49 [From Bactrim] trimethoprim [From Bactrim] Allergy Hives Verified 11/10/23 17:49 Review of Systems Review of Systems: All systems are reviewed and are negative unless stated otherwise in the HPI. 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, continuous use of opioids oxycodone COVID-19 GERD without esophagitis History of jejunostomy tube placement History of sepsis (~10/2019) perforated duodenum from surgical procedure Hx of gangrene (~07/2019) gangrenous gall bladder, ruptured GB Immunosuppression due to drug therapy Insomnia Morbid obesity (Unknown) Open wound of umbilical region (~04/27/20) Pneumonia Psoriatic arthritis (Unknown) Surgical History Surgical History History of abdominal surgery 2018 -2020 - exploratory la History of cholecystectomy (~07/2019) 05/05/21 Laparoscopic cholecystectomy with intraoperative cholangiogram 2. Extensive lysis of adhesions greater than 1 hour (laparoscopic) 3. Excision of chronic granulating wound tract right upper quadrant. 4. Repair with sutures of moderate size umbilical hernia. History of foot surgery 2008 - ORIF fracture 5th metatarsal. History of tonsillectomy Family History Family History Father Thyroid disorder Sleep apnea Mother Asthma Diabetes mellitus Hypertension Cerebrovascular accident Arthritis at at 58 Sibling Diabetes mellitus Hypertension Sjogren's disease at age 38 Social History Social History Social History: Works at [employer]. Lives with her and 3 children. Smoking packs per day: 1 Smoking cigarettes per day: 20.0 Years smoked: 10 Smoking pack-years: 10.00 Smoking status: Former smoker Tobacco type: cigarettes Second hand tobacco smoke exposure: No Smoking end date: 06/01/17 Horace
[2023-11-10 22:03] LABS: SPREG INTERNAL CONTROL Positive; Serum Qual hCG Negative
[2023-11-10] MEDS: ONDANSETRON INJ 4 MG/2 ML VIAL IV PUSH (22:08)
[2023-11-10] MEDS: MORPHINE SULFATE (*CRX) 4 MG/ML INJ IV PUSH (22:09)
[2023-11-10 22:44] VITALS: BP 122/75; PULSE 71; RESP 16; TEMP 36.9; O2SAT 96
[2023-11-10 23:14] VITALS: BP 119/82; PULSE 64; RESP 16; TEMP 36.4; O2SAT 97
== END 2023-11-10 23:25 | disposition home or self-care (01) ==
PROVIDERS: Emergency Provider Emergency Medicine
DX: N39.0 Urinary tract infection, site not specified (principal); R10.9 Unspecified abdominal pain; J45.909 Unspecified asthma, uncomplicated; L40.50 Arthropathic psoriasis, unspecified; M31.7 Microscopic polyangiitis; K21.9 Gastro-esophageal reflux disease without esophagitis; E66.01 Morbid (severe) obesity due to excess calories; Z68.36 Body mass index [BMI] 36.0-36.9, adult; Z87.01 Personal history of pneumonia (recurrent); Z86.16 Personal history of COVID-19; Z87.891 Personal history of nicotine dependence; Z90.49 Acquired absence of other specified parts of digestive tract
CPT/HCPCS: 36415; 80053; 81001; 84703; 85025; 87086; 96374; 96375; 99284; J2270; J2405

== ENCOUNTER 2023-11-11 21:20 | Emergency (ER) | payer OTHER, SELFPAY ==
[2023-11-11 21:22] VITALS: BP 140/91; PULSE 113; RESP 14; TEMP 36.7; O2SAT 96
[2023-11-11 21:41] VITALS: BP 138/89; PULSE 99; RESP 20; O2SAT 100
[2023-11-11 22:14] LABS: Basophils Percent Auto 0.2 % (0.2-1.2); Eosinophils Absolute Auto 0.2 K/mm3 (0-0.3); Eosinophils Percent Auto 1.5 % (0-4.4); Hematocrit 39.3 % (37.0-47.0); Hemoglobin 12.5 g/dL (12.0-15.0); Immature Granulocyte Absolute 0.06 K/mm3 (0.00-0.031); Immature Granulocyte Percent A 0.5 % (0-0.5); Lymphocytes Absolute Auto 1.93 K/mm3 (0.9-3.2); Lymphocytes Percent Auto 14.7 % (18.3-44.2); Mean Corpuscular HGB Conc 31.8 g/dl (32-36); Mean Corpuscular Hemoglobin 28.5 pg (26-34); Mean Corpuscular Volume 89.7 fl (80-100); Mean Platelet Volume 9.1 fl (7.4-10.4); Monocytes Absolute Auto 0.6 K/mm3 (0.1-0.6); Monocytes Percent Auto 4.9 % (2.6-8.5); Neutrophils Absolute Auto 10.3 K/mm3 (1.3-6.7); Neutrophils Percent Auto 78.2 % (45.5-73.1); Platelet Count Result 331 k/mm3 (150-375); Red Blood Count 4.38 M/mm3 (4.2-5.4); Red Cell Distribution Width 14.6 % (11.5-14.5); White Blood Count 13.1 K/mm3 (4.5-10.0)
[2023-11-11 22:15] VITALS: BP 129/82; PULSE 99; RESP 20; O2SAT 100
[2023-11-11] MEDS: methylPREDNISolone SOD SUCC 40 MG VIAL 120 MG IV PUSH (22:16)
[2023-11-11] MEDS: diphenhydrAMINE HCl INJ 50 MG/ML VIAL IV PUSH (22:17)
--- NOTE | 2023-11-11 22:18 | ED.ALLEREA ---
HPI - Allergic Reaction General Chief complaint: Allergic Reaction Stated complaint: allergic reaction Time Seen by Provider: 11/11/23 21:31 Source: patient Limitations: no limitations History of Present Illness HPI narrative: Patient is a 33-year-old female presents to the emergency department complaining of an allergic reaction. Patient states that she was just prescribed clindamycin for urinary tract infection and took 2 doses and then this evening a couple hours prior to coming into the emergency department she developed a red rash on her legs and back and a scant to monitor arms and took 3 Benadryl which helped with the itching and now it just feels like a burning sensation and she is also having some tingling of her lips and some difficulty swallowing. Patient is to history of allergic reactions in the past that were similar to this. Patient denies any new exposures a 2nd clindamycin. Patient denies nausea, vomiting, difficulty breathing, mouth sores, eye pain, vaginal sores, recent injuries, fever, lip swelling, tongue swelling. Patient denies any history of taking clindamycin. Patient admits to being on steroids and regular basis for vasculitis. Related Data Home Medications Medication Instructions Recorded Confirmed Adult Multivitamin with Iron 1 cap PO DAILY 05/17/23 05/17/23 Calcium 500 + D (D3) 1 cap PO DAILY 05/17/23 05/17/23 trazodone 50 mg tablet 50 mg PO QHS 05/17/23 05/17/23 Allergies Allergy/AdvReac Type Severity Reaction Status Date / Time amoxicillin Allergy Severe Swelling Verified 11/10/23 17:49 of Lip/Tongue/Throat zolpidem [From Ambien] Allergy Severe Rash Verified 11/10/23 17:49 adhesive tape Allergy Intermediate Rash, Verified 11/10/23 17:49 Pulled skin off clindamycin Allergy Swelling Verified 11/11/23 21:27 of Lip/Tongue/Throat sulfamethoxazole Allergy Hives Verified 11/10/23 17:49 [From Bactrim] trimethoprim [From Bactrim] Allergy Hives Verified 11/10/23 17:49 Review of Systems Review of Systems: A 10 system review of systems was completed on the patient and is negative except for what is stated in the HPI. Nursing and ancillary documentation was reviewed. 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, continuous use of opioids oxycodone COVID-19 GERD without esophagitis History of jejunostomy tube placement History of sepsis (~10/2019) perforated duodenum from surgical procedure Hx of gangrene (~07/2019) gangrenous gall bladder, ruptured GB Immunosuppression due to drug therapy Insomnia Morbid obesity (Unknown) Open wound of umbilical region (~04/27/20) Pneumonia Psoriatic arthritis (Unknown) Surgical History Surgical History History of abdominal surgery 2018 -2020 - exploratory la History of cholecystectomy (~07/2019) 05/05/21 Laparoscopic cholecystectomy with intraoperative cholangiogram 2. Extensive lysis of adhesions greater than 1 hour (laparoscopic) 3. Excision of chronic granulating wound tract right upper quadrant. 4. Repair with sutures of moderate size umbilical hernia. History of foot surgery 2008 - ORIF fracture 5th metatarsal. History of tonsillectomy Family History Family History Father Thyroid disorder Sleep apnea Mother Asthma Diabetes mellitus Hypertension Cerebrovascular accident Arthritis at at 58 Sibling Diabetes mellitus Hypertension Sjogren's disease at age 38 Social History Social History Social History: Works at [employer]. Lives with her and 3 children. Smoking packs per day: 1 Smoking cigarettes per day: 20.0 Years smoked: 10 Smoking pac
[2023-11-11] MEDS: FAMOTIDINE 20 MG/2 ML VIAL IV PUSH (22:20)
[2023-11-11 22:23] LABS: Alanine Aminotransferase 15 U/L (6-35); Alkaline Phosphatase 87 U/L (38-126); Anion Gap 6 mmol/L (8-16); Aspartate Amino Transferase 23 U/L (14-36); Bilirubin,Total 0.9 mg/dL (0.2-1.3); Blood Urea Nitrogen 16 mg/dL (7-17); Calcium 9.1 mg/dL (8.4-10.2); Carbon Dioxide 31 mmol/L (22-30); Chloride 100 mmol/L (98-107); Estimated CRCL calculation 93 ml/min; Estimated Glomerular Filt Rate > 60; Glucose 96 mg/dL (65-110); Magnesium 2.2 mg/dL (1.6-2.3); Potassium 3.5 mmol/L (3.4-5.0); Sodium 137 mmol/L (137-145)
[2023-11-11] MEDS: EPINEPHrine HCL INJ 1 MG/ML AMPUL 0.3 MG IM (22:23)
[2023-11-11 22:26] LABS: Prothrombin Time 13.1 Seconds (11.1-14.7)
[2023-11-11 22:28] LABS: Partial Thromboplastin Time 27.9 SECONDS (22.3-36.8)
[2023-11-11 23:24] VITALS: BP 110/90; PULSE 95; RESP 22; O2SAT 96
--- NOTE | 2023-11-11 23:25 | PC.NURSE ---
this rn took patient report from RADHA Mueller. this rn assumed care of patient.
[2023-11-11 23:52] VITALS: BP 121/67; PULSE 94; RESP 19; O2SAT 98
[2023-11-11 23:58] LABS: Free T4 Free Thyroxine Reflex 0.92 ng/dL (0.78-2.19)
[2023-11-12 00:46] LABS: Total Triiodothyronine (T3) 1.17 NG/ML (0.97-1.69)
[2023-11-12 00:57] VITALS: BP 113/68; PULSE 95; RESP 14; O2SAT 95
== END 2023-11-12 00:59 | disposition home or self-care (01) ==
PROVIDERS: Emergency Provider Student in an Organized Health Care Education/Training Program
DX: L27.0 Generalized skin eruption due to drugs and medicaments taken internally (principal); T36.8X5A Adverse effect of other systemic antibiotics, initial encounter; N39.0 Urinary tract infection, site not specified; J45.909 Unspecified asthma, uncomplicated; E66.01 Morbid (severe) obesity due to excess calories; Z68.36 Body mass index [BMI] 36.0-36.9, adult; K21.9 Gastro-esophageal reflux disease without esophagitis; Z86.16 Personal history of COVID-19; Z87.01 Personal history of pneumonia (recurrent); Z87.891 Personal history of nicotine dependence; Z90.49 Acquired absence of other specified parts of digestive tract
CPT/HCPCS: 36415; 80053; 83735; 84439; 84443; 84480; 85025; 85610; 85730; 96365; 96372; 96374; 96375; 99284; J0171; J0696; J1200; J2920

== ENCOUNTER 2023-12-18 10:39 | Emergency (ER) | payer OTHER, SELFPAY ==
--- NOTE | ~2023-12-18 | CT_ITS ---
EXAMINATION: CT abdomen pelvis wo con DATE: 12/18/2023 11:51 INDICATION: Bilateral flank pain. UTI. TECHNIQUE: Computed tomography (CT) of the abdomen and pelvis was performed without intravenous contr ast. The dose-length product was 931.40 mGy-cm. Automated exposure control and iterative reconstructi on technique were employed. COMPARISON: CT dated 01/07/2022 FINDINGS: There is left lower lobe infiltrates which may represent atelectasis/scarring or pneumonia. Status post cholecystectomy with pneumobilia. The spleen, pancreas, adrenal glands and kidneys are u nremarkable. There is an umbilical hernia containing nonobstructed bowel. No free air or free fluid. There is a left adnexal cyst measuring approximately 3.5 cm, likely ovarian. IMPRESSION: 1. Left adnexal cyst measuring approximately 3.5 cm, likely ovarian. 2: Left lower lobe infiltrates which may represent atelectasis/scarring or pneumonia. 3: Umbilical hernia containing nonobstructed bowel. Reviewed, dictated and finalized at location A. IMPRESSION: 1. Left adnexal cyst measuring approximately 3.5 cm, likely ovarian. 2: Left lower lobe infiltrates which may represent atelectasis/scarring or pneu monia. 3: Umbilical hernia containing nonobstructed bowel.
[2023-12-18 10:41] VITALS: BP 150/105; PULSE 91; RESP 16; TEMP 36.1; O2SAT 100
[2023-12-18 10:58] LABS: Basophils Percent Auto 0.3 % (0.2-1.2); Eosinophils Absolute Auto 0.1 K/mm3 (0-0.3); Eosinophils Percent Auto 0.9 % (0-4.4); Hematocrit 34.7 % (37.0-47.0); Hemoglobin 11.1 g/dL (12.0-15.0); Immature Granulocyte Absolute 0.05 K/mm3 (0.00-0.031); Immature Granulocyte Percent A 0.5 % (0-0.5); Lymphocytes Absolute Auto 1.95 K/mm3 (0.9-3.2); Lymphocytes Percent Auto 17.9 % (18.3-44.2); Mean Corpuscular Hemoglobin 29.2 pg (26-34); Mean Corpuscular Volume 91.3 fl (80-100); Mean Platelet Volume 8.8 fl (7.4-10.4); Monocytes Absolute Auto 0.6 K/mm3 (0.1-0.6); Monocytes Percent Auto 5.6 % (2.6-8.5); Neutrophils Absolute Auto 8.2 K/mm3 (1.3-6.7); Neutrophils Percent Auto 74.8 % (45.5-73.1); Platelet Count Result 364 k/mm3 (150-375); Red Cell Distribution Width 13.3 % (11.5-14.5); White Blood Count 10.9 K/mm3 (4.5-10.0)
[2023-12-18] MEDS: ACETAMINOPHEN 500 MG TABLET 1000 MG PO (10:59)
--- NOTE | 2023-12-18 10:59 | ED.FEMALEGU ---
HPI - Female Genitourinary General Chief complaint: Urogenital-Female Stated complaint: UTI? Time Seen by Provider: 12/18/23 10:52 Source: patient Mode of arrival: ambulatory Limitations: no limitations History of Present Illness HPI Narrative: Patient is a 33-year-old female, with PMH of gastric sleeve surgery, who presents the ED with report of flank pain. Patient reports having persistent and worsening bilateral flank pain for the last 1 week. Reports having dysuria, urinary frequency and urgency over the last several days. Believes she has a UTI. Has history of frequent UTIs. Denies hematuria, fevers, abdominal pain, N/V. Denies hx of kidney stones. Has not taken anything for pain today. Related Data Home Medications Medication Instructions Recorded Confirmed Adult Multivitamin with Iron 1 cap PO DAILY 05/17/23 05/17/23 Calcium 500 + D (D3) 1 cap PO DAILY 05/17/23 05/17/23 trazodone 50 mg tablet 50 mg PO QHS 05/17/23 05/17/23 Allergies Allergy/AdvReac Type Severity Reaction Status Date / Time amoxicillin Allergy Severe Swelling Verified 12/18/23 10:51 of Lip/Tongue/Throat zolpidem [From Ambien] Allergy Severe Rash Verified 12/18/23 10:51 adhesive tape Allergy Intermediate Rash, Verified 12/18/23 10:51 Pulled skin off clindamycin Allergy Swelling Verified 12/18/23 10:51 of Lip/Tongue/Throat sulfamethoxazole Allergy Hives Verified 12/18/23 10:51 [From Bactrim] trimethoprim [From Bactrim] Allergy Hives Verified 12/18/23 10:51 Review of Systems Review of Systems: CONSTITUTIONAL: Denies fever, chills, or sweats. GASTROINTESTINAL: Denies abdominal pain, nausea, vomiting, or diarrhea. GENITOURINARY: see HPI. MUSCULOSKELETAL: See HPI. All systems reviewed & are unremarkable except as noted in HPI and below PMFSH Past Medical History Medical History Abdominal wall pain Allergies Asthma Asthma 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, continuous use of opioids oxycodone COVID-19 GERD without esophagitis History of jejunostomy tube placement History of sepsis (~10/2019) perforated duodenum from surgical procedure Hx of gangrene (~07/2019) gangrenous gall bladder, ruptured GB Immunosuppression due to drug therapy Insomnia Morbid obesity (Unknown) Open wound of umbilical region (~04/27/20) Pneumonia Psoriatic arthritis (Unknown) Surgical History Surgical History H/O gastric sleeve History of abdominal surgery 2018 -2020 - exploratory la History of cholecystectomy (~07/2019) 05/05/21 Laparoscopic cholecystectomy with intraoperative cholangiogram 2. Extensive lysis of adhesions greater than 1 hour (laparoscopic) 3. Excision of chronic granulating wound tract right upper quadrant. 4. Repair with sutures of moderate size umbilical hernia. History of foot surgery 2008 - ORIF fracture 5th metatarsal. 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 Lives with her and 3 children. Smoking packs per day: 1 Smoking cigarettes per day: 20.0 Years smoked: 10 Smoking pack-years: 10.00 Smoking status: Former smoker Tobacco type: cigarettes Second hand tobacco smoke exposure: No Smoking end date: 06/01/17 Alcohol intake: current Drinks per week: 1 Substance use: never Substance use type: does not use Lack of Transportation: No Lack of Food: Never True Current James
[2023-12-18 11:09] LABS: Alanine Aminotransferase 20 U/L (6-35); Albumin Level 4.2 g/dL (3.5-5.1); Alkaline Phosphatase 109 U/L (38-126); Anion Gap 7 mmol/L (8-16); Aspartate Amino Transferase 31 U/L (14-36); Bilirubin,Total 0.5 mg/dL (0.2-1.3); Blood Urea Nitrogen 15 mg/dL (7-17); Calcium 9.4 mg/dL (8.4-10.2); Carbon Dioxide 28 mmol/L (22-30); Chloride 104 mmol/L (98-107); Estimated CRCL calculation 120 ml/min; Estimated Glomerular Filt Rate > 60; Glucose 91 mg/dL (65-110); Potassium 3.4 mmol/L (3.4-5.0); Sodium 139 mmol/L (137-145)
[2023-12-18 11:25] LABS: Appearance Urine Turbid (Clear); Bacteria Urine 4+ /hpf; Bilirubin Urine 2+ (Negative); Blood Urine 3+ (Negative); Color Urine Dark Yellow (Yellow); Glucose Urine UA Negative (Negative); Ketones Urine Trace mg/dL (Negative); Leukocyte Esterase Ur 3+ LEU/UL (Negative); Nitrate Urine Negative (Negative); Non Pathogenic Casts 0-2; Protein Urine 2+ mg/dL (Negative); RBC Urine 51-100 /hpf (0-2); Specific Grav Ur 1.026 (1.001-1.035); Squamous Epithelial Cell Urine Moderate /hpf (Few); WBC Urine >100 /hpf (0-3); pH Urine 5.5 (5.0-9.0)
[2023-12-18 11:33] LABS: Add Urine Microscopic? YES
[2023-12-18] MEDS: CEPHALEXIN 500 MG CAPSULE PO (11:33)
[2023-12-18 11:34] VITALS: BP 147/93; PULSE 84; RESP 17; O2SAT 100
[2023-12-18] MEDS: KETOROLAC (*BKC) 60 MG/2 ML VIAL IM (11:38)
[2023-12-18] MEDS: PHENAZOPYRIDINE HCL 100 MG TABLET 200 MG PO (11:38)
== END 2023-12-18 12:35 | disposition home or self-care (01) ==
PROVIDERS: Emergency Provider Physician Assistant
DX: N30.01 Acute cystitis with hematuria (principal); N83.202 Unspecified ovarian cyst, left side; J45.909 Unspecified asthma, uncomplicated; L40.50 Arthropathic psoriasis, unspecified; E66.01 Morbid (severe) obesity due to excess calories; Z68.35 Body mass index [BMI] 35.0-35.9, adult; Z98.84 Bariatric surgery status; Z86.16 Personal history of COVID-19; Z87.01 Personal history of pneumonia (recurrent); Z87.891 Personal history of nicotine dependence; Z90.49 Acquired absence of other specified parts of digestive tract; K42.9 Umbilical hernia without obstruction or gangrene; R91.8 Other nonspecific abnormal finding of lung field
CPT/HCPCS: 36415; 74176; 80053; 81001; 81025; 85025; 87086; 87088; 96372; 99284; A9270; J1885

== ENCOUNTER 2024-08-30 14:50 | Emergency (ER) | payer OTHER, SELFPAY ==
--- NOTE | 2024-08-30 14:58 | ED_ITS ---
HPI - Eye Problem General Chief complaint: Eye Problems Stated complaint: R EYE REDNESS/PAIN Source: patient Mode of arrival: ambulatory Limitations: no limitations History of Present Illness HPI Narrative: 34 y/o female presented for c/o right eye redness, swelling, pain and frequent tearing for 6 days. Endorses photophobia and blurred vision of the right eye. Rates pain 8/10. Denies known injury or foreign body. Pt is 30 weeks gestation, hx gestational diabetes and psoriatic arthritis MD chief complaint: eye pain Related Data Home Medications Medication Instructions Recorded Confirmed Calcium 500 + D (D3) 1 cap PO DAILY 05/17/23 08/30/24 aspirin 81 mg tablet,delayed mg 08/30/24 release cephalexin 500 mg capsule 500 mg PO DAILY 08/30/24 08/30/24 clobetasol 0.05 % scalp solution topical 08/30/24 cyclobenzaprine 10 mg tablet mg 08/30/24 docusate sodium 100 mg capsule mg PO 08/30/24 ferrous sulfate 325 mg (65 mg mg 08/30/24 iron) tablet folic acid 1 mg tablet 08/30/24 insulin glargine 100 unit/mL (3 unit subcut 08/30/24 mL) subcutaneous pen (Lantus Solostar U-100 Insulin) pantoprazole 40 mg tablet,delayed mg PO 08/30/24 release pregabalin 100 mg capsule mg 08/30/24 08/30/24 Allergies Allergy/AdvReac Type Severity Reaction Status Date / Time amoxicillin Allergy Severe Swelling Verified 08/30/24 15:07 of Lip/Tongue/Throat zolpidem [From Ambien] Allergy Severe Rash Verified 08/30/24 15:07 adhesive tape Allergy Intermediate Rash, Verified 08/30/24 15:07 Pulled skin off clindamycin Allergy Swelling Verified 08/30/24 15:07 of Lip/Tongue/Throat sulfamethoxazole Allergy Hives Verified 08/30/24 15:07 [From Bactrim] trimethoprim [From Bactrim] Allergy Hives Verified 08/30/24 15:07 Review of Systems Review of Systems: CONSTITUTIONAL: Denies body aches, fever, chills EYES:Endorses swelling, redness, photophobia and pain to right eye; Denies visual changes, FB sensation ENT: Denies rhinorrhea, congestion, sore throat, or otalgia. CARDIOVASCULAR: Denies chest pain, palpitations RESPIRATORY: Denies cough or dyspnea. SKIN: Denies rash, itching, or wounds. MUSCULOSKELETAL: Denies back pain, joint pain, or myalgia. NEUROLOGIC: Denies headache, numbness, tingling, or weakness. All systems reviewed & are unremarkable except as noted in HPI and below PMFSH Past Medical History Medical History Abdominal wall pain Allergies Asthma Asthma Bronchocentric granulomatosis 2012 Chronic, continuous use of opioids oxycodone COVID-19 GERD without esophagitis History of jejunostomy tube placement History of sepsis (~10/2019) perforated duodenum from surgical procedure Hx of gangrene (~07/2019) gangrenous gall bladder, ruptured GB Immunosuppression due to drug therapy Insomnia Morbid obesity (Unknown) Open wound of umbilical region (~04/27/20) Pneumonia Psoriatic arthritis (Unknown) Surgical History Surgical History H/O gastric sleeve History of abdominal surgery 2018 -2020 - exploratory la History of cholecystectomy (~07/2019) 05/05/21 Laparoscopic cholecystectomy with intraoperative cholangiogram 2. Extensive lysis of adhesions greater than 1 hour (laparoscopic) 3. Excision of chronic granulating wound tract right upper quadrant. 4. Repair with sutures of moderate size umbilical hernia. History of foot surgery 2008 - ORIF fracture 5th metatarsal. 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 Lives with her hus band and 3 children. Smoking packs per day: 1 Smoking cigarettes per day: 20.0 Years smoked: 10 Smoking pack-years: 10.00 Smoking status: Former smoker Tobacco type: cigarettes Second hand tobacco smoke exposure: No Smoking end date: 06/01/17 Alcohol intake: current Drinks per week: 1 Substance use: never Substance use type: does not use Lack of Transportation: No Lack of Food: Never True Current Housing: I Have Housing Concerned About Future Housing: No Difficulty Paying Gas/Electric Bills: No Difficulty Paying for Meds: No Currently Unemployed: No Education: High School Diploma/GED Difficulty w/ Childcare or Family Care: No Living arrangements: with family Occupation/Education: occupation Gender identity (if verbalized by the patient): Female Sexual Orientation (if Verbalized by the Patient): Straight or Heterosexual Spiritual care concerns: No Agree to blood products: Yes Comments At time of signature, I have reviewed and agree with nursing past medical, surgical, social and family history unless otherwise noted. Please see nursing chart for further information. There is no relevant family history pertinent to the presenting complaint Exam Narrative: GENERAL: Well-appearing HEAD: Normocephalic, atraumatic. EYES: right conjunctival injection, eye lid swelling and redness, frequent tearing, photophobia. PERRLA, EOMI. Lid eversion shows no FB. No corneal abrasion or FB noted on reddy lamp exam. ENT: Mucous membranes pink and moist. No rhinorrhea. TMs normal bilaterally. Throat normal. Uvula midline. CHEST: Clear to auscultation. HEART: Regular rate and rhythm. ABDOMEN: gravid SKIN: Warm, dry, no rash. Normal skin turgor. NEURO: No focal deficits. Alert and oriented x3 PSYCH: Normal affect. Course Course Emergency Course: Patient is aware of diagnosis, understands and agrees to treatment plan. Anticipatory guidance given. Patient agrees to follow-up as directed and is aware of reasons to seek care at the emergency department. Portions of this record may have been created with voice recognition software Level of Care: Express Care Visit Procedures FB Removal Eye Foreign Body #1: Foreign Body Removal Date: 08/30/24 Location: eye (R) Topical anesthetic used: tetracaine Evidence of corneal penetration: No Procedure performed under: other (reddy lamp) Patient tolerated procedure: well and no complications Foreign Body Removal Narrative: Right Eye was anesthetized with 1 drop of tetracaine and anesthesia was achieved. Lid was everted and examined for foreign body. No foreign body, corneal abrasion, or ulceration identified with Reddy lamp. noted to have possible calcification just lateral to iris bilaterally. The eye was flushed with eye wash. Pt tolerated procedure well. MDM - Eye Problem MDM Narrative Medical decision making narrative: Discussed physical exam findings c/w iritis; no apparent corneal abrasion or FB on exam. Appt made at [facility] for 08/31. Pt v/u. Advised supportive measures and signs/symptoms to go to the ER at great length. Pt is appropriate for outpt treatment and f/u. Differential Diagnosis Differential diagnosis: Likely corneal abrasion, conjunctivitis, acute iritis, hyphema, periorbital cellulitis and corneal ulcer Discharge Plan Discharge Clinical Impression: Acute iritis Patient Disposition: Home, Self-Care Condition: Stable Instructions: Antibiotic Form, Iritis (ED) Additional Instructions: [facility] [address], [place] [address] Appointment 08/31/24 at 11:20 am. Bring insurance card and ID [phone] Use drops as directed You can wear sunglasses or stay in low light to avoid light sensitivity. Do not touch or rub your eye. Use over the counter lubricating eye drops as needed for irritation You may take Tylenol for pain Prescriptions: New ofloxacin 0.3 % drops See Rx Instructions .ROUTE .COMPLEX Qty: 10 0RF Rx Instructions: put 2 drops into right eye every 2hours x 2 days, then 2 drops 4 times/day days 3-7 No Action cephalexin 500 mg capsule 500 mg PO DAILY cyclobenzaprine 10 mg tablet aspirin 81 mg tablet,delayed release (DR/EC) pantoprazole 40 mg tablet,delayed release (DR/EC) PO ferrous sulfate 325 mg (65 mg iron) tablet docusate sodium 100 mg capsule PO folic acid 1 mg tablet clobetasol 0.05 % solution TOPICAL pregabalin 100 mg capsule insulin glargine [Lantus Solostar U-100 Insulin] 100 unit/mL (3 mL) insulin pen SUBCUT Calcium 500 + D (D3) 1 cap PO DAILY ondansetron 4 mg tablet,disintegrating 4 mg PO Q8H PRN (Reason: nausea and vomiting) Qty: 10 0RF pantoprazole 40 mg tablet,delayed release (DR/EC) 40 mg PO DAILY Qty: 90 1RF Follow-up/Referrals: Tyrese,Mendoza [Other]
[2024-08-30 15:00] VITALS: BP 126/81; PULSE 90; RESP 16; TEMP 36.6; O2SAT 100
[2024-08-30] MEDS: TETRACAINE HCL 0.5% OPHTH SOLN 4 ML BTL RIGHT EYE (15:15)
[2024-08-30] MEDS: FLUORESCEIN SOD 1 MG/STRIP RIGHT EYE (15:15)
[2024-08-30] MEDS: DACRIOSE EYE IRRIGATION 118 ML BOTTLE RIGHT EYE (15:15)
== END 2024-08-30 15:45 | disposition home or self-care (01) ==
PROVIDERS: Emergency Provider Nurse Practitioner Family
DX: O99.891 Other specified diseases and conditions complicating pregnancy (principal); H20.00 Unspecified acute and subacute iridocyclitis; O24.419 Gestational diabetes mellitus in pregnancy, unspecified control; O99.513 Diseases of the respiratory system complicating pregnancy, third trimester; J45.909 Unspecified asthma, uncomplicated; O99.613 Diseases of the digestive system complicating pregnancy, third trimester; K21.9 Gastro-esophageal reflux disease without esophagitis; O99.713 Diseases of the skin and subcutaneous tissue complicating pregnancy, third trimester; L40.50 Arthropathic psoriasis, unspecified; Z3A.30 30 weeks gestation of pregnancy; Z87.891 Personal history of nicotine dependence
CPT/HCPCS: 99213; A9270; G0463

== ENCOUNTER 2024-12-24 12:40 | Outpatient (CLI) | payer OTHER, SELFPAY ==
--- NOTE | ~2024-12-24 | CT_ITS ---
Non-contrast CT scan of the Abdomen and Pelvis Clinical indication: Incisional hernia Technique: 2.5 mm axial scans were obtained through the abdomen and pelvis without intravenous or or al contrast. Dose reduction technique was used on this scan by utilizing automated exposure control a nd iterative reconstruction technique. The dose-length product (DLP) was 803.17 mGy-cm. COMPARISON: 12/18/2023 Findings: Images through the lung bases reveal stable bibasilar probable scarring and post inflammat ory distortion versus emphysematous or possibly postoperative change.. There is no evidence of renal or ureteral calculi. The kidneys and the ureters are nondilated. Cholecystectomy clips are present with extensive pneumobilia. No other hepatic parenchymal abnormalit y clearly evident on noncontrast exam. The spleen, pancreas, and adrenals appear normal. There is no aortic aneurysm. There is no evidence of bowel obstruction. Large ventral hernia near the umbilicus contains central t hird of the transverse colon. Images through the pelvis were performed. There is no evidence of ascites or lymphadenopathy. Urinary bladder unremarkable. No adnexal mass seen. No ascites. Impression: Large ventral hernia near the umbilicus contains the central third of the transverse colon, essential ly stable from prior exam. Status post cholecystectomy and pneumobilia. Stable chronic changes in the lung bases, likely postinflammatory and/or postoperative in nature. Reviewed, dictated and finalized at [facility]. Impression: Large ventral hernia near the umbilicus contains the central third of the trans verse colon, essentially stable from prior exam. Status post cholecystectomy and pneumobilia. Stable chronic changes in the lung bases, likely postinflammatory and/or postop erative in nature.
--- OUTSIDE RECORDS SUMMARY | 2024-12-24 12:43 | XMS_ITS | Clinical Summary ---
Author Organization [facility] Address [address] [place] [address] Care Team Providers Care Acute Care Physical Therapist Name Role Phone Helene Chin MD Unavailable [phone] Iona Mcginnis MD Unavailable [phone] Mendoza Xiong MD Primary Care Provider Allergies Active Allergy Reactions Criticality Noted Date Comments Adhesive Unknown High 05/26/2016 Peels off skin Peels off skin Amoxicillin Hives High 01/13/2023 Sulfamethoxazole-Trime thoprim Rash Medium 07/07/2023 Bupropion Hcl Unknown,Other (See comments) Low 06/28/2012 Anger issues SUCICIDAL Clindamycin Anaphylaxis High 11/11/2023 Pt ended up in ER Zolpidem Itching,Rash Medium 01/13/2023 Medications diclofenac sodium (VOLTAREN) 1 % gel Apply 4 g topically 3 (three) times a day 100 g 07/09/20 23 Active ondansetron ODT (ZOFRAN-ODT) 4 mg disintegrating tablet Take 1 tablet (4 mg total) by mouth every 6 (six) hours as needed for nausea or vomiting 20 tablet 07/09/20 23 Active acetaminophen (TYLENOL) 325 mg tablet Take 2 tablets (650 mg total) by mouth every 8 (eight) hours as needed for pain 30 tablet 07/09/20 23 Active fluticasone propionate (FLONASE) 50 mcg/actuation nasal spray SPRAY 2 SPRAYS INTO EACH NOSTRIL EVERY DAY 16 mL 2 10/27/19 24 Active pregabalin (LYRICA) 100 mg capsule Take 1 capsule (100 mg total) by mouth 2 (two) times a day 60 capsule 5 12/09/19 24 Active Additional Information Patient not taking.Reported on 11/27/2024 azaTHIOprine (IMURAN) 50 mg tablet Take 1 tablet (50 mg total) by mouth daily 30 tablet 2 12/13/19 24 Active Additional Information Patient taking differently: 100 mgoral Daily, Informant: Self, Reported on 04/17/2024 ixekizumab (Taltz Autoinjector) auto-injectorIndic ations:Psoriasis,P soriatic arthritis (HCC) Inject 1 mL (80 mg total) under the skin every 28 (twenty-eight) days After completing loading dose 1 mL 2 12/15/19 24 Active Additional Information Patient not taking.Reported on 11/27/2024 lidocaine (LIDODERM) 5 % PLACE 1 PATCH ON THE SKIN DAILY REMOVE & DISCARD PATCH WITHIN 12 HOURS OR DIRECTED BY MD 30 patch 12/29/19 24 Active Additional Information Patient not taking.Reported on 11/27/2024 triamcinolone (KENALOG) 0.1 % creamIndications:P soriatic arthritis (HCC) APPLY 1 APPLICATION ONTO THE AFFECTED AREA(S) ON THE SKIN TWICE DAILY 80 g 12/29/[address] (PROTONIX) 40 mg EC tabletIndications: Gastroesophageal reflux disease without esophagitis TAKE 1 TABLET BY MOUTH EVERY DAY 30 tablet 5 02/16/20 24 Active amitriptyline (ELAVIL) 25 mg tabletIndications: Neuropathic Pain Take 1 tablet (25 mg total) by mouth nightly 30 tablet 11 02/28/20 24 025 Active Additional Information Patient not taking.Reported on 11/27/2024 albuterol HFA (PROVENTIL HFA,VENTOLIN HFA,PROAIR HFA) 90 mcg/actuation inhaler INHALE 1 PUFF BY MOUTH EVERY 4 HOURS NEEDED FOR SHORTNESS OF BREATH OR WHEEZING 02/21/20 23 Active ascorbic acid (VITAMIN C) 1,000 mg tablet Take 1 tablet (1,000 mg total) by mouth daily Active cetirizine (ZyrTEC) 10 mg tablet Take 1 tablet (10 mg total) by mouth daily 03/16/20 24 Active ergocalciferol (VITAMIN D) 50,000 unit capsule Take 1 capsule (50,000 Units total) by mouth every 7 days Active famotidine (PEPCID) 20 mg tablet Take 1 tablet (20 mg total) by mouth 2 (two) times a day 03/16/20 24 Active folic acid (FOLVITE) 1 mg tablet Take 1 tablet (1 mg total) by mouth daily 02/16/20 24 Active vit [id number] 27mg iron- 800 mcg-250 mg capsule Take by mouth daily Active aspirin 81 mg enteric coated tablet Take 2 tablets (162 mg total) by mouth daily 05/04/20 24 Active cephalexin (KEFLEX) 500 mg capsule Take 1 capsule (500 mg total) by mouth 2 (two) times a day 05/04/20 24 Active Cimzia Powder for Reconst 400 mg (200 mg x 2 vials) kit 04/27/20 24 Active cyclobenzaprine (FLEXERIL) 10 mg tabletIndications: Chronic pain syndrome TAKE 1 TABLET BY MOUTH THREE TIMES A DAY NEEDED FOR MUSCLE SPASMS 90 tablet 3 09/18/20 24 Active Active Problems Problem Noted Date Diagnosed Date Metabolic and nutritional disorder 03/26/2024 Weight loss counseling, encounter for 03/02/2024 Bilateral thoracic back pain 01/11/2024 Thoracic radiculitis 01/11/2024 Chronic low back pain without sciatica Sacroiliitis 11/11/2023 Cervicalgia 11/11/2023 Neuropathic pain 11/11/2023 Chronic pain syndrome 11/11/2023 Burning with urination 10/05/2023 Overview (10/27/2023): -completed 10 days of macrobid earlier Sep -urine sample provided in lab prior to appointment today -continues to have burning with urination, painful urination -urine is cloudy with floaties -no visible blood in urine -there was no change in her symptoms with macrobid -she feels feverish but has not checked her temp Wait for UA results, discussed if continues might need ID referral. Cough 09/03/2023 Overview (10/27/2023): -continues with cough -cough was productive, treating with mucinex -now cough is dry Tessalon sent to pharmacy. H/O gastric sleeve 09/03/2023 Overview (09/03/2023): -gastric sleeve in December 2022 with [facility] -no longer accepting her insurance -needs to re-establish [facility] referral placed. Influenza A 08/23/2023 Redness, eye 08/11/2023 Overview (08/11/2023): -2 days of red and irritated eye -crusting in the morning -very irritated -children at home recently with pink eye -also having some sore throat and mild congestion -treating with Zicam Erythomoycin ointment ordered for eye. Encouraged flonase spray and daily allergy medicine. Reach out with no improvements. Poor sleep 08/11/2023 Overview (08/11/2023): -trazodone 50mg nightly -nightly since 2019 -difficulty falling asleep and staying asleep -tried hydroxyzine in the past -also notes abiel on cpap, cpap is 8-10 years old, pulm is setting up sleep study Refilled trazodone. Urinary frequency 08/11/2023 Overview (08/11/2023): -treated for UTI end of June -completed course of antibiotics and was feeling better -for a week with urinary urgency, leaking, odor to urine, cloudy urine, noticed some blood with wiping -denies fever, chills -mild right CVA tenderness on exam UA ordered. 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 I reviewed her case at our multi-disciplinary ILD conference today. Reviewed her prior images from July 2021 as well as from January and February 2023 compared to exam completed this admission. Most obvious findings is air space opacity in the LLL associated with volume loss and traction bronchectasis that has been present at least since January of 2023, but was not present on 07/2021 scan. When compared to January, opacity has slowly decreased in size. When viewed on soft tissue windows, there are areas of mixed density. Taken together, this area is favored to represent hemorrhage in the setting of vasculitis. July 2021 scan most notable for extensive GGO. Most recent scan demonstrated improvement in GGO, but not has mild linear GGO with subpleural sparing consistent with OP. Take together, agree with the diagnosis of vasculitis and initiation of pulse dose steroids with planned steroid taper. Bronchoscopy 07/06 did not reveal any active bleeding or source of hemoptysis on inspection. BAL was negative for DAH and cultures are negative. TBBX taken from LLL, unfortunately only able to take 3 biopsies due to patient tolerance during procedure, unable to get adequate sample. However, serologies returned with positive MPO and FUENTES. TBBx for vasculitis has low sensitivity regardless, so if there is ongoing concern may need to consider alternative sampling if the diagnosis is still in question. Recommendations: -Agree with empiric steroids per Rheumatology -Defer additional IS agents to Rheum - Pulmonary will continue to follow peripherally, when nearing discharge we will arrange for outpatient follow up. She will need repeat CT Chest in 6 to 8 weeks to assess LLL consolidation. Assessment & Plan (07/09/2023 12:19 PM CDT): Patient presents w/ hemoptysis for the past 2-3 week prior to admission. Directly admitted for expedited workup, concerns for bronchocentric granulomatosis. Referred to Pulm and Rheum here. Assessment: - OSH labwork was positive for Aspergillus IgG and C-ANCA, requested detailed records from [facility]. - Bronch 05/26 at OSH reportedly inconclusive. Now s - CTA chest here (07/02): c/f sequelae of hemorrhage in LLL; polygonal CORI nodule. 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 - Autoimmune workup: FUENTES 1:2560, ANIBAL+ with negative Sm, SSA/B, Annette-1, BUILDING RENTAL MANAGER, Scl70; anti-centromere 2.1, anti-GBM negative; ESR 58, CRP 10.8; C4 44.9; anti-CCP negative; IgE 73 - dsDNA, ANCA pending - MPO 1.3, Proteinase-3 ab < 0.2 - Infectious workup: crypto Ag negative, hep panel NR; other labs pending - Plain films of joints: mild bilat SI osteoarthritis, right hallux valgus & mod great toe MTP OA. - Influenza vaccination given 07/04 prior to possibly starting immunosuppression - Bronchoscopy 07/06 w/o obvious source of bleeding - Pneumonia PCR negative - Cultures NGTD - Cell count complete - TBBX w/ acute and chronic inflammation - Baseline TTE ISO positive anti-centromere antibody grossly normal Plan: - Rheumatology consulted - Transitioned to high 1 mg/kg Prednisone today - 1 mg/kg IV x 3 days, 1 mg/kg x 7 days PO, PEXIVAS trial taper thereafter - PPx: PPI, Switch from Bactrim to Dapsone/Atovaquone due to drug reaction - Check G6PD - T-SPOT in process - Clean catch urine with no evidence of kidney involvement - Pulmonology consulted - Deferring additional IS agents to Rheum - Repeat CT Chest in 6-8 weeks, f/u outpatient w/ Pulm - Patient would like to follow up here - Requesting PCP, Pulm, and Rheum records Lobar pneumonia 06/29/2023 Hypokalemia 06/25/2023 Assessment & Plan (07/02/2023 1:22 PM CDT): Replaced. Trend BMP. Assessment & Plan (06/26/2023 10:52 AM CDT): Presented with complaint of lightheadedness, occipital PARRA, and tingling in fingertips. - h/o gastric sleeve surgery end of December, has lost ~ 90 lbs, has intermittent N/V that has improved over time, not vomiting daily, occasional diarrhea - workup consistent with hypoKalemia to 2.6 secondary to GI losses vs poor absorption, no EKG changes - K replenishment to keep >4 - telemetry - likely dc home on PO supplement with PCP f/u Anemia 06/25/2023 Assessment & Plan (07/02/2023 1:22 PM CDT): - monitor CBC, transfuse PRN - workup and management of hemoptysis as elsewhere Assessment & Plan (06/26/2023 10:35 AM CDT): Microcytic anemia Hb 10.9 with MCV 79 - iron panel pending Anxiety and depression 01/20/2023 Gastroesophageal reflux disease without esophagi tis 01/20/2023 Cholecystitis 09/17/2019 Psoriatic arthritis 07/21/2019 Overview (10/27/2023): -follows with Rheumatology -she has had a flare of psoriasis lately, treating with triamcinolone which helps but new areas continue to appear -notes the Taltz and hydroxychorquine was stopped and feels like she has been in a flare for week and it is progressing -having increased pain, missed most recent pain management appointment -gabapentin makes her drowsy -treating with cymbalta 60mg -ton a of joint pain, hips and back Encouraged follow up with Rheum and pain management. Assessment & Plan (07/04/2023 11:58 AM CDT): - resumed HCQ - pain: resumed home duloxetine & methocarbamol - added lido patch to lower back, diclofenac gel to legs - used to follow-up with Rheumatology elsewhere, planning to establish here. 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 Noted at age 16 - -- Reports that she stopped medications at around age 20 -- Overview: Has seen Chrissy in past--CONSIDER SEEING BH and doing PHQ9 at 36 wks. Noted at age 16 - -- Reports that she stopped medications at around age 20 -- Lung nodule 08/27/2012 Overview (08/09/2023): noted on CT - initially found to be organizing pneumonia - and improved with long course of prednisone -- Mass enlarged and new mass occurred after 1st - bronch was not diagnosed - sounds like she is going in for a VAST/open Bx - - Appears to be autoimmune in nature -- unclear in exact etiology -- Bx showed Bronchocentric granulomatosis Overview: noted on CT - initially found to be organizing pneumonia - and improved with long course of prednisone -- Mass enlarged and new mass occurred after 1st - bronch was not diagnosed - sounds like she is going in for a VAST/open Bx - - Appears to be autoimmune in nature -- unclear in exact etiology -- Bx showed Bronchocentric granulomatosis Vitamin D deficiency 07/13/2012 Nicotine dependence 07/11/2012 Obesity 06/28/2012 Encounters Date Type Department Care Team Description 11/28/2024 1:15 PM PROJECT DEVELOPMENT LEADER Ancillary Procedure [facility] Imaging at [address] [address] Rib pain on left side 11/28/2024 Results Follow-Up [facility] at [address] [address] Drea Ramos PA 11/27/2024 5:15 PM PROJECT DEVELOPMENT LEADER Office Visit [facility] at [address] [address] Emely Resendiz, CAMP TENDER Rib pain on left side (Primary Dx) 11/23/2024 10:30 AM PROJECT DEVELOPMENT LEADER Telemedicine [facility] [address] [place] [address] Padmini Monahan DNP ABIEL (obstructive sleep apnea) (Primary Dx); Hypersomnia; Obesity (BMI 30-39.9) 11/23/2024 Telephone [facility] [address] [place] [address] Padmini Monahan DNP 11/23/2024 Telephone [facility] [address] [place] [address] Padmini Monahan DNP 10/17/2024 Telephone [facility] [address] [place] [address] Krysten Almanza, RPSGT from Last 3 Months Immunizations Immunization Administration Dates Next Due Influenza, Quadrivalent, Spl it, Preservative Free, Intramuscular 07/04/2023,06/24/2020,07/23/2017,07/10,07/12/2015,06/26/2014 Influenza, Trivalent, Cell Culture-based MDCK, Preservative Free, Antibiotic Free, Intramuscular 07/03/2019 Influenza, Trivalent, High D ose, Split, Preservative Free, Intramuscular 05/28/2014 Influenza, Trivalent, IM (MDV) 07/03/2013 Influenza, Trivalent, Preser vative Free, Intramuscular 07/11/2012 Influenza, Unspecified 08/07/2011 PPD TEST 07/13/2019,12/21/2017,12/21/2017 Pneumococcal Polysaccharide PPV23 08/07/2011 Tdap 04/09/2017, 5,10/03/2013,07/11 Surgical History Surgery Date Site/Laterality Comments GALLBLADDER SURGERY BARIATRIC SURGERY FOOT SURGERY Right TONSILLECTOMY AND ADENOIDECTOMY Medical History Medical History Date Comments Arthritis Asthma Microscopic polyangiitis (HCC) Sternal pain Hip pain Back pain Family History Medical History Relation Name Comments Diabetes Father Hypertension Father Sleep apnea Father Thyroid disease Father Asthma Mother Diabetes Mother Heart attack Mother Hypertension Mother Relation Name Status Comments Father Alive Mother Social History Tobacco Use Types Packs/Day Years Used Date Smoking Tobacco: Former Cigarettes 1 10 0 09/2006 - 09/2016 Smokeless Tobacco: Never Tobacco Cessation:Counseling Given: Not Answered AUDIT-C Answer Date Recorded Q1: How often do you have a drink containing alcohol? Never 05/09/2024 Q2: How many drinks containi ng alcohol do you have on a typical day when you are drinking? Patient does not drink Q3: How often do you have si x or more drinks on one occasion? Never 05/09/2024 PHQ-2 Answer Date Recorded PHQ-2 Total Score (If total score is 3 or more points, staff should administer the PHQ-9) 0 08/11/2023 Exercise Vital Sign Answer Date Recorde d On average, how many days pe r week do you engage in moderate to strenuous exercise (like a brisk walk)? 2 days Minutes of Exercise per Session Not on file 08/11/2023 Hunger Vital Sign Answer Date Recorded Within the past 12 months, y ou worried that your food would run out before you got the money to buy more. Never true 07/27/20 23 Within the past 12 months, t he food you bought just didn't last and you didn't have money to get more. Never true 07/27/2023 Personal Safety Answer Date Recorded Have you ever been in or are you currently in a harmful physical or emotional relationship or is someone making you feel afraid or unsafe? Denies 08/25/2023 Comments No Sex and Gender Information Value Date Recorded Sex Assigned at Not on file Legal Sex Female 2:47 PM CDT Gender Identity Not on file Sexual Orientation Not on file Obstetrics History Para Term AB IAB SAB Ectopic Multiple Livin g Live Births 4 4 4 4 1 Date Outcome GA Total Labor Labor/2nd/3rd Weight Sex Type Anes PTL Ellen A1 A5 Name Clin Term Term Term 2024 Term 39w 1d Living Last Filed Vital Signs Vital Sign Reading Time Taken Comments Blood Pressure 138/66 11/27/2024 5:15 PM PROJECT DEVELOPMENT LEADER Pulse 110 11/27/2024 5:15 PM PROJECT DEVELOPMENT LEADER Temperature 37.6 C (99.6 F) 11/27/2024 5:15 PM PROJECT DEVELOPMENT LEADER Respiratory Rate 16 11/27/2024 5:15 PM PROJECT DEVELOPMENT LEADER Oxygen Saturation 98% 11/27/2024 5:15 PM PROJECT DEVELOPMENT LEADER Inhaled Oxygen Concentration - - Weight 88.9 kg (196 lb) 11/27/2024 5:15 PM PROJECT DEVELOPMENT LEADER Height 160 cm (5' 3 ) 08/15/2024 7:31 PM PROJECT DEVELOPMENT LEADER Body Mass Index 34.72 08/15/2024 7:31 PM PROJECT DEVELOPMENT LEADER Plan of Treatment Health Maintenance Due Date Last Done Comments Cervical Cancer Screening 1988 Varicella Vaccines (1 of 2 - 13+ 2-dose series) 2001 Hepatitis B Screening 2006 Zoster Vaccine (1 of 2) 2007 Pneumococcal vaccine <65 (2 of 2 - PCV) 08/07/2012 08/07/2011 Influenza Vaccine (#1) 2024 3, 06/24/2020, 07/03/2019, Additional history exists Depression Screening 08/11/2024 08/11/2023 Regular Well Visit/Exam 18-64 08/11/2024 08/11/2023 DTaP/Tdap/Td Vaccine (6 - Td or Tdap) 09/05/2034 09/05/2024, 04/09/2017, 09/23/2015, Additional history exists Hepatitis C Screening Completed 07/02/2023 HPV Vaccines Aged Out No longer eligi ble based on patient's age to complete this topic Goals Goal Patient Goal Type Associated Problems Recent Progress Patient-Stated? Author CCM Chronic Pain Care Plan Chronic Care Management No change(05/09 8:24 AM CDT) No Ju Seth, RADHA Note: Problem: Chronic Pain Goals: 1. Minimize further functional decline 2. Maximize quality of life 3. Control pain Strategies: - Activity/exercise program recommendation - Conservative stepwise pain medicine strategy with multi-disciplinary approach - Recommend healthy lifestyle strategies and compensatory methods as needed Medical Devices Implanted Type Area Digging Machine Operator Device Identifier Shelf Expiration Date Model / Serial / Lot Screw Right: Foot Procedures Procedure Name Priority Date/Time Associated Diagnosis Comments XR RIBS LEFT W PA CHEST Schedule ALAN, Read ALAN (Appt Today, Awaiting Results) 11/28/2024 1:24 PM PROJECT DEVELOPMENT LEADER Rib pain on left side POC INFLUENZA A/B, COVID-19 ANTIGEN Routine 11/27/2024 5:41 PM PROJECT DEVELOPMENT LEADER Rib pain on left side HEPATITIS PANEL, ACUTE Timed 07/02/2023 6:39 PM CDT from Last 3 Months or Most Recently Relevant to Health Maintenance Results * XR Ribs Left W PA Chest 3 or More Views (11/28/2024 1:24 PM PROJECT DEVELOPMENT LEADER) Anatomical Region Laterality Modality Rib, Chest Left Digital Radiogra phy 11/28/2024 4:02 PM PROJECT DEVELOPMENT LEADER Narrative 11/28/2024 4:07 PM PROJECT DEVELOPMENT LEADER EXAM DESCRIPTION: XR RIBS LEFT W PA CHEST 3 OR MORE VIEWS REASON FOR STUDY: Chest wall pain, left rib pain Pt complains of left rib pain x a few days. No known injury. Pain anterior underneath left breast, wrapping around posteriorly. No copd,cancer,heart disease. Hx asthma. Hx of lung tissue removal. Former smoker, quit x 8 years ago, smoked 1 ppd for 10 years TECHNIQUE: There are 2 views of the left ribs. Single view of the pelvis. COMPARISON: X-ray 08/23/[address] 12/31/2023 FINDINGS: Chest x-ray: Normal cardiomediastinal silhouette and pulmonary vasculature. There is stable blunting of the costophrenic angles favoring scarring. No confluent infiltrate or definite effusion. No acute osseous findings. Cholecystectomy clips. Left ribs: No acute fracture or dislocation. No underlying pulmonary contusion or pneumothorax. IMPRESSION: No acute findings of the chest or left ribs. Again seen is blunting of the costophrenic angles favoring scarring. THIS IS AN ELECTRONICALLY VERIFIED FINAL REPORT 11/28/2024 4:07 PM - Electronically signed by Deni Calhoun M.D. MJ T: Report ID: [id number] Reading Location: [id number] Procedure Note Deni Calhoun MD - 11/28/2024 EXAM DESCRIPTION: XR RIBS LEFT W PA CHEST 3 OR MORE VIEWS REASON FOR STUDY: Chest wall pain, left rib pain Pt complains of left rib pain x a few days. No known injury. Pain anterior underneath left breast, wrapping around posteriorly. No copd,cancer,heart disease. Hx asthma. Hx of lung tissue removal. Former smoker, quit x 8years ago, smoked 1 ppd for 10 years TECHNIQUE: There are 2 views of the left ribs. Single view of thepelvis. COMPARISON: X-ray 08/23/[address] 12/31/2023 FINDINGS: Chest x-ray: Normal cardiomediastinal silhouette and pulmonary vasculature. There is stable blunting of the costophrenic angles favoring scarring. Noconfluent infiltrate or definite effusion. No acute osseous findings.Cholecystectomy clips. Left ribs: No acute fracture or dislocation. No underlying pulmonary contusion or pneumothorax. IMPRESSION: No acute findings of the chest or left ribs. Again seen is blunting of the costophrenic angles favoring scarring. THIS IS AN ELECTRONICALLY VERIFIED FINAL REPORT 11/28/2024 4:07 PM - Electronically signed by Deni Calhoun M.D. MJ T: Report ID: [id number] Reading Location: [place] [id number] Emely Resendiz NP IMG XR PROCEDURES Final Re sult * POC Influenza A/B, COVID-19 antigen (11/27/2024 5:41 PM PROJECT DEVELOPMENT LEADER) Influenza A Ag, POC Negative Negative [facility] Influenza B Ag, POC Negative Negative [facility] COVID-19 Ag POC Presumptive Negative Presumptive Negative, Invalid [facility] Nasal 11/27/2024 5:41 PM PROJECT DEVELOPMENT LEADER Emely Resendiz NP POINT OF CARE TEST ORDERAB LES Final Result [facility] [address] * Hepatitis panel, acute Blood (07/02/2023 6:39 PM CDT) Hep A IgM Nonreactive Nonreactive Hep B core IgM Nonreactive Nonreactive [facility] Hep C Ab Nonreactive Nonreactive [facility] Comment:Antibodies to HCV no t detected. Does NOT exclude the possibility of recent exposure to HCV. Current interpretive data was last revised on 22 HepBsAg Nonreactive Nonreactive [facility] Blood 07/02/2023 6:39 PM CDT 07/02/2023 7:02 PM CDT Darien Moody MD LAB MICROBIOLOGY - GENERAL ORDERABLES Final Result [facility] Department [place] [address] from Last 3 Months or Most Recently Relevant to Health Maintenance Insurance [id number] [place] [address] [facility] Advance Directives For more information, please contact: [phone] * Full Code (Latest Code Status on File) Date Activated Date Inactivated Comments 08/25/2023 5:50 PM 08/26/2023 7:45 PM * Full Code Date Activated Date Inactivated Comments 07/01/2023 1:26 PM 07/09/2023 10:18 PM * Full Code Date Activated Date Inactivated Comments 06/26/2023 12:56 AM 06/26/2023 5:43 PM Care Teams Acute Care Physical Therapist Relationship Specialty Start Date End Date Mendoza Xiong MD [address] [place] [address] PCP - General Internal Medicine 02/22/24 Helene Chin MD Fellow Pulmonary Disease 08/10/23 Iona Mcginnis MD [address] [place] [address] Fellow Rheumatology 08/10/23
--- OUTSIDE RECORDS SUMMARY | 2024-12-24 12:43 | XMS_ITS | Encounter Summary ---
Author Organization [facility] Address [address] [place] [address] [place] [address] Care Team Providers Care Meter/Relay Craftsman Name Role Phone Tyrese MCCULLOUGH MD, Mendoza Anderson Primary Care Provider + Reason for Visit * Reason Onset Date Comments Maternal Medicine 03/16/2024 Appointment 03/16/2024 Encounter Details Date Type Department Care Team (Late st Contact Info) Description 03/16/2024 Telephone [facility] - NUTRITION PROFESSOR [address] [place] [address] Drew Huber MD [address] [place] [address] Maternal Medicine; Appointment Social History Tobacco Use Types Packs/Day Years Used Date Smoking Tobacco: Former Cigarettes 1 2016 Smokeless Tobacco: Never Alcohol Use Standard Drinks/Week Comments Yes 0 (1 standard drink = 0.6 oz pure alcohol) Socially, every few months. Not even a full drink. PHQ-2 Answer Date Recorded Patient Health Questionnaire-2 Score 0 03/15/2024 Education Answer Date Recorded What is the highest level of school you have completed or the highest degree you have received? Some college, no degree 02/14/2024 Sex and Gender Information Value Date Recorded Sex Assigned at Not on file Gender Identity Not on file Sexual Orientation Not on file documented as of this encounter Miscellaneous Notes * Telephone Encounter - Danna Damian RN - 03/17/2024 8:13 AM CDT Appt offered 04/06 LMP 02/03 referred from for psoriatic arthritis, microscopic polyangiitis, ABIEL, GERD, hx of bariatric surgery,h/o GDM, * Telephone Encounter - Ese Merritt - 03/16/2024 2:15 PM CDT Patient is calling to see if she can be scheduled for an appointment. She was referred over by the acute clinic today after she took urine test and it came back positive for . Patient was referred over for High Risk . She has 2 auto-immune diseases. (microscopic polyangiitis and psoriatic arthritis). documented in this encounter Plan of Treatment Upcoming Encounters Date Type Department Care Team (Late st Contact Info) Description 12/27/2024 3:30 PM CDT Office Visit [facility] - Pain Mgmt [address], [address] [phone] Zachary López MD [address] [place] [address] [address] [place] [phone] Chemo Neal MD [address] [place] [phone] 02/14/2025 11:00 AM CDT Office Visit [facility] - Rheumatology [address] [place] [phone] Zachary López MD [address] [place] [address] [address] [place] [phone] 03/21/2025 10:30 AM CDT Office Visit [facility] - Internal Med [address] [place] [phone] Mendoza Xiong II, MD [address] [place] [address] [address] DIV OF GEN [place] [address] documented as of this encounter Visit Diagnoses Not on filedocumented in this encounter Care Teams Meter/Relay Craftsman Relationship Specialty Start Date End Date Mendoza Xiong II, MD [address] [facility] [place] [address] PCP - General Internal Medicine 02/14/24 documented as of this encounter
--- OUTSIDE RECORDS SUMMARY | 2024-12-24 12:43 | XMS_ITS | Clinical Summary ---
Author Organization [facility] Address [address] [facility] [place] [address] Care Team Providers Care Kiln Burner Helper Name Role Phone Tyrese MCCULLOUGH MD, Mendoza Anderson Primary Care Provider + Source Comments [facility],non-owned Affiliates and Associated Physician Practices is amultiple site organization consisting of ambulatory clinics and hospital sitesin [place], [place], [place] and [place]. This disclosure is being madepursuant to the Care Everywhere program and may not contain all information available regarding this patient. Last updated 18.[facility] Allergies Active Allergy Reactions Criticality Noted Date Comments Amoxicillin Urticaria High 01/13/2023 Sulfamethoxazole W-Trimethoprim Urticaria Medium 02/14/2024 Bupropion Other 06/28/2012 SUCICIDAL Anger issues Clindamycin Anaphylaxis High 02/14/2024 Mecrylate Dizziness High 05/26/2016 Peels off skin Peels off skin Zolpidem Itching,Rash Medium 01/13/2023 Medications * Be aware that medications may not be up to date on this document. Alwaysverify current medications with the patient. Medication Sig Dispensed Refills Start Date End Date Status folic acid (Folvite) 1 MG tabletIndication s:Folic acid deficiency Take 1 (one) tablet by mouth once daily 90 tablet 4 02/16/20 24 Active Ascorbic Acid 1000 MG Take 1 (one) tablet by mouth once daily Active ferrous sulfate 325 (65 FE) MG tablet Take 1 (one) tablet by mouth once daily 100 tablet 4 06/06/20 24 Active Zinc 20 MG CAPS Take 20 mg by mouth once daily 90 capsule 2 09/05/20 24 Active blood glucose test stripIndications :Insulin controlled gestational diabetes mellitus (GDM) in third trimester (HCC) Use 1 (one) strip 4 times daily 150 strip 3 09/18/20 24 Active Additional Information Patient taking differently: (No dose reported), Does not apply 4 TIMES DAILY, Reported on 11/28/2024 Vitamin D, Cholecalciferol, 50 MCG (1999) CAPS Take 1 capsule by mouth once daily 90 capsule 3 10/30/19 25 Active triamcinolone acetonide (Kenalog) 0.1 % creamIndications :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[facility]) Apply to affected area 2 times daily 45 g 1 11/29/19 25 Active senna (Senokot) 8.6 MG tabletIndication s:Drug induced constipation Take 1 (one) tablet by mouth once daily 90 tablet 1 12/06/19 25 025 Active Cimzia, 2 Syringe, injectionIndicat ions:Psoriatic arthritis ([facility]) INJECT 2 SYRINGES UNDER THE SKIN EVERY 4 WEEKS 1 kit 3 12/13/19 25 Active pantoprazole EC (Protonix) 40 MG tabletIndication s:Gastroesophage al Reflux Disease Take 1 (one) tablet by mouth once daily Reasons: Gastroesophageal Reflux Disease 90 tablet 1 12/16/19 25 025 Active cyclobenzaprine (Flexeril) 10 MG tablet Take 1 (one) tablet by mouth at bedtime for 90 days 30 tablet 2 12/16/19 25 025 Active azaTHIOprine 100 MG Take 1.5 (one and one-half) tablets by mouth Active Vit-Fe Fumarate-FA (M-Fredy Plus) 27-1 MG TABS Take 1 tablet by mouth once daily 90 tablet 12/23/19 25 Active pregabalin (Lyrica) 100 MG capsule Take 2 (two) capsules by mouth once daily 01/31/20 24 025 Discontinued(Li st Clean-Up) MV-Min-Fe Fum-FA-DHA ( Multi +DHA) 27-0.8-250 MG CAPS Take 1 capsule by mouth once daily 025 Discontinued(Re order) cyclobenzaprine (Flexeril) 10 MG tablet Take 1 (one) tablet by mouth 3 times daily 30 tablet 05/04/20 24 025 Discontinued(Li st Clean-Up) docusate sodium (Colace) 100 MG capsule Take 1 (one) capsule by mouth 2 times daily 120 capsule 2 06/01/20 24 025 Discontinued(Li st Clean-Up) calcium-vitamin D (Caltrate Plus D) 600-200 MG-UNIT tablet Take 1 (one) tablet by mouth once daily 90 tablet 06/06/20 24 025 Discontinued(Li st Clean-Up) Lancets (ONETOUCH DELICA PLUS 33G EXTRA FINE LANCET)Indicatio ns:Supervision of high risk in second trimester ([facility]),H/O gastric sleeve Use 1 Lancet 4 times daily 100 Each 06/29/20 24 025 Discontinued(Li st Clean-Up) Insulin Pen Needle ([employer]) 32G X 4 MM MISCIndications: Insulin controlled gestational diabetes mellitus (GDM) in third trimester ([facility]) Use 1 Each once daily 100 Each 3 08/17/20 24 025 Discontinued(Li st Clean-Up) Cimzia, 2 Syringe, injectionIndicat ions:Psoriatic arthritis ([facility]) INJECT 2 SYRINGES UNDER THE SKIN EVERY 4 WEEKS 1 kit 3 08/23/20 24 025 Discontinued pantoprazole EC (Protonix) 40 MG tabletIndication s:Gastroesophage al Reflux Disease Take 1 (one) tablet by mouth once daily Reasons: Gastroesophageal Reflux Disease 90 tablet 09/05/20 24 025 Discontinued(Re order) Blood Glucose Monitoring Suppl (ONE TOUCH ULTRA 2) w/Device KIT Use as directed 025 Discontinued(Li st Clean-Up) ibuprofen (Motrin) 600 MG tablet Take 1 (one) tablet by mouth every 6 hours as needed for Pain 30 tablet 1 11/11/19 25 025 Discontinued(Li st Clean-Up) polyethylene glycol 3350 (Miralax) 17 GM/SCOOP powder Mix one capful of powder in liquid and drink once daily as needed for constipation 510 g 1 11/11/19 25 025 Discontinued(Li st Clean-Up) acetaminophen (Tylenol) 500 MG tablet Take 1 (one) tablet by mouth every 4 hours as needed for Fever or Pain 60 tablet 11/11/19 25 025 Discontinued(Li st Clean-Up) metoclopramide (Reglan) 10 MG tablet Take 1 (one) tablet by mouth every 6 hours 30 tablet 1 11/16/19 25 025 Discontinued(Li st Clean-Up) diphenhydrAMINE (Benadryl) 25 MG capsule Take 1 (one) capsule by mouth every 6 hours as needed for Itching 30 capsule 1 11/16/19 25 025 Discontinued(Li st Clean-Up) amLODIPine (Norvasc) 5 MG tablet Take 1 (one) tablet by mouth once daily 90 tablet 11/20/19 25 025 Discontinued(Li st Clean-Up) Misc. Devices (Breast Pump) MISC Use as needed 1 Each 12/02/19 25 025 Discontinued(Li st Clean-Up) MV-Min-Fe Fum-FA-DHA ( Multi +DHA) 27-0.8-250 MG CAPS Take 1 capsule by mouth once daily 90 capsule 3 12/21/19 25 025 Discontinued Vit-Fe Fumarate-FA (M- Plus) 27-1 MG TABS TAKE 1 TABLET BY MOUTH EVERY DAY 1 tablet 12/21/19 25 025 Discontinued(Re order) Vit-Fe Fumarate-FA (M- Plus) 27-1 MG TABS Take 1 tablet by mouth once daily 1 tablet 12/22/19 25 025 Discontinued(Re order) Active Problems Problem Noted Date Diagnosed Date History of recurrent UTIs 11/27/2024 Encounter for visit 11/20/2024 History of hypertension 11/20/2024 History of gestational diabetes 09/05/2024 History of iron deficiency anemia 09/05/2024 Chronic pain syndrome 05/04/2024 Vitamin D deficiency 05/04/2024 Psoriatic arthritis 03/16/2024 Gastroesophageal reflux disease without esophagi tis 03/16/2024 H/O gastric sleeve 03/16/2024 Bipolar I disorder, most recent episode (or curr ent) manic 03/16/2024 Mild intermittent asthma without complication ABIEL (obstructive sleep apnea) 03/16/2024 Microscopic polyangiitis 03/16/2024 Resolved Problems Problem Noted Date Diagnosed Date Resolved Date LUQ pain 11/27/2024 12/21/2024 Elevated blood pressure reading 11/16/2024 11/27/2024 Encounter for induction of labor 11/09/2024 11/20/2024 Abnormal urinalysis 09/18/2024 10/05/19 History of gestational diabetes 09/05/2024 11/20/2024 Iron deficiency anemia during 06/29/2024 10/16/2024 Second trimester bleeding 06/25/2024 Constipation during 06/01/2024 11/20/2024 Supervision of high risk pre gnancy in third trimester 05/04/2024 11/20/2024 affected by previo us bariatric surgery, currently in third trimester 05/04/2024 Recurrent urinary tract infe ction affecting in third trimester 05/04/2024 11/20/2024 Encounters Date Type Department Care Team Description 12/22/2024 Telephone [facility] - CHIEF OPERATING ENGINEER [address] [place] [phone] Apolonia Painting APRN-CNP Opened In Error 12/21/2024 9:30 AM CDT Office Visit [facility] - CHIEF OPERATING ENGINEER [address] [place] [phone]/LAUREN Obesity, class 1 (Primary Dx); H/O gastric sleeve; Gestational diabetes mellitus (GDM), 12/21/2024 8:30 AM CDT Office Visit [facility] - CHIEF OPERATING ENGINEER [address] [place] [phone] Apolonia Painting APRN-CNP Encounter for visit (Primary Dx); History of hypertension; History of gestational diabetes; Vitamin D deficiency; Chronic pain syndrome; Microscopic polyangiitis; H/O gastric sleeve; Psoriatic arthritis 12/21/2024 Telephone [facility] - CHIEF OPERATING ENGINEER [address] [place] [phone] Apolonia Painting APRN-CNP Refill Request 12/20/2024 Travel 12/20/2024 Refill [facility] - CHIEF OPERATING ENGINEER [address] [facility] [address] [place] [address] Apolonia Painting APRN-WEATHERIZATION DIRECTOR Med Change Request 12/20/2024 Orders Only [facility] - CHIEF OPERATING ENGINEER [address] [place] [phone] Apolonia Painting APRN-WEATHERIZATION DIRECTOR 12/19/2024 11:00 AM CDT Clinical Support [facility] - Internal Med [address] [place] [phone] History of hypertension 12/19/2024 Travel 12/18/2024 Orders Only [facility] - Rheumatology [address] [place] [phone] Zachary López MD ANCA-associated vasculitis; Psoriatic arthritis; Immunosuppression due to drug therapy; Other chronic pain 12/18/2024 Orders Only [facility] - Rheumatology [address] [place] [phone] Zachary López MD ANCA-associated vasculitis ; Psoriatic arthritis; Immunosuppression due to drug therapy; Other chronic pain 12/15/2024 Orders Only [facility] - Internal Med [address] [place] [phone] Mendoza Xiong II, MD Gastroesophageal reflux disease without esophagitis 12/13/2024 Telephone [facility] - CHIEF OPERATING ENGINEER [address] [place] [address] Apolonia Painting APRN-YANNA Question 12/12/2024 Refill [facility] - Rheumatology [address] [place] [phone] Zachary López MD Refill Request 12/05/2024 11:30 AM CDT Office Visit [facility] - Internal Med [address] [place] [phone] Mendoza Xiong II, MD Elevated blood-pressure reading without diagnosis of hypertension (Primary Dx); Other proteinuria; Drug induced constipation 12/05/2024 Travel 11/28/2024 10:35 AM GYMNASTICS COACH OR INSTRUCTOR - 11/28/2024 11:59 PM GYMNASTICS COACH OR INSTRUCTOR Hospital Encounter [facility] [address] [place] [address] Discharge Disposition: Home or Self Care 11/28/2024 10:00 AM GYMNASTICS COACH OR INSTRUCTOR Office Visit [facility] - Rheumatology [address] [place] [phone] Zachary López MD Microscopic polyangiitis (Primary Dx); Screening-pulmonary TB; ANCA-associated vasculitis; Psoriasis; Psoriatic arthritis; Immunosuppression due to drug therapy; High risk case management patient 11/28/2024 Travel 11/27/2024 2:20 PM GYMNASTICS COACH OR INSTRUCTOR Office Visit [facility] - CHIEF OPERATING ENGINEER [address] [place] [address] Apolonia Painting APRN-CNP Flank pain (Primary Dx); Encounter for visit; History of hypertension; LUQ pain; History of recurrent UTIs; Vitamin D deficiency; History of gestational diabetes; Chronic pain syndrome; Psoriatic arthritis; H/O gastric sleeve 11/27/2024 Travel 11/27/2024 Telephone [facility] - Internal Med [address] [place] [phone] Mendoza Xiong II, MD Appointment 11/27/2024 Telephone [facility] - Rheumatology [address] [place] [phone] Zachary López MD Medication Prior Auth Request (Cimzia) 11/23/2024 Telephone [facility] - CHIEF OPERATING ENGINEER [address] [place] [address] Apolonia Painting APRN-CNP Coordination Of Care 11/20/2024 1:40 PM GYMNASTICS COACH OR INSTRUCTOR Office Visit [facility] - CHIEF OPERATING ENGINEER [address] [place] [address] Apolonia Painting APRN-CNP Encounter for visit (Primary Dx); Elevated blood pressure reading; History of hypertension; History of gestational diabetes; Psoriatic arthritis; Chronic pain syndrome; Vitamin D deficiency; Microscopic polyangiitis; H/O gastric sleeve; ABIEL (obstructive sleep apnea) 11/20/2024 Travel 11/16/2024 9:25 PM GYMNASTICS COACH OR INSTRUCTOR - 11/16/2024 11:23 PM GYMNASTICS COACH OR INSTRUCTOR Hospital Encounter [facility] [address] [place] [phone] Kavya Noel MD Discharge Disposition: Home or Self Care 11/09/2024 8:14 PM GYMNASTICS COACH OR INSTRUCTOR Anesthesia Event [facility] 5 [facility] [address] [place] [phone] Leo Gonzáles MD Lashley, Melissa J, APRN-CRNA 11/09/2024 11:43 AM GYMNASTICS COACH OR INSTRUCTOR - 11/11/2024 12:45 PM GYMNASTICS COACH OR INSTRUCTOR Hospital Encounter [facility] 6W MOTHER/BABY [address] [place] [address] Manuel Ayers DO Maternal/ Medicine Discharge Disposition: Home or Self Care 11/09/2024 Telephone [facility] - CHIEF OPERATING ENGINEER [address] [place] [phone] Apolonia Painting APRN-CNP Concerns; Induction 11/06/2024 11:40 AM GYMNASTICS COACH OR INSTRUCTOR visit [facility] - CHIEF OPERATING ENGINEER [address] [place] [address] Apolonia Painting APRN-CNP GA: 38w4d 11/06/2024 11:00 AM GYMNASTICS COACH OR INSTRUCTOR Procedure visit [facility] - CHIEF OPERATING ENGINEER [address] [place] [address] Insulin controlled gestational diabetes mellitus (GDM) in third trimester ; AMA (advanced maternal age) multigravida 35+, third trimester 11/06/2024 10:30 AM GYMNASTICS COACH OR INSTRUCTOR Procedure visit [facility] - CHIEF OPERATING ENGINEER [address] [place] [phone] Insulin controlled gestational diabetes mellitus (GDM) in third trimester 11/06/2024 10:00 AM GYMNASTICS COACH OR INSTRUCTOR Office Visit [facility] - CHIEF OPERATING ENGINEER [address] [place] [address] Susan Estrada, RD/LD Insulin controlled gestational diabetes mellitus (GDM) in third trimester (Primary Dx); Bariatric surgery status complicating , third trimester; Obesity (BMI 35.0-39.9 without comorbidity) 11/06/2024 Travel 11/02/2024 10:00 AM GYMNASTICS COACH OR INSTRUCTOR Procedure visit [facility] - CHIEF OPERATING ENGINEER [address] [place] [address] Insulin controlled gestational diabetes mellitus (GDM) in third trimester 11/02/2024 Travel 10/30/2024 11:40 AM GYMNASTICS COACH OR INSTRUCTOR [facility] CHIEF OPERATING ENGINEER [address] [place] [phone] Apolonia Painting APRN-YANNA GA: 37w4d 10/30/2024 11:00 AM GYMNASTICS COACH OR INSTRUCTOR [facility] CHIEF OPERATING ENGINEER [address] [place] [phone] Insulin controlled gestational diabetes mellitus (GDM) in third trimester ; affected by previous bariatric surgery, currently in third trimester; AMA (advanced maternal age) multigravida 35+, third trimester; Maternal obesity syndrome in third trimester; Encounter for ultrasound to assess growth 10/30/2024 10:30 AM GYMNASTICS COACH OR INSTRUCTOR Procedure visit [facility] - CHIEF OPERATING ENGINEER [address] [place] [phone] Insulin controlled gestational diabetes mellitus (GDM) in third trimester 10/30/2024 Travel 10/26/2024 10:00 AM GYMNASTICS COACH OR INSTRUCTOR Procedure visit [facility] - CHIEF OPERATING ENGINEER [address] [place] [phone] Insulin controlled gestational diabetes mellitus (GDM) in third trimester 10/26/2024 Travel 10/23/2024 1:30 PM GYMNASTICS COACH OR INSTRUCTOR Office Visit [facility] - CHIEF OPERATING ENGINEER [address] [place] [phone] Susan Estrada, RD/LD Insulin controlled gestational diabetes mellitus (GDM) in third trimester (Primary Dx); Supervision of high risk in third trimester 10/23/2024 1:00 PM GYMNASTICS COACH OR INSTRUCTOR visit [facility] - CHIEF OPERATING ENGINEER [address] [place] [address] Apolonia Painting APRN-CNP GA: 36w4d 10/23/2024 9:59 AM GYMNASTICS COACH OR INSTRUCTOR - 10/23/2024 11:59 PM GYMNASTICS COACH OR INSTRUCTOR Hospital Encounter [facility] MATERNAL/ EVALUATION UNIT [address] [place] [address] Yolande Hardy MD Discharge Disposition: Home or Self Care 10/23/2024 9:45 AM GYMNASTICS COACH OR INSTRUCTOR - 10/23/2024 9:58 AM GYMNASTICS COACH OR INSTRUCTOR Hospital Encounter [facility] MATERNAL/ EVALUATION UNIT [address] [place] [address] Yolande Hardy MD Discharge Disposition: Home or Self Care 10/23/2024 Telephone [facility] - CHIEF OPERATING ENGINEER [address] [place] [address] Apolonia Painting APRN-CNP Appointment 10/23/2024 Travel 10/19/2024 10:42 AM GYMNASTICS COACH OR INSTRUCTOR - 10/19/2024 11:59 PM GYMNASTICS COACH OR INSTRUCTOR Hospital Encounter [facility] [address] [place] [address] Apolonia Painting APRN-CNP Discharge Disposition: Home or Self Care 10/19/2024 10:00 AM GYMNASTICS COACH OR INSTRUCTOR Procedure visit [facility] - CHIEF OPERATING ENGINEER [address] [place] [address] Gestational diabetes mellitus, class A2 10/19/2024 Telephone [facility] - CHIEF OPERATING ENGINEER [address] [place] [address] Apolonia Painting APRN-CNP Appointment 10/19/2024 Travel 10/16/2024 11:40 AM GYMNASTICS COACH OR INSTRUCTOR visit [facility] - CHIEF OPERATING ENGINEER [address] [place] [address] Apolonia Painting APRN-YANNA GA: 35w4d 10/16/2024 11:00 AM GYMNASTICS COACH OR INSTRUCTOR [facility] CHIEF OPERATING ENGINEER [address] [place] [phone] Gestational diabetes mellitus, class A2 ; affected by previous bariatric surgery, currently in third trimester; AMA (advanced maternal age) multigravida 35+, third trimester; Maternal obesity syndrome in third trimester 10/16/2024 10:30 AM GYMNASTICS COACH OR INSTRUCTOR Procedure visit [facility] - CHIEF OPERATING ENGINEER [address] [place] [phone] Gestational diabetes mellitus, class A2 10/16/2024 10:00 AM GYMNASTICS COACH OR INSTRUCTOR Office Visit [facility] - CHIEF OPERATING ENGINEER [address] [place] [phone] Susan Estrada, RD/LD Insulin controlled gestational diabetes mellitus (GDM) in third trimester (Primary Dx); Bariatric surgery status complicating , third trimester 10/16/2024 Travel 10/12/2024 10:00 AM GYMNASTICS COACH OR INSTRUCTOR Procedure visit [facility] - CHIEF OPERATING ENGINEER [address] [place] [address] Supervision of high risk in third trimester 10/12/2024 Travel 10/09/2024 10:00 AM GYMNASTICS COACH OR INSTRUCTOR - 10/09/2024 11:59 PM GYMNASTICS COACH OR INSTRUCTOR Hospital Encounter [facility] MATERNAL/ EVALUATION UNIT [address] [place] [address] Drew Huber MD Discharge Disposition: Home or Self Care 10/09/2024 9:45 AM GYMNASTICS COACH OR INSTRUCTOR - 10/09/2024 9:59 AM GYMNASTICS COACH OR INSTRUCTOR Hospital Encounter [facility] MATERNAL/ EVALUATION UNIT [address] [place] [address] Drew Huber MD Discharge Disposition: Home or Self Care 10/09/2024 Travel 10/05/2024 3:30 PM GYMNASTICS COACH OR INSTRUCTOR Procedure visit [facility] - CHIEF OPERATING ENGINEER [address] [place] [address] Gestational diabetes mellitus, class A2 10/05/2024 3:15 PM GYMNASTICS COACH OR INSTRUCTOR Procedure visit [facility] - CHIEF OPERATING ENGINEER [address] [place] [address] Gestational diabetes mellitus, class A2 10/05/2024 1:40 PM GYMNASTICS COACH OR INSTRUCTOR visit [facility] - CHIEF OPERATING ENGINEER [address] [place] [address] Apolonia Painting APRN-CNP GA: 34w0d 10/05/2024 11:37 AM GYMNASTICS COACH OR INSTRUCTOR - 10/05/2024 11:59 PM GYMNASTICS COACH OR INSTRUCTOR Hospital Encounter [facility] [address] [place] [address] Apolonia Painting APRN-CNP Discharge Disposition: Home or Self Care 10/05/2024 Travel 09/28/2024 1:00 PM GYMNASTICS COACH OR INSTRUCTOR Procedure visit [facility] - CHIEF OPERATING ENGINEER [address] [place] [address] Supervision of high risk in third trimester 09/28/2024 Telephone [facility] - CHIEF OPERATING ENGINEER [address] [place] [address] Apolonia Painting APRN-CNP Appointment 09/28/2024 Travel 09/25/2024 11:27 AM GYMNASTICS COACH OR INSTRUCTOR - 09/25/2024 11:59 PM GYMNASTICS COACH OR INSTRUCTOR Hospital Encounter [facility] [address] [place] [address] Apolonia Painting APRN-CNP Discharge Disposition: Home or Self Care 09/25/2024 9:52 AM GYMNASTICS COACH OR INSTRUCTOR - 09/25/2024 11:26 AM GYMNASTICS COACH OR INSTRUCTOR Hospital Encounter [facility]/ EVALUATION UNIT [address] [place] [address] Drew Huber MD Discharge Disposition: Home or Self Care 09/25/2024 9:45 AM GYMNASTICS COACH OR INSTRUCTOR - 09/25/2024 9:51 AM GYMNASTICS COACH OR INSTRUCTOR Hospital Encounter [facility] MATERNAL/ EVALUATION UNIT [address] [facility] [place] [phone] Drew Huber MD Discharge Disposition: Home or Self Care 09/25/2024 Travel from Last 3 Months Immunizations Name Administration Dates Next Due INFLUENZA VACCINE, TRIV. (AF LURIA, FLUZONE TRIVALENT; 6MO+) (IIV3) 07/03/2013 [facility], HISTORIC VACCINE 07/13/2019 FLU VACCINE TRI IIV3 SPLIT P F IM (FLUVIRIN) 07/11/2012 INFLUENZA VACCINE 08/07/2011 INFLUENZA VACCINE, CELL CULT URE, QUADR. (FLUCELVAX QUADRIVALENT; 6MO+) (CCIIV4) 07/03/2019 INFLUENZA VACCINE, CELL CULT URE, TRIV. (FLUCELVAX TRIVALENT; 6MO+), 0.5 ML (CCIIV3) 07/03/2019 INFLUENZA VACCINE, HIGH-DOSE , QUADR. (FLUZONE HIGH-DOSE QUADRIVALENT; 65Y+), 0.7 ML (HD-IIV4) 05/28/2014 INFLUENZA VACCINE, QUADR. (F LUZONE; FLULAVAL; FLUARIX; AFLURIA QUADRIVALENT; 6MO+), 0.5 ML (IIV4) 07/04/2023,06/24/2020,07/23/2017,2015,07/12/2015,06/26/2014 PNEUMOCOCCAL PPSV23 08/07/2011 RSV ABRYSVO PREG OR 60y+ 0.5mL 10/05/2024 TDAP (7yrs+) 11/11/2024(Deferred: - already received this ),09/05/2024,04/09/2017,2014,10/03/2013,07/11/2012 Family History Medical History Relation Name Comments Diabetes - Type 2 Father Hypertension Father Sleep Disorder - Sleep apnea Father CAD (Coronary Artery Disease) Mother Hypertension Mother Cancer - Breast Paternal Grandmother Lupus Sister Sjogren's Syndrome Sister Relation Name Status Comments Father Alive Mother Paternal Grandmother Sister Social History Tobacco Use Types Packs/Day Years Used Date Smoking Tobacco: Former Cigarettes 1 11 2 006 - 2017 Smokeless Tobacco: Never Tobacco Cessation:Counseling Given: Not Answered Alcohol Use Standard Drinks/Week Comments Not Currently 0 (1 standard drink = 0.6 oz pure alcohol) Socially, every few months. Not even a full drink. Overall Financial Resource Strain (CARDIA) Answe r Date Recorded How hard is it for you to pa y for the very basics like food, housing, medical care, and heating? Not hard at all 11/16/2024 PHQ-2 Answer Date Recorded Patient Health Questionnaire-2 Score 0 10/19/2024 [facility] - Occupational Stress Questionnaire Answer Date Recorded Do you feel stress - tense, restless, nervous, or anxious, or unable to sleep at night because your mind is troubled all the time - these days? Not at all 11/16/2024 Hunger Vital Sign Answer Date Recorded Within the past 12 months, y ou worried that your food would run out before you got the money to buy more. Never true 11/16/19 Within the past 12 months, t he food you bought just didn't last and you didn't have money to get more. Never true 11/16/2024 PRAPARE - Transportation Answer Date Re corded In the past 12 months, has l ack of transportation kept you from medical appointments or from getting medications? No 10/29 In the past 12 months, has l ack of transportation kept you from meetings, work, or from getting things needed for daily living? No 11/16/2024 Housing Stability Vital Sign Answer Koby e Recorded In the last 12 months, was t here a time when you were not able to pay the mortgage or rent on time? No 06/25/2024 In the last 12 months, how many places have you lived? 1 06/25/2024 In the last 12 months, was t here a time when you did not have a steady place to sleep or slept in a residential (including now)? No 06/25/2024 Felton Depression Scale Answer Date Recorded Felton Depression Scale Total 1 12/21/2024 The thought of harming myself has occurred to me . Never 12/21/2024 Housing Stability Vital Sign Answer Koby e Recorded In the last 12 months, was t here a time when you were not able to pay the mortgage or rent on time? No 11/16/2024 In the past 12 months, how m any times have you moved where you were living? 0 11/16/2024 At any time in the past 12 m [facility], were you homeless or living in a residential (including now)? No 11/16/2024 Education Answer Date Recorded What is the highest level of school you have completed or the highest degree you have received? Some college, no degree 02/14/2024 Sex and Gender Information Value Date Recorded Sex Assigned at Not on file Gender Identity Not on file Sexual Orientation Not on file Last Filed Vital Signs Vital Sign Reading Time Taken Comments Blood Pressure 98/66 12/21/2024 9:01 AM CDT Pulse 67 12/19/2024 11:01 AM CDT Temperature 36.2 C (97.2 F) 12/05/2024 11:28 AM CDT Respiratory Rate 18 11/16/2024 11:20 PM GYMNASTICS COACH OR INSTRUCTOR Oxygen Saturation 99% 12/19/2024 11:01 AM CDT Inhaled Oxygen Concentration - - Weight 87.5 kg (193 lb) 12/21/2024 9:01 AM CDT Height 160 cm (5' 3 ) 12/21/2024 9:01 AM CDT Body Mass Index 34.19 12/21/2024 9:01 AM CDT Plan of Treatment Upcoming Encounters Date Type Department Care Team (Late st Contact Info) Description 12/27/2024 3:30 PM CDT Office Visit [facility] - Pain Mgmt [address] [facility] [address] [place] [phone] Zachary López MD [facility] [place] [address] Chemo Neal MD [address] [place] [address] 02/14/2025 11:00 AM CDT Office Visit [facility] - Rheumatology [address] [place] [address], [place] [address] Zachary López MD [address] [place] [address] [address] [place] [address] 03/21/2025 10:30 AM CDT Office Visit [facility] - Internal Med [address] [place] [address], [place] [phone] Mnedoza Xiong II, MD [address] [place] [address] [address] [place] [address] Health Maintenance Due Date Last Done Comments PAP SMEAR 1988 COVID-19 VACCINE (#1) 1993 HEPATITIS B VACCINE (1 of 3 - 19+ 3-dose series) 2007 ZOSTER VACCINE (1 of 2) 2007 PNEUMOCOCCAL VACCINE (2 of 2 - PCV) 08/07/2012 08/07/2011 INFLUENZA VACCINE (#1) 2024 , 06/24/2020, 07/03/2019, Additional history exists DTAP/TDAP/TD VACCINES (6 - Td or Tdap) 09/05/2034 09/05/2024, 04/09/2017, 09/23/2015, Additional history exists HEPATITIS C SCREENING Completed 04/06/2024 , 02/14/2024, 07/02/2023 HIV SCREENING Completed 08/31/2024, 03/27, 02/14/2024 Respiratory Syncytial Virus (RSV) Vaccine Pt: or over 60 yrs Discontinued 10/05/2024 HIB VACCINE Aged Out No longer eligi ble based on patient's age to complete this topic HPV VACCINE Aged Out No longer eligi ble based on patient's age to complete this topic MENINGOCOCCAL (Group B) VACCINE SHARED DECISION-MAKING Aged Out No longer eligible based on patient's age to complete this topic MENINGOCOCCAL GROUPS A/C/Y/W VACCINE Aged Out No longer eligible based on patient's age to complete this topic Procedures Procedure Name Priority Date/Time Associated Diagnosis Comments PROTEIN CREATININE RATIO URINE RANDOM PNL Routine 11/28/2024 11:41 AM GYMNASTICS COACH OR INSTRUCTOR ANCA-associated vasculitis URINALYSIS W/MICROSCOPIC REFLEX TO CULTURE Routine 11/28/2024 11:41 AM GYMNASTICS COACH OR INSTRUCTOR ANCA-associated vasculitis MPO/CT 3 AUTOANTIBODIES PANEL Routine 11/28/2024 11:41 AM GYMNASTICS COACH OR INSTRUCTOR ANCA-associated vasculitis Therapeutic drug monitoring NEUTROPHIL CYTOPLASMIC ANTIBODY Routine 11/28/2024 11:41 AM GYMNASTICS COACH OR INSTRUCTOR ANCA-associated vasculitis Therapeutic drug monitoring HEPATIC FUNCTION PANEL Routine 11:41 AM GYMNASTICS COACH OR INSTRUCTOR ANCA-associated vasculitis Therapeutic drug monitoring CREATININE BLOOD Routine 11/28/2024 11:4 1 AM GYMNASTICS COACH OR INSTRUCTOR ANCA-associated vasculitis Therapeutic drug monitoring CBC W AUTO DIFFERENTIAL Routine 11/28/2024 11:41 AM GYMNASTICS COACH OR INSTRUCTOR ANCA-associated vasculitis Therapeutic drug monitoring CULTURE URINE Routine 11/28/2024 11:41 AM GYMNASTICS COACH OR INSTRUCTOR ANCA-associated vasculitis CULTURE URINE Routine 11/27/2024 3:13 PM GYMNASTICS COACH OR INSTRUCTOR LUQ pain History of recurrent UTIs URINALYSIS - POINT OF CARE (AMB) [facility] Routine 11/27/2024 3:08 PM GYMNASTICS COACH OR INSTRUCTOR Flank pain COMPREHENSIVE METABOLIC PANEL STAT 11/16/2024 10:01 PM GYMNASTICS COACH OR INSTRUCTOR Elevated blood pressure affecting in third trimester, antepartum CBC W AUTO DIFFERENTIAL STAT 11/16/2024 10:01 PM GYMNASTICS COACH OR INSTRUCTOR Elevated blood pressure affecting in third trimester, antepartum GLUCOSE - POINT OF CARE Routine 11/11/2024 7:29 AM GYMNASTICS COACH OR INSTRUCTOR GLUCOSE - POINT OF CARE Routine 11/11/2024 7:00 AM GYMNASTICS COACH OR INSTRUCTOR CBC W AUTO DIFFERENTIAL AM Draw 11/11/2024 3:52 AM GYMNASTICS COACH OR INSTRUCTOR PATHOLOGY TISSUE EXAM (STL) Routine 11/10/2024 5:21 AM GYMNASTICS COACH OR INSTRUCTOR History of gestational diabetes BLOOD GASES CORD ADRIANA (ISTAT) Routine 11/10/2024 3:56 AM GYMNASTICS COACH OR INSTRUCTOR BLOOD GASES CORD ART (ISTAT) Routine 11/10/2024 3:48 AM GYMNASTICS COACH OR INSTRUCTOR GLUCOSE - POINT OF CARE Routine 11/10/2024 2:04 AM GYMNASTICS COACH OR INSTRUCTOR GLUCOSE - POINT OF CARE Routine 11/09/2024 11:44 PM GYMNASTICS COACH OR INSTRUCTOR GLUCOSE - POINT OF CARE Routine 11/09/2024 9:47 PM GYMNASTICS COACH OR INSTRUCTOR NEURAXIAL BLOCK Routine 11/09/2024 8:45 PM GYMNASTICS COACH OR INSTRUCTOR GLUCOSE - POINT OF CARE Routine 11/09/2024 7:49 PM GYMNASTICS COACH OR INSTRUCTOR GLUCOSE - POINT OF CARE Routine 11/09/2024 5:43 PM GYMNASTICS COACH OR INSTRUCTOR GLUCOSE - POINT OF CARE Routine 11/09/2024 4:01 PM GYMNASTICS COACH OR INSTRUCTOR GLUCOSE - POINT OF CARE Routine 11/09/2024 1:52 PM GYMNASTICS COACH OR INSTRUCTOR TYPE + SCREEN PANEL STAT 11/09/2024 1 2:42 PM GYMNASTICS COACH OR INSTRUCTOR COMPREHENSIVE METABOLIC PANEL Routine 11/09/2024 12:42 PM GYMNASTICS COACH OR INSTRUCTOR SYPHILIS ANTIBODY CASCADING REFLEX STAT 11/09/2024 12:42 PM GYMNASTICS COACH OR INSTRUCTOR CBC W AUTO DIFFERENTIAL STAT 11/09/2024 12:42 PM GYMNASTICS COACH OR INSTRUCTOR GLUCOSE - POINT OF CARE Routine 11/09/2024 12:24 PM GYMNASTICS COACH OR INSTRUCTOR SONOGRAM - COMPLETE Routine 11/06/2024 1 1:38 AM GYMNASTICS COACH OR INSTRUCTOR Insulin controlled gestational diabetes mellitus (GDM) in third trimester AMA (advanced maternal age) multigravida 35+, third trimester URINALYSIS - POINT OF CARE (AMB) [facility] Routine 11/06/2024 11:38 AM GYMNASTICS COACH OR INSTRUCTOR High risk case management patient BIOPHYSICAL PROFILE W NST Routine 10/30/2024 11:21 AM GYMNASTICS COACH OR INSTRUCTOR Insulin controlled gestational diabetes mellitus (GDM) in third trimester affected by previous bariatric surgery, currently in third trimester AMA (advanced maternal age) multigravida 35+, third trimester Maternal obesity syndrome in third trimester Encounter for ultrasound to assess growth URINALYSIS - POINT OF CARE (AMB) [facility] Routine 10/30/2024 10:27 AM GYMNASTICS COACH OR INSTRUCTOR Supervision of high risk in third trimester CULTURE STREP B Routine 10/23/2024 12:32 PM GYMNASTICS COACH OR INSTRUCTOR Supervision of high risk in third trimester URINALYSIS AUTO - POINT OF CARE (AMB) [facility] Routine 10/23/2024 12:15 PM GYMNASTICS COACH OR INSTRUCTOR Supervision of high risk in third trimester BIOPHYSICAL PROFILE W NST Routine 10/23/2024 10:37 AM GYMNASTICS COACH OR INSTRUCTOR Insulin controlled gestational diabetes mellitus (GDM) in third trimester Obesity affecting , antepartum, third trimester EYE EXAM Routine 10/18/2024 2:19 PM GYMNASTICS COACH OR INSTRUCTOR BIOPHYSICAL PROFILE W NST Routine 10/16/2024 11:37 AM GYMNASTICS COACH OR INSTRUCTOR Gestational diabetes mellitus, class A2 affected by previous bariatric surgery, currently in third trimester AMA (advanced maternal age) multigravida 35+, third trimester Maternal obesity syndrome in third trimester BIOPHYSICAL PROFILE W NST Routine 10/16/2024 11:37 AM GYMNASTICS COACH OR INSTRUCTOR Gestational diabetes mellitus, class A2 affected by previous bariatric surgery, currently in third trimester AMA (advanced maternal age) multigravida 35+, third trimester Maternal obesity syndrome in third trimester URINALYSIS - POINT OF CARE (AMB) [facility] Routine 10/16/2024 10:47 AM GYMNASTICS COACH OR INSTRUCTOR High risk case management patient HEMOGLOBIN A1C - POINT OF CARE (AMB) [facility] Routine 10/16/2024 10:35 AM GYMNASTICS COACH OR INSTRUCTOR Gestational diabetes mellitus, class A2 BIOPHYSICAL PROFILE W NST Routine 10/09/2024 10:51 AM GYMNASTICS COACH OR INSTRUCTOR BIOPHYSICAL PROFILE W NST Routine 10/05/2024 3:28 PM GYMNASTICS COACH OR INSTRUCTOR Gestational diabetes mellitus, class A2 URINALYSIS AUTO - POINT OF CARE (AMB) [facility] Routine 10/05/2024 3:01 PM GYMNASTICS COACH OR INSTRUCTOR Supervision of high risk in third trimester EYE EXAM Routine 09/28/2024 2:54 PM GYMNASTICS COACH OR INSTRUCTOR BIOPHYSICAL PROFILE W NST Routine 09/25/2024 10:03 AM GYMNASTICS COACH OR INSTRUCTOR HIV-1 HIV-2 ANTIBODY + HIV P24 AG PANEL Routine 08/31/2024 1:17 PM GYMNASTICS COACH OR INSTRUCTOR Supervision of high risk , antepartum HEPATITIS C AB W/RFLX TO HCV RNA QN PCR 04/06/2024 from Last 3 Months or Most Recently Relevant to Health Maintenance Results * (ABNORMAL) URINALYSIS W/MICROSCOPIC REFLEX TO CULTURE (11/28/2024 11:41 AM GYMNASTICS COACH OR INSTRUCTOR) Color UA Brigida(A) Straw, Yellow 11/28/2024 12:20 PM GYMNASTICS COACH OR INSTRUCTOR [facility] Clarity UA Cloudy(A) Clear 11/28/2024 12:20 PM GYMNASTICS COACH OR INSTRUCTOR [facility] Specific [place] UA 1.029 1.005 - 1.030 11/28/2024 12:20 PM GYMNASTICS COACH OR INSTRUCTOR [facility] pH UA 5.0 5.0 - 8.0 pH 11/28/2024 12:20 PM [facility] Protein UA 1+(A) Negative 11/28/2024 12:20 PM GYMNASTICS COACH OR INSTRUCTOR [facility] Glucose UA Negative Negative 11/28/2024 12:20 PM GYMNASTICS COACH OR INSTRUCTOR [facility] Ketone UA Negative Negative 11/28/2024 12:20 PM GYMNASTICS COACH OR INSTRUCTOR [facility] Bilirubin UA Negative Negative 11/28/2024 12:20 PM [facility] Blood UA 2+(A) Negative 11/28/2024 12:20 PM [facility] Nitrite UA Negative Negative 11/28/2024 12:20 PM [facility] Leukocyte Esterase 3+(A) Negative 11/28/2024 12:20 PM [facility] Urobilinogen UA 4.0(A) Negative mg/dL 11/28/2024 12:20 PM [facility] RBC UA 21-50(A) None Seen, 0-2, 3-5 /HPF 11/28/2024 12:20 PM [facility] WBC UA 21-50(A) None Seen, 0-5 /HPF 11/28/2024 12:20 PM [facility] Bacteria UA Trace(A) None /HPF 11/28/2024 12:20 PM [facility] Squamous Epithelial Cells UA 11-20(A) None Seen, 0-2, 3-5 /HPF 11/28/2024 12:20 PM [facility] Mucus UA 3+ /LPF 11/28/2024 12:20 PM [facility] Urine URINE SPECIMEN OBTAINED BY CLEAN CATCH PROCEDURE / Unknown Collection / Unknown 11/28/2024 11:41 AM GYMNASTICS COACH OR INSTRUCTOR 11/28/2024 11:58 AM GYMNASTICS COACH OR INSTRUCTOR [facility] - 11/28/2024 12:20 PM GYMNASTICS COACH OR INSTRUCTOR Lab Status, Culture Reflex Indicated. [place] López MD LAB - URINALYSIS ORD ERABLES [facility] [address] [place] [phone], [facility] [phone] * (ABNORMAL) NEUTROPHIL CYTOPLASMIC ANTIBODY (11/28/2024 11:41 AM GYMNASTICS COACH OR INSTRUCTOR) Cytoplasmic (C-ANCA) <1:20 Neg:<1:20 titer 11/30/2024 8:11 AM GYMNASTICS COACH OR INSTRUCTOR [facility] ([facility]) p-ANCA Titer <1:20 Neg:<1:20 titer 11/30/2024 8:11 AM GYMNASTICS COACH OR INSTRUCTOR [facility] ([facility]) Comment: The presence of positive fluorescence exhibiting P-ANCA or C-ANCA patterns alone is not specific for the diagnosis of Miley's Granulomatosis (WG) or microscopic polyangiitis. Decisions about treatment should not be based solely on ANCA IFA results. The International ANCA Group Consensus recommends follow up testing of positive sera with both CT-3 and MPO-ANCA enzyme immunoassays. As many as 5% serum samples are positive only by EIA. Ref. AM J Clin Pathol 1999;111:507-513. Atypical p-ANCA Titer 1:160(H) Neg:<1:20 titer 11/30/2024 8:11 AM GYMNASTICS COACH OR INSTRUCTOR [facility] ([facility]) Comment: The atypical pANCA pattern has been observed in a significant percentage of patients with ulcerative colitis, primary sclerosing cholangitis and autoimmune hepatitis. Blood BLOOD SPECIMEN / Unknown Lab Venipuncture / Unknown 11/28/2024 11:41 AM GYMNASTICS COACH OR INSTRUCTOR 11/28/2024 11:51 AM GYMNASTICS COACH OR INSTRUCTOR Narrative [facility] ([facility]) - 11/30/2024 8:11 AM GYMNASTICS COACH OR INSTRUCTOR Performed at: [address] [place] [address] [address] [place], [place] [id number] Cherry Cutter: Shahbaz Solomon PhD, Phone: [phone] [place] López MD LAB - CHEMISTRY VAHE MCKOY [facility] Organization Address City/State/ZIP Co de Phone Number [facility] ([facility]) [address] [place] [address] * MPO/CT 3 AUTOANTIBODIES PANEL (11/28/2024 11:41 AM GYMNASTICS COACH OR INSTRUCTOR) Pathologist [facility] Serine Proteinase 3 IgG 4 0 - 19 AU/mL 12/01/2024 11:07 AM GYMNASTICS COACH OR INSTRUCTOR [employer] [facility] ([facility]) Comment: INTERPRETIVE INFORMATION: Serine Proteinase 3, IgG 19 AU/mL or Less ........ Negative 20-25 AU/mL ............. Equivocal 26 AU/mL or Greater ..... Positive Approximately 85% of patients with a C-ANCA pattern by IFA have antibodies specific for PR3. Performed By: [employer] [facility] [address] [place] [id number] Tractor Crane Engineer: Aubrey Flores MD, PhD CLIA Number: [id number] Myeloperoxidase Antibody 2 0 - 19 AU/mL 12/01/2024 11:07 AM GYMNASTICS COACH OR INSTRUCTOR [facility] ([facility]) Comment: INTERPRETIVE INFORMATION: Myeloperoxidase Abs, IgG 19 AU/mL or Less ......... Negative 20-25 AU/mL .............. Equivocal 26 AU/mL or Greater ...... Positive Approximately 90% of patients with a P-ANCA pattern by IFA have antibodies specific for MPO. Blood BLOOD SPECIMEN / Unknown Lab Venipuncture / Unknown 11/28/2024 11:41 AM GYMNASTICS COACH OR INSTRUCTOR 11/28/2024 11:51 AM GYMNASTICS COACH OR INSTRUCTOR [place] López MD LAB - CHEMISTRY VAHE MCKOY [facility]) [address] * CULTURE URINE (11/28/2024 11:41 AM GYMNASTICS COACH OR INSTRUCTOR) Only the most recent of2 resultswithin the time period is included. Pathologist [facility] Culture Urine More than 2 organisms seen at >=50,000 CFU/mL. Recollect if clinically indicated. FADUMO 11/29/2024 7:49 PM GYMNASTICS COACH OR INSTRUCTOR [facility] Urine URINE SPECIMEN OBTAINED BY CLEAN CATCH PROCEDURE / Unknown Collection / Unknown 11/28/2024 11:41 AM GYMNASTICS COACH OR INSTRUCTOR 11/28/2024 12:19 PM GYMNASTICS COACH OR INSTRUCTOR [place] López MD LAB - MICROBIOLOGY O RDERABLES [facility] [address] [place], [address] [phone] * (ABNORMAL) CBC WITH DIFFERENTIAL (11/28/2024 11:41 AM GYMNASTICS COACH OR INSTRUCTOR) Only the most recent of4 resultswithin the time period is included. WBC 7.0 4.0 - 10.7 x10E9/L 11/28/2024 11:59 AM GYMNASTICS COACH OR INSTRUCTOR [facility] RBC Count 3.82(L) 3.90 - 5.20 x10E12/L 11/28/2024 11:59 AM [facility] Hemoglobin 11.5(L) 11.9 - 15.8 g/dL 11/28/2024 11:59 AM [facility] Hematocrit 34.5(L) 34.8 - 46.1 % 11/28/2024 11:59 AM [facility] MCV 90.3 80.0 - 98.0 fL 11/28/2024 11:59 AM [facility] MCH 30.1 26.7 - 33.6 pg 11/28/2024 11:59 AM [facility] MCHC 33.3 31.7 - 36.3 g/dL 11/28/2024 11:59 AM [facility] RDW-CV 12.2 11.3 - 14.8 % 11/28/2024 11:59 AM [facility] Platelet Count 181 150 - 420 x10E9/L 11/28/2024 11:59 AM [facility] MPV 9.9 7.8 - 11.4 fL 11/28/2024 11:59 AM [facility] Neutrophil % 62.0 41.0 - 74.0 % 11/28/2024 11:59 AM [facility] Lymphocyte % 22.6 17.0 - 47.0 % 11/28/2024 11:59 AM [facility] Monocyte % 12.7(H) 3.0 - 11.0 % 11/28/2024 11:59 AM [facility] Eosinophil % 2.0 0.0 - 7.0 % 11/28/2024 11:59 AM [facility] Basophil % 0.4 0.0 - 1.6 % 11/28/2024 11:59 AM [facility] Immature Granulocytes % 0.3 0.0 - 1.0 % 11/28/2024 11:59 AM [facility] Neutrophil Absolute 4.34 1.60 - 7.50 x10E9/L 11/28/2024 11:59 AM [facility] Lymphocyte Absolute 1.58 1.00 - 4.40 x10E9/L 11/28/2024 11:59 AM [facility] Monocyte Absolute 0.89 0.15 - 1.00 x10E9/L 11/28/2024 11:59 AM [facility] Eosinophil Absolute 0.14 0.00 - 0.60 x10E9/L 11/28/2024 11:59 AM [facility] Basophil Absolute 0.03 0.00 - 0.13 x10E9/L 11/28/2024 11:59 AM [facility] Blood BLOOD SPECIMEN / Unknown Lab Venipuncture / Unknown 11/28/2024 11:41 AM GYMNASTICS COACH OR INSTRUCTOR 11/28/2024 11:54 AM GYMNASTICS COACH OR INSTRUCTOR Zach[place] López MD LAB - HEMATOLOGY ORD ERABLES Performing Organization Address City/[facility]/ZIP Co de Phone Number [address] [address], [facility] [phone] * (ABNORMAL) PROTEIN CREATININE RATIO URINE RANDOM PNL (11/28/2024 11:41 AM GYMNASTICS COACH OR INSTRUCTOR) Protein Urine 28 Not Established mg/dL 11/28/2024 12:33 PM [facility] Creatinine Urine 198.86 Not Established mg/dL 11/28/2024 12:33 PM [facility] Protein/Creati nine Ratio Urine 0.14(H) <0.10 11/28/2024 12:33 PM [facility] Urine URINE SPECIMEN OBTAINED BY CLEAN CATCH PROCEDURE / Unknown Collection / Unknown 11/28/2024 11:41 AM GYMNASTICS COACH OR INSTRUCTOR 11/28/2024 11:58 AM GYMNASTICS COACH OR INSTRUCTOR [place] López MD LAB - URINE CHEMISTR Y ORDERABLES [address] [address], [facility] [phone] * (ABNORMAL) HEPATIC FUNCTION PANEL (11/28/2024 11:41 AM GYMNASTICS COACH OR INSTRUCTOR) Protein Total 6.2 6.0 - 8.3 g/dL 025 12:27 PM [facility] Albumin 3.2(L) 3.4 - 5.0 g/dL 11/28/2024 12:27 PM [facility] Bilirubin Total 0.6 0.2 - 1.2 mg/dL 12/2024 12:27 PM [facility] Bilirubin Conjugated 0.2 0.1 - 0.5 mg/dL 11/28/2024 12:27 PM [facility] Bilirubin Unconjugated 0.4 Unconjugated Bilirubin is a calculated value: Reference ranges have not been established. mg/dL 11/28/2024 12:27 PM [facility] Alkaline Phosphatase 136 40 - 150 U/L 11/28/2024 12:27 PM [facility] ALT 13 5 - 55 U/L 11/28/2024 12:27 PM [facility] AST 11 5 - 34 U/L 11/28/2024 12:27 PM [facility] Albumin/Globulin Ratio 1.1 1.1 - 2.3 11/28/2024 12:27 PM [facility] Blood BLOOD SPECIMEN / Unknown Lab Venipuncture / Unknown 11/28/2024 11:41 AM GYMNASTICS COACH OR INSTRUCTOR 11/28/2024 11:54 AM GYMNASTICS COACH OR INSTRUCTOR Zach[place] López MD LAB - CHEMISTRY VAHE MCKOY [address] [address], [facility] [phone] * CREATININE BLOOD (11/28/2024 11:41 AM GYMNASTICS COACH OR INSTRUCTOR) Creatinine 0.72 0.56 - 0.96 mg/dL 11/28/2024 12:27 PM [facility] eGFR by CKD-EPI >90 >=90 mL/min/1.7 3 m2 11/28/2024 12:27 PM [facility] Blood BLOOD SPECIMEN / Unknown Lab Venipuncture / Unknown 11/28/2024 11:41 AM GYMNASTICS COACH OR INSTRUCTOR 11/28/2024 11:54 AM GYMNASTICS COACH OR INSTRUCTOR Zachary López MD LAB - CHEMISTRY VAHE MCKOY [address] [place] [address], [facility] [phone] * URINALYSIS - POINT OF CARE (AMB) [facility] (11/27/2024 3:08 PM GYMNASTICS COACH OR INSTRUCTOR) Only the most recent of4 resultswithin the time period is included. Pathologist [facility] Specific [place] UA 1.[address] [facility] [address] pH UA [address] [facility] [address] WBC UA 1-2+ [facility] [address] Nitrite UA n [facility] [address] Protein UA n [facility] [address] Glucose UA n [facility] [address] Ketones UA POCT n [facility] [address] Urobilinogen UA n [facility] [address] Bilirubin UA POCT n [facility] [address] Blood Urine POCT Lg [facility] [address] Urine URINE / Unknown 11/27/2024 3 :08 PM GYMNASTICS COACH OR INSTRUCTOR [employer] RESEARCHER-WEATHERIZATION DIRECTOR LAB - POINT OF CARE ORDERABLES [facility] [address] [place] [address], [facility] [phone] * (ABNORMAL) COMPREHENSIVE METABOLIC PANEL (11/16/2024 10:01 PM GYMNASTICS COACH OR INSTRUCTOR) Only the most recent of2 resultswithin the time period is included. Pathologist [facility] Glucose 82 70 - 99 mg/dL 11/16/2024 10:24 PM GYMNASTICS COACH OR INSTRUCTOR [facility] Sodium 140 136 - 145 mmol/L 11/16/2024 10:24 PM GYMNASTICS COACH OR INSTRUCTOR [facility] Potassium 3.4(L) 3.5 - 5.1 mmol/L 11/16/2024 10:24 PM [facility] Chloride 109(H) 98 - 107 mmol/L 11/16/2024 10:24 PM [facility] CO2 24 22 - 29 mmol/L 11/16/2024 10:24 PM [facility] Calcium 8.9 8.4 - 10.4 mg/dL 11/16/2024 10:24 PM [facility] Anion Gap 7 6 - 16 mmol/L 11/16/2024 10:24 PM [facility] BUN 15 5.3 - 18.7 mg/dL 11/16/2024 10:24 PM [facility] Creatinine 0.61 0.57 - 1.11 mg/dL 11/16/2024 10:24 PM [facility] Alkaline Phosphatase 146 40 - 150 U/L 11/16/2024 10:24 PM [facility] ALT 9 0 - 55 U/L 11/16/2024 10:24 PM [facility] AST 10 5 - 34 U/L 11/16/2024 10:24 PM [facility] Protein Total 6.3(L) 6.4 - 8.3 gm/dL 11/16/2024 10:24 PM [facility] Albumin 2.7(L) 3.4 - 5.0 gm/dL 11/16/2024 10:24 PM [facility] Bilirubin Total 0.3 0.2 - 1.2 mg/dL 11/16/2024 10:24 PM [facility] eGFR by CKD-EPI >90 >=90 mL/min/1.7 3 m2 11/16/2024 10:24 PM [facility] Blood BLOOD SPECIMEN / Unknown Venipuncture / Unknown 11/16/2024 10:01 PM GYMNASTICS COACH OR INSTRUCTOR 11/16/2024 10:08 PM [facility] Kavya Noel MD LAB - CHEMISTRY ORD ERABLES [facility] [address] [place] [address] * (ABNORMAL) GLUCOSE - POINT OF CARE (11/11/2024 7:29 AM [facility]) Only the most recent of10 resultswithin the time period is included. Glucose WB/POC 104(H) 70 - 99 mg/dL 11/11/2024 7:35 AM [facility] Specimen Type Cap Fingerstick 2024 7:35 AM [facility] Blood BLOOD SPECIMEN / Unknown 11/11/2024 7:29 AM GYMNASTICS COACH OR INSTRUCTOR 11/11/2024 7:35 AM GYMNASTICS COACH OR INSTRUCTOR Manuel Ayers DO LAB - POINT OF CARE ORDERABLES [facility] [address] [place] [address] * PATHOLOGY TISSUE EXAM (STL) (11/10/2024 5:21 AM GYMNASTICS COACH OR INSTRUCTOR) Case Report Surgical Pathology Report Case: [id number] Authorizing Provider: Erik Clemons MD Collected: 11/10/2024 05:21 AM Ordering Location: [facility] Received: 11/10/2024 07:37 AM Pathologist: Giles Wu MD Specimen: Placenta 11/13/2024 11:29 AM [facility] Final Diagnosis Placenta, delivery: Mature placenta, weight 537 g, with chorangiosis and single small peripheral placental infarct. 11/13/2024 11:29 AM [facility] Clinical History 39 weeks gestation. Insulin dependent diabetes mellitus 11/13/2024 11:29 AM [facility] Gross Description The specimen is identified with the patient's name and date of . Received fresh and placed in formalin, specimen A, placenta is an ovoid placenta weighing 537 g and measuring 25 x 21 x 3.0 cm. The umbilical cord inserts into the disc, 6.5 cm from margin, 26 cm long and 1.5 cm diameter. The cord is tri-vascular and shows no lesions. The membranes insert marginally and are pink-foss and mildly opaque. The surface is blue-foss and smooth. The maternal surface shows intact cotyledons. Sectioning shows uniform, soft, red-brown, spongy tissue with a single peripheral foss white lesion 1 cm in greatest dimension. Netsuite Consultant sections submitted as follows: A1-umbilical cord and membrane roll, U5-W7-xtjfezul, A4-peripheral lesion. MILLIE/PURVI 11/13/2024 11:29 AM [facility] Microscopic Description The umbilical cord and membranes show no evidence of inflammatory infiltrate. The chorionic villi appear uniformly well-developed and well-vascularized, compatible with mature third trimester gestation. Chorangiosis is present. The lesion consists of a placental infarct. 11/13/2024 11:29 AM [facility] Pathologist Location at [facility] 11/13/2024 11:29 AM [facility] Disclaimer All histochemical and/or immunohistochemical results are interpreted with controls that demonstrate appropriate staining reactions before reporting results. Note on use of immunocytochemistry reagents: This test was developed and its performance characteristic determined by [facility], Department of Laboratory Medicine. It has not been cleared or approved by the U.S. Food and Drug Administration (FDA). The FDA has determined that such clearance or approval is not necessary. The test is used for clinical purpose. It should not be regarded as investigational or for research. This laboratory is certified to perform high complexity testing. The performance characteristics of the IHC/MEME assays have been validated on formalin-fixed paraffin embedded tissues only. The assays have not been validated on decalcified tissues. Results should be interpreted with caution. 11/13/2024 11:29 AM [facility] Embedded Images 11/13/2024 11:29 AM [facility] Pathology/Cytolo gy ENTIRE PLACENTA / Unknown Collection / Unknown 11/10/2024 5:21 AM GYMNASTICS COACH OR INSTRUCTOR 11/10/2024 7:37 AM [facility] Erik Clemons MD LAB - PATHOLOGY/CYTO LOGY ORDERABLES Performing Organization Address [facility]/State/[facility] Co de Phone Number [facility] [address] [place] [address] * (ABNORMAL) BLOOD GASES CORD ADRIANA (ISTAT) (11/10/2024 3:56 AM GYMNASTICS COACH OR INSTRUCTOR) pH Cord Venous POCT 7.33 7.28 - 7.40 pH 11/10/2024 4:00 AM [facility] pCO2 Cord Venous POCT 40.0 35 - 45 mm hg 11/10/2024 4:00 AM [facility] pO2 Cord Venous POCT 27 22 - 33 mm hg 11/10/2024 4:00 AM [facility] HCO3 Cord Arterial POCT 20.9(L) 22 - 24 mmol/L 11/10/2024 4:00 AM [facility] BE Cord Venous POCT Calc -5 -6.4 - 1.6 mmol/L 11/10/2024 4:00 AM [facility] TCO2 Cord Venous POCT 22 22 - 30 mmol/L 11/10/2024 4:00 AM [facility] O2 Saturation % Cord Venous Calc POCT 45 % 11/10/2024 4:00 AM [facility] Site CORD ADRIANA 11/10/2024 4:00 AM [facility] Sample iSTAT CORD ADRIANA 11/10/2024 4:00 AM [facility] Blood CORD BLOOD SPECIMEN / Unknown 11/10/2024 3:56 AM GYMNASTICS COACH OR INSTRUCTOR 11/10/2024 4:00 AM GYMNASTICS COACH OR INSTRUCTOR Manuel Ayers DO LAB - POINT OF CARE ORDERABLES [facility] [address] [place] [address] * (ABNORMAL) BLOOD GASES CORD ART (ISTAT) (11/10/2024 3:48 AM GYMNASTICS COACH OR INSTRUCTOR) pH Cord Arterial POCT 7.10(L) 7.20 - 7.34 pH 11/10/2024 4:00 AM [facility] pCO2 Cord Arterial POCT 76.2(HH) 45 - 55 mm hg 11/10/2024 4:00 AM [facility] pO2 Cord Arterial POCT 22 12 - 25 mm hg 11/10/2024 4:00 AM [facility] HCO3 Cord Arterial POCT 23.7 22 - 24 mmol/L 11/10/2024 4:00 AM [facility] BE Cord Arterial POCT -8(L) -2.9 - 8.3 mmol/L 11/10/2024 4:00 AM [facility] TCO2 Cord Arterial POCT 26 mmol/L 11/10/2024 4:00 AM [facility] O2 Saturation Cord Art % Calc POCT 22 % 11/10/2024 4:00 AM [facility] Site CORD ART 11/10/2024 4:00 AM [facility] Sample iSTAT CORD ART 11/10/2024 4:00 AM [facility] Blood CORD BLOOD SPECIMEN / Unknown 11/10/2024 3:48 AM GYMNASTICS COACH OR INSTRUCTOR 11/10/2024 4:00 AM GYMNASTICS COACH OR INSTRUCTOR Manuel Ayers DO LAB - POINT OF CARE ORDERABLES [facility] [address] [place] [address] * EPIDURAL BLOCK PERF (11/09/2024 8:45 PM GYMNASTICS COACH OR INSTRUCTOR) Narrative Christina Hooper APRN-HEALTH PROMOTION COORDINATOR - 11/09/2024 8:45 PM GYMNASTICS COACH OR INSTRUCTOR Christina Hooper APRN-HEALTH PROMOTION COORDINATOR 11/09/2024 8:46 PM Neuraxial Block Note Pre-Procedure: Procedure Name: Neuraxial Block Patient Location: OB Indications: at patient's request and labor analgesia Pre-Anesthetic Checklist: Patient identified, IV Checked, Risks and benefits discussed, Surgical consent verified, Monitors and equipment, Site examined, Pre-op evaluation done, Time-out performed, Informed consent obtained, Questions answered/anesthesia questions answered and Allergies reviewed Anticoagulation/ Anti-thrombosis status confirmed? Yes Supplemental O2: room air Monitors: BP and continuous pluse ox Patient Condition: awake Patient Sedated? No Procedure: Block Type: Epidural Prep: Betadine Sterile Field: mask, cap/hat, sterile established and sterile gloves Approach: midline Skin was localized? Yes Skin localized with: lidocaine (XYLOCAINE) 1 % injection - Infiltration 3 mL - 11/09/2024 8:16:00 PM Epidural Block: Is this procedure for postop pain? No Needle Type: Tuohy Needle gauge: 18 G Needle length: 90 mm Placement Site: L3-L4 Number of Attempts: 1 Loss of Resistance: 8 air Catheter length at skin (cm): 14 CSF Aspirated from catheter: No Blood Aspirated: No Test Dose: lidocaine 1.5% with 1-200,000 epinephrine 3 mL at 11/09/2024 8:21 PM Test Dose Response: No Epidural Local Anesthetic Used? Yes Epidural Infusion Medications: Ropivacaine: 0.2% with Fentanyl 2mcg/mL in NS , at 12 mL/hr Degree of difficulty: none Procedure Tolerance: tolerated well Sensory Level: T8 Motor Blockade: Yes Position post procedure: head of bed elevated 30 degrees, supine Vital Signs: Vital signs moniitored and stable throughout. See nursing vitals flowsheet for details. Start Time: 11/09/2024 8:16 PM End Time: 11/09/2024 8:20 PM Total Time: 4 Staff: Anesthesia Provider: Christina Hooper APRN-HEALTH PROMOTION COORDINATOR - performed the procedure Additional Notes: Patient understood indications and complications of epidural placement. Patient and family in room had no further questions about epidural placement before procedure started. Patient coached through steps of epidural placement and tolerated procedure well. Good OSMANY felt and epidural placed through 18g tuohy needle without pain or parasthesia. Patient indicated test dose negative of circumoral numbness, tinnitus or increased HR/BP at time noted. Leo Gonzáles MD GENERAL ANESTHESIA ORDERABLES * SYPHILIS ANTIBODY CASCADING REFLEX (11/09/2024 12:42 PM GYMNASTICS COACH OR INSTRUCTOR) Treponema pallidum Antibody Non Reactive Non Reactive 11/09/2024 1:52 PM GYMNASTICS COACH OR INSTRUCTOR [facility] Comment: No Laboratory evidence of syphilis infection. Note: Circulating antibodies may be low or undetectable in early infection. If recent exposure is suspected, re-draw sample in 2-4 weeks and repeat testing. Blood BLOOD SPECIMEN / Unknown Venipuncture / Unknown 11/09/2024 12:42 PM GYMNASTICS COACH OR INSTRUCTOR 11/09/2024 12:57 PM GYMNASTICS COACH OR INSTRUCTOR Manuel Ayers DO LAB - SEROLOGY ORDER LNECHO Performing Organization Address City/[facility] Co de Phone Number [facility] [address] [place] [address] * TYPE + SCREEN PANEL (11/09/2024 12:42 PM GYMNASTICS COACH OR INSTRUCTOR) ABO Rh A POS 11/09/2024 1:32 PM GYMNASTICS COACH OR INSTRUCTOR [facility] Comment:History checked. Antibody Screen NEG 1:32 PM GYMNASTICS COACH OR INSTRUCTOR [facility] Blood Bank BLOOD SPECIMEN / Unknown Venipuncture / Unknown 11/09/2024 12:42 PM GYMNASTICS COACH OR INSTRUCTOR 11/09/2024 12:57 PM GYMNASTICS COACH OR INSTRUCTOR Manuel Ayers DO LAB - BLOOD BANK ORD ERABLES Performing Organization Address City/[facility]/ZIP Co de Phone Number [facility] [address] [phone] * SONOGRAM - COMPLETE (11/06/2024 11:38 AM GYMNASTICS COACH OR INSTRUCTOR) Linked Results Indication ======== Gestational diabetes, A2 Hx gastric sleeve Obesity, Class II AMA Psoriatic arthritis History ====== OB History 5. Para 3 [id number] Lab Tests Test Date Result Genetic screening Declined Maternal Assessment Physical Exam Height 160 cm, 5 ft 3 in. Weight 101 kg, 223 lb. Initial weight 93 kg, 205 lb. BMI 39.50 kg/m . Initial BMI 36.31 kg/m . Weight gain 8 kg, 18 lb Method ====== Transabdominal ultrasound. View: poor view due to lack of acoustic window and late gestational age ========= Gale . Number of fetuses: 1 Dating ====== Date Details Gest. age MUMTAZ Stated MUMTAZ 38 w + 4 d 11/16/2024 Previous U/S 04/06/2024 GA, GA 8 w + 0 d 38 w + 4 d 11/16/2024 U/S 11/06/2024 based upon AC, BPD, Femur, HC 39 w + 0 d 11/13/2024 Assigned dating based on ultrasound (GA), selected on 08/23/2024 38 w + 4 d 11/16/2024 General Evaluation Cardiac activity present. FHR 147 bpm. movements: visualized. Presentation: cephalic Placenta: Placental site: fundal Amniotic fluid: Amount of AF: normal. MVP 6.7 cm Biometry BPD 94.9 mm 38w 5d 80% Hadlock HC 329.5 mm 37w 3d 13% Hadlock AC 351.1 mm 39w 0d 81% Hadlock Femur 79.8 mm 40w 6d 94% Hadlock HC / AC 0.94 Weight Calculation: EFW 3,710 g 79% Hadlock EFW (lb,oz) 8 lb 3 oz EFW by Hadlock ([id number]) Growth Overview Exam date GA BPD (mm) HC (mm) AC (mm) FL (mm) HL (mm) EFW (g) 08/23/2024 27w 6d 70.9 59% 260.2 33% 243.6 66% 55.4 74% 49.9 82% 1281 72% 09/18/2024 31w 4d 81.6 76% 299.6 58% 283 70% 64.7 83% 59 98% 2047 77% 10/16/2024 35w 4d 86.6 37% 327.5 58% 326.6 84% 72.6 83% 63.4 91% 2982 77% 11/06/2024 38w 4d 94.9 80% 329.5 13% 351.1 81% 79.8 94% 3710 79% Anatomy The following structures appear normal: Abdomen Stomach. Kidneys. Bladder. Biophysical Profile 2: breathing movements 2: Gross body movements 2: tone 2: Amniotic fluid volume NST: reactive 07/06 Biophysical profile score Non Stress Test NST interpretation: reactive. Baseline FHR 135 bpm. Baseline variability: moderate. Accelerations: present. Decelerations: absent Impression ========= Single, live, intrauterine at 38w 4d size is appropriate for gestational age Amniotic fluid volume: normal Biophysical profile: 07/06 No major malformations were seen within the limits of ultrasound Follow-up ======== Continue twice weekly testing (2x/week NST, weekly BPP). Coding ====== Procedures 58492: [place] [address]: Biophysical Profile W NST [facility] PACS Anatomical Region Laterality Modality Other 11/06/2024 11:3 8 AM GYMNASTICS COACH OR INSTRUCTOR Apolonia Painting [facility] ORDERABLES * BIOPHYSICAL PROFILE W NST (10/30/2024 11:21 AM GYMNASTICS COACH OR INSTRUCTOR) Only the most recent of6 resultswithin the time period is included. Linked Results Indication ======== Gestational diabetes, A2 Hx gastric sleeve Obesity, Class II AMA Psoriatic arthritis History ====== OB History 5. Para 3 [id number] Lab Tests Test Date Result Genetic screening Declined Maternal Assessment Physical Exam Height 160 cm, 5 ft 3 in. Weight 100 kg, 221 lb. Initial weight 93 kg, 205 lb. BMI 39.15 kg/m . Initial BMI 36.31 kg/m . Weight gain 7 kg, 16 lb Method ====== Transabdominal ultrasound, Transabdominal ultrasound examination. View: Sufficient ========= Gale . Number of fetuses: 1 Dating ====== Date Details Gest. age MUMTAZ Stated MUMTAZ 37 w + 4 d 11/16/2024 Previous U/S 04/06/2024 GA, GA 8 w + 0 d 37 w + 4 d 11/16/2024 Assigned dating based on ultrasound (GA), selected on 08/23/2024 37 w + 4 d 11/16/2024 General Evaluation Cardiac activity present. FHR 157 bpm. Presentation: cephalic Placenta: Placental site: posterior Umbilical cord: Cord vessels: 3 vessel cord. Insertion site: normal insertion Amniotic Fluid Assessment ==== Amount of AF: normal MVP 5.9 cm. JANET 19.7 cm. Q1 5.2 cm, Q2 3.3 cm, Q3 5.3 cm, Q4 5.9 cm Biophysical Profile 2: breathing movements 2: Gross body movements 2: tone 2: Amniotic fluid volume NST: reactive /10 Biophysical profile score Non Stress Test NST interpretation: reactive. Baseline FHR 145 bpm. Baseline variability: moderate. Accelerations: present. Decelerations: absent Growth Overview Exam date GA BPD (mm) HC (mm) AC (mm) FL (mm) HL (mm) EFW (g) 08/23/2024 27w 6d 70.9 59% 260.2 33% 243.6 66% 55.4 74% 49.9 82% 1281 72% 09/18/2024 31w 4d 81.6 76% 299.6 58% 283 70% 64.7 83% 59 98% 2046 77% 10/16/2024 35w 4d 86.6 37% 327.5 58% 326.6 84% 72.6 83% 63.4 91% 2982 77% Anatomy The following structures appear normal: Abdomen Stomach. Kidneys. Bladder. Impression ========= Single, live, intrauterine at 37w 4d Amniotic fluid volume: normal Biophysical profile: 07/06 Follow-up ======== Continue twice weekly testing (2x/week NST and weekly BPP) Coding ====== Procedures 25747: US Uterus Limited 27792: Biophysical Profile [facility] Anatomical Region Laterality Modality Other 10/30/2024 11:2 1 AM GYMNASTICS COACH OR INSTRUCTOR Apolonia GONZALEZ [facility] ORDERABLES * CULTURE STREP B (10/23/2024 12:32 PM GYMNASTICS COACH OR INSTRUCTOR) Culture Strep B Negative for beta-hemolytic Streptococcus Group B FADUMO 10/28/2024 1:04 PM GYMNASTICS COACH OR INSTRUCTOR [facility] MICROBIOLOGY Microbiology MISCELLANEOUS SAMPLES / Unknown Collection / Unknown 10/23/2024 12:32 PM GYMNASTICS COACH OR INSTRUCTOR 10/25/2024 1:06 PM GYMNASTICS COACH OR INSTRUCTOR Apolonia GONZALEZ LAB - MICROBIO LOGY ORDERABLES [facility]CRO[facility] [address] [place] [address], [facility] [phone] * URINALYSIS AUTO - POINT OF CARE (AMB) [facility] (10/23/2024 12:15 PM GYMNASTICS COACH OR INSTRUCTOR) Only the most recent of2 resultswithin the time period is included. Glucose UA NEG [facility] [address] Bilirubin UA POCT NEG [facility] [address] Ketones UA POCT NEG [facility] [address] Specific [place] UA 1.[address] [facility] [address] Blood Urine POCT NEG [facility] [address] pH UA 6.[address] [facility] [address] Protein UA TRACE [facility] [address] Urobilinogen UA 1 [facility] [address] Nitrite UA NEG [facility] [address] WBC UA 3+ [facility] [address] Urine URINE / Unknown 10/23/2024 1 2:15 PM GYMNASTICS COACH OR INSTRUCTOR Apolonia Painting APRN-WEATHERIZATION DIRECTOR LAB - POINT OF CARE ORDERABLES Performing Organization Address City/[facility]/ZIP Co de Phone Number [facility] [address] [place] [address], [facility] [phone] * EYE EXAM (10/18/2024 2:19 PM GYMNASTICS COACH OR INSTRUCTOR) Anatomical Region Laterality Modality Other Historical Provider MD SCANNING ONLY * HEMOGLOBIN A1C - POINT OF CARE (AMB) [facility] (10/16/2024 10:35 AM GYMNASTICS COACH OR INSTRUCTOR) Hemoglobin A1c POCT 4.6 % [facility] [address] BLOOD SPECIMEN / Unknown 10/16/2024 10:35 AM GYMNASTICS COACH OR INSTRUCTOR Apolonia Painting [employer] RESEARCHER-WEATHERIZATION DIRECTOR LAB - POINT OF CARE ORDERABLES [facility] [address] [place] [address], [facility] [phone] * EYE EXAM (09/28/2024 2:54 PM GYMNASTICS COACH OR INSTRUCTOR) Anatomical Region Laterality Modality Other Historical Provider MD SCANNING ONLY * HIV-1 HIV-2 ANTIBODY + HIV P24 AG PANEL (08/31/2024 1:17 PM GYMNASTICS COACH OR INSTRUCTOR) HIV Screen 4th Generation w Reflex NON-REACT LEIDA NON-REACT LEIDA [employer] Comment: HIV-1 antigen and HIV-1/HIV-2 antibodies were not detected. There is no laboratory evidence of HIV infection. PLEASE NOTE: This information has been disclosed to you from records whose confidentiality may be protected by state law. If your state requires such protection, then the state law prohibits you from making any further disclosure of the information without the specific written consent of the person to whom it pertains, or as otherwise permitted by law. A general authorization for the release of medical or other information is NOT sufficient for this purpose. For additional information please refer to http://education.Intilery.com/faq/SVH798 (This link is being provided for informational/ educational purposes only.) The performance of this assay has not been clinically validated in patients less than 2 years old. Test Performed at: [email or web address] [id number] [place] [address] SANJUANITA BRISENO MD Blood BLOOD SPECIMEN / Unknown 08/31/2024 1:17 PM GYMNASTICS COACH OR INSTRUCTOR 08/31/2024 1:20 PM GYMNASTICS COACH OR INSTRUCTOR Yolande Mathew MD LAB - CHEMISTRY VAHE MCKOY [facility] [address] [place] [address] * HEPATITIS C AB W/RFLX TO HCV RNA QN PCR (04/06/2024) Pathologist [facility] Hepatitis C Antibody NON-REACTI VE NON-REACT [facility] Comment: HCV antibody was non-reactive. There is no laboratory evidence of HCV infection. In most cases, no further action is required. However, if recent HCV exposure is suspected, a test for HCV RNA (test code 79744) is suggested. For additional information please refer to http://education.Usetrace.eDossea/faq/SLX24b8 (This link is being provided for informational/ educational purposes only.) Test Performed at: [facility] [address] [facility] [place] [address] SANJUANITA BRISENO MD 04/06/2024 04/06/2024 3:0 8 PM CDT Chris Ferreira MD LAB - CHEMISTRY VAHE MCKOY [facility] Organization Address City/State/ZIP Co de Phone Number [employer] [address] [place] [address] from Last 3 Months or Most Recently Relevant to Health Maintenance Advance Directives * Full Code (Latest Code Status on File) Date Activated Date Inactivated Comments 11/09/2024 12:11 PM 11/11/2024 2:04 PM * Full Code Date Activated Date Inactivated Comments 06/20/2024 3:11 PM 06/22/2024 5:01 PM Care Teams Kiln Burner Helper Relationship Specialty Start Date End Date Mendoza Xiong II, MD [address] [facility] [place] [address] PCP - General Internal Medicine 02/14/24
--- OUTSIDE RECORDS SUMMARY | 2024-12-24 12:43 | XMS_ITS | Clinical Summary ---
Author Organization [facility] Address [address] [facility] [address] [address] Phone Care Team Providers Care Refrigeration Engine Operator Name Role Phone Unavailable Primary Care Provider Unavailabl e Allergies Active Allergy Reactions Criticality Noted Date Comments Adhesive Other (See Comments) High 05/26/2016 Peels off skin Amoxicillin Hives High 01/13/2023 Zolpidem Rash,Itching Low 01/13/2023 Medications pantoprazole sodium (PANTOPRAZOLE ORAL) Take 40 mg by mouth daily at bedtime. Active METHOCARBAMOL ORAL Take 750 mg by mouth 3 times daily as needed. Patient states she mostly takes this medication once a day at HS. Active GABAPENTIN ORAL Take 300 mg by mouth 3 times daily. Active duloxetine HCl (DULOXETINE ORAL) Take 30 mg by mouth 2 times daily. Active acetaminophen 500 mg tablet Take 500 mg by mouth every 6 hours as needed. Active solifenacin 10 mg tablet Take 10 mg by mouth daily. Active traZODone 50 mg tablet Take 50 mg by mouth daily at bedtime. Active albuterol sulfate HFA 90 mcg/actuation aerosol inhaler Take 1-2 Puffs by inhalation every 6 hours as needed. 0 Active diclofenac sodium (VOLTAREN) 1 % gel Apply 4 Grams to affected area. 0 Active HYDROcodone-malgorzata taminophen (HYCET) 7.5-325 mg/15 mL SolutionIndicat ions:Post-op pain Take 15 mL by mouth every 6 hours as needed for Pain, Severe. Max Daily Amount: 60 mL 300 mL 01/21/2023 10:42 AM CDT 3 Active ondansetron (ZOFRAN ODT) 4 mg Tablet, Rapid Dissolve Dissolve 1 tablet on top of tongue, then swallow with saliva every 6 hours as needed for Nausea/Vomiting . 28 Tablet 01/21/2023 10:42 AM CDT 3 Active Active Problems Problem Noted Date Diagnosed Date Psoriatic arthritis 01/20/2023 General medical exam 01/20/2023 Postoperative nausea and vomiting 01/20/2023 Postoperative pain 01/20/2023 Gastroesophageal reflux disease without esophagi tis 01/20/2023 ABIEL (obstructive sleep apnea) 01/20/2023 Anxiety and depression 01/20/2023 Class 3 severe obesity due t o excess calories without serious comorbidity with body mass index (BMI) of 45.0 to 49.9 in adult 01/20/2023 Urinary, incontinence, stress female 01/20/2023 Immunizations Immunization Administration Dates Next Due (ADACEL/BOOSTRIX)(10 YR UP) TDAP VACCINE, 0.5ML, IM 04/09/2017,09/23/2015,10/03/2013,07/11 (PNEUMOVAX 23)(50 YRS UP) PN EUMOCOCCAL POLYSACCHARIDE (PPV23) 0.5 ML, IM 08/07/2011 INFLUENZA VACCINE QUADRIVALE NT 6 MOS UP CELL DERIVED PF IM 07/03/2019 INFLUENZA VACCINE QUADRIVALE NT 6 MOS UP PF IM 06/24/2020,07/23/2017,07/10/2016,07/12,06/26/2014 Influenza Seasonal Unspecifi ed Formulation IM 07/03/2013 Influenza Seasonal Unspecifi ed Formulation PF IM 07/11/2012 Influenza Vaccine High Dose 65+ Yrs IM 4 Influenza, Unspecified Formulation 08/07/2011 Social History Tobacco Use Types Packs/Day Years Used Date Smoking Tobacco: Former Cigarettes 1 10 2 007 - 2016 Smokeless Tobacco: Never Tobacco Cessation:Counseling Given: Not Answered Alcohol Use Standard Drinks/Week Comments Yes 0 (1 standard drink = 0.6 oz pur e alcohol) Rarely Feeling Safe Answer Date Recorded Are you in a relationship wi th someone who hurts you emotionally and/or physically? No 01/20/2023 Food Insecurity Answer Date Recorded Social/Environmental Concerns No concerns Transportation Needs Answer Date Record ed Social/Environmental Concerns No concerns 04 / Housing Stability Answer Date Recorded Social/Environmental Concerns No concerns Utility Needs Answer Date Recorded Social/Environmental Concerns No concerns Comments No Sex and Gender Information Value Date Recorded Sex Assigned at Not on file Legal Sex Female 2:55 PM CDT Gender Identity Not on file Sexual Orientation Not on file Last Filed Vital Signs Vital Sign Reading Time Taken Comments Blood Pressure 142/89 01/21/2023 11:58 AM CDT Pulse 80 01/21/2023 11:58 AM CDT Temperature 36.8 C (98.2 F) 01/21/2023 11:58 AM CDT Respiratory Rate 16 01/21/2023 11:5 8 AM CDT Oxygen Saturation 100% 01/21/2023 11: 58 AM CDT Inhaled Oxygen Concentration - - Weight 125.4 kg (276 lb 6.4 oz) 01/20/2023 2:51 PM CDT Height 160 cm (5' 3 ) 01/20/2023 2:51 PM CDT Body Mass Index 48.96 01/20/2023 2:51 PM CDT Plan of Treatment Health Maintenance Due Date Last Done Comments Pre-Diabetes and Diabetes Screening 1988 HEPATITIS B VACCINES (1 of 3 - 19+ 3-dose series) 2007 HPV/Cotest (21-29) 2009 CERVICAL CANCER SCREENING 2018 HPV/Cotest (30-65) 2018 PAP SMEAR 2018 INFLUENZA VACCINE (#1) 2024 , 07/03/2019, 07/23/2017, Additional history exists DTAP/TDAP/TD VACCINES (5 - Td or Tdap) 04/09/2027 04/09/2017, 09/23/2015, 10/03/2013, Additional history exists HPV VACCINES Aged Out No longer eligi ble based on patient's age to complete this topic Medical Devices Implanted Type Area Child Welfare Social Worker Device Identifier Shelf Expiration Date Model / Serial / Lot Seamguard Endogia 60 Blk [id number] - [id number] Implanted:Qt y: 1 on 01/20/2023 by Waqas Vaughn MD at [facility] Biological N/A: Stom[employer] [id number] 03/18/2025 12BSGTRI 60B / / [id number] Seamguard Endogia 60 Blk [id number] - [id number] Implanted:Qt y: 1 on 01/20/2023 by Waqas Vaughn MD at [facility] Biological N/A: Stomach [employer] [id number] 03/18/2025 12BSGTRI 60B / / [id number] Seamguard Endogia 60 Prpl [id number] - [id number] Implanted:Qt y: 1 on 01/20/2023 by Waqas Vaughn MD at [facility] Biological N/A: Stomach [employer] [id number] 11/15/2024 12BSGTRI 60P / / [id number] Seamguard Endogia 60 Prpl [id number] - [id number] Implanted:Qt y: 1 on 01/20/2023 by Waqas Vaughn MD at [facility] Biological N/A: Stomach [employer] [id number] 11/15/2024 12BSGTRI 60P / / [id number] Seamguard Endogia 60 Prpl [id number] - [id number] Implanted:Qt y: 1 on 01/20/2023 by Waqas Vaughn MD at [facility] N/A: Stomach [employer] [id number] 04/26/2025 12BSGTRI 60P / / [id number] Screw Screw Right: Foot Insurance [address] BLUE ACCESS/TRUE BLUE PPO [place] [address] RX [facility] [employer] RX PER[employer] PLANS (INTERNAL) [facility] Internal Plans Advance Directives For more information, please contact: [phone] * Full Code (Latest Code Status on File) Date Activated Date Inactivated Comments 01/20/2023 9:47 AM 01/21/2023 4:27 PM * Full Code Date Activated Date Inactivated Comments 01/20/2023 8:14 AM 01/20/2023 9:47 AM * Full Code Date Activated Date Inactivated Comments 01/15/2023 9:08 AM 01/15/2023 2:00 PM
--- OUTSIDE RECORDS SUMMARY | 2024-12-24 12:43 | XMS_ITS | Encounter Summary ---
Author Organization [facility] Address [address] [facility] [place] [address] Care Team Providers Care Sheet Folder Name Role Phone Tyrese MCCULLOUGH MD, Mendoza Anderson Primary Care Provider + Reason for Visit * Reason Onset Date Comments Question 12/13/2024 Encounter Details Date Type Department Care Team (Late st Contact Info) Description 12/13/2024 Telephone [facility] - CORRECTIONAL CLASSIFICATION COUNSELOR [address] [place] [address] Apolonia Painting, JASMYN-ANSWERING SERVICE AGENT [address] [place] [address] Question Social History Tobacco Use Types Packs/Day Years Used Date Smoking Tobacco: Former Cigarettes 1 2016 Smokeless Tobacco: Never Alcohol Use Standard Drinks/Week Comments Not Currently [...] Recorded Patient Health Questionnaire-2 Score 0 10/19/2024 [facility] [place] of Occupat ional Health - Occupational Stress [...] place to sleep or slept in a long term (including now)? No 06/25/2024 Lanse Depression Scale Answer Date Recorded Lanse Depression Scale Total 2 11/20/2024 The thought of harming myself has occurred to me . Never 11/20/2024 Housing Stability Vital Sign Answer Koby e Recorded In the last 12 months, was t here a time when you were not able to pay the mortgage or rent on time? No 11/16/2024 In the past 12 months, how m any times have you moved where you were living? 0 11/16/2024 At any time in the past 12 m [facility], were you homeless or living in a long term (including now)? No 11/16/2024 Education Answer Date Recorded What is the highest level of school you have completed or the highest degree you have received? Some college, no degree 02/14/2024 Sex and Gender Information Value Date Recorded Sex Assigned at Not on file Gender Identity Not on file Sexual Orientation Not on file documented as of this encounter Functional Status Functional Status Response Date of Assess ment Is person deaf or have serious hearing difficult y? No 11/16/2024 Is person blind or have serious difficulty seein g? No 11/16/2024 Does person have serious dif ficulty walking/climbing stairs? No 11/16/2024 Does person have difficulty dressing/bathing? No 11/16/2024 Does person have difficulty doing errands alone? No 11/16/2024 Cognitive Status Response Date of Assessm ent Does person have difficulty concentrating/remembering/making decisions? No 11/16/2024 documented as of this encounter Miscellaneous Notes * Telephone Encounter - Beatriz Garcias - 12/13/2024 11:28 AM CDT Beverley from [facility] services calling to ask that the patient breast pump paper work be signed by a DIRECTOR OF BUSINESS OPERATIONS or a MD.. she will refax and pur the return fax number on paperwork.. patient is there at the moment documented in this encounter Plan of Treatment Upcoming Encounters Date Type Department Care Team (Late st Contact Info) Description 12/27/2024 3:30 PM CDT Office Visit [facility] - Pain Mgmt [address], [address] [phone] Zachary López MD [address] [place] [address] [address] [place] [address] Chemo Neal MD [address] [place] [phone] 02/14/2025 11:00 AM CDT Office Visit [facility] - Rheumatology [address] [place] [phone] Zachary López MD [facility] [facility] 2L [place] [address] 03/21/2025 10:30 AM CDT Office Visit [facility] - Internal Med [address] [place] [phone] Mendoza Xiong II, MD [address] [facility] 2L DIV [place] [address] documented as of this encounter Visit Diagnoses Not on filedocumented in this encounter Care Teams Sheet Folder Relationship Specialty Start Date End Date Mendoza Xiong II, MD [address] [facility] 2L [place] [address] PCP - General Internal Medicine 02/14/24 documented as of this encounter
--- OUTSIDE RECORDS SUMMARY | 2024-12-24 12:43 | XMS_ITS | Referral Summary ---
Author Organization [facility] Address [address] [place] [address] Care Team Providers Care Flight Purser Name Role Phone Helene Chin MD Unavailable [phone] Iona Mcginnis MD Unavailable [phone] Mendoza Xiong MD Primary Care Provider Encounters Date Type Department Care Team Description 11/28/2024 Results Follow-Up [facility] Medical Group Convenient Care at [address] [phone] Drea Ramos PA 11/28/2024 1:15 PM TREE AND SHRUB WORKER Ancillary Procedure [facility] Medical Group Imaging at [address] [phone] Rib pain on left side 11/27/2024 5:15 PM TREE AND SHRUB WORKER Office Visit [facility] Medical Group Convenient Care at [address] [phone] Emely Resendiz NP Rib pain on left side (Primary Dx) 11/23/2024 Telephone [facility] Neuro Sleep [address] [facility] 6th [address] [place] [address] Padmini Monahan DNP 11/23/2024 Telephone [facility] Sleep [address] [facility] [address] [place] [phone] Padmini Monahan DNP 11/23/2024 10:30 AM TREE AND SHRUB WORKER Telemedicine [facility] [address] [facility] 6th [address] [place] [address] Padmini Monahan DNP ABIEL (obstructive sleep apnea) (Primary Dx); Hypersomnia; Obesity (BMI 30-39.9) 10/17/2024 Telephone [facility] [address] [facility] 6[address] [place] [address] Krysten Almanza, RPSGT from Last 3 Months Allergies Active Allergy Reactions Criticality Noted Date [...] (three) times a day 100 g 07/09/20 Active ondansetron ODT (ZOFRAN-ODT) 4 mg disintegrating [...] PATCH WITHIN 12 HOURS OR DIRECTED BY 30 patch 12/29/19 24 Active Additional Information [...] by mouth daily 02/16/20 24 Active vit 65-zqxe-wmbqa-dha 27mg iron- 800 mcg-250 mg capsule Take by mouth daily Active aspirin 81 mg enteric coated tablet Take 2 tablets (162 mg total) by mouth daily 05/04/20 Active cephalexin (KEFLEX) 500 mg capsule Take 1 capsule (500 mg total) by mouth 2 (two) times a day 05/04/20 Active Cimzia Powder for Reconst 400 mg (200 mg x 2 vials) kit 04/27/20 Active cyclobenzaprine (FLEXERIL) 10 mg tabletIndications: Chronic pain syndrome TAKE 1 TABLET BY MOUTH THREE TIMES A DAY NEEDED FOR MUSCLE SPASMS 90 tablet 3 09/18/20 Active Active Problems Problem Noted Date Diagnosed [...] IgG and C-ANCA, requested detailed records from [facility]. - Bronch 05/26 at OSH reportedly inconclusive. Now s - CTA chest here (07/02): c/f sequelae of hemorrhage in LLL; polygonal CORI nodule. 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/2023): Found on [...] deficiency 07/13/2012 Nicotine dependence 07/11/2012 Obesity 06/28/2012 Immunizations Immunization Administration Dates Next Due Influenza, Quadrivalent, Spl it, Preservative Free, Intramuscular 07/04/2023,06/24/2020,07/23/2017,07/10,07/12/2015,06/26/2014 Influenza, Trivalent, Cell Culture-based MDCK, Preservative Free, Antibiotic Free, Intramuscular 07/03/2019 Influenza, Trivalent, High D ose, Split, Preservative Free, Intramuscular 05/28/2014 Influenza, Trivalent, IM (MDV) 07/03/2013 Influenza, Trivalent, Preser vative Free, Intramuscular 07/11/2012 Influenza, Unspecified 08/07/2011 PPD TEST 07/13/2019,12/21/2017,12/21/2017 Pneumococcal Polysaccharide PPV23 08/07/2011 Tdap 04/09/2017, 5,10/03/2013,07/11 Social History Tobacco Use Types Packs/Day Years [...] Comments Blood Pressure 138/66 11/27/2024 5:15 PM TREE AND SHRUB WORKER Pulse 110 11/27/2024 5:15 PM TREE AND SHRUB WORKER Temperature 37.6 C (99.6 F) 11/27/2024 5:15 PM TREE AND SHRUB WORKER Respiratory Rate 16 11/27/2024 5:15 PM TREE AND SHRUB WORKER Oxygen Saturation 98% 11/27/2024 5:15 PM TREE AND SHRUB WORKER Inhaled Oxygen Concentration - - Weight 88.9 kg (196 lb) 11/27/2024 5:15 PM TREE AND SHRUB WORKER Height 160 cm (5' 3 ) 08/15/2024 7:31 PM TREE AND SHRUB WORKER Body Mass Index 34.72 08/15/2024 7:31 PM TREE AND SHRUB WORKER Plan of Treatment Not on file Goals Goal Patient Goal Type Associated Problems Recent Progress Patient-Stated? Author CCM Chronic Pain Care Plan Chronic Care Management No change(05/09 8:24 AM CDT) No Ju Seth RN Note: Problem: Chronic Pain Goals: 1. Minimize further functional decline 2. Maximize quality of life 3. Control pain Strategies: - Activity/exercise program recommendation - Conservative stepwise pain medicine strategy with multi-disciplinary approach - Recommend healthy lifestyle strategies and compensatory methods as needed Medical Devices Implanted Type Area Biofuels Production Associate Device Identifier Shelf Expiration Date Model / Serial / Lot Screw Right: Foot Procedures Procedure Name Priority Date/Time Associated Diagnosis Comments XR RIBS LEFT W PA CHEST Schedule ALAN, Read ALAN (Appt Today, Awaiting Results) 11/28/2024 1:24 PM TREE AND SHRUB WORKER Rib pain on left side POC INFLUENZA A/B, COVID-19 ANTIGEN Routine 11/27/2024 5:41 PM TREE AND SHRUB WORKER Rib pain on left side HEPATITIS PANEL, ACUTE Timed 07/02/2023 6:39 PM CDT from Last 3 Months or Most Recently Relevant to Health Maintenance Results * XR Ribs Left W PA Chest 3 or More Views (11/28/2024 1:24 PM TREE AND SHRUB WORKER) Anatomical Region Laterality Modality Rib, Chest Left Digital Radiogra phy 11/28/2024 4:02 PM TREE AND SHRUB WORKER Narrative 11/28/2024 4:07 PM TREE AND SHRUB WORKER EXAM DESCRIPTION: XR RIBS LEFT W PA [...] 4:07 PM - Electronically signed by Deni MIRANDA T: Report ID: [id number] Reading Location: [id number] Procedure Note Deni Calhoun MD - 11/28/2024 [...] 4:07 PM - Electronically signed by Deni MIRANDA T: Report ID: [id number] Reading Location: [id number] Emely Resendiz BARN MANAGER IMG XR PROCEDURES Final Re sult * POC Influenza A/B, COVID-19 antigen (11/27/2024 5:41 PM TREE AND SHRUB WORKER) Influenza A Ag, POC Negative Negative [facility] Influenza B Ag, POC Negative Negative [facility] COVID-19 Ag POC Presumptive Negative Presumptive Negative, Invalid [facility] Nasal 11/27/2024 5:41 PM TREE AND SHRUB WORKER Emely Resendiz NP POINT OF CARE TEST ORDERAB LES Final Result [facility] [address] [place] [address] * Hepatitis panel, acute Blood (07/02/2023 6:39 PM CDT) Hep A IgM Nonreactive Nonreactive Hep B core IgM Nonreactive Nonreactive [facility] Hep C Ab Nonreactive Nonreactive [facility] Comment:Antibodies to HCV no t detected. Does NOT exclude the possibility of recent exposure to HCV. Current interpretive data was last revised on 22 HepBsAg Nonreactive Nonreactive [facility] Blood 07/02/2023 6:39 PM CDT 07/02/2023 7:02 PM CDT Darien Moody MD LAB MICROBIOLOGY - GENERAL ORDERABLES Final Result [facility] [place] [address] from Last 3 Months or Most Recently Relevant to Health Maintenance [place] [place] [address] [facility] Member Subscriber Plan / Payer (Ef fective 2020-Present) Name:Apolonia Bailey Relation to Subscriber:Self Name:Apolonia Bailey Payer ID:[id number] (NAIC) Type:MEDICAID RISK OTHER Address: [place] [id number] [facility] Advance Directives For more information, please contact: [phone] * Full Code (Latest Code Status on File) Date Activated Date Inactivated Comments 08/25/2023 5:50 PM 08/26/2023 7:45 PM * Full Code Date Activated Date Inactivated Comments 07/01/2023 1:26 PM 07/09/2023 10:18 PM * Full Code Date Activated Date Inactivated Comments 06/26/2023 12:56 AM 06/26/2023 5:43 PM Care Teams Flight Purser Relationship Specialty Start Date End Date Mendoza Xiong MD [address] [place] [address] PCP - General Internal Medicine 02/22/24 Helene Chin MD Fellow Pulmonary Disease 08/10/23 Iona Mcginnis MD [facility] [place] [address] Fellow Rheumatology 08/10/23
--- OUTSIDE RECORDS SUMMARY | 2024-12-24 12:43 | XMS_ITS | Encounter Summary ---
Author Organization [facility] Address [address] [place] [address] Care Team Providers Care Sales Associate Key Holder Name Role Phone Helene Chin MD Unavailable [phone] Iona Mcginnis MD Unavailable [phone] Mendoza Xiong MD Primary Care Provider [phone] Encounter Details Date Type Department Care Team (Late st Contact Info) Description 11/28/2024 Results Follow-Up [facility] Medical Group Convenient Care at [address] [phone] Drea Ramos, QUEENIE [address] [place] [address] [address] [place] [address] Social History Tobacco Use Types Packs/Day Years Used Date Smoking Tobacco: Former Cigarettes 1 10 0 09/2006 - 09/2016 Smokeless Tobacco: Never AUDIT-C Answer Date Recorded Q1: How often [...] on file documented as of this encounter Plan of Treatment Not on file documented as of this encounter Goals Goal Patient Goal Type Associated Problems [...] lifestyle strategies and compensatory methods as needed documented as of this encounter Visit Diagnoses Not on filedocumented in this encounter Care Teams Sales Associate Key Holder Relationship Specialty Start Date End Date Mendoza Xiong MD [address] [place] [address] PCP - General Internal Medicine 02/22/24 Helene Chin MD Fellow Pulmonary Disease 08/10/23 Iona Mcginnis MD [address] [place] [address] Fellow Rheumatology 08/10/23 documented as of this encounter
--- OUTSIDE RECORDS SUMMARY | 2024-12-24 12:44 | XMS_ITS | Encounter Summary ---
Author Organization [facility] Address [address] [place] [address] Care Team Providers Care Spool Fixer Name Role Phone Palmira Blanco MD Primary Care Provider Helene Chin MD Unavailable [phone] Iona Mcginnis MD Unavailable [phone] Ju Leung NP Primary Care Provider Mendoza Xiong MD Primary Care Provider [phone] Encounter Details Date Type Department Care Team (Late st Contact Info) Description 07/23/2023 Telephone [facility] [address] [facility] [address] [place] [address] Aby Siddiqui, RN Social History Tobacco Use Types Packs/Day Years Used Date Smoking Tobacco: Former Cigarettes Smokeless Tobacco: Never Hunger Vital Sign Answer Date Recorded Within the past 12 months, y ou worried that your food would run out before you got the money to buy more. Never true 07/27/20 23 Within the past 12 months, t he food you bought just didn't last and you didn't have money to get more. Never true 07/27/2023 Comments Unknown Sex and Gender Information Value Date Recorded Sex Assigned at Not on file Legal Sex Female 2:47 PM CDT Gender Identity Not on file Sexual Orientation Not on file documented as of this encounter Plan of Treatment Not on file documented as of this encounter Visit Diagnoses Not on filedocumented in this encounter Additional Health Concerns Infection Onset Date Last Indicated Resolved Time COVID: Suspected 08/23/2023 08/23/2023 08/23/2023 10:47 PM RANGER AIDE Influenza, adult 08/23/2023 08/23/2023 08/30/2023 3:06 AM RANGER AIDE COVID: Suspected 12/17/2023 12/17/2023 12/17/2023 4:22 PM CDT Rhino/Enterovirus 12/17/2023 12/17/2023 12/24/2023 3:05 AM CDT COVID: Suspected 11/27/2024 11/27/2024 11/27/2024 5:42 PM RANGER AIDE documented as of this encounter Care Teams Spool Fixer Relationship Specialty Start Date End Date Palmira Blanco MD PCP - General Hematology 07/09/23 08/10/23 Ju Leung NP [address] [place] [address] PCP - General Nurse Practitioner 08/11/23 02/21/24 Mendoza Xiong MD [address] [place] [address] PCP - General Internal Medicine 02/22/24 Helene Chin MD Fellow Pulmonary Disease 08/10/23 Iona Mcginnis MD [address] [place] [address] Fellow Rheumatology 08/10/23 documented as of this encounter
--- OUTSIDE RECORDS SUMMARY | 2024-12-24 12:44 | XMS_ITS | Encounter Summary ---
Author Organization [facility] Address [address] [place] [address] Care Team Providers Care Operations Manager Name Role Phone Tyrese MCCULLOUGH MD, Mendoza Anderson Primary Care Provider + Reason for Visit * Reason Comments Med Change Request Encounter Details Date Type Department Care Team (Late st Contact Info) Description 12/20/2024 Refill [facility] - METHODOLOGIST [address] [facility] [address] [place] [address] Apolonia Painting, INTEGRATED MARKETING MANAGER-HUMAN RESOURCE ASSISTANT [address] [place] [address] Med Change Request Social History Tobacco Use Types Packs/Day Years [...] Recorded Patient Health Questionnaire-2 Score 0 10/19/2024 [facility] [place] of Occupat ional Health - Occupational Stress [...] place to sleep or slept in a assisted (including now)? No 06/25/2024 [place] Depression Scale Answer Date Recorded [place] Depression Scale Total 1 12/21/2024 The thought [...] any time in the past 12 m [facility], were you homeless or living in a assisted (including now)? No 11/16/2024 Education Answer Date [...] No 11/16/2024 documented as of this encounter Plan of Treatment Upcoming Encounters Date Type Department Care Team (Late st Contact Info) Description 12/27/2024 3:30 PM CDT Office Visit [facility] - Pain Mgmt [address] [place] [address] Zachary López MD [address] [facility] 2L [place] [phone] Chemo Neal MD [address] [place] [phone] 02/14/2025 11:00 AM CDT Office Visit [facility] - Rheumatology [address] [place] [address], [place] [address] Zachary López MD [address] [facility] 2L [place] [address] 03/21/2025 10:30 AM CDT Office Visit [facility] - Internal Med [address] [place] [phone] Mendoza Xiong II, MD [address] [facility] 2L DIV [place] [address] documented as of this encounter Visit Diagnoses Not on filedocumented in this encounter Care Teams Operations Manager Relationship Specialty Start Date End Date Mendoza Xiong II, MD [address] [place] [address] 2L DIV OF [facility] [place] [address] PCP - General Internal Medicine 02/14/24 documented as of this encounter
--- OUTSIDE RECORDS SUMMARY | 2024-12-24 12:44 | XMS_ITS | Encounter Summary ---
Author Organization [facility] Address [address] [place] [address] Care Team Providers Care Heater Tender Name Role Phone Palmira Blanco MD Primary Care Provider Helene Chin MD Unavailable [phone] Iona Mcginnis MD Unavailable [phone] Ju Leung NP Primary Care Provider Mendoza Xiong MD Primary Care Provider [phone] Encounter Details Date Type Department Care Team (Late st Contact Info) Description 07/23/2023 Telephone [facility] [address] [facility] [address] [place] [address] Aby Siddiqui, RN Social History [...] COVID: Suspected 08/23/2023 08/23/2023 08/23/2023 10:47 PM MANAGER CLINICAL APPLICATIONS Influenza, adult 08/23/2023 08/23/2023 08/30/2023 3:06 AM MANAGER CLINICAL APPLICATIONS COVID: Suspected 12/17/2023 12/17/2023 12/17/2023 4:22 PM CDT Rhino/Enterovirus 12/17/2023 12/17/2023 12/24/2023 3:05 AM CDT COVID: Suspected 11/27/2024 11/27/2024 11/27/2024 5:42 PM MANAGER CLINICAL APPLICATIONS documented as of this encounter Care Teams Heater Tender Relationship Specialty Start Date End Date Palmira Blanco MD PCP - General Hematology 07/09/23 08/10/23 Ju Leung NP [address] [place] [address] PCP - General Nurse Practitioner 08/11/23 02/21/24 Mendoza Xiong MD [address] [place] [address] PCP - General Internal Medicine 02/22/24 Helene Chin MD Fellow Pulmonary Disease 08/10/23 Iona Mcginnis MD [address] [place] [address] Fellow Rheumatology 08/10/23 documented as of this encounter
--- OUTSIDE RECORDS SUMMARY | 2024-12-24 12:44 | XMS_ITS | Encounter Summary ---
Author Organization [facility] Address [address] [facility] [place] [address] Care Team Providers Care Machine Stuffer Name Role Phone Tyrese MCCULLOUGH MD, Mendoza Anderson Primary Care Provider + Encounter Details Date Type Department Care Team (Late st Contact Info) Description 12/18/2024 Orders Only [facility] - Rheumatology [address] [place] [address], [place] [address] Zachary López MD [address] [place] [address] [place] [address] ANCA-associated vasculitis; Psoriatic arthritis; Immunosuppression due to drug therapy; Other chronic pain Social History Tobacco Use Types Packs/Day Years [...] Recorded Patient Health Questionnaire-2 Score 0 10/19/2024 [facility] [place] of Occupat ional Health - Occupational Stress [...] place to sleep or slept in a fdc (including now)? No 06/25/2024 [place] Depression Scale Answer Date Recorded [place] Depression Scale Total 1 12/21/2024 The thought [...] any time in the past 12 m [facility], were you homeless or living in a fdc (including now)? No 11/16/2024 Education Answer Date [...] [facility] - Pain Mgmt [address] [place] [address] Zachary López MD [address] [facility] 2L [place] [address] Chemo Neal MD [address] [place] [phone] 02/14/2025 11:00 AM CDT Office Visit [facility] - Rheumatology [address] [place] [phone] Zachary López MD [address] [facility] 2L [place] [address] 03/21/2025 10:30 AM CDT Office Visit [facility] - Internal Med [address] [place] [phone] Mendoza Xiong II, MD [facility] 2L DIV OF [facility] [place] [address] documented as of this encounter Visit Diagnoses Diagnosis 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
== END 2024-12-24 12:41 | disposition home or self-care (01) ==
PROVIDERS: Visit Provider Surgery
DX: K43.2 Incisional hernia without obstruction or gangrene (principal); Z90.49 Acquired absence of other specified parts of digestive tract
CPT/HCPCS: 74176

== ENCOUNTER 2024-12-30 15:50 | Emergency (ER) | payer OTHER, SELFPAY ==
--- NOTE | ~2024-12-30 | CT_ITS ---
EXAMINATION: CT abdomen pelvis w con DATE: 12/30/2024 18:17 INDICATION: ABDOMINAL PAIN TECHNIQUE: Computed tomography (CT) of the abdomen and pelvis was performed with 100 mL Omnipaque-350 intravenous contrast. Automated exposure control and iterative reconstruction technique were employe d. The dose-length product was 655.29 mGy-cm. COMPARISON: 12/24/2024. FINDINGS: Lower thorax: Bibasilar scar/atelectasis. Suture line in the left lower lobe. Liver: Normal. Biliary/Gallbladder: Gallbladder is absent. Pneumobilia. Pancreas: No mass or duct dilation. Spleen: Normal. Adrenals:No mass. Kidneys: No suspicious mass, obstructing stone, or hydronephrosis. GI tract: Status post gastric surgery. Small hiatal hernia. Mild bowel wall thickening of a short seg ment of transverse colon deep to the local hernia. No small or large bowel dilation. Appendix not con fidently visualized Mesentery/Peritoneum: No ascites, mass, or free air. Retroperitoneum: No mass. Pelvis: Partially distended urinary bladder with mild wall thickening/inflammation. Heterogeneous ret roverted uterus. Normal bilateral ovaries.. Soft Tissues: Large, fat-containing umbilical hernia, with mild fat stranding Bones: No acute osseous finding. IMPRESSION: Large fat-containing umbilical hernia with inflammatory change, correlate for pain/tenderness. Short segment wall thickening involving a short segment of transverse colon deep to the hernia which was previously located in the hernia sac, may represent recent reduction, with inflammatory change/co litis. Possible fibroid uterus. Bladder wall thickening from cystitis or incomplete distention. Reviewed, dictated and finalized at location [facility]. IMPRESSION: Large fat-containing umbilical hernia with inflammatory change, correlate for p ain/tenderness. Short segment wall thickening involving a short segment of transverse colon jaqueilne p to the hernia which was previously located in the hernia sac, may represent r ecent reduction, with inflammatory change/colitis. Possible fibroid uterus. Bladder wall thickening from cystitis or incomplete distention.
[2024-12-30 15:52] VITALS: BP 155/101; PULSE 73; RESP 20; TEMP 36.2; O2SAT 100
--- OUTSIDE RECORDS SUMMARY | 2024-12-30 15:52 | XMS_ITS | Encounter Summary ---
Author Organization [facility] Address [address] [place] [address] [place] [address] Care Team Providers Care Gas Roller Operator Name Role Phone Tyrese MCCULLOUGH MD, Mendoza Anderson Primary Care Provider + Reason for Visit * Reason Onset Date Comments Maternal Medicine 03/16/2024 Appointment 03/16/2024 Encounter Details Date Type Department Care Team (Late st Contact Info) Description 03/16/2024 Telephone [facility] - RADIOLOGY THERAPIST [address] [place] [address] Drew Huber MD [address] [place] [address] Maternal Medicine; Appointment Social History [...] Care Team (Late st Contact Info) Description 02/14/2025 11:00 AM CDT Office Visit [facility] - Rheumatology [address] [place] [phone] Zachary López MD [address] [place] [address] 2L [place] [phone] 03/21/2025 10:30 AM CDT [facility] Med [address] [place] [phone] Mendoza Xiong II, MD [address] [place] [address] 2L DIV [place] [address] documented as of this encounter Visit Diagnoses Not on filedocumented in this encounter Care Teams Gas Roller Operator Relationship Specialty Start Date End Date Mendoza Xiong II, MD [address] [place] [address] 2L DIV OF [facility] [place] [address] PCP - General Internal Medicine 02/14/24 documented as of this encounter
--- OUTSIDE RECORDS SUMMARY | 2024-12-30 15:52 | XMS_ITS | Clinical Summary ---
Author Organization [facility] Address [address] [facility] [address] [place] [address] Phone Care Team Providers Care Shredding Specialist Name Role Phone Unavailable Primary Care Provider [...] this topic Medical Devices Implanted Type Area Pharmaceutical Physician Device Identifier Shelf Expiration Date Model / Serial / Lot Seamguard Endogia 60 Blk [id number] - [id number] Implanted:Qt y: 1 on 01/20/2023 by Waqas Vaughn MD at [facility] Biological N/A: Stomach [employer] [id number] 03/18/2025 12BSGTRI 60B / / [id number] Seamguard Endogia 60 Blk [id number] - [id number] Implanted:Qt y: 1 on 01/20/2023 by Waqas Vaughn MD at [facility] Biological N/A: Stomach [employer] [id number] 03/18/2025 12BSGTRI 60B / / [id number] Seamguard Endogia 60 Prpl [id number] - [id number] Implanted:Qt y: 1 on 01/20/2023 by Waqas Vaughn MD at [facility] Biological N/A: Stomach [employer] [id number] 11/15/2024 12BSGTRI 60P / / [id number] Seamguard Endogia 60 Prpl [id number] - [id number] Implanted:Qt y: 1 on 01/20/2023 by Waqas Vaughn MD at [facility] Biological N/A: Stomach [employer] [id number] 11/15/2024 12BSGTRI 60P / / [id number] Seamguard Endogia 60 Prpl [id number] - [id number] Implanted:Qt y: 1 on 01/20/2023 by Waqas Vaughn MD at [facility] N/A: Stomach [employer] [id number] 04/26/2025 12BSGTRI 60P / / [id number] Screw Screw Right: Foot Insurance [address] BLUE ACCESS/TRUE BLUE PPO [place] [address] RX [facility] [employer] RX PERES PLANS (INTERNAL) [facility] Internal Plans Advance Directives For more information, please contact: [phone] * Full Code (Latest Code Status on File) Date Activated Date Inactivated Comments 01/20/2023 9:47 AM 01/21/2023 4:27 PM * Full Code Date Activated Date Inactivated Comments 01/20/2023 8:14 AM 01/20/2023 9:47 AM * Full Code Date Activated Date Inactivated Comments 01/15/2023 9:08 AM 01/15/2023 2:00 PM
--- OUTSIDE RECORDS SUMMARY | 2024-12-30 15:52 | XMS_ITS | Encounter Summary ---
Author Organization [facility] Health Address [address] [facility] [place] [address] Care Team Providers Care Data Warehouse Architect Name Role Phone Tyrese MCCULLOUGH MD, Mendoza Anderson Primary Care Provider + Reason for Visit * Reason Onset Date Comments Question 12/13/2024 Encounter Details Date Type Department Care Team (Late st Contact Info) Description 12/13/2024 Telephone [facility] [address] [place] [address] Apolonia Painting, JASMYN-SIGNAL MAINTENANCE TECHNICIAN [address] [place] [address] Question Social History Tobacco Use [...] Recorded Patient Health Questionnaire-2 Score 0 10/19/2024 [facility] [place] of Occupat ional Health - Occupational Stress [...] in a fdc (including now)? No 06/25/2024 [place] Depression Scale Answer Date Recorded [place] Depression Scale Total 2 11/20/2024 The thought [...] any time in the past 12 m [facility], were you homeless or living in a [...] - 12/13/2024 11:28 AM CDT Beverley from [employer] services calling to ask that the patient breast pump paper work be signed by a WOOL SUPPLIER or a MD.. she will refax and pur the return fax number on paperwork.. patient is there at the moment documented in this encounter Plan of Treatment Upcoming Encounters Date Type Department Care Team (Late st Contact Info) Description 02/14/2025 11:00 AM CDT Office Visit [facility] - Rheumatology [address] [place] [phone] Zachary López MD [facility] [facility] 2L [place] [address] 03/21/2025 10:30 AM CDT [facility] [address] [place] [phone] Mendoza Xiong II, MD [facility] [facility] 2L DIV [place] [address] documented as of this encounter Visit Diagnoses Not on filedocumented in this encounter Care Teams Data Warehouse Architect Relationship Specialty Start Date End Date Mendoza Xiong II, MD [facility] [address] [facility] 2L DIV [place] [address] PCP - General Internal Medicine 02/14/24 documented as of this encounter
--- OUTSIDE RECORDS SUMMARY | 2024-12-30 15:52 | XMS_ITS | Referral Summary ---
Author Organization [facility] Address [address] [place] [address] Care Team Providers Care Psychological Tests Sales Agent Name Role Phone Helene Chin MD Unavailable [phone] Iona Mcginnis MD Unavailable [phone] Mendoza Xiong MD Primary Care Provider Encounters Date Type Department Care Team Description 11/28/2024 Results Follow-Up [facility] Convenient Care at [address] [phone] Drea Ramos PA 11/28/2024 1:15 PM CIRCUIT BOARD DRAFTER Ancillary Procedure [facility] Imaging at [address] [phone] Rib pain on left side 11/27/2024 5:15 PM CIRCUIT BOARD DRAFTER Office Visit [facility] Convenient Care at [address] [address] Emely Resendiz NP Rib pain on left side (Primary Dx) 11/23/2024 Telephone [facility] [address] [facility] [address] [place] [address] Padmini Monahan DNP 11/23/2024 Telephone [facility] [address] [facility] [address] [place] [phone] Padmini Monahan DNP 11/23/2024 10:30 AM CIRCUIT BOARD DRAFTER Telemedicine [facility] [address] [facility] [address] [place] [address] Padmini Monahan DNP ABIEL (obstructive sleep apnea) (Primary Dx); Hypersomnia; Obesity (BMI 30-39.9) 10/17/2024 Telephone [facility] [address] [facility] [address] [place] [address] Krysten Almanza, RPSGT from Last [...] by mouth daily 02/16/20 24 Active vit 22-savv-nhqkz-dha 27mg iron- 800 mcg-250 mg capsule Take [...] IgG and C-ANCA, requested detailed records from [facility]. - Bronch 05/26 at OSH reportedly inconclusive. Now s - CTA chest here (07/02): c/f sequelae of hemorrhage in LLL; polygonal CORI nodule. 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): Found on [...] Comments Blood Pressure 138/66 11/27/2024 5:15 PM CIRCUIT BOARD DRAFTER Pulse 110 11/27/2024 5:15 PM CIRCUIT BOARD DRAFTER Temperature 37.6 C (99.6 F) 11/27/2024 5:15 PM CIRCUIT BOARD DRAFTER Respiratory Rate 16 11/27/2024 5:15 PM CIRCUIT BOARD DRAFTER Oxygen Saturation 98% 11/27/2024 5:15 PM CIRCUIT BOARD DRAFTER Inhaled Oxygen Concentration - - Weight 88.9 kg (196 lb) 11/27/2024 5:15 PM CIRCUIT BOARD DRAFTER Height 160 cm (5' 3 ) 08/15/2024 7:31 PM CIRCUIT BOARD DRAFTER Body Mass Index 34.72 08/15/2024 7:31 PM CIRCUIT BOARD DRAFTER Plan of Treatment Not on file Goals [...] as needed Medical Devices Implanted Type Area Windows Mobile Developer Device Identifier Shelf Expiration Date Model / Serial / Lot Screw Right: Foot Procedures Procedure Name Priority Date/Time Associated Diagnosis Comments XR RIBS LEFT W PA CHEST Schedule ALAN, Read ALAN (Appt Today, Awaiting Results) 11/28/2024 1:24 PM CIRCUIT BOARD DRAFTER Rib pain on left side POC INFLUENZA A/B, COVID-19 ANTIGEN Routine 11/27/2024 5:41 PM CIRCUIT BOARD DRAFTER Rib pain on left side HEPATITIS PANEL, ACUTE Timed 07/02/2023 6:39 PM CDT from Last 3 Months or Most Recently Relevant to Health Maintenance Results * XR Ribs Left W PA Chest 3 or More Views (11/28/2024 1:24 PM CIRCUIT BOARD DRAFTER) Anatomical Region Laterality Modality Rib, Chest Left Digital Radiogra phy 11/28/2024 4:02 PM CIRCUIT BOARD DRAFTER Narrative 11/28/2024 4:07 PM CIRCUIT BOARD DRAFTER EXAM DESCRIPTION: XR RIBS LEFT W PA [...] signed by Deni MIRANDA T: Report ID: [id number] Reading Location: [id number] Procedure Note Deni Calhoun MD - 11/28/2024 [...] signed by Deni MIRANDA T: Report ID: [id number] Reading Location: [id number] Emely Resendiz SYNOPTIC METEOROLOGIST IMG XR PROCEDURES Final Re sult * POC Influenza A/B, COVID-19 antigen (11/27/2024 5:41 PM CIRCUIT BOARD DRAFTER) Influenza A Ag, POC Negative Negative [facility] Influenza B Ag, POC Negative Negative [facility] COVID-19 Ag POC Presumptive Negative Presumptive Negative, Invalid [facility] Nasal 11/27/2024 5:41 PM CIRCUIT BOARD DRAFTER Emely Rseendiz NP POINT OF CARE TEST ORDERAB LES Final Result [facility] EDW [address] [place] [address] * Hepatitis panel, acute Blood (07/02/2023 6:39 PM CDT) Hep A IgM Nonreactive Nonreactive Hep B core IgM Nonreactive Nonreactive [facility] Hep C Ab Nonreactive Nonreactive [facility] Comment:Antibodies to HCV no t detected. Does NOT exclude the possibility of recent exposure to HCV. Current interpretive data was last revised on 22 HepBsAg Nonreactive Nonreactive [facility] Blood 07/02/2023 6:39 PM CDT 07/02/2023 7:02 PM CDT Darien Moody MD LAB MICROBIOLOGY - GENERAL ORDERABLES Final Result [facility] Department [place] [address] from Last 3 Months or Most Recently Relevant to Health Maintenance [place] [place] [address] [facility] Member Subscriber Plan / Payer (Ef fective 2020-Present) Name:Apolonia Bailey Relation to Subscriber:Self Name:Apolonia Bailey Payer ID:[id number] (NAIC) Type:MEDICAID RISK OTHER Address: [place] [id number] [facility] Advance Directives For more information, please contact: [phone] * Full Code (Latest Code Status on File) Date Activated Date Inactivated Comments 08/25/2023 5:50 PM 08/26/2023 7:45 PM * Full Code Date Activated Date Inactivated Comments 07/01/2023 1:26 PM 07/09/2023 10:18 PM * Full Code Date Activated Date Inactivated Comments 06/26/2023 12:56 AM 06/26/2023 5:43 PM Care Teams Psychological Tests Sales Agent Relationship Specialty Start Date End Date Mendoza Xiong MD [address] [place] [address] PCP - General Internal Medicine 02/22/24 Helene Chin MD Fellow Pulmonary Disease 08/10/23 Iona Mcginnis MD [facility] [place] [address] Fellow Rheumatology 08/10/23
--- OUTSIDE RECORDS SUMMARY | 2024-12-30 15:52 | XMS_ITS | Encounter Summary ---
Author Organization [facility] Health Address [address] [place] [address] Care Team Providers Care Body Shop Estimator Name Role Phone Tyrese MCCULLOUGH MD, Mendoza Anderson Primary Care Provider + Encounter Details Date Type Department Care Team (Late st Contact Info) Description 12/27/2024 Orders Only [facility] - Pain Mgmt [address] [place] [address] Chemo Neal MD [address] [place] [address] Thoracic radiculitis; Chronic bilateral low back pain with bilateral sciatica Social History Tobacco Use Types Packs/Day Years [...] Recorded Patient Health Questionnaire-2 Score 0 10/19/2024 [place] of Occupat ional Health - Occupational Stress [...] place to sleep or slept in a fci (including now)? No 06/25/2024 [place] Depression Scale Answer Date Recorded [place] Depression Scale Total 1 12/21/2024 The thought [...] time in the past 12 m [facility], were you homeless or living in a fci (including now)? No 11/16/2024 Education Answer Date [...] Description 02/14/2025 11:00 AM CDT Office Visit [facility] - Rheumatology [address] [place] [phone] Zachary López MD [facility] 2L [place] [phone] 03/21/2025 10:30 AM CDT Office Visit [facility] - Internal Med [address] [place] [phone] Mendoza Xiong II, MD [address] [place] [address] 2L DIV OF [facility] [place] [address] documented as of this encounter Visit Diagnoses Diagnosis Thoracic radiculitis Thoracic or lumbosacral neuritis or radiculitis, unspecified Chronic bilateral low back pain with bilateral sciatica documented in this encounter Care Teams Body Shop Estimator Relationship Specialty Start Date End Date Mendoza Xiong II, MD [address] [place] [address] 2L DIV OF [facility] [place] [address] PCP - General Internal Medicine 02/14/24 documented as of this encounter
--- OUTSIDE RECORDS SUMMARY | 2024-12-30 15:52 | XMS_ITS | Encounter Summary ---
Author Organization [facility] Healthcare Address [address] [place] [address] Care Team Providers Care Account Support Analyst Name Role Phone Palmira Blanco MD Primary Care Provider Helene Chin MD Unavailable [phone] Iona Mcginnis MD Unavailable [phone] Ju Chirinos NP Primary Care Provider [phone] Mendoza Xiong MD Primary Care Provider [phone] Encounter Details Date Type Department Care Team (Late st Contact Info) Description 07/23/2023 Telephone [facility] [address] [place] [address] Aby Siddiqui, RN Social History [...] COVID: Suspected 08/23/2023 08/23/2023 08/23/2023 10:47 PM [employer] Influenza, adult 08/23/2023 08/23/2023 08/30/2023 3:06 AM [employer] COVID: Suspected 12/17/2023 12/17/2023 12/17/2023 4:22 PM CDT Rhino/Enterovirus 12/17/2023 12/17/2023 12/24/2023 3:05 AM CDT COVID: Suspected 11/27/2024 11/27/2024 11/27/2024 5:42 PM [employer] documented as of this encounter Care Teams Account Support Analyst Relationship Specialty Start Date End Date Palmira Blanco MD PCP - General Hematology 07/09/23 08/10/23 Ju Chirinos, JENNY [address] [place] [address] PCP - General Nurse Practitioner 08/11/23 02/21/24 Mendoza Xiong MD [address] [place] [address] PCP - General Internal Medicine 02/22/24 Helene Chin MD Fellow Pulmonary Disease 08/10/23 Iona Mcginnis MD [address] [place] [address] Fellow Rheumatology 08/10/23 documented as of this encounter
--- OUTSIDE RECORDS SUMMARY | 2024-12-30 15:52 | XMS_ITS | Clinical Summary ---
Author Organization [facility] Address [address] [facility] [place] [address] Care Team Providers Care Agriscience Instructor Name Role Phone Tyrese MCCULLOUGH MD, Mendoza Anderson Primary Care Provider + Source Comments [facility],non-owned Affiliates and Associated Physician Practices is amultiple site organization consisting of ambulatory clinics and hospital sitesin [place], [place], [place] and [place]. This disclosure is being madepursuant to the Care Everywhere program and may not contain all information available regarding this patient. Last updated 18.[facility] Allergies Active Allergy Reactions Criticality Noted Date [...] acetonide (Kenalog) 0.1 % creamIndications :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[facility]) Apply to affected area 2 times daily 45 g 1 11/29/19 25 Active senna (Senokot) 8.6 MG tabletIndication s:Drug induced constipation Take 1 (one) tablet by mouth once daily 90 tablet 1 12/06/19 25 025 Active Cimzia, 2 Syringe, injectionIndicat ions:Psoriatic arthritis ([facility]) INJECT 2 SYRINGES UNDER THE SKIN EVERY [...] one-half) tablets by mouth Active Vit-Fe Fumarate-FA (M- Plus) 27-1 MG TABS [...] ns:Supervision of high risk in second trimester ([facility]),H/O gastric sleeve Use 1 Lancet 4 times daily 100 Each 06/29/20 24 025 Discontinued(Li st Clean-Up) Insulin Pen Needle ([employer] Pen [place]) 32G X 4 MM MISCIndications: Insulin controlled gestational diabetes mellitus (GDM) in third trimester ([facility]) Use 1 Each once daily 100 Each 3 08/17/20 24 025 Discontinued(Li st Clean-Up) Cimzia, 2 Syringe, injectionIndicat ions:Psoriatic arthritis ([facility]) INJECT 2 SYRINGES UNDER THE SKIN EVERY [...] Encounters Date Type Department Care Team Description 12/27/2024 3:30 PM CDT Office Visit [facility] [address] [place] [phone] Zachary López MD Chaves Martins, Yuri, MD Thoracic radiculitis (Primary Dx); Chronic bilateral low back pain with bilateral sciatica; Sacroiliitis 12/27/2024 Orders Only [facility] [address] [place] [address] Chemo Neal MD Thoracic radiculitis; Chronic bilateral low back pain with bilateral sciatica 12/27/2024 Travel 12/22/2024 Telephone [facility] - PAINT SPRAYING MACHINE OPERATOR HELPER [address] [place] [address] Apolonia Painting APRN-YANNA Opened In Error 12/21/2024 9:30 AM CDT Office Visit [facility] - PAINT SPRAYING MACHINE OPERATOR HELPER [address] [place] [address] Susan Estrada, ERIC/LD Obesity, class 1 (Primary Dx); H/O gastric sleeve; Gestational diabetes mellitus (GDM), 12/21/2024 8:30 AM CDT Office Visit [facility] - PAINT SPRAYING MACHINE OPERATOR HELPER [address] [place] [address] Apolonia Painting APRN-CNP Encounter for visit (Primary Dx); History of hypertension; History of gestational diabetes; Vitamin D deficiency; Chronic pain syndrome; Microscopic polyangiitis; H/O gastric sleeve; Psoriatic arthritis 12/21/2024 Telephone [facility] - PAINT SPRAYING MACHINE OPERATOR HELPER [address] [place] [address] Apolonia Painting APRN-YANNA Refill Request 12/20/2024 Travel 12/20/2024 [facility] PAINT [employer]AYING MACHINE OPERATOR HELPER [address] [place] [address] Apolonia Painting APRN-YANNA Med Change Request 12/20/2024 Orders Only [facility] - PAINT [employer]AYING MACHINE OPERATOR HELPER [address] [place] [address] Apolonia Painting APRN-CNP 12/19/2024 11:00 AM CDT Clinical Support [facility] - Internal Med [address] [place] [phone] History of hypertension 12/19/2024 Travel 12/18/2024 Orders Only [facility] - Rheumatology [address] [place] [phone] Zachary López MD ANCA-associated vasculitis; Psoriatic arthritis; Immunosuppression due to drug therapy; Other chronic pain 12/18/2024 Orders Only [facility] - Rheumatology [address] [place] [phone] Zachary López MD ANCA-associated vasculitis ; Psoriatic arthritis; Immunosuppression due to drug therapy; Other chronic pain 12/15/2024 Orders Only [facility] Internal [facility] [address] [place] [phone] Mendoza Xiong II, MD Gastroesophageal reflux disease without esophagitis 12/13/2024 Telephone [facility] - PAINT SPRAYING MACHINE OPERATOR HELPER [address] [place] [phone] Apolonia Painting APRN-CNP Question 12/12/2024 Refill [facility] - Rheumatology [address] [place] [phone] Zachary López MD Refill Request 12/05/2024 11:30 AM CDT Office Visit [facility] - Internal Med [address] [place] [phone] Mendoza Xiong II, MD Elevated blood-pressure reading without diagnosis of hypertension (Primary Dx); Other proteinuria; Drug induced constipation 12/05/2024 Travel 11/28/2024 10:35 AM [employer] - 11/28/2024 11:59 PM [employer] Hospital Encounter [facility] DRAW STATION [address] [place] [address] Discharge Disposition: Home or Self Care 11/28/2024 10:00 AM [employer] Office Visit [facility] - Rheumatology [address] [place] [phone] Zachary López MD Microscopic polyangiitis (Primary Dx); Screening-pulmonary TB; ANCA-associated vasculitis; Psoriasis; Psoriatic arthritis; Immunosuppression due to drug therapy; High risk case management patient 11/28/2024 Travel 11/27/2024 2:20 PM [employer] Office Visit [facility] - PAINT SPRAYING MACHINE OPERATOR HELPER [address] [place] [address] Apolonia Painting APRN-CNP Flank pain (Primary Dx); Encounter for visit; History of hypertension; LUQ pain; History of recurrent UTIs; Vitamin D deficiency; History of gestational diabetes; Chronic pain syndrome; Psoriatic arthritis; H/O gastric sleeve 11/27/2024 Travel 11/27/2024 Telephone [facility] [address] [place] [phone] Mendoza Xiong II, MD Appointment 11/27/2024 Telephone [facility] [address] [place] [phone] Zachary López MD Medication Prior Auth Request (Cimzia) 11/23/2024 Telephone [facility] - PAINT [employer]ING MACHINE OPERATOR HELPER [address] [place] [address] Apolonia Painting APRN-CNP Coordination Of Care 11/20/2024 1:40 PM [employer] Office Visit [facility] - PAINT SPRAYING MACHINE OPERATOR HELPER [address] [place] [address] Apolonia Painting APRN-CNP Encounter for visit (Primary Dx); Elevated blood pressure reading; History of hypertension; History of gestational diabetes; Psoriatic arthritis; Chronic pain syndrome; Vitamin D deficiency; Microscopic polyangiitis; H/O gastric sleeve; ABIEL (obstructive sleep apnea) 11/20/2024 Travel 11/16/2024 9:25 PM [employer] - 11/16/2024 11:23 PM [employer] Hospital Encounter [facility] 5 [facility] [address] [place], [place] [phone] Kavya Noel MD Discharge Disposition: Home or Self Care 11/09/2024 8:14 PM [employer] Anesthesia Event [facility] [address] [phone] Leo Gonzáles MD Lashley, Melissa J, MAILROOM COORDINATOR-TAR MAN 11/09/2024 11:43 AM [employer] - 11/11/2024 12:45 PM [employer] Hospital Encounter [facility] 6W MOTHER/BABY [address] [place] [address] Manuel Ayers DO Maternal/ Medicine Discharge Disposition: Home or Self Care 11/09/2024 Telephone [facility] - PAINT [employer] MACHINE OPERATOR HELPER [address] [place] [address] Apolonia Painting APRN-CNP Concerns; Induction 11/06/2024 11:40 AM [employer] visit [facility] - PAINT SPRAYING MACHINE OPERATOR HELPER [address] [place] [address] Apolonia Painting APRN-CNP GA: 38w4d 11/06/2024 11:00 AM [employer] [facility] PAINT SPRAYING MACHINE OPERATOR HELPER [address] [place] [address] Insulin controlled gestational diabetes mellitus (GDM) in third trimester ; AMA (advanced maternal age) multigravida 35+, third trimester 11/06/2024 10:30 AM [employer] [facility] PAINT SPRAYING MACHINE OPERATOR HELPER [address] [place] [address] Insulin controlled gestational diabetes mellitus (GDM) in third trimester 11/06/2024 10:00 AM [employer] Office Visit [facility] - PAINT [employer]ING MACHINE OPERATOR HELPER [address] [place] [address] Susan Estrada, RD/LD Insulin controlled gestational diabetes mellitus (GDM) in third trimester (Primary Dx); Bariatric surgery status complicating , third trimester; Obesity (BMI 35.0-39.9 without comorbidity) 11/06/2024 Travel 11/02/2024 10:00 AM [employer] Procedure visit [facility] - PAINT SPRAYING MACHINE OPERATOR HELPER [address] [place] [address] Insulin controlled gestational diabetes mellitus (GDM) in third trimester 11/02/2024 Travel 10/30/2024 11:40 AM [employer] visit [facility] - PAINT SPRAYING MACHINE OPERATOR HELPER [address] [place] [address] Apolonia Painting APRN-CNP GA: 37w4d 10/30/2024 11:00 AM [employer] Procedure visit [facility] - PAINT SPRAYING MACHINE OPERATOR HELPER [address] [place] [address] Insulin controlled gestational diabetes mellitus (GDM) in third trimester ; affected by previous bariatric surgery, currently in third trimester; AMA (advanced maternal age) multigravida 35+, third trimester; Maternal obesity syndrome in third trimester; Encounter for ultrasound to assess growth 10/30/2024 10:30 AM [employer] Procedure visit [facility] - PAINT SPRAYING MACHINE OPERATOR HELPER [address] [place] [address] Insulin controlled gestational diabetes mellitus (GDM) in third trimester 10/30/2024 Travel 10/26/2024 10:00 AM [employer] Procedure visit [facility] - PAINT SPRAYING MACHINE OPERATOR HELPER [address] [place] [address] Insulin controlled gestational diabetes mellitus (GDM) in third trimester 10/26/2024 Travel 10/23/2024 1:30 PM [employer] Office Visit [facility] - PAINT SPRAYING MACHINE OPERATOR HELPER [address] [place] [address] Susan Estrada, RD/LD Insulin controlled gestational diabetes mellitus (GDM) in third trimester (Primary Dx); Supervision of high risk in third trimester 10/23/2024 1:00 PM [employer] visit [facility] - PAINT SPRAYING MACHINE OPERATOR HELPER [address] [place] [address] Apolonia Painting APRN-CNP GA: 36w4d 10/23/2024 9:59 AM [employer] - 10/23/2024 11:59 PM [employer] Hospital Encounter [facility] MATERNAL/ EVALUATION UNIT [address] [place] [address] Yolande Hardy MD Discharge Disposition: Home or Self Care 10/23/2024 9:45 AM [employer] - 10/23/2024 9:58 AM [employer] Hospital Encounter [facility] MATERNAL/ EVALUATION UNIT [address] [place] [address] Yolande Hardy MD Discharge Disposition: Home or Self Care 10/23/2024 Telephone [facility] - PAINT SPRAYING MACHINE OPERATOR HELPER [address] [place] [address] Apolonia Painting APRN-CNP Appointment 10/23/2024 Travel 10/19/2024 10:42 AM [employer] - 10/19/2024 11:59 PM [employer] Hospital Encounter [facility] [address] [place] [address] Apolonia Painting APRN-CNP Discharge Disposition: Home or Self Care 10/19/2024 10:00 AM [employer] Procedure visit [facility] - PAINT SPRAYING MACHINE OPERATOR HELPER [address] [place] [address] Gestational diabetes mellitus, class A2 10/19/2024 Telephone [facility] - PAINT SPRAYING MACHINE OPERATOR HELPER [address] [place] [address] Apolonia Painting APRN-CNP Appointment 10/19/2024 Travel 10/16/2024 11:40 AM [employer] visit [facility] - PAINT SPRAYING MACHINE OPERATOR HELPER [address] [place] [address] Apolonia Painting APRN-CNP GA: 35w4d 10/16/2024 11:00 AM [employer] Procedure visit [facility] - PAINT SPRAYING MACHINE OPERATOR HELPER [address] [place] [address] Gestational diabetes mellitus, class A2 ; affected by previous bariatric surgery, currently in third trimester; AMA (advanced maternal age) multigravida 35+, third trimester; Maternal obesity syndrome in third trimester 10/16/2024 10:30 AM [employer] Procedure visit [facility] - PAINT SPRAYING MACHINE OPERATOR HELPER [address] [place] [address] Gestational diabetes mellitus, class A2 10/16/2024 10:00 AM [employer] Office Visit [facility] - PAINT SPRAYING MACHINE OPERATOR HELPER [address] [place] [address]/LD Insulin controlled gestational diabetes mellitus (GDM) in third trimester (Primary Dx); Bariatric surgery status complicating , third trimester 10/16/2024 Travel 10/12/2024 10:00 AM [employer] Procedure visit [facility] - PAINT SPRAYING MACHINE OPERATOR HELPER [address] [place] [address] Supervision of high risk in third trimester 10/12/2024 Travel 10/09/2024 10:00 AM [employer] - 10/09/2024 11:59 PM [employer] Hospital Encounter [facility] MATERNAL/ EVALUATION UNIT [address] [place] [address] Drew Huber MD Discharge Disposition: Home or Self Care 10/09/2024 9:45 AM [employer] - 10/09/2024 9:59 AM [employer] Hospital Encounter [facility] MATERNAL/ EVALUATION UNIT [address] [place] [address] Drew Huber MD Discharge Disposition: Home or Self Care 10/09/2024 Travel 10/05/2024 3:30 PM [employer] [facility] - PAINT SPRAYING MACHINE OPERATOR HELPER [address] [place] [address] Gestational diabetes mellitus, class A2 10/05/2024 3:15 PM [employer] Procedure visit [facility] - PAINT SPRAYING MACHINE OPERATOR HELPER [address] [place] [address] Gestational diabetes mellitus, class A2 10/05/2024 1:40 PM [employer] visit [facility] - PAINT SPRAYING MACHINE OPERATOR HELPER [address] [place] [address] Apolonia Painting APRN-CNP GA: 34w0d 10/05/2024 11:37 AM [employer] - 10/05/2024 11:59 PM [employer] Hospital Encounter [facility] [address] [place] [address] Apolonia Painting APRN-CNP Discharge Disposition: Home or Self Care 10/05/2024 Travel from Last 3 Months Immunizations Name Administration Dates Next Due INFLUENZA VACCINE, TRIV. (AF LURIA, FLUZONE TRIVALENT; 6MO+) (IIV3) 07/03/2013 BCG FCI, HISTORIC VACCINE 07/13/2019 FLU VACCINE TRI IIV3 [...] Former Cigarettes 1 2016 Smokeless Tobacco: Never Tobacco Cessation:Counseling Given: [...] Recorded Patient Health Questionnaire-2 Score 0 10/19/2024 [facility] - Occupational Stress [...] money to buy more. Never true 11/16/19 25 Within the past 12 months, t he [...] place to sleep or slept in a detention (including now)? No 06/25/2024 [place] Depression Scale Answer Date Recorded [place] Depression Scale Total 1 12/21/2024 The thought [...] any time in the past 12 m [facility], were you homeless or living in a detention (including now)? No 11/16/2024 Education Answer Date [...] Sign Reading Time Taken Comments Blood Pressure 121/83 12/27/2024 3:43 PM CDT Pulse 90 12/27/2024 3:43 PM CDT Temperature 36.6 C (97.8 F) 12/27/2024 3:43 PM CDT Respiratory Rate 20 12/27/2024 3:43 PM CDT Oxygen Saturation 99% 12/19/2024 11:01 AM CDT Inhaled Oxygen Concentration - - Weight 89.8 kg (198 lb) 12/27/2024 3:43 PM CDT Height 160 cm (5' 3 ) 12/27/2024 3:43 PM CDT Body Mass Index 35.07 12/27/2024 3:43 PM CDT Plan of Treatment Upcoming Encounters Date Type Department Care Team (Late st Contact Info) Description 02/14/2025 11:00 AM CDT Office Visit [facility] Rhe[facility]ology [address] [place] [phone] Zachary López MD [address] [place] [address] [address] [place] [phone] 03/21/2025 10:30 AM CDT Office Visit [facility] Internal Med [address] [place] [phone] Mendoza Xiong II, MD [address] [place] [address] [address] DIV [place] [address] Health Maintenance Due Date Last Done Comments PAP SMEAR 1988 COVID-19 VACCINE (#1) 1993 HEPATITIS B VACCINE (1 of 3 - 19+ 3-dose series) 2007 ZOSTER VACCINE (1 of 2) 2007 PNEUMOCOCCAL VACCINE (2 of 2 - PCV) 08/07/2012 08/07/2011 INFLUENZA VACCINE (Season Ended) 2025 07/04/2023, 06/24/2020, 07/03/2019, Additional history exists DTAP/TDAP/TD VACCINES [...] URINE RANDOM PNL Routine 11/28/2024 11:41 AM [employer] ANCA-associated vasculitis URINALYSIS W/MICROSCOPIC REFLEX TO CULTURE Routine 11/28/2024 11:41 AM [employer] ANCA-associated vasculitis MPO/MO 3 AUTOANTIBODIES PANEL Routine 11/28/2024 11:41 AM [employer] ANCA-associated vasculitis Therapeutic drug monitoring NEUTROPHIL CYTOPLASMIC ANTIBODY Routine 11/28/2024 11:41 AM [employer] ANCA-associated vasculitis Therapeutic drug monitoring HEPATIC FUNCTION PANEL Routine 11:41 AM [employer] ANCA-associated vasculitis Therapeutic drug monitoring CREATININE BLOOD Routine 11/28/2024 11:4 1 AM [employer] ANCA-associated vasculitis Therapeutic drug monitoring CBC W AUTO DIFFERENTIAL Routine 11/28/2024 11:41 AM [employer] ANCA-associated vasculitis Therapeutic drug monitoring CULTURE URINE Routine 11/28/2024 11:41 AM [employer] ANCA-associated vasculitis CULTURE URINE Routine 11/27/2024 3:13 PM [employer] LUQ pain History of recurrent UTIs URINALYSIS - POINT OF CARE (AMB) [facility] Routine 11/27/2024 3:08 PM [employer] Flank pain COMPREHENSIVE METABOLIC PANEL STAT 11/16/2024 10:01 PM [employer] Elevated blood pressure affecting in third trimester, antepartum CBC W AUTO DIFFERENTIAL STAT 11/16/2024 10:01 PM [employer] Elevated blood pressure affecting in third trimester, antepartum GLUCOSE - POINT OF CARE Routine 11/11/2024 7:29 AM [employer] GLUCOSE - POINT OF CARE Routine 11/11/2024 7:00 AM [employer] CBC W AUTO DIFFERENTIAL AM Draw 11/11/2024 3:52 AM [employer] PATHOLOGY TISSUE EXAM (STL) Routine 11/10/2024 5:21 AM [employer] History of gestational diabetes BLOOD GASES CORD ADRIANA (ISTAT) Routine 11/10/2024 3:56 AM [employer] BLOOD GASES CORD ART (ISTAT) Routine 11/10/2024 3:48 AM [employer] GLUCOSE - POINT OF CARE Routine 11/10/2024 2:04 AM [employer] GLUCOSE - POINT OF CARE Routine 11/09/2024 11:44 PM [employer] GLUCOSE - POINT OF CARE Routine 11/09/2024 9:47 PM [employer] NEURAXIAL BLOCK Routine 11/09/2024 8:45 PM [employer] GLUCOSE - POINT OF CARE Routine 11/09/2024 7:49 PM [employer] GLUCOSE - POINT OF CARE Routine 11/09/2024 5:43 PM [employer] GLUCOSE - POINT OF CARE Routine 11/09/2024 4:01 PM [employer] GLUCOSE - POINT OF CARE Routine 11/09/2024 1:52 PM [employer] TYPE + SCREEN PANEL STAT 11/09/2024 1 2:42 PM [employer] COMPREHENSIVE METABOLIC PANEL Routine 11/09/2024 12:42 PM [employer] SYPHILIS ANTIBODY CASCADING REFLEX STAT 11/09/2024 12:42 PM [employer] CBC W AUTO DIFFERENTIAL STAT 11/09/2024 12:42 PM [employer] GLUCOSE - POINT OF CARE Routine 11/09/2024 12:24 PM [employer] SONOGRAM - COMPLETE Routine 11/06/2024 1 1:38 AM [employer] Insulin controlled gestational diabetes mellitus (GDM) in third trimester AMA (advanced maternal age) multigravida 35+, third trimester URINALYSIS - POINT OF CARE (AMB) [facility] Routine 11/06/2024 11:38 AM [employer] High risk case management patient BIOPHYSICAL PROFILE W NST Routine 10/30/2024 11:21 AM [employer] Insulin controlled gestational diabetes mellitus (GDM) in third trimester affected by previous bariatric surgery, currently in third trimester AMA (advanced maternal age) multigravida 35+, third trimester Maternal obesity syndrome in third trimester Encounter for ultrasound to assess growth URINALYSIS - POINT OF CARE (AMB) [facility] Routine 10/30/2024 10:27 AM [employer] Supervision of high risk in third trimester CULTURE STREP B Routine 10/23/2024 12:32 PM [employer] Supervision of high risk in third trimester URINALYSIS AUTO - POINT OF CARE (AMB) [facility] Routine 10/23/2024 12:15 PM [employer] Supervision of high risk in third trimester BIOPHYSICAL PROFILE W NST Routine 10/23/2024 10:37 AM [employer] Insulin controlled gestational diabetes mellitus (GDM) in third trimester Obesity affecting , antepartum, third trimester EYE EXAM Routine 10/18/2024 2:19 PM [employer] BIOPHYSICAL PROFILE W NST Routine 10/16/2024 11:37 AM [employer] Gestational diabetes mellitus, class A2 affected by previous bariatric surgery, currently in third trimester AMA (advanced maternal age) multigravida 35+, third trimester Maternal obesity syndrome in third trimester BIOPHYSICAL PROFILE W NST Routine 10/16/2024 11:37 AM [employer] Gestational diabetes mellitus, class A2 affected by previous bariatric surgery, currently in third trimester AMA (advanced maternal age) multigravida 35+, third trimester Maternal obesity syndrome in third trimester URINALYSIS - POINT OF CARE (AMB) [facility] Routine 10/16/2024 10:47 AM [employer] High risk case management patient HEMOGLOBIN A1C - POINT OF CARE (AMB) [facility] Routine 10/16/2024 10:35 AM [employer] Gestational diabetes mellitus, class A2 BIOPHYSICAL PROFILE W NST Routine 10/09/2024 10:51 AM [employer] BIOPHYSICAL PROFILE W NST Routine 10/05/2024 3:28 PM [employer] Gestational diabetes mellitus, class A2 URINALYSIS AUTO - POINT OF CARE (AMB) [facility] Routine 10/05/2024 3:01 PM [employer] Supervision of high risk in third trimester HIV-1 HIV-2 ANTIBODY + HIV P24 AG PANEL Routine 08/31/2024 1:17 PM [employer] Supervision of high risk , antepartum HEPATITIS C AB W/RFLX TO HCV RNA QN PCR 04/06/2024 from Last 3 Months or Most Recently Relevant to Health Maintenance Results * (ABNORMAL) URINALYSIS W/MICROSCOPIC REFLEX TO CULTURE (11/28/2024 11:41 AM [employer]) Color UA Brigida(A) Straw, Yellow 11/28/2024 12:20 PM [employer] [facility] Clarity UA Cloudy(A) Clear 11/28/2024 12:20 PM [facility] Specific [place] UA 1.029 1.005 - 1.030 11/28/2024 12:20 PM [facility] pH UA 5.0 5.0 - 8.0 pH 11/28/2024 12:20 PM [facility] Protein UA 1+(A) Negative 11/28/2024 12:20 PM [facility] Glucose UA Negative Negative 11/28/2024 12:20 PM [facility] Ketone UA Negative Negative 11/28/2024 12:20 PM [facility] Bilirubin UA Negative Negative 11/28/2024 12:20 PM [facility] Blood UA 2+(A) Negative 11/28/2024 12:20 PM [facility] Nitrite UA Negative Negative 11/28/2024 12:20 PM [facility] Leukocyte Esterase 3+(A) Negative 11/28/2024 12:20 PM [facility] Urobilinogen UA 4.0(A) Negative mg/dL 11/28/2024 12:20 PM [facility] RBC UA 21-50(A) None Seen, 0-2, 3-5 /HPF 11/28/2024 12:20 PM [facility] WBC UA 21-50(A) None Seen, 0-5 /HPF 11/28/2024 12:20 PM [facility] Bacteria UA Trace(A) None /HPF 11/28/2024 12:20 PM [facility] Squamous Epithelial Cells UA 11-20(A) None Seen, 0-2, 3-5 /HPF 11/28/2024 12:20 PM [facility] Mucus UA 3+ /LPF 11/28/2024 12:20 PM [facility] Urine URINE SPECIMEN OBTAINED BY CLEAN CATCH PROCEDURE / Unknown Collection / Unknown 11/28/2024 11:41 AM [employer] 11/28/2024 11:58 AM [facility] - 11/28/2024 12:20 PM [employer] Lab Status, Culture Reflex Indicated. Zachary López MD LAB - URINALYSIS ORD ERABLES [facility] [place] [id number] [place] [address], [facility] [phone] * (ABNORMAL) NEUTROPHIL CYTOPLASMIC ANTIBODY (11/28/2024 11:41 AM [employer]) [facility] Cytoplasmic (C-ANCA) <1:20 Neg:<1:20 titer 11/30/2024 8:11 AM [employer] [facility] ([facility]) p-ANCA Titer <1:20 Neg:<1:20 titer 11/30/2024 8:11 AM [employer] [facility] ([facility]) Comment: The presence of positive fluorescence exhibiting P-ANCA or C-ANCA patterns alone is not specific for the diagnosis of Miley's Granulomatosis (WG) or microscopic polyangiitis. Decisions about treatment should not be based solely on ANCA IFA results. The International ANCA Group Consensus recommends follow up testing of positive sera with both MO-3 and MPO-ANCA enzyme immunoassays. As many as 5% serum samples are positive only by EIA. Ref. AM J Clin Pathol 1999;111:507-513. Atypical p-ANCA Titer 1:160(H) Neg:<1:20 titer 11/30/2024 8:11 AM [employer] [facility] ([facility]) Comment: The atypical pANCA pattern has been observed in a significant percentage of patients with ulcerative colitis, primary sclerosing cholangitis and autoimmune hepatitis. Blood BLOOD SPECIMEN / Unknown Lab Venipuncture / Unknown 11/28/2024 11:41 AM [employer] 11/28/2024 11:51 AM [employer] Narrative [facility] ([facility]) - 11/30/2024 8:11 AM [employer] Performed at: 01 - [facility] [address] [place], [place] [id number] Label Fuser Tender: Shahbaz Solomon PhD, Phone: [phone] Zachary López MD LAB - CHEMISTRY VAHE MCKOY [facility] ([facility]) [address] [place] [address], [facility] * MPO/MO 3 AUTOANTIBODIES PANEL (11/28/2024 11:41 AM [employer]) Serine Proteinase 3 IgG 4 0 - 19 AU/mL 12/01/2024 11:07 AM [employer] [facility] ([facility]) Comment: INTERPRETIVE INFORMATION: Serine Proteinase 3, IgG 19 AU/mL or Less ........ Negative 20-25 AU/mL ............. Equivocal 26 AU/mL or Greater ..... Positive Approximately 85% of patients with a C-ANCA pattern by IFA have antibodies specific for PR3. Performed By: [facility] [address] [place] [address] Briar Wood Sorter: Aubrey Flores MD, PhD CLIA Number: [id number] Myeloperoxidase Antibody 2 0 - 19 AU/mL 12/01/2024 11:07 AM [employer] [facility] ([facility]) Comment: INTERPRETIVE INFORMATION: Myeloperoxidase Abs, IgG 19 AU/mL or Less ......... Negative 20-25 AU/mL .............. Equivocal 26 AU/mL or Greater ...... Positive Approximately 90% of patients with a P-ANCA pattern by IFA have antibodies specific for MPO. Blood BLOOD SPECIMEN / Unknown Lab Venipuncture / Unknown 11/28/2024 11:41 AM [employer] 11/28/2024 11:51 AM [employer] Zachary López MD LAB - CHEMISTRY [facility] Address City/State/ZIP Co de Phone Number [facility]) [address] [place] [address] * CULTURE URINE (11/28/2024 11:41 AM [employer]) Only the most recent of2 resultswithin the time period is included. Pathologist [facility] Culture Urine More than 2 organisms seen at >=50,000 CFU/mL. Recollect if clinically indicated. FADUMO 11/29/2024 7:49 PM [employer] [facility] MI[facility] Urine URINE SPECIMEN OBTAINED BY CLEAN CATCH PROCEDURE / Unknown Collection / Unknown 11/28/2024 11:41 AM [employer] 11/28/2024 12:19 PM [employer] Zachary López MD LAB - MICROBIOLOGY O RDERABLES [facility] [address] [place], [place] [address], [facility] [phone] * (ABNORMAL) CBC WITH DIFFERENTIAL (11/28/2024 11:41 AM [facility]) Only the most recent of4 resultswithin the time period is included. WBC 7.0 4.0 - 10.7 x10E9/L 11/28/2024 11:59 AM [facility] RBC Count 3.82(L) 3.90 - 5.20 x10E12/L 11/28/2024 11:59 AM [facility] Hemoglobin 11.5(L) 11.9 - 15.8 g/dL 11/28/2024 11:59 AM [facility] Hematocrit 34.5(L) 34.8 - 46.1 % 11/28/2024 11:59 AM [facility] MCV 90.3 80.0 - 98.0 fL 11/28/2024 11:59 AM [facility] MCH 30.1 26.7 - 33.6 pg 11/28/2024 11:59 AM [facility] MCHC 33.3 31.7 - 36.3 g/dL 11/28/2024 11:59 AM [facility] RDW-CV 12.2 11.3 - 14.8 % 11/28/2024 11:59 AM [facility] Platelet Count 181 150 - 420 x10E9/L 11/28/2024 11:59 AM [facility] MPV 9.9 7.8 - 11.4 fL 11/28/2024 11:59 AM [facility] Neutrophil % 62.0 41.0 - 74.0 % 11/28/2024 11:59 AM [facility] Lymphocyte % 22.6 17.0 - 47.0 % 11/28/2024 11:59 AM [facility] Monocyte % 12.7(H) 3.0 - 11.0 % 11/28/2024 11:59 AM [facility] Eosinophil % 2.0 0.0 - 7.0 % 11/28/2024 11:59 AM [facility] Basophil % 0.4 0.0 - 1.6 % 11/28/2024 11:59 AM [facility] Immature Granulocytes % 0.3 0.0 - 1.0 % 11/28/2024 11:59 AM [facility] Neutrophil Absolute 4.34 1.60 - 7.50 x10E9/L 11/28/2024 11:59 AM [facility] Lymphocyte Absolute 1.58 1.00 - 4.40 x10E9/L 11/28/2024 11:59 AM [facility] Monocyte Absolute 0.89 0.15 - 1.00 x10E9/L 11/28/2024 11:59 AM [facility] Eosinophil Absolute 0.14 0.00 - 0.60 x10E9/L 11/28/2024 11:59 AM [facility] Basophil Absolute 0.03 0.00 - 0.13 x10E9/L 11/28/2024 11:59 AM [facility] Blood BLOOD SPECIMEN / Unknown Lab Venipuncture / Unknown 11/28/2024 11:41 AM [employer] 11/28/2024 11:54 AM [facility] Zachary López MD LAB - HEMATOLOGY ORD ERABLES Performing Organization Address [facility]/State/[facility] Co de Phone Number [facility] [address] [place] [address], [facility] [phone] * (ABNORMAL) PROTEIN CREATININE RATIO URINE RANDOM PNL (11/28/2024 11:41 AM [employer]) Protein Urine 28 Not Established mg/dL 11/28/2024 12:33 PM [facility] Creatinine Urine 198.86 Not Established mg/dL 11/28/2024 12:33 PM [facility] Protein/Creati nine Ratio Urine 0.14(H) <0.10 11/28/2024 12:33 PM [facility] Urine URINE SPECIMEN OBTAINED BY CLEAN CATCH PROCEDURE / Unknown Collection / Unknown 11/28/2024 11:41 AM [employer] 11/28/2024 11:58 AM [employer] Zachary López MD LAB - URINE CHEMISTR Y ORDERABLES [facility] [address] [place] [address], [facility] [phone] * (ABNORMAL) HEPATIC FUNCTION PANEL (11/28/2024 11:41 AM [employer]) Protein Total 6.2 6.0 - 8.3 g/dL 025 12:27 PM [facility] Albumin 3.2(L) 3.4 - 5.0 g/dL 11/28/2024 12:27 PM [facility] Bilirubin Total 0.6 0.2 - 1.2 mg/dL 12/2024 12:27 PM [facility] Bilirubin Conjugated 0.2 0.1 - 0.5 mg/dL 11/28/2024 12:27 PM [facility] Bilirubin Unconjugated 0.4 Unconjugated Bilirubin is a calculated value: Reference ranges have not been established. mg/dL 11/28/2024 12:27 PM [facility] Alkaline Phosphatase 136 40 - 150 U/L 11/28/2024 12:27 PM [facility] ALT 13 5 - 55 U/L 11/28/2024 12:27 PM [facility] AST 11 5 - 34 U/L 11/28/2024 12:27 PM [facility] Albumin/Globulin Ratio 1.1 1.1 - 2.3 11/28/2024 12:27 PM [facility] Blood BLOOD SPECIMEN / Unknown Lab Venipuncture / Unknown 11/28/2024 11:41 AM [employer] 11/28/2024 11:54 AM [employer] Zachary López MD LAB - CHEMISTRY ORDE RABAGATA [facility] [address] [place] [address], [place] [phone] * CREATININE BLOOD (11/28/2024 11:41 AM [employer]) Creatinine 0.72 0.56 - 0.96 mg/dL 11/28/2024 12:27 PM [employer] [facility] eGFR by CKD-EPI >90 >=90 mL/min/1.7 3 m2 11/28/2024 12:27 PM [employer] [facility] Blood BLOOD SPECIMEN / Unknown Lab Venipuncture / Unknown 11/28/2024 11:41 AM [employer] 11/28/2024 11:54 AM [employer] Zachary López MD LAB - CHEMISTRY ORDE EAN [facility] [address] [place] [address], [place] [phone] * URINALYSIS - POINT OF CARE (AMB) [facility] (11/27/2024 3:08 PM [employer]) Only the most recent of4 resultswithin the time period is included. Specific [place] UA 1.[address] [facility] [address] pH [...] URINE / Unknown 11/27/2024 3 :08 PM [employer] Apolonia GONZALEZ LAB - POINT OF CARE ORDERABLES [facility] [address] [place] [address], [place] [phone] * (ABNORMAL) COMPREHENSIVE METABOLIC PANEL (11/16/2024 10:01 PM [employer]) Only the most recent of2 resultswithin the time period is included. [facility] Signature Glucose 82 70 - 99 mg/dL 11/16/2024 10:24 PM [facility] Sodium 140 136 - 145 mmol/L 11/16/2024 10:24 PM [facility] Potassium 3.4(L) 3.5 - 5.1 mmol/L 11/16/2024 10:24 PM [facility] Chloride 109(H) 98 - 107 mmol/L 11/16/2024 10:24 PM [facility] CO2 24 22 - 29 mmol/L 11/16/2024 10:24 PM [facility] Calcium 8.9 8.4 - 10.4 mg/dL [...] Unknown Venipuncture / Unknown 11/16/2024 10:01 PM [employer] 11/16/2024 10:08 PM [facility] Kavya Noel MD LAB - CHEMISTRY ORD ERABLES [facility] [address] [place] [address] * (ABNORMAL) GLUCOSE - POINT OF CARE (11/11/2024 7:29 AM [employer]) Only the most recent of10 resultswithin the time period is included. Glucose WB/POC 104(H) 70 - 99 mg/dL 11/11/2024 7:35 AM [employer] [facility] Specimen Type Cap Fingerstick 2024 7:35 AM [facility] Blood BLOOD SPECIMEN / Unknown 11/11/2024 7:29 AM [employer] 11/11/2024 7:35 AM [employer] Manuel Ayers DO LAB - POINT OF CARE ORDERABLES Performing Organization Address [facility] Co de Phone Number [facility] [address] [place] [address] * PATHOLOGY TISSUE EXAM (STL) (11/10/2024 5:21 AM [employer]) Case Report Surgical Pathology Report Case: [id number] Authorizing Provider: Erik Clemons MD Collected: 11/10/2024 05:21 AM Ordering Location: [facility] Received: 11/10/2024 07:37 AM Pathologist: Giles [...] white lesion 1 cm in greatest dimension. Senior Hadoop Developer sections submitted as follows: A1-umbilical cord and membrane roll, B2-T8-ttbppaco, A4-peripheral lesion. MILLIE/PURVI 11/13/2024 11:29 AM [facility] Microscopic Description The umbilical cord and membranes show no evidence of inflammatory infiltrate. The chorionic villi appear uniformly well-developed and well-vascularized, compatible with mature third trimester gestation. Chorangiosis is present. The lesion consists of a placental infarct. 11/13/2024 11:29 AM [facility] Pathologist Location at [facility] 11/13/2024 11:29 AM [facility] Disclaimer All histochemical and/or immunohistochemical results are interpreted with controls that demonstrate appropriate staining reactions before reporting results. Note on use of immunocytochemistry reagents: This test was developed and its performance characteristic determined by [facility], Department of Laboratory Medicine. It [...] Unknown Collection / Unknown 11/10/2024 5:21 AM [employer] 11/10/2024 7:37 AM [employer] Erik Clemons MD LAB - PATHOLOGY/CYTO LOGY ORDERABLES [facility] [address] [place], [place] [id number] * (ABNORMAL) BLOOD GASES CORD ADRIANA (ISTAT) (11/10/2024 3:56 AM [employer]) pH Cord Venous POCT 7.33 7.28 - [...] BLOOD SPECIMEN / Unknown 11/10/2024 3:56 AM [employer] 11/10/2024 4:00 AM [facility] Manuel Ayers DO LAB - POINT OF CARE ORDERABLES Performing Organization Address City/State/[facility] Co de Phone Number [facility] [address] [place] [address] * (ABNORMAL) BLOOD GASES CORD ART (ISTAT) (11/10/2024 3:48 AM [facility]) pH Cord Arterial POCT 7.10(L) 7.20 - [...] Calc POCT 22 % 11/10/2024 4:00 AM [employer] [facility] Site CORD ART 11/10/2024 4:00 AM [employer] [facility] Sample iSTAT CORD ART 11/10/2024 4:00 AM [facility] Blood CORD BLOOD SPECIMEN / Unknown 11/10/2024 3:48 AM [employer] 11/10/2024 4:00 AM [employer] Manuel Ayers DO LAB - POINT OF CARE ORDERABLES Performing Organization Address City/State/[facility] Co de Phone Number [facility] [address] [place] [address] * EPIDURAL BLOCK PERF (11/09/2024 8:45 PM [employer]) Narrative Christina Hooper APRN-TAR MAN - 11/09/2024 8:45 PM [employer] Christina Hooper APRN-TAR MAN 11/09/2024 8:46 PM Neuraxial Block Note Pre-Procedure: [...] Time: 4 Staff: Anesthesia Provider: Christina Hooper APRN-TAR MAN - performed the procedure Additional Notes: Patient [...] SYPHILIS ANTIBODY CASCADING REFLEX (11/09/2024 12:42 PM [employer]) Treponema pallidum Antibody Non Reactive Non Reactive 11/09/2024 1:52 PM [employer] [facility] Comment: No Laboratory evidence of syphilis infection. Note: Circulating antibodies may be low or undetectable in early infection. If recent exposure is suspected, re-draw sample in 2-4 weeks and repeat testing. Blood BLOOD SPECIMEN / Unknown Venipuncture / Unknown 11/09/2024 12:42 PM [employer] 11/09/2024 12:57 PM [employer] Manuel Ayers DO LAB - SEROLOGY ORDER LENCHO [facility] [address] [place] [address] * TYPE + SCREEN PANEL (11/09/2024 12:42 PM [employer]) ABO Rh A POS 11/09/2024 1:32 PM [employer] [facility] Comment:History checked. Antibody Screen NEG 1:32 PM [employer] [facility] Blood Bank BLOOD SPECIMEN / Unknown Venipuncture / Unknown 11/09/2024 12:42 PM [employer] 11/09/2024 12:57 PM [employer] Manuel Ayers DO LAB - BLOOD BANK ORD ERABLES [facility] [address] [phone] * SONOGRAM - COMPLETE (11/06/2024 11:38 AM [employer]) Linked Results Indication ======== Gestational diabetes, A2 Hx gastric sleeve Obesity, Class II AMA Psoriatic arthritis History ====== OB History 5. Para 3 [id number] Lab Tests Test Date Result Genetic screening [...] 8 lb 3 oz EFW by Hadlock ([id number]) Growth Overview Exam date GA BPD (mm) [...] (2x/week NST, weekly BPP). Coding ====== Procedures 99245: [place] [address]: Biophysical Profile W NST Sungevity PACS Anatomical Region Laterality Modality Other 11/06/2024 11:3 8 AM [employer] Apolonia Painting MAILROOM COORDINATOR-PROJECTION WELDING MACHINE OPERATOR MFM ORDERABLES * BIOPHYSICAL PROFILE W NST (10/30/2024 11:21 AM [employer]) Only the most recent of5 resultswithin the time period is included. Linked Results Indication ======== Gestational diabetes, A2 Hx gastric sleeve Obesity, Class II AMA Psoriatic arthritis History ====== OB History 5. Para 3 [id number] Lab Tests Test Date Result Genetic screening [...] NST and weekly BPP) Coding ====== Procedures 97056: US Uterus Limited 49671: Biophysical Profile W NST Sungevity PACS Anatomical Region Laterality Modality Other 10/30/2024 11:2 1 AM [employer] Apolonia Painting [facility] ORDERABLES * CULTURE STREP B (10/23/2024 12:32 PM [employer]) Culture Strep B Negative for beta-hemolytic Streptococcus Group B FADUMO 10/28/2024 1:04 PM [employer] [facility] MICROBIOLOGY Microbiology MISCELLANEOUS SAMPLES / Unknown Collection / Unknown 10/23/2024 12:32 PM [employer] 10/25/2024 1:06 PM [employer] Apolonia Painting [facility]OM [facility] LAB - MICROBIO LOGY ORDERABLES [facility] MICROBIOLOGY [address] [place] [address], [facility] [phone] * URINALYSIS AUTO - POINT OF CARE (AMB) [facility] (10/23/2024 12:15 PM [employer]) Only the most recent of2 resultswithin the time period is included. Glucose UA NEG [facility] [address] Bilirubin UA POCT NEG SL [facility] [address] Ketones UA POCT NEG [facility] [address] Specific [place] UA 1.[address] [facility] [address] Blood Urine POCT NEG [facility] [address] pH UA 6.[address] [facility] [address] Protein UA TRACE [facility] [address] Urobilinogen UA 1 [facility] [address] Nitrite UA NEG [facility] [address] WBC UA 3+ [facility] [address] Urine URINE / Unknown 10/23/2024 1 2:15 PM [employer] Apolonia Painting [facility] LAB - POINT OF CARE ORDERABLES [facility] [address] [place] [address], [facility] [phone] * EYE EXAM (10/18/2024 2:19 PM [employer]) Anatomical Region Laterality Modality Other Historical Provider MD SCANNING ONLY * HEMOGLOBIN A1C - POINT OF CARE (AMB) [facility] (10/16/2024 10:35 AM [employer]) Pathologist [facility] Hemoglobin A1c POCT 4.6 % [facility] [address] BLOOD SPECIMEN / Unknown 10/16/2024 10:35 AM [employer] Apolonia Painting MAILROOM COORDINATOR-PROJECTION WELDING MACHINE OPERATOR LAB - POINT OF CARE ORDERABLES [facility] [address] [place] [address], [facility] [phone] * HIV-1 HIV-2 ANTIBODY + HIV P24 AG PANEL (08/31/2024 1:17 PM [employer]) [facility] HIV Screen 4th Generation w Reflex NON-REACT LEIDA NON-REACT LEIDA [facility] Comment: HIV-1 antigen and HIV-1/HIV-2 antibodies were [...] purpose. For additional information please refer to http://education.Addepar.Truveris/faq/CKK467 (This link is being provided for informational/ educational purposes only.) The performance of this assay has not been clinically validated in patients less than 2 years old. Test Performed at: [facility] [address] [place] [address] SANJUANITA BRISENO MD Blood BLOOD SPECIMEN / Unknown 08/31/2024 1:17 PM [employer] 08/31/2024 1:20 PM [employer] Yolande Mathew MD LAB - CHEMISTRY VAHE [facility] [address] [place] [address] * HEPATITIS C AB W/RFLX TO HCV RNA QN PCR (04/06/2024) Hepatitis C Antibody NON-REACTI VE NON-REACT LEIDA AZAM Comment: HCV antibody was non-reactive. There is no laboratory evidence of HCV infection. In most cases, no further action is required. However, if recent HCV exposure is suspected, a test for HCV RNA (test code 16951) is suggested. For additional information please refer to http://education.Leetchi/faq/WZY52c2 (This link is being provided for informational/ educational purposes only.) Test Performed at: [facility] [address] [facility] [place] [address] SANJUANITA BRISENO MD 04/06/2024 04/06/2024 3:0 8 PM CDT Chris Ferreira MD LAB - CHEMISTRY [facility] Organization Address [facility] Co de Phone Number [address] [address] [place] [address] from Last 3 Months or Most Recently Relevant to Health Maintenance Advance Directives * Full Code (Latest Code Status on File) Date Activated Date Inactivated Comments 11/09/2024 12:11 PM 11/11/2024 2:04 PM * Full Code Date Activated Date Inactivated Comments 06/20/2024 3:11 PM 06/22/2024 5:01 PM Care Teams Agriscience Instructor Relationship Specialty Start Date End Date Mendoza Xiong II, MD [address] OF [facility] [place] [address] PCP - General Internal Medicine 02/14/24
--- OUTSIDE RECORDS SUMMARY | 2024-12-30 15:52 | XMS_ITS | Encounter Summary ---
Author Organization [facility] Healthcare Address [address] [place] [address] Care Team Providers Care Visual Educator Name Role Phone Palmira Blanco MD Primary Care Provider Helnee Chin MD Unavailable [phone] Iona Mcginnis MD Unavailable [phone] Ju Chirinos NP Primary Care Provider [phone] Mendoza Xiong MD Primary Care Provider [phone] Encounter Details Date Type Department Care Team (Late st Contact Info) Description 07/23/2023 Telephone [facility] [address] [place] [address] Aby Siddiqui, RN Social History [...] COVID: Suspected 08/23/2023 08/23/2023 08/23/2023 10:47 PM WOOD FORM BUILDER Influenza, adult 08/23/2023 08/23/2023 08/30/2023 3:06 AM WOOD FORM BUILDER COVID: Suspected 12/17/2023 12/17/2023 12/17/2023 4:22 PM CDT Rhino/Enterovirus 12/17/2023 12/17/2023 12/24/2023 3:05 AM CDT COVID: Suspected 11/27/2024 11/27/2024 11/27/2024 5:42 PM WOOD FORM BUILDER documented as of this encounter Care Teams Visual Educator Relationship Specialty Start Date End Date Palmira Blanco MD PCP - General Hematology 07/09/23 08/10/23 Ju Chirinos, JENNY [address] [place] [address] PCP - General Nurse Practitioner 08/11/23 02/21/24 Mendoza Xiong MD [address] [place] [address] PCP - General Internal Medicine 02/22/24 Helene Chin MD Fellow Pulmonary Disease 08/10/23 Iona Mcginnis MD [address] [place] [address] Fellow Rheumatology 08/10/23 documented as of this encounter
--- OUTSIDE RECORDS SUMMARY | 2024-12-30 15:52 | XMS_ITS | Clinical Summary ---
Author Organization [facility] Address [address] [place] [address] Care Team Providers Care Rubber Roller Grinder Operator Name Role Phone Helene Chin MD Unavailable [phone] Iona Mcginnis MD Unavailable [phone] Mendoza Xiong MD Primary Care Provider Allergies [...] by mouth daily 02/16/20 24 Active vit 50-arsa-nigcp-dha 27mg iron- 800 mcg-250 mg capsule Take [...] C-ANCA, requested detailed records from [facility]. - Bronch 05/26 at OSH reportedly inconclusive. Now s - CTA chest here (07/02): c/f sequelae of hemorrhage in LLL; polygonal CORI nodule. 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): Found on [...] Department Care Team Description 11/28/2024 1:15 PM ADVERTISING CLERK Ancillary Procedure [facility] Imaging at [address] [address] Rib pain on left side 11/28/2024 Results Follow-Up [facility] at [address] [address] Drea Ramos PA 11/27/2024 5:15 PM ADVERTISING CLERK Office Visit [facility] at [address] [address] Emely Resendiz, LAGGING MACHINE OPERATOR Rib pain on left side (Primary Dx) 11/23/2024 10:30 AM ADVERTISING CLERK Telemedicine [facility] [address] [place] [address] Padmini Monahan DNP ABIEL (obstructive sleep apnea) (Primary Dx); Hypersomnia; Obesity (BMI 30-39.9) 11/23/2024 Telephone [facility] [address] [place] [address] Padmini Monahan DNP 11/23/2024 Telephone [facility] [address] [place] [address] Padmini Monahan DNP 10/17/2024 Telephone [facility] [address] [place] [address] Krysten Almanza, RPSGT from Last [...] Comments Blood Pressure 138/66 11/27/2024 5:15 PM ADVERTISING CLERK Pulse 110 11/27/2024 5:15 PM ADVERTISING CLERK Temperature 37.6 C (99.6 F) 11/27/2024 5:15 PM ADVERTISING CLERK Respiratory Rate 16 11/27/2024 5:15 PM ADVERTISING CLERK Oxygen Saturation 98% 11/27/2024 5:15 PM ADVERTISING CLERK Inhaled Oxygen Concentration - - Weight 88.9 kg (196 lb) 11/27/2024 5:15 PM ADVERTISING CLERK Height 160 cm (5' 3 ) 08/15/2024 7:31 PM ADVERTISING CLERK Body Mass Index 34.72 08/15/2024 7:31 PM ADVERTISING CLERK Plan of Treatment Health Maintenance Due Date Last Done Comments Cervical Cancer Screening 1988 Varicella Vaccines (1 of 2 - 13+ 2-dose series) 2001 Hepatitis B Screening 2006 Zoster Vaccine (1 of 2) 2007 Pneumococcal vaccine <65 (2 of 2 - PCV) 08/07/2012 08/07/2011 Depression Screening 08/11/2024 08/11/2023 Regular Well Visit/Exam 18-64 08/11/2024 08/11/2023 Influenza Vaccine (Season Ended) 2025 07/04/2023, 06/24/2020, 07/03/2019, Additional history exists DTaP/Tdap/Td Vaccine (6 - Td or Tdap) [...] as needed Medical Devices Implanted Type Area Shaft Tender Device Identifier Shelf Expiration Date Model / Serial / Lot Screw Right: Foot Procedures Procedure Name Priority Date/Time Associated Diagnosis Comments XR RIBS LEFT W PA CHEST Schedule ALAN, Read ALAN (Appt Today, Awaiting Results) 11/28/2024 1:24 PM ADVERTISING CLERK Rib pain on left side POC INFLUENZA A/B, COVID-19 ANTIGEN Routine 11/27/2024 5:41 PM ADVERTISING CLERK Rib pain on left side HEPATITIS PANEL, ACUTE Timed 07/02/2023 6:39 PM CDT from Last 3 Months or Most Recently Relevant to Health Maintenance Results * XR Ribs Left W PA Chest 3 or More Views (11/28/2024 1:24 PM ADVERTISING CLERK) Anatomical Region Laterality Modality Rib, Chest Left Digital Radiogra phy 11/28/2024 4:02 PM ADVERTISING CLERK Narrative 11/28/2024 4:07 PM ADVERTISING CLERK EXAM DESCRIPTION: XR RIBS LEFT W PA [...] Deni Calhoun M.D. MJ T: Report ID: [id number] Reading Location: [id number] Procedure Note Deni Calhoun MD - 11/28/2024 [...] Deni Calhoun M.D. MJ T: Report ID: [id number] Reading Location: [place] [address] Emely Resendiz NP IMG XR PROCEDURES Final Re sult * POC Influenza A/B, COVID-19 antigen (11/27/2024 5:41 PM ADVERTISING CLERK) Influenza A Ag, POC Negative Negative [facility] Influenza B Ag, POC Negative Negative [facility] COVID-19 Ag POC Presumptive Negative Presumptive Negative, Invalid [facility] Nasal 11/27/2024 5:41 PM ADVERTISING CLERK Emely Resendiz NP POINT OF CARE TEST ORDERAB LES Final Result [facility] * Hepatitis panel, acute Blood (07/02/2023 6:39 PM CDT) Hep A IgM Nonreactive Nonreactive Hep B core IgM Nonreactive Nonreactive [facility] Hep C Ab Nonreactive Nonreactive [facility] Comment:Antibodies to HCV no t detected. Does NOT exclude the possibility of recent exposure to HCV. Current interpretive data was last revised on 22 HepBsAg Nonreactive Nonreactive [facility] Blood 07/02/2023 6:39 PM CDT 07/02/2023 7:02 PM CDT Darien Moody MD LAB MICROBIOLOGY - GENERAL ORDERABLES Final Result [facility] Department [place] [address] from Last 3 Months or Most Recently Relevant to Health Maintenance Insurance [id number] [place] [address] [facility] Advance Directives For more information, please contact: [phone] * Full Code (Latest Code Status on File) Date Activated Date Inactivated Comments 08/25/2023 5:50 PM 08/26/2023 7:45 PM * Full Code Date Activated Date Inactivated Comments 07/01/2023 1:26 PM 07/09/2023 10:18 PM * Full Code Date Activated Date Inactivated Comments 06/26/2023 12:56 AM 06/26/2023 5:43 PM Care Teams Rubber Roller Grinder Operator Relationship Specialty Start Date End Date Mendoza Xiong MD [address] [place] [address] PCP - General Internal Medicine 02/22/24 Helene Chin MD Fellow Pulmonary Disease 08/10/23 Iona Mcginnis MD [address] [place] [address] Fellow Rheumatology 08/10/23
--- OUTSIDE RECORDS SUMMARY | 2024-12-30 15:52 | XMS_ITS | Encounter Summary ---
Author Organization [facility] Healthcare Address [address] [place] [address] Care Team Providers Care Filterer Name Role Phone Helene Chin MD Unavailable [phone] Iona Mcginnis MD Unavailable [phone] Mendoza Xiong MD Primary Care Provider [phone] Encounter Details Date Type Department Care Team (Late st Contact Info) Description 11/28/2024 Results Follow-Up [facility] Con[facility]ient Care at [address] [address] Drea Ramos, QUEENIE [address] [place] [address] [address] [place] [address] Social History Tobacco Use Types [...] on filedocumented in this encounter Care Teams Filterer Relationship Specialty Start Date End Date Mendoza Xiong MD [address] [place] [address] PCP - General Internal Medicine 02/22/24 Helene Chin MD Fellow Pulmonary Disease 08/10/23 Iona Mcginnis MD [address] [place] [address] Fellow Rheumatology 08/10/23 documented as of this encounter
--- NOTE | 2024-12-30 16:46 | ED.ABDPAIN ---
HPI - Abdominal Pain General Chief Complaint: Abdominal Pain Stated Complaint: ABD PAIN, HX UMBILICAL HERNIA Time Seen by Provider: 12/30/24 16:44 Source: patient History of Present Illness HPI narrative: 34 YEARS OLD WHITE FEMALE CAME TO THE ED WITH MID ABDOMINAL PAIN. HISTORY OF VENTRAL HERNIA FOR A WHILE,. TODAY IS MORE BULGING, HARD UNABLE TO PUSH IT BACK. WAS SEEN BY SURGERY 1 WEEK AGO, NOT SCHEDULED FOR SURGERY AT. SHE DENIES ANY FEVER OR CHILLS, OR VOMITING. STARTED LAST NIGHT, GOT WORSE THIS MORNING. HISTORY OF CHOLECYSTECTOMY. Related Data Home Medications ?Medication ?Instructions ?Recorded ?Confirmed ?Last Taken ?Type Calcium 500 + D (D3) 1 cap PO DAILY 05/17/23 12/15/24 05/25/23 History clobetasol 0.05 % scalp solution topical 08/30/24 12/15/24 Unknown History cyclobenzaprine 10 mg tablet mg 08/30/24 12/15/24 Unknown History ferrous sulfate 325 mg (65 mg mg 08/30/24 12/15/24 Unknown History iron) tablet folic acid 1 mg tablet 08/30/24 12/15/24 Unknown History azathioprine 100 mg tablet 150 mg PO DAILY 12/13/24 12/15/24 Unknown History certolizumab pegol 200 mg/mL 200 mg subcut ONCE 12/13/24 12/15/24 Unknown History subcutaneous syringe kit (Cimzia) Allergies Allergy/AdvReac Type Severity Reaction Status Date / Time amoxicillin Allergy Severe Swelling Verified 12/30/24 15:50 of Lip/Tongue/Throat zolpidem (From Ambien) Allergy Severe Rash Verified 12/30/24 15:50 adhesive tape Allergy Intermediate Rash, Verified 12/30/24 15:50 Pulled skin off clindamycin Allergy Swelling Verified 12/30/24 15:50 of Lip/Tongue/Throat sulfamethoxazole (From Allergy Hives Verified 12/30/24 15:50 Bactrim) trimethoprim (From Bactrim) Allergy Hives Verified 12/30/24 15:50 Review of Systems Review of Systems: All systems reviewed & are unremarkable except as noted in HPI and below PMFSH Past Medical History Medical History Pneumonia Abdominal wall pain GERD without esophagitis COVID-19 Chronic, continuous use of opioids oxycodone Bronchocentric granulomatosis 2012 Open wound of umbilical region (~04/27/20) History of jejunostomy tube placement Immunosuppression due to drug therapy Insomnia Asthma Hx of gangrene (~07/2019) gangrenous gall bladder, ruptured GB History of sepsis (~10/2019) perforated duodenum from surgical procedure Morbid obesity (Unknown) Psoriatic arthritis (Unknown) Allergies Asthma Surgical History Surgical History H/O gastric sleeve History of foot surgery 2008 - ORIF fracture 5th metatarsal. History of abdominal surgery 2018 -2020 - exploratory la History of tonsillectomy History of cholecystectomy (~07/2019) 05/05/21 Laparoscopic cholecystectomy with intraoperative cholangiogram 2. Extensive lysis of adhesions greater than 1 hour (laparoscopic) 3. Excision of chronic granulating wound tract right upper quadrant. 4. Repair with sutures of moderate size umbilical hernia. 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 Lives with her and 3 children. Smoking packs per day: 1 Smoking cigarettes per day: 20.0 Years smoked: 10 Smoking pack-years: 10.00 Smoking status: Former smoker Tobacco type: cigarettes Second hand tobacco smoke exposure: No Smoking end date: 06/01/17 Alcohol intake: current Drinks per week: 1 Substance use: never Substance use type: does not use Do You Feel Safe in your Home?: Yes Lack of Transportation: No Lack of Food: Sometimes True Current Housing: I Have Housing Concerned About Future Housing: No Difficulty Paying Gas/Electric Bills: No Difficulty Paying for Meds: No Currently Unemployed: No Education: High School Diploma/GED Difficulty w/ Childcare or Family Care: No Living arrangements: with family Occupation/Education: occupation Gender identity (if verbalized by the patient): Female Sexual Orientation (if Verbalized by the Patient): Straight or Heterosexual Spiritual care concerns: No Agree to blood products: Yes Exam Narrative: GENERAL APPEARANCE: WELL-DEVELOPED, WELL-NOURISHED SKIN: NORMAL COLOR HEAD: NORMOCEPHALIC, NONTRAUMATIC EYES: CLEAR CONJUNCTIVA ENT: OROPHARYNX NORMAL, EARS NORMAL, NOSE NORMAL NECK: SUPPLE, NONTENDER CHEST AND RESPIRATORY: AIRWAY PATENT, NO RESPIRATORY DISTRESS, NO ACCESSORY MUSCLE USE HEART: REGULAR RATE/RHYTHM ABDOMEN: SOFT, MID ABDOMINAL HERNIA, HARD IN CONSISTENCY, TENDER,, NO ORGANOMEGALY, QUIET BOWEL SOUNDS VASCULAR: NORMAL PERIPHERAL PULSES, NORMAL CAPILLARY REFILL. MUSCULOSKELETAL: NORMAL RANGE OF MOTION, NONTENDER BACK NEUROLOGIC: ALERT AND ORIENTED ?3, FORENSIC SCIENTIST IS NORMAL TESTED, NO GROSS MOTOR DEFICIT Procedures Other Procedure Procedure 1: Other Procedure: ABDOMINAL HERNIA, MID ABDOMEN, BULGING, DIFFUSELY TENDER, FIRM IN CONSISTENCY, CONSTANT GRADUAL PROGRESSIVE PRESSURE WITH SLIGHT MANIPULATION, THE HERNIA WAS REDUCED WITH REMARKABLE IMPROVEMENT. PATIENT FEELS MUCH BETTER. NORMAL BOWEL SOUNDS. Course Consultations Consultation #1: DR CANTOR OUTPATIENT FOLLOW-UP WEDNESDAY, ABDOMINAL BINDER Date: 12/30/24 Vital Signs Vital signs: Vital Signs Temperature 36.2 C L 12/30/24 15:52 Pulse Rate 73 12/30/24 15:52 Respiratory Rate 20 12/30/24 15:52 Blood Pressure 155/101 H 12/30/24 15:52 Pulse Oximetry 100 12/30/24 15:52 Oxygen Delivery Room Air 12/30/24 15:52 Temperature 36.2 C L 12/30/24 15:52 Pulse Rate 64 12/30/24 19:00 Respiratory Rate 20 12/30/24 19:00 Blood Pressure 127/74 12/30/24 19:00 Pulse Oximetry 99 12/30/24 19:00 Oxygen Delivery Room Air 12/30/24 15:52 MDM - Abdominal Pain MDM Narrative Medical decision making narrative: PATIENT PRESENTS WITH TENDER, BULGING MID ABDOMINAL HERNIA VITAL SIGNS SHOWING BLOOD PRESSURE 155/101 PHYSICAL EXAMINATION CONSISTENT WITH MID ABDOMINAL HERNIA, REDUCED WITH GRADUAL PROGRESSIVE PRESSURE. DIFFERENTIAL DIAGNOSIS ABDOMINAL HERNIA. BLOOD WORKUP TODAY INCLUDES CBC, CMP, LIPASE SHOWED WBC 11.3, OTHERWISE INSIGNIFICANT ABNORMALITY URINALYSIS SHOWED EVIDENCE OF URINARY TRACT INFECTION CT SCAN OF THE ABDOMEN AND PELVIS WITH IV CONTRAST SHOWED LARGE FAT CONTAINING UMBILICAL HERNIA WITH INFLAMMATORY CHANGE, CORRELATE FOR PAIN/TENDERNESS. SHORT SEGMENT WALL THICKENING INVOLVING SHORT SEGMENT OF TRANSVERSE COLON DEEP TO THE HERNIA WHICH WAS PREVIOUSLY LOCATED IN THE HERNIA SAC, MAY REPRESENT RECENT REDUCTION, WITH INFLAMMATORY CHANGE/COLITIS BLADDER WALL THICKENING FROM CYSTITIS OR INCOMPLETE DISTENSION Lab Data 12/30/24 17:16 12/30/24 17:16 Labs: Lab Results 12/30/24 12/30/24 Range/Units 17:16 17:20 WBC 11.3 H (4.5-10.0) K/mm3 RBC 4.25 (4.2-5.4) M/mm3 Hgb 12.8 (12.0-15.0) g/dL Hct 38.5 (37.0-47.0) % MCV 90.6 (80-100) fl MCH 30.1 (26-34) pg MCHC 33.2 (32-36) g/dl RDW 12.4 (11.5-14.5) % Plt Count 196 (150-375) k/mm3 MPV 9.3 (7.4-10.4) fl Immature Gran % (Auto) 0.2 (0-0.5) % Neut % (Auto) 79.9 H (45.5-73.1) % Lymph % (Auto) 14.8 L (18.3-44.2) % Reynolds % (Auto) 4.0 (2.6-8.5) % Eos % (Auto) 0.8 (0-4.4) % Baso % (Auto) 0.3 (0.2-1.2) % Lymph # (Auto) 1.67 (0.9-3.2) K/mm3 Reynolds # (Auto) 0.5 (0.1-0.6) K/mm3 Eos # (Auto) 0.1 (0-0.3) K/mm3 Baso # (Auto) 0.0 (0.0-0.1) K/mm3 Abs Immat Gran (auto) 0.02 (0.00-0.031) K/mm3 Absolute Neuts (auto) 9.0 H (1.3-6.7) K/mm3 Absolute Nucleated RBC 0.000 (0.0-0.012) K/mm3 Nucleated RBC % 0.0 (0.0-0.2) % Sodium 140 (137-145) mmol/L Potassium 3.8 (3.4-5.0) mmol/L Chloride 102 (98-107) mmol/L Carbon Dioxide 29 (22-30) mmol/L Anion Gap 9 (4-12) mmol/L BUN 10 D (7-17) mg/dL Creatinine 0.67 L (0.7-1.0) mg/dL Estim Creat Clear Calc 105 ml/min Estimated GFR > 60 (59 - ) Glucose 94 (65-110) mg/dL Calcium 9.3 (8.4-10.2) mg/dL Total Bilirubin 0.7 (0.2-1.3) mg/dL AST 17 (14-36) U/L ALT 14 (6-35) U/L Alkaline Phosphatase 135 H (38-126) U/L Total Protein 7.0 (6.3-8.2) g/dL Albumin 4.3 (3.5-5.1) g/dL Lipase 67 (23-300) U/L Urine Color Yellow (Yellow) Urine Appearance Clear (Clear) Urine pH 7.0 (5.0-9.0) Ur Specific Beaver 1.019 (1.001-1.035) Urine Protein Negative (Negative) mg/dL Urine Glucose (UA) Negative (Negative) mg/dL Urine Ketones Negative (Negative) mg/dL Ur Blood (Man) Negative (Negative) Urine Nitrate Negative (Negative) Urine Bilirubin Negative (Negative) Urine Urobilinogen 1.0 (<2.0) mg/dL Leukocyte Esterase Rfl 2+ H (Negative) IDRIS/UL Urine RBC 0-2 (0-2) /hpf Urine WBC 21-50 H (0-3) /hpf Ur Squamous Epith Cells Few (Few) /hpf Urine Bacteria 1+ H /hpf Urine Casts 0-2 POC Urine HCG, Qual Negative (Negative) Imaging Data Radiologist's impression: ITS Impressions Abdomen/Pelvis CT 12/30/24 18:25 IMPRESSION: Large fat-containing umbilical hernia with inflammatory change, correlate for pain/tenderness. Short segment wall thickening involving a short segment of transverse colon deep to the hernia which was previously located in the hernia sac, may represent recent reduction, with inflammatory change/colitis. Possible fibroid uterus. Bladder wall thickening from cystitis or incomplete distention. Critical Care Time Critical Care Time Critical Care Time: No Discharge Plan Discharge Clinical Impression: Abdominal wall hernia, Urinary tract infection Patient Disposition: Home, Self-Care Condition: Stable Instructions: Antibiotic Form, Urinary Tract Infection in Women (ED), Ventral Hernia (ED) Additional Instructions: RETURN IF SYMPTOMS ARE WORSENING , CALL DR. CANTOR FOR APPOINTMENT, TAKE TYLENOL NEEDED FOR ACHES AND PAIN, CONTINUE HOME MEDICATIONS. ABDOMINAL BINDER Patient Language: Namibian Prescriptions: New nitrofurantoin monohyd/m-cryst [Macrobid] 100 mg capsule 100 mg PO Q12H 5 Days Qty: 10 0RF Rx Instructions: must administer with a meal/food No Action cyclobenzaprine 10 mg tablet ferrous sulfate 325 mg (65 mg iron) tablet folic acid 1 mg tablet clobetasol 0.05 % solution TOPICAL Cimzia 200 mg/mL syringe kit 200 mg subcut ONCE azathioprine 100 mg tablet 150 mg PO DAILY Calcium 500 + D (D3) 1 cap PO DAILY pantoprazole 40 mg tablet,delayed release (DR/EC) 40 mg PO DAILY Qty: 90 1RF Follow-up/Referrals: PHYSICIAN NOT ON STAFF,NONSTAFF [Primary Care Provider] - René Cantor MD [Physician] - 01/01/25
--- OUTSIDE RECORDS SUMMARY | 2024-12-30 16:51 | XMS_ITS | Referral Summary ---
Author Organization [facility] Address [address] [place] [address] Care Team Providers Care Pc Tech Name Role Phone Helene Chin MD Unavailable [phone] Iona Mcginnis MD Unavailable [phone] Mendoza Xiong MD Primary Care Provider Encounters Date Type Department Care Team Description 11/28/2024 Results Follow-Up [facility] Convenient Care at [address] [phone] Drea Ramos PA 11/28/2024 1:15 PM DITCH RIDER Ancillary Procedure [facility] Imaging at [address] [phone] Rib pain on left side 11/27/2024 5:15 PM DITCH RIDER Office Visit [facility] Convenient Care at [address] [address] Emely Resendiz NP Rib pain on left side (Primary Dx) 11/23/2024 Telephone [facility] [address] [facility] 6th [address] [place] [address] Padmini Monahan DNP 11/23/2024 Telephone [facility] [address] [facility] 6th [address] [place] [phone] Padmini Monahan DNP 11/23/2024 10:30 AM DITCH RIDER Telemedicine [facility] [address] [facility] 6th [address] [place] [address] Padmini Monahan DNP ABIEL (obstructive sleep apnea) (Primary Dx); Hypersomnia; Obesity (BMI 30-39.9) 10/17/2024 Telephone [facility] [address] [facility] 6th [address] [place] [address] Krysten Almanza, RPSGT from Last [...] by mouth daily 02/16/20 24 Active vit 59-jzlu-npkgl-dha 27mg iron- 800 mcg-250 mg capsule Take [...] IgG and C-ANCA, requested detailed records from [facility]. - Bronch 05/26 at OSH reportedly inconclusive. Now s - CTA chest here (07/02): c/f sequelae of hemorrhage in LLL; polygonal CORI nodule. 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 - Autoimmune workup: FUENTES 1:2560, ANIBAL+ with negative Sm, SSA/B, Annette-1, SALES REPRESENTATIVE WIRE ROPE, Scl70; anti-centromere 2.1, anti-GBM negative; ESR 58, [...] -- Added automatically from request for surgery [id number] Bronchocentric granulomatosis 08/29/2014 Overview (08/09/2023): Found on [...] Comments Blood Pressure 138/66 11/27/2024 5:15 PM DITCH RIDER Pulse 110 11/27/2024 5:15 PM DITCH RIDER Temperature 37.6 C (99.6 F) 11/27/2024 5:15 PM DITCH RIDER Respiratory Rate 16 11/27/2024 5:15 PM DITCH RIDER Oxygen Saturation 98% 11/27/2024 5:15 PM DITCH RIDER Inhaled Oxygen Concentration - - Weight 88.9 kg (196 lb) 11/27/2024 5:15 PM DITCH RIDER Height 160 cm (5' 3 ) 08/15/2024 7:31 PM DITCH RIDER Body Mass Index 34.72 08/15/2024 7:31 PM DITCH RIDER Plan of Treatment Not on file Goals [...] as needed Medical Devices Implanted Type Area Roofing Sales Representative Device Identifier Shelf Expiration Date Model / Serial / Lot Screw Right: Foot Procedures Procedure Name Priority Date/Time Associated Diagnosis Comments XR RIBS LEFT W PA CHEST Schedule ALAN, Read ALAN (Appt Today, Awaiting Results) 11/28/2024 1:24 PM DITCH RIDER Rib pain on left side POC INFLUENZA A/B, COVID-19 ANTIGEN Routine 11/27/2024 5:41 PM DITCH RIDER Rib pain on left side HEPATITIS PANEL, ACUTE Timed 07/02/2023 6:39 PM CDT from Last 3 Months or Most Recently Relevant to Health Maintenance Results * XR Ribs Left W PA Chest 3 or More Views (11/28/2024 1:24 PM DITCH RIDER) Anatomical Region Laterality Modality Rib, Chest Left Digital Radiogra phy 11/28/2024 4:02 PM DITCH RIDER Narrative 11/28/2024 4:07 PM DITCH RIDER EXAM DESCRIPTION: XR RIBS LEFT W PA [...] signed by Deni MIRANDA T: Report ID: [id number] Reading Location: [id number] Procedure Note Deni Calhoun MD - 11/28/2024 [...] signed by Deni MIRANDA T: Report ID: [id number] Reading Location: [id number] Emely Resendiz CORE INSPECTOR IMG XR PROCEDURES Final Re sult * POC Influenza A/B, COVID-19 antigen (11/27/2024 5:41 PM DITCH RIDER) Influenza A Ag, POC Negative Negative [facility] EDW Influenza B Ag, POC Negative Negative [facility] EDW COVID-19 Ag POC Presumptive Negative Presumptive Negative, Invalid [facility] EDW Nasal 11/27/2024 5:41 PM DITCH RIDER Emely Resendiz NP POINT OF CARE TEST ORDERAB LES Final Result [facility] EDW [address] [place] [address] * Hepatitis panel, acute Blood (07/02/2023 6:39 PM CDT) Hep A IgM Nonreactive Nonreactive Hep B core IgM Nonreactive Nonreactive [facility] Hep C Ab Nonreactive Nonreactive [facility] Comment:Antibodies to HCV no t detected. Does NOT exclude the possibility of recent exposure to HCV. Current interpretive data was last revised on 22 HepBsAg Nonreactive Nonreactive [facility] Blood 07/02/2023 6:39 PM CDT 07/02/2023 7:02 PM CDT Darien Moody MD LAB MICROBIOLOGY - GENERAL ORDERABLES Final Result [facility] Department [place] [address] from Last 3 Months or Most Recently Relevant to Health Maintenance [place] [place] [address] [facility] Member Subscriber Plan / Payer (Ef fective 2020-Present) Name:Apolonia Bailey Relation to Subscriber:Self Name:Apolonia Bailey Payer ID:[id number] (NAIC) Type:MEDICAID RISK OTHER Address: [place] [address] [facility] Advance Directives For more information, please contact: [phone] * Full Code (Latest Code Status on File) Date Activated Date Inactivated Comments 08/25/2023 5:50 PM 08/26/2023 7:45 PM * Full Code Date Activated Date Inactivated Comments 07/01/2023 1:26 PM 07/09/2023 10:18 PM * Full Code Date Activated Date Inactivated Comments 06/26/2023 12:56 AM 06/26/2023 5:43 PM Care Teams Pc Tech Relationship Specialty Start Date End Date Mendoza Xiong MD [address] [place] [address] PCP - General Internal Medicine 02/22/24 Helene Chin MD Fellow Pulmonary Disease 08/10/23 Iona Mcginnis MD [facility] [place] [address] Fellow Rheumatology 08/10/23
--- OUTSIDE RECORDS SUMMARY | 2024-12-30 16:51 | XMS_ITS | Encounter Summary ---
Author Organization [facility] Health Address [address] [place] [address] Care Team Providers Care Narrow Fabrics Weaver Name Role Phone Tyrese MCCULLOUGH MD, Mendoza Anderson Primary Care Provider + Reason for Visit * Reason Onset Date Comments Question 12/13/2024 Encounter Details Date Type Department Care Team (Late st Contact Info) Description 12/13/2024 Telephone [facility] - HISTORIOGRAPHY TEACHER [address] [place] [address] Apolonia Painting, JASMYN-RN ADMIT [address] [place] [address] Question Social History Tobacco Use [...] Recorded Patient Health Questionnaire-2 Score 0 10/19/2024 [facility] [place] of Occupat ional Health - Occupational Stress [...] place to sleep or slept in a senior care (including now)? No 06/25/2024 [place] Depression Scale Answer Date Recorded [place] Depression Scale Total 2 11/20/2024 The thought [...] any time in the past 12 m [facility], were you homeless or living in a senior care (including now)? No 11/16/2024 Education Answer Date [...] - 12/13/2024 11:28 AM CDT Beverley from [employer] calling to ask that the patient breast pump paper work be signed by a COMMERCIAL LIGHT FIXTURE ASSEMBLER or a MD.. she will refax and pur the return fax number on paperwork.. patient is there at the moment documented in this encounter Plan of Treatment Upcoming Encounters Date Type Department Care Team (Late st Contact Info) Description 02/14/2025 11:00 AM CDT Office Visit [facility] - Rheumatology [address] [place] [phone] Zachary López MD [facility] [address] [place] [address] 03/21/2025 10:30 AM CDT [facility] Med [address] [place] [phone] Mendoza Xiong II, MD [facility] [facility] [address] DIV OF [place] [address] documented as of this encounter Visit Diagnoses Not on filedocumented in this encounter Care Teams Narrow Fabrics Weaver Relationship Specialty Start Date End Date Mendoza Xiong II, MD [facility] [address] DIV [place] [address] PCP - General Internal Medicine 02/14/24 documented as of this encounter
--- OUTSIDE RECORDS SUMMARY | 2024-12-30 16:51 | XMS_ITS | Encounter Summary ---
Author Organization [facility] Healthcare Address [address] [place] [address] Care Team Providers Care Payroll Director Name Role Phone Palmira Blanco MD Primary Care Provider Helene Chin MD Unavailable [phone] Iona Mcginnis MD Unavailable [phone] Ju Chirinos NP Primary Care Provider [phone] Mendoza Xiong MD Primary Care Provider [phone] Encounter Details Date Type Department Care Team (Late st Contact Info) Description 07/23/2023 Telephone [facility] Outpatient [facility]fusion [facility] [address] [facility] [address] [place] [address] Aby Siddiqui, RN Social History [...] COVID: Suspected 08/23/2023 08/23/2023 08/23/2023 10:47 PM REGISTERED PHLEBOTOMIST PART TIME Influenza, adult 08/23/2023 08/23/2023 08/30/2023 3:06 AM REGISTERED PHLEBOTOMIST PART TIME COVID: Suspected 12/17/2023 12/17/2023 12/17/2023 4:22 PM CDT Rhino/Enterovirus 12/17/2023 12/17/2023 12/24/2023 3:05 AM CDT COVID: Suspected 11/27/2024 11/27/2024 11/27/2024 5:42 PM REGISTERED PHLEBOTOMIST PART TIME documented as of this encounter Care Teams Payroll Director Relationship Specialty Start Date End Date Palmira Blanco MD PCP - General Hematology 07/09/23 08/10/23 Ju Chirinos, JENNY [address] [place] [address] PCP - General Nurse Practitioner 08/11/23 02/21/24 Mendoza Xiong MD [address] [place] [address] PCP - General Internal Medicine 02/22/24 Helene Chin MD Fellow Pulmonary Disease 08/10/23 Iona Mcginnis MD [address] [place] [address] Fellow Rheumatology 08/10/23 documented as of this encounter
--- OUTSIDE RECORDS SUMMARY | 2024-12-30 16:51 | XMS_ITS | Encounter Summary ---
Author Organization [facility] Health Address [address] [place] [address] [place] [address] Care Team Providers Care Psychologist Personnel Name Role Phone Tyrese MCCULLOUGH MD, Mendoza Anderson Primary Care Provider + Reason for Visit * Reason Onset Date Comments Maternal Medicine 03/16/2024 Appointment 03/16/2024 Encounter Details Date Type Department Care Team (Late st Contact Info) Description 03/16/2024 Telephone [facility] - FUNDING ANALYST [address] [place] [address] Drew Huber MD [address] [place] [address] Maternal Medicine; Appointment Social History [...] Description 02/14/2025 11:00 AM CDT Office Visit [facility] - Rheumatology [address] [place] [address] Zachary López MD [address] [place] [address] 2L [place] [phone] 03/21/2025 10:30 AM CDT [facility] Med [address] [place] [address] Mendoza Xiong II, MD [address] [place] [address] 2L DIV [place] [address] documented as of this encounter Visit Diagnoses Not on filedocumented in this encounter Care Teams Psychologist Personnel Relationship Specialty Start Date End Date Mendoza Xiong II, MD [address] [place] [address] 2L DIV OF [facility] [facility] [place] [address] PCP - General Internal Medicine 02/14/24 documented as of this encounter
--- OUTSIDE RECORDS SUMMARY | 2024-12-30 16:51 | XMS_ITS | Clinical Summary ---
Author Organization [facility] Address [address] [place] [address] Care Team Providers Care Mica Splitter Name Role Phone Helene Chin MD Unavailable [phone] Iona Mcginnis MD Unavailable [phone] Mendoza Xiong MD Primary Care Provider Allergies [...] by mouth daily 02/16/20 24 Active vit 31-kmsw-nxmwj-dha 27mg iron- 800 mcg-250 mg capsule Take [...] IgG and C-ANCA, requested detailed records from [facility]. - Bronch 05/26 at OSH reportedly inconclusive. Now s - CTA chest here (07/02): c/f sequelae of hemorrhage in LLL; polygonal CORI nodule. 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): Found on [...] Department Care Team Description 11/28/2024 1:15 PM TANK WAGON OPERATOR Ancillary Procedure [facility] Imaging at [address] [address] Rib pain on left side 11/28/2024 Results Follow-Up [facility] Convenient Care at [address] [address] Drea Ramos PA 11/27/2024 5:15 PM TANK WAGON OPERATOR Office Visit [facility] Convenient Care at [address] [address] Emely Resendiz, PROJECT/PRODUCTION MANAGER IMAGING Rib pain on left side (Primary Dx) 11/23/2024 10:30 AM TANK WAGON OPERATOR Telemedicine [facility] Sleep [address] [facility] 6th [address] [place] [address] Padmini Monahan DNP ABIEL (obstructive sleep apnea) (Primary Dx); Hypersomnia; Obesity (BMI 30-39.9) 11/23/2024 Telephone [facility] Sleep [address] 6th [address] [place] [address] Padmini Monahan DNP 11/23/2024 Telephone [facility] Sleep [address] 6th [address] [place] [address] Padmini Monahan DNP 10/17/2024 Telephone [facility] Sleep [address] [facility] 6[address] [place] [address] Krysten Almanza, RPSGT from Last [...] Comments Blood Pressure 138/66 11/27/2024 5:15 PM TANK WAGON OPERATOR Pulse 110 11/27/2024 5:15 PM TANK WAGON OPERATOR Temperature 37.6 C (99.6 F) 11/27/2024 5:15 PM TANK WAGON OPERATOR Respiratory Rate 16 11/27/2024 5:15 PM TANK WAGON OPERATOR Oxygen Saturation 98% 11/27/2024 5:15 PM TANK WAGON OPERATOR Inhaled Oxygen Concentration - - Weight 88.9 kg (196 lb) 11/27/2024 5:15 PM TANK WAGON OPERATOR Height 160 cm (5' 3 ) 08/15/2024 7:31 PM TANK WAGON OPERATOR Body Mass Index 34.72 08/15/2024 7:31 PM TANK WAGON OPERATOR Plan of Treatment Health Maintenance Due Date [...] as needed Medical Devices Implanted Type Area Electric Distribution Checker Device Identifier Shelf Expiration Date Model / Serial / Lot Screw Right: Foot Procedures Procedure Name Priority Date/Time Associated Diagnosis Comments XR RIBS LEFT W PA CHEST Schedule ALAN, Read ALAN (Appt Today, Awaiting Results) 11/28/2024 1:24 PM TANK WAGON OPERATOR Rib pain on left side POC INFLUENZA A/B, COVID-19 ANTIGEN Routine 11/27/2024 5:41 PM TANK WAGON OPERATOR Rib pain on left side HEPATITIS PANEL, ACUTE Timed 07/02/2023 6:39 PM CDT from Last 3 Months or Most Recently Relevant to Health Maintenance Results * XR Ribs Left W PA Chest 3 or More Views (11/28/2024 1:24 PM TANK WAGON OPERATOR) Anatomical Region Laterality Modality Rib, Chest Left Digital Radiogra phy 11/28/2024 4:02 PM TANK WAGON OPERATOR Narrative 11/28/2024 4:07 PM TANK WAGON OPERATOR EXAM DESCRIPTION: XR RIBS LEFT W PA [...] Deni Calhoun M.D. MJ T: Report ID: [id number] Reading Location: [id number] Procedure Note Deni Calhoun MD - 11/28/2024 [...] Deni Calhoun M.D. MJ T: Report ID: [id number] Reading Location: [place] [address] Emely Resendiz NP IMG XR PROCEDURES Final Re sult * POC Influenza A/B, COVID-19 antigen (11/27/2024 5:41 PM TANK WAGON OPERATOR) Influenza A Ag, POC Negative Negative [facility] Influenza B Ag, POC Negative Negative [facility] ED[facility] COVID-19 Ag POC Presumptive Negative Presumptive Negative, Invalid [facility] ED[facility] Nasal 11/27/2024 5:41 PM TANK WAGON OPERATOR Emely Resendiz NP POINT OF CARE TEST ORDERAB LES Final Result [facility] [address] * Hepatitis panel, acute Blood (07/02/2023 6:39 PM CDT) Hep A IgM Nonreactive Nonreactive Hep B core IgM Nonreactive Nonreactive [facility] Hep C Ab Nonreactive Nonreactive [facility] Comment:Antibodies to HCV no t detected. Does NOT exclude the possibility of recent exposure to HCV. Current interpretive data was last revised on 22 HepBsAg Nonreactive Nonreactive [facility] Blood 07/02/2023 6:39 PM CDT 07/02/2023 7:02 PM CDT Darien Moody MD LAB MICROBIOLOGY - GENERAL ORDERABLES Final Result [facility] Department [place] [address] from Last 3 Months or Most Recently Relevant to Health Maintenance Insurance [id number] [place] [address] [facility] Advance Directives For more information, please contact: [phone] * Full Code (Latest Code Status on File) Date Activated Date Inactivated Comments 08/25/2023 5:50 PM 08/26/2023 7:45 PM * Full Code Date Activated Date Inactivated Comments 07/01/2023 1:26 PM 07/09/2023 10:18 PM * Full Code Date Activated Date Inactivated Comments 06/26/2023 12:56 AM 06/26/2023 5:43 PM Care Teams Mica Splitter Relationship Specialty Start Date End Date Mendoza Xiong MD [address] [place] [address] PCP - General Internal Medicine 02/22/24 Helene Chin MD Fellow Pulmonary Disease 08/10/23 Iona Mcginnis MD [address] [place] [address] Fellow Rheumatology 08/10/23
--- OUTSIDE RECORDS SUMMARY | 2024-12-30 16:51 | XMS_ITS | Encounter Summary ---
Author Organization [facility] Health Address [address] [facility] [place] [address] Care Team Providers Care Terrazzo Worker Apprentice Name Role Phone Tyrese MCCULLOUGH MD, Mendoza Anderson Primary Care Provider + Encounter Details Date Type Department Care Team (Late st Contact Info) Description 12/27/2024 Orders Only [facility] - Pain Mgmt [address] [place] [address] Chemo Neal MD [address] [place] [address] Thoracic radiculitis; Chronic bilateral low [...] Recorded Patient Health Questionnaire-2 Score 0 10/19/2024 [place] of Occupat ional Health - Occupational Stress [...] place to sleep or slept in a alf (including now)? No 06/25/2024 [place] Depression Scale Answer Date Recorded [place] Depression Scale Total 1 12/21/2024 The thought [...] any time in the past 12 m [facility], were you homeless or living in a alf (including now)? No 11/16/2024 Education Answer Date [...] Office Visit [facility] - Rheumatology [address] [place] [phone] Zachary López MD [facility] 2L [place] [address] 03/21/2025 10:30 AM CDT Office Visit [facility] - Internal Med [address] [place] [phone] Mendoza Xiong II, MD [address] [place] [address] 2L DIV OF [facility] [place] [address] documented as of this encounter Visit Diagnoses Diagnosis Thoracic radiculitis Thoracic or lumbosacral neuritis or radiculitis, unspecified Chronic bilateral low back pain with bilateral sciatica documented in this encounter Care Teams Terrazzo Worker Apprentice Relationship Specialty Start Date End Date Mendoza Xiong II, MD [address] [place] [address] 2L DIV OF [facility] [place] [address] PCP - General Internal Medicine 02/14/24 documented as of this encounter
--- OUTSIDE RECORDS SUMMARY | 2024-12-30 16:51 | XMS_ITS | Clinical Summary ---
Author Organization [facility] Address [address] [facility] [address] [place] [address] Phone Care Team Providers Care Disposition Clerk Name Role Phone Unavailable Primary Care Provider [...] this topic Medical Devices Implanted Type Area Display Specialist Device Identifier Shelf Expiration Date Model / Serial / Lot Seamguard Endogia 60 Blk [id number] - [id number] Implanted:Qt y: 1 on 01/20/2023 by Waqas Vaughn MD at [facility] Biological N/A: Stomach [employer] [id number] 03/18/2025 12BSGTRI 60B / / [id number] Seamguard Endogia 60 Blk [id number] - [id number] Implanted:Qt y: 1 on 01/20/2023 by Waqas Vaughn MD at [facility] Biological N/A: Stomach [employer] [id number] 03/18/2025 12BSGTRI 60B / / [id number] Seamguard Endogia 60 Prpl [id number] - [id number] Implanted:Qt y: 1 on 01/20/2023 by Waqas Vaughn MD at [facility] Biological N/A: Stomach [employer] [id number] 11/15/2024 12BSGTRI 60P / / [id number] Seamguard Endogia 60 Prpl [id number] - [id number] Implanted:Qt y: 1 on 01/20/2023 by Waqas Vaughn MD at [facility] Biological N/A: Stomach [employer] [id number] 11/15/2024 12BSGTRI 60P / / [id number] Seamguard Endogia 60 Prpl [id number] - [id number] Implanted:Qt y: 1 on 01/20/2023 by Waqsa Vaughn MD at [facility] N/A: Stomach [employer] [id number] 04/26/2025 12BSGTRI 60P / / [id number] Screw Screw Right: Foot Insurance [address] BLUE ACCESS/TRUE BLUE PPO [employer] [place] [address] RX [facility] [employer] RX PERES PLANS (INTERNAL) [facility] Internal Plans Advance Directives For more information, please contact: [phone] * Full Code (Latest Code Status on File) Date Activated Date Inactivated Comments 01/20/2023 9:47 AM 01/21/2023 4:27 PM * Full Code Date Activated Date Inactivated Comments 01/20/2023 8:14 AM 01/20/2023 9:47 AM * Full Code Date Activated Date Inactivated Comments 01/15/2023 9:08 AM 01/15/2023 2:00 PM
--- OUTSIDE RECORDS SUMMARY | 2024-12-30 16:51 | XMS_ITS | Encounter Summary ---
Author Organization [facility] Healthcare Address [address] [place] [address] Care Team Providers Care Knot Picker Cloth Name Role Phone Palmira Blanco MD Primary Care Provider Helene Chin MD Unavailable [phone] Iona Mcginnis MD Unavailable [phone] Ju Chirinos NP Primary Care Provider [phone] Mendoza Xiong MD Primary Care Provider [phone] Encounter Details Date Type Department Care Team (Late st Contact Info) Description 07/23/2023 Telephone [facility] Outpatient Infusion Center [address] [facility] [address] [place] [address] Aby Siddiqui, RN Social History [...] COVID: Suspected 08/23/2023 08/23/2023 08/23/2023 10:47 PM SHAKE PACKER Influenza, adult 08/23/2023 08/23/2023 08/30/2023 3:06 AM SHAKE PACKER COVID: Suspected 12/17/2023 12/17/2023 12/17/2023 4:22 PM CDT Rhino/Enterovirus 12/17/2023 12/17/2023 12/24/2023 3:05 AM CDT COVID: Suspected 11/27/2024 11/27/2024 11/27/2024 5:42 PM SHAKE PACKER documented as of this encounter Care Teams Knot Picker Cloth Relationship Specialty Start Date End Date Palmira Blanco MD PCP - General Hematology 07/09/23 08/10/23 Ju Chirinos, JENNY [address] [place] [address] PCP - General Nurse Practitioner 08/11/23 02/21/24 Mendoza Xiong MD [address] [place] [address] PCP - General Internal Medicine 02/22/24 Helene Chin MD Fellow Pulmonary Disease 08/10/23 Iona Mcginnis MD [address] [place] [address] Fellow Rheumatology 08/10/23 documented as of this encounter
--- OUTSIDE RECORDS SUMMARY | 2024-12-30 16:51 | XMS_ITS | Encounter Summary ---
Author Organization [facility] Address [address] [place] [id number] Care Team Providers Care Filling Room Operator Name Role Phone Helene Chin MD Unavailable [phone] Iona Mcginnis MD Unavailable [phone] Mendoza Xiong MD Primary Care Provider [phone] Encounter Details Date Type Department Care Team (Late st Contact Info) Description 11/28/2024 Results Follow-Up [facility] at [address] [address] Drea Ramos, QUEENIE [address] [place] [address] [address] [place] [address] Social History Tobacco Use Types [...] on filedocumented in this encounter Care Teams Filling Room Operator Relationship Specialty Start Date End Date Mendoza Xiong MD [address] [place] [address] PCP - General Internal Medicine 02/22/24 Helene Chin MD Fellow Pulmonary Disease 08/10/23 Iona Mcginnis MD [address] [place] [address] Fellow Rheumatology 08/10/23 documented as of this encounter
--- OUTSIDE RECORDS SUMMARY | 2024-12-30 16:51 | XMS_ITS | Clinical Summary ---
Author Organization [facility] [employer] Address [address] [place] [address] Care Team Providers Care Hadoop Architect Name Role Phone Tyrese MCCULLOUGH MD, Mendoza Anderson Primary Care Provider + Source Comments [facility] [employer],non-owned Affiliates and Associated Physician Practices is amultiple site organization consisting of ambulatory clinics and hospital sitesin [place], [place], [place] and [place]. This disclosure is being madepursuant to the Care Everywhere program and may not contain all information available regarding this patient. Last updated 18.[facility] [employer] Allergies Active Allergy Reactions Criticality Noted Date [...] acetonide (Kenalog) 0.1 % creamIndications :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[facility]) Apply to affected area 2 times daily 45 g 1 11/29/19 25 Active senna (Senokot) 8.6 MG tabletIndication s:Drug induced constipation Take 1 (one) tablet by mouth once daily 90 tablet 1 12/06/19 25 025 Active Cimzia, 2 Syringe, injectionIndicat ions:Psoriatic arthritis ([facility]) INJECT 2 SYRINGES UNDER THE SKIN EVERY [...] ns:Supervision of high risk in second trimester ([facility]),H/O gastric sleeve Use 1 Lancet 4 times daily 100 Each 06/29/20 24 025 Discontinued(Li st Clean-Up) Insulin Pen Needle ([employer] Pen Petrolia) 32G X 4 MM MISCIndications: Insulin controlled gestational diabetes mellitus (GDM) in third trimester ([facility]) Use 1 Each once daily 100 Each 3 08/17/20 24 025 Discontinued(Li st Clean-Up) Cimzia, 2 Syringe, injectionIndicat ions:Psoriatic arthritis ([facility]) INJECT 2 SYRINGES UNDER THE SKIN EVERY [...] Pain Mgmt [address] [place] [phone] Zachary López MD Chaves Martins, Yuri, MD Thoracic radiculitis (Primary Dx); Chronic bilateral low back pain with bilateral sciatica; Sacroiliitis 12/27/2024 Orders Only [facility] - Pain Mgmt [address] [place] [address] Chemo Neal MD Thoracic radiculitis; Chronic bilateral low back pain with bilateral sciatica 12/27/2024 Travel 12/22/2024 Telephone [facility] - CLINICAL APPLICATION SPECIALIST [address] [place] [address] Apolonia Painting APRN-YANNA Opened In Error 12/21/2024 9:30 AM CDT Office Visit [facility] - CLINICAL APPLICATION SPECIALIST [address] [place] [address] Susan Estrada, ERIC/LD Obesity, class 1 (Primary Dx); H/O gastric sleeve; Gestational diabetes mellitus (GDM), 12/21/2024 8:30 AM CDT Office Visit [facility] - CLINICAL APPLICATION SPECIALIST [address] [place] [address] Apolonia Painting APRN-CNP Encounter for visit (Primary Dx); History of hypertension; History of gestational diabetes; Vitamin D deficiency; Chronic pain syndrome; Microscopic polyangiitis; H/O gastric sleeve; Psoriatic arthritis 12/21/2024 Telephone [facility] - CLINICAL APPLICATION SPECIALIST [address] [place] [address] Apolonia Painting APRN-YANNA Refill Request 12/20/2024 Travel 12/20/2024 [facility] SPECIAL[facility] [address] [place] [address] Apolonia Painting APRN-YANNA Med Change Request 12/20/2024 Orders Only [facility] - CLINICAL APPLICATION SPECIALIST [address] [place] [address] Apolonia Painting APRN-CNP 12/19/2024 11:00 AM CDT Clinical Support [facility] - Internal Med [address] [place] [phone] History of hypertension 12/19/2024 Travel 12/18/2024 Orders Only [facility] - Rheumatology [address] [place] [phone] Zachary López MD ANCA-associated vasculitis; Psoriatic arthritis; Immunosuppression due to drug therapy; Other chronic pain 12/18/2024 Orders Only [facility] - Rheumatology [address] [place] [phone] Zachary López MD ANCA-associated vasculitis ; Psoriatic arthritis; Immunosuppression due to drug therapy; Other chronic pain 12/15/2024 Orders Only [facility] - Internal Med [address] [place] [phone] Mendoza Xiong II, MD Gastroesophageal reflux disease without esophagitis 12/13/2024 Telephone [facility] - CLINICAL APPLICATION SPECIALIST [address] [place] [phone] Apolonia Painting APRN-CNP Question 12/12/2024 Refill [facility] - Rheumatology [address] [place] [phone] Zachary López MD Refill Request 12/05/2024 11:30 AM CDT Office Visit [facility] - Internal Med [address] [place] [phone] Mendoza Xiong II, MD Elevated blood-pressure reading without diagnosis of hypertension (Primary Dx); Other proteinuria; Drug induced constipation 12/05/2024 Travel 11/28/2024 10:35 AM PERSONAL ASSISTANT - 11/28/2024 11:59 PM PERSONAL ASSISTANT Hospital Encounter [facility] [address] [place] [address] Discharge Disposition: Home or Self Care 11/28/2024 10:00 AM PERSONAL ASSISTANT Office Visit [facility] - Rheumatology [address] [place] [phone] Zachary López MD Microscopic polyangiitis (Primary Dx); Screening-pulmonary TB; ANCA-associated vasculitis; Psoriasis; Psoriatic arthritis; Immunosuppression due to drug therapy; High risk case management patient 11/28/2024 Travel 11/27/2024 2:20 PM PERSONAL ASSISTANT Office Visit [facility] - CLINICAL APPLICATION SPECIALIST [address] [place] [address] Apolonia Painting APRN-CNP Flank pain (Primary Dx); Encounter for visit; History of hypertension; LUQ pain; History of recurrent UTIs; Vitamin D deficiency; History of gestational diabetes; Chronic pain syndrome; Psoriatic arthritis; H/O gastric sleeve 11/27/2024 Travel 11/27/2024 Telephone [facility] - Internal Med [address] [place] [phone] Mendoza Xiong II, MD Appointment 11/27/2024 Telephone [facility] - Rheumatology [address] [facility] [place] [phone] Zachary López MD Medication Prior Auth Request (Cimzia) 11/23/2024 Telephone [facility] - CLINICAL APPLICATION SPECIALIST [address] [place] [address] Apolonia Painting APRN-CNP Coordination Of Care 11/20/2024 1:40 PM PERSONAL ASSISTANT Office Visit [facility] - CLINICAL APPLICATION SPECIALIST [address] [place] [address] Apolonia Painting APRN-CNP Encounter for visit (Primary Dx); Elevated blood pressure reading; History of hypertension; History of gestational diabetes; Psoriatic arthritis; Chronic pain syndrome; Vitamin D deficiency; Microscopic polyangiitis; H/O gastric sleeve; ABIEL (obstructive sleep apnea) 11/20/2024 Travel 11/16/2024 9:25 PM PERSONAL ASSISTANT - 11/16/2024 11:23 PM PERSONAL ASSISTANT Hospital Encounter [facility] [address] [place], [place] [phone] Kavya Noel MD Discharge Disposition: Home or Self Care 11/09/2024 8:14 PM PERSONAL ASSISTANT Anesthesia Event [facility] 5 [address] [phone] Leo Gonzáles MD Lashley, Melissa J, CANNERY TENDER ENGINEER-AIRCRAFT DISPATCHER 11/09/2024 11:43 AM PERSONAL ASSISTANT - 11/11/2024 12:45 PM PERSONAL ASSISTANT Hospital Encounter [facility] 6W MOTHER/BABY [address] [place] [address] Manuel Ayers DO Maternal/ Medicine Discharge Disposition: Home or Self Care 11/09/2024 Telephone [facility] - CLINICAL APPLICATION SPECIALIST [address] [place] [address] Apolonia Painting APRN-CNP Concerns; Induction 11/06/2024 11:40 AM PERSONAL ASSISTANT visit [facility] - CLINICAL APPLICATION SPECIALIST [address] [place] [address] Apolonia Painting APRN-CNP GA: [id number] 11/06/2024 11:00 AM PERSONAL ASSISTANT [facility] SPECIALIST [address] [place] [address] Insulin controlled gestational diabetes mellitus (GDM) in third trimester ; AMA (advanced maternal age) multigravida 35+, third trimester 11/06/2024 10:30 AM PERSONAL ASSISTANT [facility] CLINICAL APPLICATION SPECIALIST [address] [place] [address] Insulin controlled gestational diabetes mellitus (GDM) in third trimester 11/06/2024 10:00 AM PERSONAL ASSISTANT Office Visit [facility] - CLINICAL APPLICATION SPECIALIST [address] [place] [address] Susan Estrada, RD/LD Insulin controlled gestational diabetes mellitus (GDM) in third trimester (Primary Dx); Bariatric surgery status complicating , third trimester; Obesity (BMI 35.0-39.9 without comorbidity) 11/06/2024 Travel 11/02/2024 10:00 AM PERSONAL ASSISTANT Procedure visit [facility] - CLINICAL APPLICATION SPECIALIST [address] [place] [address] Insulin controlled gestational diabetes mellitus (GDM) in third trimester 11/02/2024 Travel 10/30/2024 11:40 AM PERSONAL ASSISTANT visit [facility] - CLINICAL APPLICATION SPECIALIST [address] [place] [address] Apolonia Painting APRN-CNP GA: [id number] 10/30/2024 11:00 AM PERSONAL ASSISTANT Procedure visit [facility] - CLINICAL APPLICATION SPECIALIST [address] [place] [address] Insulin controlled gestational diabetes mellitus (GDM) in third trimester ; affected by previous bariatric surgery, currently in third trimester; AMA (advanced maternal age) multigravida 35+, third trimester; Maternal obesity syndrome in third trimester; Encounter for ultrasound to assess growth 10/30/2024 10:30 AM PERSONAL ASSISTANT Procedure visit [facility] - CLINICAL APPLICATION SPECIALIST [address] [place] [address] Insulin controlled gestational diabetes mellitus (GDM) in third trimester 10/30/2024 Travel 10/26/2024 10:00 AM PERSONAL ASSISTANT Procedure visit [facility] - CLINICAL APPLICATION SPECIALIST [address] [place] [address] Insulin controlled gestational diabetes mellitus (GDM) in third trimester 10/26/2024 Travel 10/23/2024 1:30 PM PERSONAL ASSISTANT Office Visit [facility] - CLINICAL APPLICATION SPECIALIST [address] [place] [address] Susan Estrada, RD/LD Insulin controlled gestational diabetes mellitus (GDM) in third trimester (Primary Dx); Supervision of high risk in third trimester 10/23/2024 1:00 PM PERSONAL ASSISTANT visit [facility] - CLINICAL APPLICATION SPECIALIST [address] [place] [address] Apolonia Painting APRN-CNP GA: [id number] 10/23/2024 9:59 AM PERSONAL ASSISTANT - 10/23/2024 11:59 PM PERSONAL ASSISTANT Hospital Encounter [facility]/ [facility]ATION UN[facility] [address] [place] [address] Yolande Hardy MD Discharge Disposition: Home or Self Care 10/23/2024 9:45 AM PERSONAL ASSISTANT - 10/23/2024 9:58 AM PERSONAL ASSISTANT Hospital Encounter [facility]/ [facility]UATION UNIT [address] [place] [address] Yolande Hardy MD Discharge Disposition: Home or Self Care 10/23/2024 Telephone [facility] - CLINICAL APPLICATION SPECIALIST [address] [place] [address] Apolonia Painting APRN-CNP Appointment 10/23/2024 Travel 10/19/2024 10:42 AM PERSONAL ASSISTANT - 10/19/2024 11:59 PM PERSONAL ASSISTANT Hospital Encounter [facility] [address] [place] [address] Apolonia Painting APRN-CNP Discharge Disposition: Home or Self Care 10/19/2024 10:00 AM PERSONAL ASSISTANT Procedure visit [facility] - CLINICAL APPLICATION SPECIALIST [address] [place] [address] Gestational diabetes mellitus, class A2 10/19/2024 Telephone [facility] - CLINICAL APPLICATION SPECIALIST [address] [place] [address] Apolonia Painting APRN-CNP Appointment 10/19/2024 Travel 10/16/2024 11:40 AM PERSONAL ASSISTANT visit [facility] - CLINICAL APPLICATION SPECIALIST [address] [place] [address] Apolonia Painting APRN-CNP GA: 35w4d 10/16/2024 11:00 AM PERSONAL ASSISTANT Procedure visit [facility] - CLINICAL APPLICATION SPECIALIST [address] [place] [address] Gestational diabetes mellitus, class A2 ; affected by previous bariatric surgery, currently in third trimester; AMA (advanced maternal age) multigravida 35+, third trimester; Maternal obesity syndrome in third trimester 10/16/2024 10:30 AM PERSONAL ASSISTANT Procedure visit [facility] - CLINICAL APPLICATION SPECIALIST [address] [place] [address] Gestational diabetes mellitus, class A2 10/16/2024 10:00 AM PERSONAL ASSISTANT Office Visit [facility] - CLINICAL APPLICATION SPECIALIST [address] [place] [address]/LD Insulin controlled gestational diabetes mellitus (GDM) in third trimester (Primary Dx); Bariatric surgery status complicating , third trimester 10/16/2024 Travel 10/12/2024 10:00 AM PERSONAL ASSISTANT Procedure visit [facility] - CLINICAL APPLICATION SPECIALIST [address] [place] [address] Supervision of high risk in third trimester 10/12/2024 Travel 10/09/2024 10:00 AM PERSONAL ASSISTANT - 10/09/2024 11:59 PM PERSONAL ASSISTANT Hospital Encounter [facility]/ [facility]ATION UN[facility] [address] [place] [address] Drew Huber MD Discharge Disposition: Home or Self Care 10/09/2024 9:45 AM PERSONAL ASSISTANT - 10/09/2024 9:59 AM PERSONAL ASSISTANT Hospital Encounter [facility]/ [facility] UN[facility] [address] [place] [address] Drew Huber MD Discharge Disposition: Home or Self Care 10/09/2024 Travel 10/05/2024 3:30 PM PERSONAL ASSISTANT [facility] CLINICAL APPLICATION SPECIALIST [address] [place] [address] Gestational diabetes mellitus, class A2 10/05/2024 3:15 PM PERSONAL ASSISTANT Procedure visit [facility] - CLINICAL APPLICATION SPECIALIST [address] [place] [address] Gestational diabetes mellitus, class A2 10/05/2024 1:40 PM PERSONAL ASSISTANT visit [facility] - CLINICAL APPLICATION SPECIALIST [address] [place] [address] Apolonia Painting APRN-CNP GA: [id number] 10/05/2024 11:37 AM PERSONAL ASSISTANT - 10/05/2024 11:59 PM PERSONAL ASSISTANT Hospital Encounter [facility] [address] [place] [address] Apolonia Painting APRN-CNP Discharge Disposition: Home or Self Care 10/05/2024 Travel from Last 3 Months Immunizations Name Administration Dates Next Due INFLUENZA VACCINE, TRIV. (AF LURIA, FLUZONE TRIVALENT; 6MO+) (IIV3) 07/03/2013 [facility], HISTORIC VACCINE 07/13/2019 FLU VACCINE TRI IIV3 [...] Recorded Patient Health Questionnaire-2 Score 0 10/19/2024 [facility] of Occupat ional Health - Occupational Stress [...] place to sleep or slept in a snf (including now)? No 06/25/2024 [place] Depression Scale Answer Date Recorded [place] Depression Scale Total 1 12/21/2024 The thought [...] were you homeless or living in a snf (including now)? No 11/16/2024 Education Answer Date [...] Office Visit [facility] - Rheumatology [address] [place] [phone] Zachary López MD [address] [place] [address] [address] [place] [phone] 03/21/2025 10:30 AM CDT Office Visit [facility] - Internal Med [address] [place] [phone] Mendoza Xiong II, MD [address] [place] [address] [address] [place] [address] Health Maintenance Due Date Last Done Comments [...] URINE RANDOM PNL Routine 11/28/2024 11:41 AM PERSONAL ASSISTANT ANCA-associated vasculitis URINALYSIS W/MICROSCOPIC REFLEX TO CULTURE Routine 11/28/2024 11:41 AM PERSONAL ASSISTANT ANCA-associated vasculitis MPO/OH 3 AUTOANTIBODIES PANEL Routine 11/28/2024 11:41 AM PERSONAL ASSISTANT ANCA-associated vasculitis Therapeutic drug monitoring NEUTROPHIL CYTOPLASMIC ANTIBODY Routine 11/28/2024 11:41 AM PERSONAL ASSISTANT ANCA-associated vasculitis Therapeutic drug monitoring HEPATIC FUNCTION PANEL Routine 11:41 AM PERSONAL ASSISTANT ANCA-associated vasculitis Therapeutic drug monitoring CREATININE BLOOD Routine 11/28/2024 11:4 1 AM PERSONAL ASSISTANT ANCA-associated vasculitis Therapeutic drug monitoring CBC W AUTO DIFFERENTIAL Routine 11/28/2024 11:41 AM PERSONAL ASSISTANT ANCA-associated vasculitis Therapeutic drug monitoring CULTURE URINE Routine 11/28/2024 11:41 AM PERSONAL ASSISTANT ANCA-associated vasculitis CULTURE URINE Routine 11/27/2024 3:13 PM PERSONAL ASSISTANT LUQ pain History of recurrent UTIs URINALYSIS - POINT OF CARE (AMB) [facility] Routine 11/27/2024 3:08 PM PERSONAL ASSISTANT Flank pain COMPREHENSIVE METABOLIC PANEL STAT 11/16/2024 10:01 PM PERSONAL ASSISTANT Elevated blood pressure affecting in third trimester, antepartum CBC W AUTO DIFFERENTIAL STAT 11/16/2024 10:01 PM PERSONAL ASSISTANT Elevated blood pressure affecting in third trimester, antepartum GLUCOSE - POINT OF CARE Routine 11/11/2024 7:29 AM PERSONAL ASSISTANT GLUCOSE - POINT OF CARE Routine 11/11/2024 7:00 AM PERSONAL ASSISTANT CBC W AUTO DIFFERENTIAL AM Draw 11/11/2024 3:52 AM PERSONAL ASSISTANT PATHOLOGY TISSUE EXAM (STL) Routine 11/10/2024 5:21 AM PERSONAL ASSISTANT History of gestational diabetes BLOOD GASES CORD ADRIANA (ISTAT) Routine 11/10/2024 3:56 AM PERSONAL ASSISTANT BLOOD GASES CORD ART (ISTAT) Routine 11/10/2024 3:48 AM PERSONAL ASSISTANT GLUCOSE - POINT OF CARE Routine 11/10/2024 2:04 AM PERSONAL ASSISTANT GLUCOSE - POINT OF CARE Routine 11/09/2024 11:44 PM PERSONAL ASSISTANT GLUCOSE - POINT OF CARE Routine 11/09/2024 9:47 PM PERSONAL ASSISTANT NEURAXIAL BLOCK Routine 11/09/2024 8:45 PM PERSONAL ASSISTANT GLUCOSE - POINT OF CARE Routine 11/09/2024 7:49 PM PERSONAL ASSISTANT GLUCOSE - POINT OF CARE Routine 11/09/2024 5:43 PM PERSONAL ASSISTANT GLUCOSE - POINT OF CARE Routine 11/09/2024 4:01 PM PERSONAL ASSISTANT GLUCOSE - POINT OF CARE Routine 11/09/2024 1:52 PM PERSONAL ASSISTANT TYPE + SCREEN PANEL STAT 11/09/2024 1 2:42 PM PERSONAL ASSISTANT COMPREHENSIVE METABOLIC PANEL Routine 11/09/2024 12:42 PM PERSONAL ASSISTANT SYPHILIS ANTIBODY CASCADING REFLEX STAT 11/09/2024 12:42 PM PERSONAL ASSISTANT CBC W AUTO DIFFERENTIAL STAT 11/09/2024 12:42 PM PERSONAL ASSISTANT GLUCOSE - POINT OF CARE Routine 11/09/2024 12:24 PM PERSONAL ASSISTANT SONOGRAM - COMPLETE Routine 11/06/2024 1 1:38 AM PERSONAL ASSISTANT Insulin controlled gestational diabetes mellitus (GDM) in third trimester AMA (advanced maternal age) multigravida 35+, third trimester URINALYSIS - POINT OF CARE (AMB) [facility] Routine 11/06/2024 11:38 AM PERSONAL ASSISTANT High risk case management patient BIOPHYSICAL PROFILE W NST Routine 10/30/2024 11:21 AM PERSONAL ASSISTANT Insulin controlled gestational diabetes mellitus (GDM) in third trimester affected by previous bariatric surgery, currently in third trimester AMA (advanced maternal age) multigravida 35+, third trimester Maternal obesity syndrome in third trimester Encounter for ultrasound to assess growth URINALYSIS - POINT OF CARE (AMB) [facility] Routine 10/30/2024 10:27 AM PERSONAL ASSISTANT Supervision of high risk in third trimester CULTURE STREP B Routine 10/23/2024 12:32 PM PERSONAL ASSISTANT Supervision of high risk in third trimester URINALYSIS AUTO - POINT OF CARE (AMB) [facility] Routine 10/23/2024 12:15 PM PERSONAL ASSISTANT Supervision of high risk in third trimester BIOPHYSICAL PROFILE W NST Routine 10/23/2024 10:37 AM PERSONAL ASSISTANT Insulin controlled gestational diabetes mellitus (GDM) in third trimester Obesity affecting , antepartum, third trimester EYE EXAM Routine 10/18/2024 2:19 PM PERSONAL ASSISTANT BIOPHYSICAL PROFILE W NST Routine 10/16/2024 11:37 AM PERSONAL ASSISTANT Gestational diabetes mellitus, class A2 affected by previous bariatric surgery, currently in third trimester AMA (advanced maternal age) multigravida 35+, third trimester Maternal obesity syndrome in third trimester BIOPHYSICAL PROFILE W NST Routine 10/16/2024 11:37 AM PERSONAL ASSISTANT Gestational diabetes mellitus, class A2 affected by previous bariatric surgery, currently in third trimester AMA (advanced maternal age) multigravida 35+, third trimester Maternal obesity syndrome in third trimester URINALYSIS - POINT OF CARE (AMB) [facility] Routine 10/16/2024 10:47 AM PERSONAL ASSISTANT High risk case management patient HEMOGLOBIN A1C - POINT OF CARE (AMB) [facility] Routine 10/16/2024 10:35 AM PERSONAL ASSISTANT Gestational diabetes mellitus, class A2 BIOPHYSICAL PROFILE W NST Routine 10/09/2024 10:51 AM PERSONAL ASSISTANT BIOPHYSICAL PROFILE W NST Routine 10/05/2024 3:28 PM PERSONAL ASSISTANT Gestational diabetes mellitus, class A2 URINALYSIS AUTO - POINT OF CARE (AMB) [facility] Routine 10/05/2024 3:01 PM PERSONAL ASSISTANT Supervision of high risk in third trimester HIV-1 HIV-2 ANTIBODY + HIV P24 AG PANEL Routine 08/31/2024 1:17 PM PERSONAL ASSISTANT Supervision of high risk , antepartum HEPATITIS C AB W/RFLX TO HCV RNA QN PCR 04/06/2024 from Last 3 Months or Most Recently Relevant to Health Maintenance Results * (ABNORMAL) URINALYSIS W/MICROSCOPIC REFLEX TO CULTURE (11/28/2024 11:41 AM PERSONAL ASSISTANT) Color UA Brigida(A) Straw, Yellow 11/28/2024 12:20 PM PERSONAL ASSISTANT [facility] Clarity UA Cloudy(A) Clear 11/28/2024 12:20 PM [facility] Specific [place] UA 1.029 1.005 - 1.030 11/28/2024 12:20 PM [facility] pH UA 5.0 5.0 - 8.0 pH 11/28/2024 12:20 PM [facility] Protein UA 1+(A) Negative 11/28/2024 12:20 PM [facility] Glucose UA Negative Negative 11/28/2024 12:20 PM [facility] Ketone UA Negative Negative 11/28/2024 12:20 PM [facility] Bilirubin UA Negative Negative 11/28/2024 12:20 PM [facility] Blood UA 2+(A) Negative 11/28/2024 12:20 PM [facility] Nitrite UA Negative Negative 11/28/2024 12:20 PM [facility] Leukocyte Esterase 3+(A) Negative 11/28/2024 12:20 PM [facility] Urobilinogen UA 4.0(A) Negative mg/dL 11/28/2024 12:20 PM [facility] RBC UA 21-50(A) None Seen, 0-2, 3-5 /HPF 11/28/2024 12:20 PM [facility] WBC UA 21-50(A) None Seen, 0-5 /HPF 11/28/2024 12:20 PM [facility] Bacteria UA Trace(A) None /HPF 11/28/2024 12:20 PM [facility] Squamous Epithelial Cells UA 11-20(A) None Seen, 0-2, 3-5 /HPF 11/28/2024 12:20 PM [facility] Mucus UA 3+ /LPF 11/28/2024 12:20 PM [facility] Urine URINE SPECIMEN OBTAINED BY CLEAN CATCH PROCEDURE / Unknown Collection / Unknown 11/28/2024 11:41 AM PERSONAL ASSISTANT 11/28/2024 11:58 AM [facility] - 11/28/2024 12:20 PM PERSONAL ASSISTANT Lab Status, Culture Reflex Indicated. Zachary López MD LAB - URINALYSIS ORD ERABLES [facility] [id number] [place] [address], [facility] [phone] * (ABNORMAL) NEUTROPHIL CYTOPLASMIC ANTIBODY (11/28/2024 11:41 AM PERSONAL ASSISTANT) [facility] Cytoplasmic (C-ANCA) <1:20 Neg:<1:20 titer 11/30/2024 8:11 AM PERSONAL ASSISTANT [facility] ([facility]) p-ANCA Titer <1:20 Neg:<1:20 titer 11/30/2024 8:11 AM PERSONAL ASSISTANT [facility] ([facility]) Comment: The presence of positive fluorescence exhibiting P-ANCA or C-ANCA patterns alone is not specific for the diagnosis of Miley's Granulomatosis (WG) or microscopic polyangiitis. Decisions about treatment should not be based solely on ANCA IFA results. The International ANCA Group Consensus recommends follow up testing of positive sera with both OH-3 and MPO-ANCA enzyme immunoassays. As many as 5% serum samples are positive only by EIA. Ref. AM J Clin Pathol 1999;111:507-513. Atypical p-ANCA Titer 1:160(H) Neg:<1:20 titer 11/30/2024 8:11 AM PERSONAL ASSISTANT [facility] ([facility]) Comment: The atypical pANCA pattern has been observed in a significant percentage of patients with ulcerative colitis, primary sclerosing cholangitis and autoimmune hepatitis. Blood BLOOD SPECIMEN / Unknown Lab Venipuncture / Unknown 11/28/2024 11:41 AM PERSONAL ASSISTANT 11/28/2024 11:51 AM PERSONAL ASSISTANT Narrative [facility] ([facility]) - 11/30/2024 8:11 AM PERSONAL ASSISTANT Performed at: 01 - [facility] [address] [place], [place] [id number] Geographic Information System Surveyor: Shahbaz Solomon PhD, Phone: [phone] Zachary López MD LAB - CHEMISTRY VAHE MCKOY [facility] ([facility]) [address] [place] [address], [facility] * MPO/OH 3 AUTOANTIBODIES PANEL (11/28/2024 11:41 AM PERSONAL ASSISTANT) Serine Proteinase 3 IgG 4 0 - 19 AU/mL 12/01/2024 11:07 AM PERSONAL ASSISTANT [facility] ([facility]) Comment: INTERPRETIVE INFORMATION: Serine Proteinase 3, IgG 19 AU/mL or Less ........ Negative 20-25 AU/mL ............. Equivocal 26 AU/mL or Greater ..... Positive Approximately 85% of patients with a C-ANCA pattern by IFA have antibodies specific for PR3. Performed By: [email or web address] [address] [place] [address] Collector: Aubrey Flores MD, PhD CLIA Number: [id number] Myeloperoxidase Antibody 2 0 - 19 AU/mL 12/01/2024 11:07 AM PERSONAL ASSISTANT [facility] ([facility]) Comment: INTERPRETIVE INFORMATION: Myeloperoxidase Abs, IgG 19 AU/mL or Less ......... Negative 20-25 AU/mL .............. Equivocal 26 AU/mL or Greater ...... Positive Approximately 90% of patients with a P-ANCA pattern by IFA have antibodies specific for MPO. Blood BLOOD SPECIMEN / Unknown Lab Venipuncture / Unknown 11/28/2024 11:41 AM PERSONAL ASSISTANT 11/28/2024 11:51 AM PERSONAL ASSISTANT Zachary López MD LAB [facility] Organization Address City/State/ZIP Co de Phone Number [facility]) [address] [place] [address] * CULTURE URINE (11/28/2024 11:41 AM PERSONAL ASSISTANT) Only the most recent of2 resultswithin the time period is included. Pathologist [facility] Culture Urine More than 2 organisms seen at >=50,000 CFU/mL. Recollect if clinically indicated. FADUMO 11/29/2024 7:49 PM PERSONAL ASSISTANT [facility] MICROBIOLOGY Urine URINE SPECIMEN OBTAINED BY CLEAN CATCH PROCEDURE / Unknown Collection / Unknown 11/28/2024 11:41 AM PERSONAL ASSISTANT 11/28/2024 12:19 PM PERSONAL ASSISTANT Zachary López MD LAB - MICROBIOLOGY O RDERABLES [facility] MICRO[facility] [address] [place], [place] [address], [facility] [phone] * (ABNORMAL) CBC WITH DIFFERENTIAL (11/28/2024 11:41 AM [facility]) Only the most recent of4 resultswithin the time period is included. WBC 7.0 4.0 - 10.7 x10E9/L 11/28/2024 11:59 AM [facility] RBC Count 3.82(L) 3.90 - 5.20 x10E12/L 11/28/2024 11:59 AM [facility] Hemoglobin 11.5(L) 11.9 - 15.8 g/dL 11/28/2024 11:59 AM [facility] Hematocrit 34.5(L) 34.8 - 46.1 % 11/28/2024 11:59 AM [facility] MCV 90.3 80.0 - 98.0 fL 11/28/2024 11:59 AM [facility] MCH 30.1 26.7 - 33.6 pg 11/28/2024 11:59 AM [facility] MCHC 33.3 31.7 - 36.3 g/dL 11/28/2024 11:59 AM [facility] RDW-CV 12.2 11.3 - 14.8 % 11/28/2024 11:59 AM [facility] Platelet Count 181 150 - 420 x10E9/L 11/28/2024 11:59 AM [facility] MPV 9.9 7.8 - 11.4 fL 11/28/2024 11:59 AM [facility] Neutrophil % 62.0 41.0 - 74.0 % 11/28/2024 11:59 AM [facility] Lymphocyte % 22.6 17.0 - 47.0 % 11/28/2024 11:59 AM [facility] Monocyte % 12.7(H) 3.0 - 11.0 % 11/28/2024 11:59 AM [facility] Eosinophil % 2.0 0.0 - 7.0 % 11/28/2024 11:59 AM [facility] Basophil % 0.4 0.0 - 1.6 % 11/28/2024 11:59 AM [facility] Immature Granulocytes % 0.3 0.0 - 1.0 % 11/28/2024 11:59 AM [facility] Neutrophil Absolute 4.34 1.60 - 7.50 x10E9/L 11/28/2024 11:59 AM [facility] Lymphocyte Absolute 1.58 1.00 - 4.40 x10E9/L 11/28/2024 11:59 AM [facility] Monocyte Absolute 0.89 0.15 - 1.00 x10E9/L 11/28/2024 11:59 AM [facility] Eosinophil Absolute 0.14 0.00 - 0.60 x10E9/L 11/28/2024 11:59 AM [facility] Basophil Absolute 0.03 0.00 - 0.13 x10E9/L 11/28/2024 11:59 AM [facility] Blood BLOOD SPECIMEN / Unknown Lab Venipuncture / Unknown 11/28/2024 11:41 AM PERSONAL ASSISTANT 11/28/2024 11:54 AM [facility] Zachary López MD LAB - HEMATOLOGY ORD ERABLES Performing Organization Address [facility]/State/[facility] Co de Phone Number [facility] [address] [place] [address], [facility] [phone] * (ABNORMAL) PROTEIN CREATININE RATIO URINE RANDOM PNL (11/28/2024 11:41 AM PERSONAL ASSISTANT) Protein Urine 28 Not Established mg/dL 11/28/2024 12:33 PM [facility] Creatinine Urine 198.86 Not Established mg/dL 11/28/2024 12:33 PM [facility] Protein/Creati nine Ratio Urine 0.14(H) <0.10 11/28/2024 12:33 PM [facility] Urine URINE SPECIMEN OBTAINED BY CLEAN CATCH PROCEDURE / Unknown Collection / Unknown 11/28/2024 11:41 AM PERSONAL ASSISTANT 11/28/2024 11:58 AM PERSONAL ASSISTANT Zachary López MD LAB - URINE CHEMISTR Y ORDERABLES [facility] [address] [place] [address], [facility] [phone] * (ABNORMAL) HEPATIC FUNCTION PANEL (11/28/2024 11:41 AM PERSONAL ASSISTANT) Protein Total 6.2 6.0 - 8.3 g/dL 025 12:27 PM [facility] Albumin 3.2(L) 3.4 - 5.0 g/dL 11/28/2024 12:27 PM [facility] Bilirubin Total 0.6 0.2 - 1.2 mg/dL 12/2024 12:27 PM [facility] Bilirubin Conjugated 0.2 0.1 - 0.5 mg/dL 11/28/2024 12:27 PM [facility] Bilirubin Unconjugated 0.4 Unconjugated Bilirubin is a calculated value: Reference ranges have not been established. mg/dL 11/28/2024 12:27 PM [facility] Alkaline Phosphatase 136 40 - 150 U/L 11/28/2024 12:27 PM [facility] ALT 13 5 - 55 U/L 11/28/2024 12:27 PM [facility] AST 11 5 - 34 U/L 11/28/2024 12:27 PM [facility] Albumin/Globulin Ratio 1.1 1.1 - 2.3 11/28/2024 12:27 PM [facility] Blood BLOOD SPECIMEN / Unknown Lab Venipuncture / Unknown 11/28/2024 11:41 AM PERSONAL ASSISTANT 11/28/2024 11:54 AM PERSONAL ASSISTANT Zachary López MD LAB - CHEMISTRY ORDE RABAGATA [facility] [address] [place] [address], [place] [phone] * CREATININE BLOOD (11/28/2024 11:41 AM PERSONAL ASSISTANT) Creatinine 0.72 0.56 - 0.96 mg/dL 11/28/2024 12:27 PM PERSONAL ASSISTANT [facility] eGFR by CKD-EPI >90 >=90 mL/min/1.7 3 m2 11/28/2024 12:27 PM PERSONAL ASSISTANT [facility] Blood BLOOD SPECIMEN / Unknown Lab Venipuncture / Unknown 11/28/2024 11:41 AM PERSONAL ASSISTANT 11/28/2024 11:54 AM PERSONAL ASSISTANT Zachary López MD LAB - CHEMISTRY ORDE EAN [facility] [address] [place] [address], [place] [phone] * URINALYSIS - POINT OF CARE (AMB) [facility] (11/27/2024 3:08 PM PERSONAL ASSISTANT) Only the most recent of4 resultswithin the time period is included. Specific [place] UA 1.[address] [facility] [address] pH [...] URINE / Unknown 11/27/2024 3 :08 PM PERSONAL ASSISTANT Apolonia GONZALEZ LAB - POINT OF CARE ORDERABLES [facility] [address] [place] [address], [place] [phone] * (ABNORMAL) COMPREHENSIVE METABOLIC PANEL (11/16/2024 10:01 PM PERSONAL ASSISTANT) Only the most recent of2 resultswithin the time period is included. [facility] Signature Glucose 82 70 - 99 mg/dL 11/16/2024 10:24 PM [facility] Sodium 140 136 - 145 mmol/L 11/16/2024 10:24 PM [facility] Potassium 3.4(L) 3.5 - 5.1 mmol/L 11/16/2024 10:24 PM [facility] Chloride 109(H) 98 - 107 mmol/L 11/16/2024 10:24 PM [facility] CO2 24 22 - 29 mmol/L 11/16/2024 10:24 PM [facility] Calcium 8.9 8.4 - 10.4 mg/dL 11/16/2024 10:24 PM [facility] Anion Gap 7 6 - 16 mmol/L 11/16/2024 10:24 PM [facility] BUN 15 5.3 - 18.7 mg/dL 11/16/2024 10:24 PM [facility] Creatinine 0.61 0.57 - 1.11 mg/dL 11/16/2024 10:24 PM [facility] Alkaline Phosphatase 146 40 - 150 U/L 11/16/2024 10:24 PM [facility] ALT 9 0 - 55 U/L 11/16/2024 10:24 PM [facility] AST 10 5 - 34 U/L 11/16/2024 10:24 PM [facility] Protein Total 6.3(L) 6.4 - 8.3 gm/dL 11/16/2024 10:24 PM [facility] Albumin 2.7(L) 3.4 - 5.0 gm/dL 11/16/2024 10:24 PM [facility] Bilirubin Total 0.3 0.2 - 1.2 mg/dL 11/16/2024 10:24 PM [facility] eGFR by CKD-EPI >90 >=90 mL/min/1.7 3 m2 11/16/2024 10:24 PM [facility] Blood BLOOD SPECIMEN / Unknown Venipuncture / Unknown 11/16/2024 10:01 PM PERSONAL ASSISTANT 11/16/2024 10:08 PM [facility] Kavya Noel MD LAB - CHEMISTRY ORD ERABLES [facility] [address] [place] [address] * (ABNORMAL) GLUCOSE - POINT OF CARE (11/11/2024 7:29 AM PERSONAL ASSISTANT) Only the most recent of10 resultswithin the time period is included. Glucose WB/POC 104(H) 70 - 99 mg/dL 11/11/2024 7:35 AM PERSONAL ASSISTANT [facility] Specimen Type Cap Fingerstick 2024 7:35 AM [facility] Blood BLOOD SPECIMEN / Unknown 11/11/2024 7:29 AM PERSONAL ASSISTANT 11/11/2024 7:35 AM PERSONAL ASSISTANT Manuel Ayers DO LAB - POINT OF CARE ORDERABLES Performing Organization Address [facility] Co de Phone Number [facility] [address] [place] [address] * PATHOLOGY TISSUE EXAM (STL) (11/10/2024 5:21 AM PERSONAL ASSISTANT) Case Report Surgical Pathology Report Case: [id number] Authorizing Provider: Erik Clemons MD Collected: 11/10/2024 05:21 AM Ordering Location: [facility] Received: 11/10/2024 07:37 AM Pathologist: Giles Wu MD Specimen: Placenta 11/13/2024 11:29 AM [facility] Final Diagnosis Placenta, delivery: Mature placenta, weight 537 g, with chorangiosis and single small peripheral placental infarct. 11/13/2024 11:29 AM [facility] Clinical History 39 weeks gestation. Insulin dependent diabetes mellitus 11/13/2024 11:29 AM [facility] Gross Description The specimen is [...] white lesion 1 cm in greatest dimension. Operations Dispatcher sections submitted as follows: A1-umbilical cord and membrane roll, [id number], A4-peripheral lesion. MILLIE/PURVI 11/13/2024 11:29 AM [facility] Microscopic Description The umbilical cord and membranes show no evidence of inflammatory infiltrate. The chorionic villi appear uniformly well-developed and well-vascularized, compatible with mature third trimester gestation. Chorangiosis is present. The lesion consists of a placental infarct. 11/13/2024 11:29 AM [facility] Pathologist Location at [facility] 11/13/2024 11:29 AM [facility] Disclaimer All histochemical and/or immunohistochemical results are interpreted with controls that demonstrate appropriate staining reactions before reporting results. Note on use of immunocytochemistry reagents: This test was developed and its performance characteristic determined by [facility], Department of Laboratory Medicine. It has [...] be interpreted with caution. 11/13/2024 11:29 AM [facility] Embedded Images 11/13/2024 11:29 AM [facility] Pathology/Cytolo gy ENTIRE PLACENTA / Unknown Collection / Unknown 11/10/2024 5:21 AM PERSONAL ASSISTANT 11/10/2024 7:37 AM PERSONAL ASSISTANT Erik Clemons MD LAB - PATHOLOGY/CYTO LOGY ORDERABLES [facility] [address] [place], [place] [id number] * (ABNORMAL) BLOOD GASES CORD ADRIANA (ISTAT) (11/10/2024 3:56 AM PERSONAL ASSISTANT) pH Cord Venous POCT 7.33 7.28 - 7.40 pH 11/10/2024 4:00 AM [facility] pCO2 Cord Venous POCT 40.0 35 - 45 mm hg 11/10/2024 4:00 AM [facility] pO2 Cord Venous POCT 27 22 - 33 mm hg 11/10/2024 4:00 AM [facility] HCO3 Cord Arterial POCT 20.9(L) 22 - 24 mmol/L 11/10/2024 4:00 AM [facility] BE Cord Venous POCT Calc -5 -6.4 - 1.6 mmol/L 11/10/2024 4:00 AM [facility] TCO2 Cord Venous POCT 22 22 - 30 mmol/L 11/10/2024 4:00 AM [facility] O2 Saturation % Cord Venous Calc POCT 45 % 11/10/2024 4:00 AM [facility] Site CORD ADRIANA 11/10/2024 4:00 AM [facility] Sample iSTAT CORD ADRIANA 11/10/2024 4:00 AM [facility] Blood CORD BLOOD SPECIMEN / Unknown 11/10/2024 3:56 AM PERSONAL ASSISTANT 11/10/2024 4:00 AM [facility] Manuel Ayers DO LAB - POINT OF CARE ORDERABLES Performing Organization Address City/State/[facility] Co de Phone Number [facility] [address] [place] [address] * (ABNORMAL) BLOOD GASES CORD ART (ISTAT) (11/10/2024 3:48 AM [facility]) pH Cord Arterial POCT 7.10(L) 7.20 - 7.34 pH 11/10/2024 4:00 AM [facility] pCO2 Cord Arterial POCT 76.2(HH) 45 - 55 mm hg 11/10/2024 4:00 AM [facility] pO2 Cord Arterial POCT 22 12 - 25 mm hg 11/10/2024 4:00 AM [facility] HCO3 Cord Arterial POCT 23.7 22 - 24 mmol/L 11/10/2024 4:00 AM [facility] BE Cord Arterial POCT -8(L) -2.9 - 8.3 mmol/L 11/10/2024 4:00 AM [facility] TCO2 Cord Arterial POCT 26 mmol/L 11/10/2024 4:00 AM [facility] O2 Saturation Cord Art % Calc POCT 22 % 11/10/2024 4:00 AM PERSONAL ASSISTANT [facility] Site CORD ART 11/10/2024 4:00 AM PERSONAL ASSISTANT [facility] Sample iSTAT CORD ART 11/10/2024 4:00 AM [facility] Blood CORD BLOOD SPECIMEN / Unknown 11/10/2024 3:48 AM PERSONAL ASSISTANT 11/10/2024 4:00 AM PERSONAL ASSISTANT Manuel Ayers DO LAB - POINT OF CARE ORDERABLES Performing Organization Address City/State/[facility] Co de Phone Number [facility] [address] [place] [address] * EPIDURAL BLOCK PERF (11/09/2024 8:45 PM PERSONAL ASSISTANT) Narrative Christina Hooper APRN-AIRCRAFT DISPATCHER - 11/09/2024 8:45 PM PERSONAL ASSISTANT Christina Hooper APRN-AIRCRAFT DISPATCHER 11/09/2024 8:46 PM Neuraxial Block Note Pre-Procedure: [...] Time: 4 Staff: Anesthesia Provider: Christina Hooper APRN-AIRCRAFT DISPATCHER - performed the procedure Additional Notes: Patient [...] SYPHILIS ANTIBODY CASCADING REFLEX (11/09/2024 12:42 PM PERSONAL ASSISTANT) Treponema pallidum Antibody Non Reactive Non Reactive 11/09/2024 1:52 PM PERSONAL ASSISTANT [facility] Comment: No Laboratory evidence of syphilis infection. Note: Circulating antibodies may be low or undetectable in early infection. If recent exposure is suspected, re-draw sample in 2-4 weeks and repeat testing. Blood BLOOD SPECIMEN / Unknown Venipuncture / Unknown 11/09/2024 12:42 PM PERSONAL ASSISTANT 11/09/2024 12:57 PM PERSONAL ASSISTANT Manuel Ayers DO LAB - SEROLOGY ORDER LENCHO [facility] [address] [place] [address] * TYPE + SCREEN PANEL (11/09/2024 12:42 PM PERSONAL ASSISTANT) ABO Rh A POS 11/09/2024 1:32 PM PERSONAL ASSISTANT [facility] Comment:History checked. Antibody Screen NEG 1:32 PM PERSONAL ASSISTANT [facility] Blood Bank BLOOD SPECIMEN / Unknown Venipuncture / Unknown 11/09/2024 12:42 PM PERSONAL ASSISTANT 11/09/2024 12:57 PM PERSONAL ASSISTANT Manuel Ayers DO LAB - BLOOD BANK ORD ERABLES [facility] [address] [phone] * SONOGRAM - COMPLETE (11/06/2024 11:38 AM PERSONAL ASSISTANT) Linked Results Indication ======== Gestational diabetes, A2 Hx gastric sleeve Obesity, Class II AMA Psoriatic arthritis History ====== OB History 5. Para 3 [id number] Lab Tests Test Date Result Genetic screening [...] 8 lb 3 oz EFW by Hadlock ([id number]) Growth Overview Exam date GA BPD (mm) [...] (2x/week NST, weekly BPP). Coding ====== Procedures 12299: [place] [address]: Biophysical Profile W NST [employer] PACS Anatomical Region Laterality Modality Other 11/06/2024 11:3 8 AM PERSONAL ASSISTANT Apolonia Painting CANNERY TENDER ENGINEER-EMU FARMER MFM ORDERABLES * BIOPHYSICAL PROFILE W NST (10/30/2024 11:21 AM PERSONAL ASSISTANT) Only the most recent of5 resultswithin the time period is included. Linked Results Indication ======== Gestational diabetes, A2 Hx gastric sleeve Obesity, Class II AMA Psoriatic arthritis History ====== OB History 5. Para 3 [id number] Lab Tests Test Date Result Genetic screening [...] NST and weekly BPP) Coding ====== Procedures 57097: [place] Uterus Limited 87838: Biophysical Profile W NST [employer] PACS Anatomical Region Laterality Modality Other 10/30/2024 11:2 1 AM PERSONAL ASSISTANT [place] Painting [facility] ORDER[facility] * CULTURE STREP B (10/23/2024 12:32 PM PERSONAL ASSISTANT) Culture Strep B Negative for beta-hemolytic Streptococcus Group B FADUMO 10/28/2024 1:04 PM PERSONAL ASSISTANT [facility] MICROBIOLOGY Microbiology MISCELLANEOUS SAMPLES / Unknown Collection / Unknown 10/23/2024 12:32 PM PERSONAL ASSISTANT 10/25/2024 1:06 PM PERSONAL ASSISTANT Apolonia Painting [facility]ERY [facility] LAB - MICROBIO LOGY ORDERABLES [facility] [address] [place] [address], [facility] [phone] * URINALYSIS AUTO - POINT OF CARE (AMB) [facility] (10/23/2024 12:15 PM PERSONAL ASSISTANT) Only the most recent of2 resultswithin the time period is included. Glucose UA NEG [facility] [address] Bilirubin UA POCT NEG SL [facility] [address] Ketones UA POCT NEG [facility] [address] Specific [place] UA 1.[address] [facility] [address] Blood Urine POCT NEG [facility] [address] pH UA 6.[address] [facility] [address] Protein UA TRACE [facility] [address] Urobilinogen UA 1 [facility] [address] Nitrite UA NEG [facility] [address] WBC UA 3+ [facility] [address] Urine URINE / Unknown 10/23/2024 1 2:15 PM PERSONAL ASSISTANT Apolonia Painting [facility] LAB - POINT OF CARE ORDERABLES [facility] [address] [place] [address], [facility] [phone] * EYE EXAM (10/18/2024 2:19 PM PERSONAL ASSISTANT) Anatomical Region Laterality Modality Other Historical Provider MD SCANNING ONLY * HEMOGLOBIN A1C - POINT OF CARE (AMB) [facility] (10/16/2024 10:35 AM PERSONAL ASSISTANT) Pathologist [facility] Hemoglobin A1c POCT 4.6 % [facility] [address] BLOOD SPECIMEN / Unknown 10/16/2024 10:35 AM PERSONAL ASSISTANT Apolonia Painting CANNERY TENDER ENGINEER-EMU FARMER LAB - POINT OF CARE ORDERABLES [facility] [address] [place] [address], [facility] [phone] * HIV-1 HIV-2 ANTIBODY + HIV P24 AG PANEL (08/31/2024 1:17 PM PERSONAL ASSISTANT) [facility] HIV Screen 4th Generation w Reflex [...] purpose. For additional information please refer to http://education.[employer]/faq/EIV062 (This link is being provided for informational/ educational purposes only.) The performance of this assay has not been clinically validated in patients less than 2 years old. Test Performed at: [facility] [address] [id number] SANJUANITA BRISENO MD Blood BLOOD SPECIMEN / Unknown 08/31/2024 1:17 PM PERSONAL ASSISTANT 08/31/2024 1:20 PM PERSONAL ASSISTANT Yolande Mathew MD LAB - CHEMISTRY VHAE MCKOY [facility] [address] [place] [address] * HEPATITIS C AB W/RFLX TO HCV RNA QN PCR (04/06/2024) Hepatitis C Antibody NON-REACTI VE NON-REACT LEIDA AZAM Comment: HCV antibody was non-reactive. There is no laboratory evidence of HCV infection. In most cases, no further action is required. However, if recent HCV exposure is suspected, a test for HCV RNA (test code 35566) is suggested. For additional information please refer to http://education.[employer]/faq/MKM63u5 (This link is being provided for informational/ educational purposes only.) Test Performed at: [facility] [address] [facility] [address] SANJUANITA BRISENO MD 04/06/2024 04/06/2024 3:0 8 PM CDT Chris Ferreira MD LAB - CHEMISTRY ORDE [facility] Organization Address [facility] Co de Phone Number [facility] [address] [place] [address] from Last 3 Months or Most Recently Relevant to Health Maintenance Advance Directives * Full Code (Latest Code Status on File) Date Activated Date Inactivated Comments 11/09/2024 12:11 PM 11/11/2024 2:04 PM * Full Code Date Activated Date Inactivated Comments 06/20/2024 3:11 PM 06/22/2024 5:01 PM Care Teams Hadoop Architect Relationship Specialty Start Date End Date Mendoza Xiong II, MD [address] OF [facility] [place] [address] PCP - General Internal Medicine 02/14/24
[2024-12-30 17:20] VITALS: BP 120/86; PULSE 70; RESP 17; O2SAT 100
[2024-12-30] MEDS: SODIUM CHLORIDE 0.9% IV 1,000 ML 999 ML IV CONT (17:22)
[2024-12-30 17:23] LABS: BEDSIDEPREGUCG Negative (Negative)
[2024-12-30 17:25] LABS: Basophils Percent Auto 0.3 % (0.2-1.2); Eosinophils Absolute Auto 0.1 K/mm3 (0-0.3); Eosinophils Percent Auto 0.8 % (0-4.4); Hematocrit 38.5 % (37.0-47.0); Hemoglobin 12.8 g/dL (12.0-15.0); Immature Granulocyte Absolute 0.02 K/mm3 (0.00-0.031); Immature Granulocyte Percent A 0.2 % (0-0.5); Lymphocytes Absolute Auto 1.67 K/mm3 (0.9-3.2); Lymphocytes Percent Auto 14.8 % (18.3-44.2); Mean Corpuscular HGB Conc 33.2 g/dl (32-36); Mean Corpuscular Hemoglobin 30.1 pg (26-34); Mean Corpuscular Volume 90.6 fl (80-100); Mean Platelet Volume 9.3 fl (7.4-10.4); Monocytes Absolute Auto 0.5 K/mm3 (0.1-0.6); Neutrophils Percent Auto 79.9 % (45.5-73.1); Platelet Count Result 196 k/mm3 (150-375); Red Blood Count 4.25 M/mm3 (4.2-5.4); Red Cell Distribution Width 12.4 % (11.5-14.5); White Blood Count 11.3 K/mm3 (4.5-10.0)
[2024-12-30 17:35] LABS: Alanine Aminotransferase 14 U/L (6-35); Albumin Level 4.3 g/dL (3.5-5.1); Alkaline Phosphatase 135 U/L (38-126); Anion Gap 9 mmol/L (4-12); Aspartate Amino Transferase 17 U/L (14-36); Bilirubin,Total 0.7 mg/dL (0.2-1.3); Blood Urea Nitrogen 10 mg/dL (7-17); Calcium 9.3 mg/dL (8.4-10.2); Carbon Dioxide 29 mmol/L (22-30); Chloride 102 mmol/L (98-107); Estimated CRCL calculation 105 ml/min; Estimated Glomerular Filt Rate > 60; Glucose 94 mg/dL (65-110); Lipase 67 U/L (23-300); Potassium 3.8 mmol/L (3.4-5.0); Sodium 140 mmol/L (137-145)
[2024-12-30 17:36] LABS: Add Urine Microscopic? YES; Appearance Urine Clear (Clear); Bacteria Urine 1+ /hpf; Bilirubin Urine Negative (Negative); Blood Urine Negative (Negative); Color Urine Yellow (Yellow); Glucose Urine UA Negative (Negative); Ketones Urine Negative (Negative); Leukocyte Esterase Ur 2+ LEU/UL (Negative); Nitrate Urine Negative (Negative); Non Pathogenic Casts 0-2; Protein Urine Negative (Negative); RBC Urine 0-2 /hpf (0-2); Specific Grav Ur 1.019 (1.001-1.035); Squamous Epithelial Cell Urine Few /hpf (Few); WBC Urine 21-50 /hpf (0-3)
[2024-12-30] MEDS: HYDROmorphone HCL INJ (*CRX) 1 MG/ML SYR 0.5 MG IV PUSH (18:18)
[2024-12-30] MEDS: ONDANSETRON INJ 4 MG/2 ML VIAL IV PUSH (18:18)
[2024-12-30 19:00] VITALS: BP 127/74; PULSE 64; RESP 20; O2SAT 99
[2024-12-30 19:47] VITALS: BP 123/82; PULSE 62; RESP 18; O2SAT 100
== END 2024-12-30 19:49 | disposition home or self-care (01) ==
PROVIDERS: Emergency Provider Emergency Medicine
DX: K43.9 Ventral hernia without obstruction or gangrene (principal); N39.0 Urinary tract infection, site not specified; Z87.891 Personal history of nicotine dependence
CPT/HCPCS: 36415; 74177; 80053; 81001; 81025; 83690; 85025; 87086; 96361; 96374; 96375; 99284; J1171; J2405; J7030; Q9967

== ENCOUNTER 2025-01-26 01:14 | Day surgery (SDC) | payer OTHER, SELFPAY ==
[2025-01-16 09:50] VITALS: BMI 34.7
--- NOTE | 2025-01-16 09:51 | PC.NURSE ---
Report to the Outpatient Waiting Room, entrance under the green pavilion located off [facility], at time _0700_ on date _[id number]_. Planned Procedure Time: _0900_.? Time changes happen often and if your time is changed the preop area will call you the afternoon before. - You and your visitor will be asked to self-screen and do not enter if you have any COVID symptoms. Please call surgeon if you need to reschedule. - A mask is optional within the hospital at this time. Patients may have clear liquids (water, carbonated beverages, clear teas, apple juice) until 3 hours prior to surgery with a maximum of 20 ounces. - No food from midnight until time of surgery and no smoking, or chewing tobacco (or any form of nicotine). No chewing gum, candy or mints. Take only the following medications with a SIP of water on the morning of surgery: ___None____ DO NOT STOP ANY OF YOUR OTHER PRESCRIPTION MEDICATIONS PRIOR TO SURGERY EXCEPT THE FOLLOWING Hold all vitamins and supplements for 3 days per anesthesiologist. Medications to discontinue per physician Date to take last fdzl___[phone] Please no make-up, nail latvian, hairspray, perfume, deodorant, or body powder the day of surgery.? No jewelry (including any body piercings) or valuables the day of surgery, leave them at home.? Please take a shower or bath the night before, or the morning of, surgery with an antibacterial soap.? Wear comfortable, loose fitting clothing.? - Jewelry must be removed prior to entering the operating room.? Rings and piercings that are not removed may be cut off. - The hospital will not accept responsibility for valuables.? - Please leave all valuables, including medications, at home the day of surgery. If you are going home after surgery, a licensed trash truck driver must drive you home.? - NO public transportation without another adult if you receive anesthesia. - We recommend that an adult stay with you for 24 hours following discharge. - We also recommend that you do not drive, make important decision, drink alcoholic beverages, or take any drugs that were not prescribed by your health care provider for at least 24 hours after your discharge time. Follow any additional instructions given to you from your surgeon. Telephone instructions given to __Apolonia__and asked if any additional questions and then verbalized understanding. Patient advised to call surgeon office or pre surgery nurse liaison [phone] if any additional questions.
--- NOTE | 2025-01-23 11:33 | P.HP_ITS ---
H&P: HPI History of Present Illness Date/Time: 01/23/25 11:33 Chief Complaint: Ventral hernia desires permanent sterilization Narrative: Is a pleasant 34-year-old multiparous patient admitted for laparoscopic bila teral salpingectomy secondary to desires permanent sterilization she will ventral hernia repaired the umbilicus at the same time. She understands this to be permanent irreversible risks and benefits were reviewed in great detail well as options that were non permanent and asked to proceed Review of Systems Review of Systems: All systems reviewed & are unremarkable except as noted in HPI and below PMFSH Past Medical History Medical History Pneumonia Abdominal wall pain GERD without esophagitis COVID-19 Chronic, continuous use of opioids oxycodone Bronchocentric granulomatosis 2012 Open wound of umbilical region (~04/27/20) History of jejunostomy tube placement Immunosuppression due to drug therapy Insomnia Asthma Hx of gangrene (~07/2019) gangrenous gall bladder, ruptured GB History of sepsis (~10/2019) perforated duodenum from surgical procedure Morbid obesity (Unknown) Psoriatic arthritis (Unknown) Allergies Asthma Surgical History Surgical History H/O gastric sleeve History of foot surgery 2008 - ORIF fracture 5th metatarsal. History of abdominal surgery 2018 -2020 - exploratory la History of tonsillectomy History of cholecystectomy (~07/2019) 05/05/21 Laparoscopic cholecystectomy with intraoperative cholangiogram 2. Extensive lysis of adhesions greater than 1 hour (laparoscopic) 3. Excision of chronic granulating wound tract right upper quadrant. 4. Repair with sutures of moderate size umbilical hernia. 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 Lives with her and 3 children. Smoking packs per day: 1 Smoking cigarettes per day: 20.0 Years smoked: 10 Smoking pack-years: 10.00 Smoking status: Former smoker Tobacco type: cigarettes Second hand tobacco smoke exposure: No Smoking end date: 06/01/17 Alcohol intake: current Drinks per week: 1 Substance use: never Substance use type: does not use Do You Feel Safe in your Home?: Yes Lack of Transportation: No Lack of Food: Sometimes True Current Housing: I Have Housing Concerned About Future Housing: No Difficulty Paying Gas/Electric Bills: No Difficulty Paying for Meds: No Currently Unemployed: No Education: High School Diploma/GED Difficulty w/ Childcare or Family Care: No Living arrangements: with family Occupation/Education: occupation Gender identity (if verbalized by the patient): Female Sexual Orientation (if Verbalized by the Patient): Straight or Heterosexual Spiritual care concerns: No Agree to blood products: Yes Meds Home Medications and Allergies Home Medications ?Medication ?Instructions ?Recorded ?Confirmed ?Type pantoprazole 40 mg tablet,delayed 40 mg PO DAILY #90 tabs 01/04/23 01/16/25 Rx release clobetasol 0.05 % scalp solution 1 applic topical DAILY PRN itching 08/30/24 01/16/25 History cyclobenzaprine 10 mg tablet 10 mg PO HS 08/30/24 01/16/25 History ferrous sulfate 325 mg (65 mg 325 mg PO DAILY 08/30/24 01/16/25 History iron) tablet folic acid 1 mg tablet 1 mg PO DAILY 08/30/24 01/16/25 History azathioprine 100 mg tablet 150 mg PO DAILY 12/13/24 01/16/25 History certolizumab pegol 200 mg/mL 200 mg subcut ONCE 12/13/24 01/16/25 History subcutaneous syringe kit (Cimzia) sennosides 8.6 mg tablet (senna) 8.6 mg PO HS 01/16/25 01/16/25 History Allergies Allergy/AdvReac Type Severity Reaction Status Date / Time amoxicillin Allergy Severe Swelling Verified 01/16/25 09:39 of Lip/Tongue/Throat zolpidem (From Ambien) Allergy Severe Rash Verified 01/16/25 09:39 adhesive tape Allergy Intermediate Rash, Verified 01/16/25 09:39 Pulled skin off clindamycin Allergy Swelling Verified 01/16/25 09:39 of Lip/Tongue/Throat sulfamethoxazole (From Allergy Hives Verified 01/16/25 09:39 Bactrim) trimethoprim (From Bactrim) Allergy Hives Verified 01/16/25 09:39 Exam Const: General: cooperative, healthy appearing and comfortable Nutritional Appearance: average body habitus Orientation/consciousness: oriented to person, oriented to place and oriented to time HENMT: Head: normal to inspection Resp: Effort & Inspection: normal respiratory effort Cardio: Rate: regular rate Rhythm: regular rhythm Heart sounds: S1 normal heart sound present and S2 normal heart sound present GI: Inspection: normal to inspection and visible herniation (At umbilicus) Auscultation: normal bowel sounds : External Female Exam: normal external appearance Speculum Exam - Vagina: normal appearance of the vagina Speculum Exam - Cervix: normal appearance of the cervix Bimanual exam- vagina & uterus: normal bimanual exam Bimanual Exam- Adnexa, other: normal adnexae Assessment and Plan Assessment and plan (1) Sterilization: Code(s): Z30.2 - Encounter for sterilization Status: Acute Plan Proceed with laparoscopic bilateral salpingectomy
[2025-01-26] VITALS (13 sets, daily range): BP systolic 130–167; BP diastolic 71–105; PULSE 57–99; RESP 11–22; TEMP 36.1–36.6; O2SAT 98–100
--- OUTSIDE RECORDS SUMMARY | 2025-01-26 01:17 | XMS_ITS | Clinical Summary ---
Author Organization [facility] Address [address] [facility] [place] [address] Care Team Providers Care Pharmacy Salesperson Name Role Phone Tyrese MCCULLOUGH MD, Mendoza Anderson Primary Care Provider + Source Comments [facility],non-owned Affiliates and Associated Physician Practices is amultiple site organization consisting of ambulatory clinics and hospital sitesin [place], [place], [place] and [place]. This disclosure is being madepursuant to the Care Everywhere program and may not contain all information available regarding this patient. Last updated 18.[facility] Allergies Active Allergy Reactions Criticality Noted Date Comments Amoxicillin Urticaria High 01/13/2023 Sulfamethoxazole W-Trimethoprim Urticaria Medium 02/14/2024 Bupropion Other 06/28/2012 SUCICIDAL Anger issues Clindamycin Anaphylaxis High 02/14/2024 Mecrylate Dizziness High 05/26/2016 Peels off skin Peels off skin Zolpidem Itching,Rash Medium 01/13/2023 Medications * This document contains information received from the source organization and may not represent a complete record from that organization. * Be aware that medications may not be up to date on this document. Alwaysverify current medications with the patient. folic acid (Folvite) 1 MG tabletIndication s:Folic acid deficiency Take 1 (one) tablet by mouth once daily 90 tablet 4 02/16/20 24 Active Ascorbic Acid 1000 MG Take 1 (one) tablet by mouth once daily Activ e ferrous sulfate 325 (65 FE) MG tablet [...] not apply 4 TIMES DAILY, Reported on 01/18/2025 Vitamin D, Cholecalciferol, 50 MCG (1999 UT) CAPS Take 1 capsule by mouth once daily 90 capsule 3 10/30/19 25 Active triamcinolone acetonide (Kenalog) 0.1 % creamIndications :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HCC) Apply to affected area 2 times daily 45 g 1 11/29/19 25 Active senna (Senokot) 8.6 MG tabletIndication s:Drug induced constipation Take 1 (one) tablet by mouth once daily 90 tablet 1 12/06/19 25 025 Active Cimzia, 2 Syringe, injectionIndicat ions:Psoriatic arthritis ([facility]) INJECT 2 SYRINGES UNDER THE SKIN EVERY [...] once daily 90 tablet 12/23/19 25 Active Active Problems Problem Noted Date Diagnosed [...] Encounters Date Type Department Care Team Description 01/18/2025 9:33 AM CDT - 01/18/2025 11:59 PM CDT Hospital Encounter [facility] [address] [address] Chemo Neal MD Discharge Disposition: Home or Self Care 12/27/2024 3:30 PM CDT Office Visit [facility] [address], [address] [address] Zachary López MD Chaves Martins, Yuri, MD Thoracic radiculitis (Primary Dx); Chronic bilateral low back pain with bilateral sciatica; Sacroiliitis 12/27/2024 Orders Only [facility] [address], [facility] [address] [place] [address] Chemo Neal MD Thoracic radiculitis; Chronic bilateral low back pain with bilateral sciatica 12/27/2024 Travel 12/22/2024 Telephone [facility] - RIG MANAGER [address] [place] [address] Apolonia Painting APRN-CNP Opened In Error 12/21/2024 9:30 AM CDT [facility] [address] [place] [address] Susan Estrada, ERIC/LD Obesity, class 1 (Primary Dx); H/O gastric sleeve; Gestational diabetes mellitus (GDM), 12/21/2024 8:30 AM CDT Office Visit [facility] - RIG MANAGER [address] [facility] [address] [place] [address] Apolonia Painting APRN-CNP Encounter for visit (Primary Dx); History of hypertension; History of gestational diabetes; Vitamin D deficiency; Chronic pain syndrome; Microscopic polyangiitis; H/O gastric sleeve; Psoriatic arthritis 12/21/[address] [facility] - RIG MANAGER [address] [facility] [address] [place] [address] Apolonia Painting APRN-CNP Refill Request 12/20/2024 Travel 12/20/2024 Refill [facility] - RIG MANAGER [address] [place], [place] [address] [address] [place] [address] Apolonia Painting APRN-CNP Med Change Request 12/20/2024 Orders Only [facility] - RIG MANAGER [address] [place], [place] [address] [address] [place] [address] Apolonia Painting APRN-CNP 12/19/2024 11:00 AM CDT Clinical Support [facility] [address] [place] [phone] History of hypertension 12/19/2024 Travel 12/18/2024 Orders Only [facility] Rhe[facility] [address] [place] [phone] Zachary López MD ANCA-associated vasculitis; Psoriatic arthritis; Immunosuppression due to drug therapy; Other chronic pain 12/18/[address] [facility] - Rheumatology [address] [place] [phone] Zachary López MD ANCA-associated vasculitis ; Psoriatic arthritis; Immunosuppression due to drug therapy; Other chronic pain 12/15/[address] [facility] - Internal Med [address] [place] [phone] Mendoza Xiong II, MD Gastroesophageal reflux disease without esophagitis 12/13/[address] [facility] - RIG MANAGER [address], [address] [place] [phone] Apolonia Painting APRN-AVIATION MANAGER Question 12/12/[address] [facility] - Rheumatology [address] [place] [phone] Zachary López MD Refill Request 12/05/2024 11:30 AM CDT Office Visit [facility] - Internal Med [address] [place] [phone] Mendoza Xiong II, MD Elevated blood-pressure reading without diagnosis of hypertension (Primary Dx); Other proteinuria; Drug induced constipation 12/05/2024 Travel 11/28/2024 10:35 AM ROTOR PLATE WASHER - 11/28/2024 11:59 PM ROTOR PLATE WASHER Hospital Encounter [facility] DRAW STATION [address] [place] [address] Discharge Disposition: Home or Self Care 11/28/2024 10:00 AM ROTOR PLATE WASHER Office Visit [facility] - Rheumatology [address] [place] [phone] Zachary López MD Microscopic polyangiitis (Primary Dx); Screening-pulmonary TB; ANCA-associated vasculitis; Psoriasis; Psoriatic arthritis; Immunosuppression due to drug therapy; High risk case management patient 11/28/2024 Travel 11/27/2024 2:20 PM ROTOR PLATE WASHER Office Visit [facility] - RIG MANAGER [address] [facility] [address] [place] [address] Apolonia Painting APRN-CNP Flank pain (Primary Dx); Encounter for visit; History of hypertension; LUQ pain; History of recurrent UTIs; Vitamin D deficiency; History of gestational diabetes; Chronic pain syndrome; Psoriatic arthritis; H/O gastric sleeve 11/27/2024 Travel 11/27/2024 Telephone [facility] [address] [place] [phone] Mendoza Xiong II, MD Appointment 11/27/2024 Telephone [facility] [address] [place] [phone] Zachary López MD Medication Prior Auth Request (Cimzia) 11/23/2024 Telephone [facility] - RIG MANAGER [address] [facility] [address] [place] [address] Apolonia Painting APRN-CNP Coordination Of Care 11/20/2024 1:40 PM ROTOR PLATE WASHER Office Visit [facility] - RIG MANAGER [address] [facility] [address] [place] [address] Apolonia Painting APRN-CNP Encounter for visit (Primary Dx); Elevated blood pressure reading; History of hypertension; History of gestational diabetes; Psoriatic arthritis; Chronic pain syndrome; Vitamin D deficiency; Microscopic polyangiitis; H/O gastric sleeve; ABIEL (obstructive sleep apnea) 11/20/2024 Travel 11/16/2024 9:25 PM ROTOR PLATE WASHER - 11/16/2024 11:23 PM ROTOR PLATE WASHER Hospital Encounter [address] [address] Kavya Noel MD Discharge Disposition: Home or Self Care 11/09/2024 8:14 PM ROTOR PLATE WASHER Anesthesia Event [address] [address] Leo Gonzáles MD Lashley, Melissa J, EQUITY SALES ASSISTANT-ACUPUNCTURIST 11/09/2024 11:43 AM ROTOR PLATE WASHER - 11/11/2024 12:45 PM ROTOR PLATE WASHER Hospital Encounter [facility] 6W MOTHER/BABY [address] [place] [address] Manuel Ayers DO Maternal/ Medicine Discharge Disposition: Home or Self Care 11/09/2024 Telephone [facility] - RIG MANAGER [address] [place] [address] Apolonia Painting APRN-CNP Concerns; Induction 11/06/2024 11:40 AM ROTOR PLATE WASHER visit [facility] - RIG MANAGER [address] [place] [address] Apolonia Painting APRN-CNP GA: [id number] 11/06/2024 11:00 AM ROTOR PLATE WASHER Procedure visit [facility] - RIG MANAGER [address] [place] [address] Insulin controlled gestational diabetes mellitus (GDM) in third trimester ; AMA (advanced maternal age) multigravida 35+, third trimester 11/06/2024 10:30 AM ROTOR PLATE WASHER Procedure visit [facility] - RIG MANAGER [address] [place] [address] Insulin controlled gestational diabetes mellitus (GDM) in third trimester 11/06/2024 10:00 AM ROTOR PLATE WASHER Office Visit [facility] - RIG MANAGER [address] [place] [address] Susan Estrada, RD/LD Insulin controlled gestational diabetes mellitus (GDM) in third trimester (Primary Dx); Bariatric surgery status complicating , third trimester; Obesity (BMI 35.0-39.9 without comorbidity) 11/06/2024 Travel 11/02/2024 10:00 AM ROTOR PLATE WASHER Procedure visit [facility] - RIG MANAGER [address] [place] [address] Insulin controlled gestational diabetes mellitus (GDM) in third trimester 11/02/2024 Travel 10/30/2024 11:40 AM ROTOR PLATE WASHER visit [facility] - RIG MANAGER [address] [place] [address] Apolonia Painting APRN-CNP GA: [id number] 10/30/2024 11:00 AM ROTOR PLATE WASHER Procedure visit [facility] - RIG MANAGER [address] [place] [address] Insulin controlled gestational diabetes mellitus (GDM) in third trimester ; affected by previous bariatric surgery, currently in third trimester; AMA (advanced maternal age) multigravida 35+, third trimester; Maternal obesity syndrome in third trimester; Encounter for ultrasound to assess growth 10/30/2024 10:30 AM ROTOR PLATE WASHER Procedure visit [facility] - RIG MANAGER [address] [place] [address] Insulin controlled gestational diabetes mellitus (GDM) in third trimester 10/30/2024 Travel from Last 3 Months Immunizations Immunization Administration Dates Next Due INFLUENZA VACCINE, TRIV. [...] Smoking Tobacco: Former Cigarettes 1 11 2 2016 Smokeless Tobacco: Never Tobacco Cessation:Counseling Given: [...] Recorded Patient Health Questionnaire-2 Score 0 10/19/2024 [facility] - Occupational Stress [...] in a fdc (including now)? No 06/25/2024 Bernard Depression Scale Answer Date Recorded Bernard Depression Scale Total 1 12/21/2024 The thought [...] any time in the past 12 m [facility], were you homeless or living in a fdc (including now)? No 11/16/2024 Education Answer Date Recorded What is the highest level of school you have completed or the highest degree you have received? Some college, no degree 02/14/2024 Comments No Sex and Gender Information Value Date Recorded Sex Assigned at Not on file Legal Sex Female 11:39 AM ROTOR PLATE WASHER Gender Identity Not on file Sexual Orientation Not on file Occupation Industry Job Start Date Job End Date Stay at home mom Not on file Not on file Not on file Last Filed Vital Signs Vital Sign Reading Time Taken Comments Blood Pressure 110/69 01/18/2025 9:58 AM CDT Pulse 87 01/18/2025 9:58 AM CDT Temperature 36.6 C (97.9 F) 01/18/2025 9:58 AM CDT Respiratory Rate 18 01/18/2025 9:58 AM CDT Oxygen Saturation 99% 01/18/2025 9:58 AM CDT Inhaled Oxygen Concentration - - Weight 88.9 kg (196 lb) 01/18/2025 9:58 AM CDT Height 160 cm (5' 3) 01/18/2025 9:58 AM CDT Body Mass Index 34.72 01/18/2025 9:58 AM CDT Plan of Treatment Upcoming Encounters Date Type Department Care Team (Late st Contact Info) Description 02/14/2025 11:00 AM CDT Office Visit [facility] [address] [place] [address], [place] [phone] Zachary López MD [address] [place] [address] [address] [place] [address] 03/21/2025 10:30 AM CDT Office Visit [facility] - Internal Med [address] [place] [address], [place] [address] Mendoza Xiong II, MD [address] [place] [address] [address] DIV OF [facility] [place] [address] Health Maintenance Due Date Last Done Comments [...] Procedure Name Priority Date/Time Associated Diagnosis Comments PAIN MANAGEMENT PROCEDURE TIME Routine 01/18/2025 10:39 AM CDT Radiculitis, thoracic PROTEIN CREATININE RATIO URINE RANDOM PNL Routine 11/28/2024 11:41 AM ROTOR PLATE WASHER ANCA-associated vasculitis URINALYSIS W/MICROSCOPIC REFLEX TO CULTURE Routine 11/28/2024 11:41 AM ROTOR PLATE WASHER ANCA-associated vasculitis MPO/IN 3 AUTOANTIBODIES PANEL Routine 11/28/2024 11:41 AM ROTOR PLATE WASHER ANCA-associated vasculitis Therapeutic drug monitoring NEUTROPHIL CYTOPLASMIC ANTIBODY Routine 11/28/2024 11:41 AM ROTOR PLATE WASHER ANCA-associated vasculitis Therapeutic drug monitoring HEPATIC FUNCTION PANEL Routine 11:41 AM ROTOR PLATE WASHER ANCA-associated vasculitis Therapeutic drug monitoring CREATININE BLOOD Routine 11/28/2024 11:4 1 AM ROTOR PLATE WASHER ANCA-associated vasculitis Therapeutic drug monitoring CBC W AUTO DIFFERENTIAL Routine 11/28/2024 11:41 AM ROTOR PLATE WASHER ANCA-associated vasculitis Therapeutic drug monitoring CULTURE URINE Routine 11/28/2024 11:41 AM ROTOR PLATE WASHER ANCA-associated vasculitis CULTURE URINE Routine 11/27/2024 3:13 PM ROTOR PLATE WASHER LUQ pain History of recurrent UTIs URINALYSIS - POINT OF CARE (AMB) [facility] Routine 11/27/2024 3:08 PM ROTOR PLATE WASHER Flank pain COMPREHENSIVE METABOLIC PANEL STAT 11/16/2024 10:01 PM ROTOR PLATE WASHER Elevated blood pressure affecting in third trimester, antepartum CBC W AUTO DIFFERENTIAL STAT 11/16/2024 10:01 PM ROTOR PLATE WASHER Elevated blood pressure affecting in third trimester, antepartum GLUCOSE - POINT OF CARE Routine 11/11/2024 7:29 AM ROTOR PLATE WASHER GLUCOSE - POINT OF CARE Routine 11/11/2024 7:00 AM ROTOR PLATE WASHER CBC W AUTO DIFFERENTIAL AM Draw 11/11/2024 3:52 AM ROTOR PLATE WASHER PATHOLOGY TISSUE EXAM (STL) Routine 11/10/2024 5:21 AM ROTOR PLATE WASHER History of gestational diabetes BLOOD GASES CORD ADRIANA (ISTAT) Routine 11/10/2024 3:56 AM ROTOR PLATE WASHER BLOOD GASES CORD ART (ISTAT) Routine 11/10/2024 3:48 AM ROTOR PLATE WASHER GLUCOSE - POINT OF CARE Routine 11/10/2024 2:04 AM ROTOR PLATE WASHER GLUCOSE - POINT OF CARE Routine 11/09/2024 11:44 PM ROTOR PLATE WASHER GLUCOSE - POINT OF CARE Routine 11/09/2024 9:47 PM ROTOR PLATE WASHER NEURAXIAL BLOCK Routine 11/09/2024 8:45 PM ROTOR PLATE WASHER GLUCOSE - POINT OF CARE Routine 11/09/2024 7:49 PM ROTOR PLATE WASHER GLUCOSE - POINT OF CARE Routine 11/09/2024 5:43 PM ROTOR PLATE WASHER GLUCOSE - POINT OF CARE Routine 11/09/2024 4:01 PM ROTOR PLATE WASHER GLUCOSE - POINT OF CARE Routine 11/09/2024 1:52 PM ROTOR PLATE WASHER TYPE + SCREEN PANEL STAT 11/09/2024 1 2:42 PM ROTOR PLATE WASHER COMPREHENSIVE METABOLIC PANEL Routine 11/09/2024 12:42 PM ROTOR PLATE WASHER SYPHILIS ANTIBODY CASCADING REFLEX STAT 11/09/2024 12:42 PM ROTOR PLATE WASHER CBC W AUTO DIFFERENTIAL STAT 11/09/2024 12:42 PM ROTOR PLATE WASHER GLUCOSE - POINT OF CARE Routine 11/09/2024 12:24 PM ROTOR PLATE WASHER SONOGRAM - COMPLETE Routine 11/06/2024 1 1:38 AM ROTOR PLATE WASHER Insulin controlled gestational diabetes mellitus (GDM) in third trimester AMA (advanced maternal age) multigravida 35+, third trimester URINALYSIS - POINT OF CARE (AMB) [facility] Routine 11/06/2024 11:38 AM ROTOR PLATE WASHER High risk case management patient BIOPHYSICAL PROFILE W NST Routine 10/30/2024 11:21 AM ROTOR PLATE WASHER Insulin controlled gestational diabetes mellitus (GDM) in third trimester affected by previous bariatric surgery, currently in third trimester AMA (advanced maternal age) multigravida 35+, third trimester Maternal obesity syndrome in third trimester Encounter for ultrasound to assess growth URINALYSIS - POINT OF CARE (AMB) [facility] Routine 10/30/2024 10:27 AM ROTOR PLATE WASHER Supervision of high risk in third trimester HIV-1 HIV-2 ANTIBODY + HIV P24 AG PANEL Routine 08/31/2024 1:17 PM ROTOR PLATE WASHER Supervision of high risk , antepartum HEPATITIS C AB W/RFLX TO HCV RNA QN PCR 04/06/2024 from Last 3 Months or Most Recently Relevant to Health Maintenance Results * Pain Management Procedure Time (01/18/2025 10:39 AM CDT) Anatomical Region Laterality Modality Radio Fluoroscop y Narrative 01/18/2025 11:43 AM CDT Chemo Neal MD 01/18/2025 11:44 AM PROCEDURE NOTE: left paramedian Interlaminar Epidural Steroid Injection at T10/T11 DOS: 01/18/2025 Primary pain complaint: Radicular pain Pre-procedure diagnosis: Spinal stenosis Post-procedure diagnosis: Same Attending: Dr. Chemo Hamilton MD., Ph.D. The procedure, its benefits, and its risks were explained and written informed consent was obtained from the patient. Immediately prior to starting the procedure, a time-out safety check was conducted. The patient's identification, procedure name, procedure site, and procedure laterality were confirmed with the patient. The patient was positioned prone on a fluoroscopy table with a pillow under the abdomen to help reduce the lumbar lordosis. A pulse ox monitor was attached, and the patient was monitored throughout the procedure. Surgical cap, mask, and sterile gloves were worn. The T10 vertebral level was identified with use of fluoroscopy in AP view. The skin was prepped using ChloraPrep and draped in a sterile fashion. The skin and subcutaneous tissue were anesthetized using 3 mL of 1% plain lidocaine with a 25 gauge 1.5 inch needle. A 3.5 inch 20 gauge Tuohy needle was slowly advanced using the AP fluoroscopic view towards the T10/T11 epidural space keeping it coaxial to the fluoroscopy beam. The latter part of the needle advancement was guided with fluoroscopy in the JOCELYN view. The epidural space was identified using [id number] technique with normal saline. After negative aspiration for blood or CSF, 2 mL of contrast was injected to confirm the needle placement. The lateral fluoroscopy view showed predominantly dorsal epidural space contrast spread. After negative aspiration for blood or CSF, 3 mL of injectate (1 mL of 40 mg/mL triamcinolone and 2 mL of 2% lidocaine) was injected in increments with intermittent negative aspiration for blood. The needle stylet was reinserted and the needle was removed. The patient tolerated the procedure well and was observed at the Pain Center for 20 minutes. Vital signs were stable. The patient was discharged with an escort and given written discharge instructions. Preop VAS: 7/10 Postop VAS: 1/10 PLAN: The patient was advised to contact the Pain Center for any of the followin. Swelling, redness, bleeding, or discharge from injection site 2. Fever greater than 100 degrees F 3. New or worsening back or neck pain 4. New numbness or weakness in arms or legs 5. New urinary difficulty or incontinence, New bowel incontinence 6. Headache after the procedure 7. Any questions regarding the procedure If unable to contact the Pain Center in the event of apparent serious complication(s), the patient was instructed to visit the nearest emergency department for further evaluation. Procedural Imaging Documentation: Osman ultrasound images from this procedure were requested to be saved in the PACS system. At the time of this dictation, I have confirmed that the images are present in the PACS system as part of the patient's medical record. I, Chemo Hamilton, performed the whole procedure. Chemo Hamilton MD DIAGNOSTIC IMAGING ORDERA BLES Final Result * (ABNORMAL) URINALYSIS W/MICROSCOPIC REFLEX TO CULTURE (11/28/2024 11:41 AM ROTOR PLATE WASHER) Color UA Brigida(A) Straw, Yellow 11/28/2024 12:20 PM [facility] Clarity UA Cloudy(A) Clear 11/28/2024 12:20 PM [facility] Specific [place] UA 1.029 1.005 - 1.030 11/28/2024 12:20 PM [facility] pH UA 5.0 5.0 - 8.0 pH 11/28/2024 12:20 PM [facility] Protein UA 1+(A) Negative 11/28/2024 12:20 PM [facility] Glucose UA Negative Negative 11/28/2024 12:20 PM [facility] Ketone UA Negative Negative 11/28/2024 12:20 PM [facility] Bilirubin UA Negative Negative 11/28/2024 12:20 PM [facility] Blood UA 2+(A) Negative 11/28/2024 12:20 PM [facility] Nitrite UA Negative Negative 11/28/2024 12:20 PM [facility] Leukocyte Esterase 3+(A) Negative 11/28/2024 12:20 PM [facility] Urobilinogen UA 4.0(A) Negative mg/dL 11/28/2024 12:20 PM [facility] RBC UA 21-50(A) None Seen, 0-2, 3-5 /HPF 11/28/2024 12:20 PM [facility] WBC UA 21-50(A) None Seen, 0-5 /HPF 11/28/2024 12:20 PM [facility] Bacteria UA Trace(A) None /HPF 11/28/2024 12:20 PM [facility] Squamous Epithelial Cells UA 11-20(A) None Seen, 0-2, 3-5 /HPF 11/28/2024 12:20 PM [facility] Mucus UA 3+ /LPF 11/28/2024 12:20 PM ROTOR PLATE WASHER [facility] Urine URINE SPECIMEN OBTAINED BY CLEAN CATCH PROCEDURE / Unknown Collection / Unknown 11/28/2024 11:41 AM ROTOR PLATE WASHER 11/28/2024 11:58 AM ROTOR PLATE WASHER Narrative [facility] - 11/28/2024 12:20 PM ROTOR PLATE WASHER Lab Status, Culture Reflex Indicated. Zachary López MD LAB - URINALYSIS ORDERABLES F inal Result [facility] [address] [place] [address], [facility] [phone] * (ABNORMAL) NEUTROPHIL CYTOPLASMIC ANTIBODY (11/28/2024 11:41 AM ROTOR PLATE WASHER) [facility] Cytoplasmic (C-ANCA) <1:20 Neg:<1:20 titer 11/30/2024 8:11 AM ROTOR PLATE WASHER [facility] ([facility]) p-ANCA Titer <1:20 Neg:<1:20 titer 11/30/2024 8:11 AM ROTOR PLATE WASHER [facility] ([facility]) Comment: The presence of positive fluorescence exhibiting P-ANCA or C-ANCA patterns alone is not specific for the diagnosis of Miley's Granulomatosis (WG) or microscopic polyangiitis. Decisions about treatment should not be based solely on ANCA IFA results. The International ANCA Group Consensus recommends follow up testing of positive sera with both IN-3 and MPO-ANCA enzyme immunoassays. As many as 5% serum samples are positive only by EIA. Ref. AM J Clin Pathol 1999;111:507-513. Atypical p-ANCA Titer 1:160(H) Neg:<1:20 titer 11/30/2024 8:11 AM ROTOR PLATE WASHER [facility] ([facility]) Comment: The atypical pANCA pattern has been observed in a significant percentage of patients with ulcerative colitis, primary sclerosing cholangitis and autoimmune hepatitis. Blood BLOOD SPECIMEN / Unknown Lab Venipuncture / Unknown 11/28/2024 11:41 AM ROTOR PLATE WASHER 11/28/2024 11:51 AM ROTOR PLATE WASHER Narrative [facility] ([facility]) - 11/30/2024 8:11 AM ROTOR PLATE WASHER Performed at: 01 - [facility] [address] [place], [place] [id number] Button Sewing Machine Operator: Shahbaz Solomon PhD, Phone: [phone] Zachary López MD LAB - CHEMISTRY ORDERABLES Fi nal Result Performing Organization Address City/[facility]/ZIP Co de Phone Number [facility] [address] [place] [address], [facility] * MPO/IN 3 AUTOANTIBODIES PANEL (11/28/2024 11:41 AM ROTOR PLATE WASHER) Pathologist [facility] Serine Proteinase 3 IgG 4 0 - 19 AU/mL 12/01/2024 11:07 AM ROTOR PLATE WASHER [facility] ([facility]) Comment: INTERPRETIVE INFORMATION: Serine Proteinase 3, IgG 19 AU/mL or Less ........ Negative 20-25 AU/mL ............. Equivocal 26 AU/mL or Greater ..... Positive Approximately 85% of patients with a C-ANCA pattern by IFA have antibodies specific for PR3. Performed By: [facility] [address] [place] [address] Floor Supervisor: Aubrey Flores MD, PhD CLIA Number: [id number] Myeloperoxidase Antibody 2 0 - 19 AU/mL 12/01/2024 11:07 AM ROTOR PLATE WASHER [facility] ([facility]) Comment: INTERPRETIVE INFORMATION: Myeloperoxidase Abs, IgG 19 AU/mL or Less ......... Negative 20-25 AU/mL .............. Equivocal 26 AU/mL or Greater ...... Positive Approximately 90% of patients with a P-ANCA pattern by IFA have antibodies specific for MPO. Blood BLOOD SPECIMEN / Unknown Lab Venipuncture / Unknown 11/28/2024 11:41 AM ROTOR PLATE WASHER 11/28/2024 11:51 AM ROTOR PLATE WASHER Zachary López MD LAB - CHEMISTRY ORDERABLES Fi nal Result Performing Organization Address [facility]/ZIP Co de Phone Number [facility]) [address] [place] [address] * CULTURE URINE (11/28/2024 11:41 AM ROTOR PLATE WASHER) Only the most recent of2 resultswithin the time period is included. Pathologist [facility] Culture Urine More than 2 organisms seen at >=50,000 CFU/mL. Recollect if clinically indicated. FADUMO 11/29/2024 7:49 PM ROTOR PLATE WASHER [facility] MICROBIOLOGY Urine URINE SPECIMEN OBTAINED BY CLEAN CATCH PROCEDURE / Unknown Collection / Unknown 11/28/2024 11:41 AM ROTOR PLATE WASHER 11/28/2024 12:19 PM ROTOR PLATE WASHER us Zachary López MD LAB - MICROBIOLOGY ORDERABLES Final Result [facility] MICROBIOLOGY [address] [place] [address], [facility] [phone] * (ABNORMAL) CBC WITH DIFFERENTIAL (11/28/2024 11:41 AM ROTOR PLATE WASHER) Only the most recent of4 resultswithin the time period is included. Pathologist [facility] WBC 7.0 4.0 - 10.7 x10E9/L 11/28/2024 11:59 AM [facility] RBC Count 3.82(L) 3.90 - 5.20 x10E12/L 11/28/2024 11:59 AM [facility] Hemoglobin 11.5(L) 11.9 - 15.8 g/dL 11/28/2024 11:59 AM [facility] Hematocrit 34.5(L) 34.8 - 46.1 % 11/28/2024 11:59 AM [facility] MCV 90.3 80.0 - 98.0 fL 11/28/2024 11:59 AM [facility] MCH 30.1 26.7 - 33.6 pg 11/28/2024 11:59 AM [facility] MCHC 33.3 31.7 - 36.3 g/dL 11/28/2024 11:59 AM [facility] RDW-CV 12.2 11.3 - 14.8 % 11/28/2024 11:59 AM [facility] Platelet Count 181 150 - 420 x10E9/L 11/28/2024 11:59 AM [facility] MPV 9.9 7.8 - 11.4 fL 11/28/2024 11:59 AM [facility] Neutrophil % 62.0 41.0 - 74.0 % 11/28/2024 11:59 AM [facility] Lymphocyte % 22.6 17.0 - 47.0 % 11/28/2024 11:59 AM [facility] Monocyte % 12.7(H) 3.0 - 11.0 % 11/28/2024 11:59 AM [facility] Eosinophil % 2.0 0.0 - 7.0 % 11/28/2024 11:59 AM [facility] Basophil % 0.4 0.0 - 1.6 % 11/28/2024 11:59 AM [facility] Immature Granulocytes % 0.3 0.0 - 1.0 % 11/28/2024 11:59 AM [facility] Neutrophil Absolute 4.34 1.60 - 7.50 x10E9/L 11/28/2024 11:59 AM [facility] Lymphocyte Absolute 1.58 1.00 - 4.40 x10E9/L 11/28/2024 11:59 AM [facility] Monocyte Absolute 0.89 0.15 - 1.00 x10E9/L 11/28/2024 11:59 AM [facility] Eosinophil Absolute 0.14 0.00 - 0.60 x10E9/L 11/28/2024 11:59 AM [facility] Basophil Absolute 0.03 0.00 - 0.13 x10E9/L 11/28/2024 11:59 AM [facility] Blood BLOOD SPECIMEN / Unknown Lab Venipuncture / Unknown 11/28/2024 11:41 AM ROTOR PLATE WASHER 11/28/2024 11:54 AM [facility] us Zachary López MD LAB - HEMATOLOGY ORDERABLES F inal Result [facility] [address] [place] [address], [facility] [phone] * (ABNORMAL) PROTEIN CREATININE RATIO URINE RANDOM PNL (11/28/2024 11:41 AM ROTOR PLATE WASHER) [facility] Protein Urine 28 Not Established mg/dL 11/28/2024 12:33 PM [facility] Creatinine Urine 198.86 Not Established mg/dL 11/28/2024 12:33 PM [facility] Protein/Creati nine Ratio Urine 0.14(H) <0.10 11/28/2024 12:33 PM [facility] Urine URINE SPECIMEN OBTAINED BY CLEAN CATCH PROCEDURE / Unknown Collection / Unknown 11/28/2024 11:41 AM ROTOR PLATE WASHER 11/28/2024 11:58 AM ROTOR PLATE WASHER Zachary López MD LAB - URINE CHEMISTRY ORDERAB LES Final Result Performing Organization Address City/State/[facility] Co de Phone Number [facility] [address] [place] [address], [facility] [phone] * (ABNORMAL) HEPATIC FUNCTION PANEL (11/28/2024 11:41 AM ROTOR PLATE WASHER) [facility] Protein Total 6.2 6.0 - 8.3 g/dL 025 12:27 PM [facility] Albumin 3.2(L) 3.4 - 5.0 g/dL 11/28/2024 12:27 PM [facility] Bilirubin Total 0.6 0.2 - 1.2 mg/dL 12/2024 12:27 PM [facility] Bilirubin Conjugated 0.2 0.1 - 0.5 mg/dL 11/28/2024 12:27 PM [facility] Bilirubin Unconjugated 0.4 Unconjugated Bilirubin is a calculated value: Reference ranges have not been established. mg/dL 11/28/2024 12:27 PM [facility] Alkaline Phosphatase 136 40 - 150 U/L 11/28/2024 12:27 PM [facility] ALT 13 5 - 55 U/L 11/28/2024 12:27 PM [facility] AST 11 5 - 34 U/L 11/28/2024 12:27 PM [facility] Albumin/Globulin Ratio 1.1 1.1 - 2.3 11/28/2024 12:27 PM ROTOR PLATE WASHER [facility] Blood BLOOD SPECIMEN / Unknown Lab Venipuncture / Unknown 11/28/2024 11:41 AM ROTOR PLATE WASHER 11/28/2024 11:54 AM ROTOR PLATE WASHER Zachary López MD LAB - CHEMISTRY ORDERABLES Fi nal Result Performing Organization Address City/[facility]/ZIP Co de Phone Number [address] [address], [facility] [phone] * CREATININE BLOOD (11/28/2024 11:41 AM ROTOR PLATE WASHER) Pathologist [facility] Creatinine 0.72 0.56 - 0.96 mg/dL 11/28/2024 12:27 PM [facility] eGFR by CKD-EPI >90 >=90 mL/min/1.7 3 m2 11/28/2024 12:27 PM [facility] Blood BLOOD SPECIMEN / Unknown Lab Venipuncture / Unknown 11/28/2024 11:41 AM ROTOR PLATE WASHER 11/28/2024 11:54 AM ROTOR PLATE WASHER Zachary López MD LAB - CHEMISTRY ORDERABLES Fi nal Result Performing Organization Address [facility]/ZIP Co de Phone Number [address] [address], [facility] [phone] * URINALYSIS - POINT OF CARE (AMB) [facility] (11/27/2024 3:08 PM ROTOR PLATE WASHER) Only the most recent of3 resultswithin the time period is included. Specific [place] UA 1.[address] [facility] [address] pH [...] URINE / Unknown 11/27/2024 3 :08 PM ROTOR PLATE WASHER [employer] EQUITY SALES ASSISTANT-AVIATION MANAGER LAB - POINT OF CARE OR DERABLES Final Result YANETH Martin[address] [place] [address], [facility] [phone] * (ABNORMAL) COMPREHENSIVE METABOLIC PANEL (11/16/2024 10:01 PM ROTOR PLATE WASHER) Only the most recent of2 resultswithin the time period is included. Glucose 82 70 - 99 mg/dL 11/16/2024 10:[address] [facility] Sodium 140 136 - 145 mmol/L 11/16/2024 10:[address] [facility] Potassium 3.4(L) 3.5 - 5.1 mmol/L 11/16/2024 10:[address] [facility] Chloride 109(H) 98 - 107 mmol/L 11/16/2024 10:[address] [facility] CO2 24 22 - 29 mmol/L 11/16/2024 10:[address] [facility] Calcium 8.9 8.4 - 10.4 mg/dL 11/16/2024 10:[address] [facility] Anion Gap 7 6 - 16 mmol/L 11/16/2024 10:[address] [facility] BUN 15 5.3 - 18.7 mg/dL 11/16/2024 10:[address] [facility] Creatinine 0.61 0.57 - 1.11 mg/dL 11/16/2024 10:[address] [facility] Alkaline Phosphatase 146 40 - 150 U/L 11/16/2024 10:[address] [facility] ALT 9 0 - 55 U/L 11/16/2024 10:[address] [facility] AST 10 5 - 34 U/L 11/16/2024 10:[address] [facility] Protein Total 6.3(L) 6.4 - 8.3 gm/dL 11/16/2024 10:[address] [facility] Albumin 2.7(L) 3.4 - 5.0 gm/dL 11/16/2024 10:24 PM ROTOR PLATE WASHER [facility] Bilirubin Total 0.3 0.2 - 1.2 mg/dL 11/16/2024 10:[address] [facility] eGFR by CKD-EPI >90 >=90 mL/min/1.7 3 m2 11/16/2024 10:[address] [facility] Blood BLOOD SPECIMEN / Unknown Venipuncture / Unknown 11/16/2024 10:01 PM ROTOR PLATE WASHER 11/16/2024 10:08 PM ROTOR PLATE WASHER Kavya Noel MD LAB - CHEMISTRY ORDERABLES Final Result Performing Organization Address City/[facility] Co de Phone Number [facility] [address] [place] [address] [phone] * (ABNORMAL) GLUCOSE - POINT OF CARE (11/11/2024 7:29 AM ROTOR PLATE WASHER) Only the most recent of10 resultswithin the time period is included. Glucose WB/POC 104(H) 70 - 99 mg/dL 11/11/2024 7:[address] [facility] Specimen Type Cap Fingerstick 2024 7:[address] [facility] Blood BLOOD SPECIMEN / Unknown 11/11/2024 7:29 AM ROTOR PLATE WASHER 11/11/2024 7:35 AM ROTOR PLATE WASHER Manuel Ayers DO LAB - POINT OF CARE ORDERABLES Final Result Performing Organization Address City/[facility] Co de Phone Number [facility] [address] [place] [address] [phone] * PATHOLOGY TISSUE EXAM (STL) (11/10/2024 5:21 AM ROTOR PLATE WASHER) Case Report Surgical Pathology Report Case: [id number] Authorizing Provider: Erik Clemons MD Collected: 11/10/2024 05:21 AM Ordering Location: [facility] Received: 11/10/2024 07:37 AM Pathologist: Giles Wu MD Specimen: Placenta 11/13/2024 11:29 AM ROTOR PLATE WASHER [facility] Final Diagnosis Placenta, delivery: Mature placenta, weight 537 g, with chorangiosis and single small peripheral placental infarct. 11/13/2024 11:[address] [facility] Clinical History 39 weeks gestation. Insulin dependent diabetes mellitus 11/13/2024 11:[address] [facility] Gross Description The specimen is identified [...] white lesion 1 cm in greatest dimension. Farm Equipment Engineer sections submitted as follows: A1-umbilical cord and membrane roll, H1-F0-nutdbcqf, A4-peripheral lesion. MILLIE/PURVI 11/13/2024 11:[address] [facility] Microscopic Description The umbilical cord and membranes show no evidence of inflammatory infiltrate. The chorionic villi appear uniformly well-developed and well-vascularized, compatible with mature third trimester gestation. Chorangiosis is present. The lesion consists of a placental infarct. 11/13/2024 11:[address] [facility] Pathologist Location at [facility] 11/13/2024 11:[address] [facility] Disclaimer All histochemical and/or immunohistochemical results are interpreted with controls that demonstrate appropriate staining reactions before reporting results. Note on use of immunocytochemistry reagents: This test was developed and its performance characteristic determined by [facility], Department of Laboratory Medicine. It has not [...] be interpreted with caution. 11/13/2024 11:[address] [facility] Embedded Images 11/13/2024 11:[address] [facility] Pathology/Cytolo gy ENTIRE PLACENTA / Unknown Collection / Unknown 11/10/2024 5:21 AM ROTOR PLATE WASHER 11/10/2024 7:37 AM ROTOR PLATE WASHER us Erik Clemons MD LAB - PATHOLOGY/CYTOLOGY ORDERAB LES Final Result Performing Organization Address [facility]/ZIP Co de Phone Number [facility] [address] [place] [address] * (ABNORMAL) BLOOD GASES CORD ADRIANA (ISTAT) (11/10/2024 3:56 AM ROTOR PLATE WASHER) pH Cord Venous POCT 7.33 7.28 - 7.40 pH 11/10/2024 4:[address] [facility] pCO2 Cord Venous POCT 40.0 35 - 45 mm hg 11/10/2024 4:[address] [facility] pO2 Cord Venous POCT 27 22 - 33 mm hg 11/10/2024 4:[address] [facility] HCO3 Cord Arterial POCT 20.9(L) 22 - 24 mmol/L 11/10/2024 4:[address] [facility] BE Cord Venous POCT Calc -5 -6.4 - 1.6 mmol/L 11/10/2024 4:[address] [facility] TCO2 Cord Venous POCT 22 22 - 30 mmol/L 11/10/2024 4:[address] [facility] O2 Saturation % Cord Venous Calc POCT 45 % 11/10/2024 4:[address] [facility] Site CORD ADRIANA 11/10/2024 4:[address] [facility] Sample iSTAT CORD ADRIANA 11/10/2024 4:[address] [facility] Blood CORD BLOOD SPECIMEN / Unknown 11/10/2024 3:56 AM ROTOR PLATE WASHER 11/10/2024 4:00 AM ROTOR PLATE WASHER us Manuel Ayers DO LAB - POINT OF CARE ORDERABLES Final Result [facility] [address] [place] [address] * (ABNORMAL) BLOOD GASES CORD ART (ISTAT) (11/10/2024 3:48 AM ROTOR PLATE WASHER) pH Cord Arterial POCT 7.10(L) 7.20 - 7.34 pH 11/10/2024 4:00 AM ROTOR PLATE WASHER [facility] pCO2 Cord Arterial POCT 76.2(HH) 45 - 55 mm hg 11/10/2024 4:[address] [facility] pO2 Cord Arterial POCT 22 12 - 25 mm hg 11/10/2024 4:00 AM ROTOR PLATE WASHER [facility] HCO3 Cord Arterial POCT 23.7 22 - 24 mmol/L 11/10/2024 4:[address] [facility] BE Cord Arterial POCT -8(L) -2.9 - 8.3 mmol/L 11/10/2024 4:[address] [facility] TCO2 Cord Arterial POCT 26 mmol/L 11/10/2024 4:[address] [facility] O2 Saturation Cord Art % Calc POCT 22 % 11/10/2024 4:[address] [facility] Site CORD ART 11/10/2024 4:[address] [facility] Sample iSTAT CORD ART 11/10/2024 4:[address] [facility] Blood CORD BLOOD SPECIMEN / Unknown 11/10/2024 3:48 AM ROTOR PLATE WASHER 11/10/2024 4:00 AM [facility] Manuel Ayers DO LAB - POINT OF CARE ORDERABLES Final Result [facility] [address] [place] [address] * EPIDURAL BLOCK PERF (11/09/2024 8:45 PM ROTOR PLATE WASHER) Narrative Christina Hooper APRN-ACUPUNCTURIST - 11/09/2024 8:45 PM ROTOR PLATE WASHER Christina Hooper APRN-CRNA 11/09/2024 8:46 PM Neuraxial Block Note Pre-Procedure: [...] Time: 4 Staff: Anesthesia Provider: Christina Hooper APRN-ACUPUNCTURIST - performed the procedure Additional Notes: Patient [...] tinnitus or increased HR/BP at time noted. us Leo Gonzáles MD GENERAL ANESTHESIA ORDERABL ES Final Result * SYPHILIS ANTIBODY CASCADING REFLEX (11/09/2024 12:42 PM ROTOR PLATE WASHER) Treponema pallidum Antibody Non Reactive Non Reactive 11/09/2024 1:52 PM ROTOR PLATE WASHER [facility] Comment: No Laboratory evidence of syphilis infection. Note: Circulating antibodies may be low or undetectable in early infection. If recent exposure is suspected, re-draw sample in 2-4 weeks and repeat testing. Blood BLOOD SPECIMEN / Unknown Venipuncture / Unknown 11/09/2024 12:42 PM ROTOR PLATE WASHER 11/09/2024 12:57 PM ROTOR PLATE WASHER [facility] LAB - SEROLOGY ORDERABLES Soni l Result Performing Organization Address City/[facility] Co de Phone Number [facility] [address] [place] [address] * TYPE + SCREEN PANEL (11/09/2024 12:42 PM ROTOR PLATE WASHER) [facility] ABO Rh A POS 11/09/2024 1:32 PM ROTOR PLATE WASHER [facility] Comment:History checked. Antibody Screen NEG 1:32 PM ROTOR PLATE WASHER [facility] Blood Bank BLOOD SPECIMEN / Unknown Venipuncture / Unknown 11/09/2024 12:42 PM ROTOR PLATE WASHER 11/09/2024 12:57 PM ROTOR PLATE WASHER [facility] - BLOOD BANK ORDERABLES Fi nal Result Performing Organization Address [facility] de Phone Number [facility] [address] [place] [address] * SONOGRAM - COMPLETE (11/06/2024 11:38 AM ROTOR PLATE WASHER) [facility] Linked Results Indication ======== Gestational diabetes, A2 Hx gastric sleeve Obesity, Class II AMA Psoriatic arthritis History ====== OB History 5. Para 3 [id number] Lab Tests Test Date Result Genetic screening [...] 8 lb 3 oz EFW by Hadlock ([id number]) Growth Overview Exam date GA BPD (mm) [...] (2x/week NST, weekly BPP). Coding ====== Procedures [address]: [place] [address]: Biophysical Profile W NST [employer] PACS Anatomical Region Laterality Modality Other 11/06/2024 11:3 8 AM ROTOR PLATE WASHER [employer] APRN-AVIATION MANAGER [facility] ORDERABLES Edited Result - Final * BIOPHYSICAL PROFILE W NST (10/30/2024 11:21 AM ROTOR PLATE WASHER) Linked Results Indication ======== Gestational diabetes, A2 Hx gastric sleeve Obesity, Class II AMA Psoriatic arthritis History ====== OB History 5. Para 3 [id number] Lab Tests Test Date Result Genetic screening [...] tone 2: Amniotic fluid volume NST: reactive 10/10 Biophysical profile score Non Stress Test NST [...] NST and weekly BPP) Coding ====== Procedures 27985: [place] Uterus Limited 02311: Biophysical Profile W NST [employer] PACS Anatomical Region Laterality Modality Other 10/30/2024 11:2 1 AM ROTOR PLATE WASHER [employer] EQUITY SALES ASSISTANT-AVIATION MANAGER [facility] ORDERABLES Edited Result - Final * HIV-1 HIV-2 ANTIBODY + HIV P24 AG PANEL (08/31/2024 1:17 PM ROTOR PLATE WASHER) [facility] HIV Screen 4th Generation w Reflex [...] purpose. For additional information please refer to http://education.[employer]/faq/ULP106 (This link is being provided for informational/ educational purposes only.) The performance of this assay has not been clinically validated in patients less than 2 years old. Test Performed at: [facility] [address] [facility] [place] [address] SANJUANITA BRISENO MD Blood BLOOD SPECIMEN / Unknown 08/31/2024 1:17 PM ROTOR PLATE WASHER 08/31/2024 1:20 PM ROTOR PLATE WASHER Yolande Mathew MD LAB - CHEMISTRY ORDERABLES Fin al Result Performing Organization Address [facility] de Phone Number [facility] [address] [place] [address] * HEPATITIS C AB W/RFLX TO HCV RNA QN PCR (04/06/2024) Hepatitis C Antibody NON-REACTI VE NON-REACT [facility] Comment: HCV antibody was non-reactive. There is no laboratory evidence of HCV infection. In most cases, no further action is required. However, if recent HCV exposure is suspected, a test for HCV RNA (test code 11312) is suggested. For additional information please refer to http://education.[employer]/faq/GKB58d4 (This link is being provided for informational/ educational purposes only.) Test Performed at: [facility] [address] [place] [address] SANJUANITA BRISENO MD 04/06/2024 04/06/2024 3:0 8 PM CDT Chris Ferreira MD LAB - CHEMISTRY ORDERABLES Fin al Result Performing Organization Address [facility] de Phone Number [facility] [address] [place] [address] from Last 3 Months or Most Recently Relevant to Health [place] [address] [facility] Advance Directives * Full Code (Latest Code Status on File) Date Activated Date Inactivated Comments 11/09/2024 12:11 PM 11/11/2024 2:04 PM * Full Code Date Activated Date Inactivated Comments 06/20/2024 3:11 PM 06/22/2024 5:01 PM Care Teams Pharmacy Salesperson Relationship Specialty Start Date End Date Mendoza Xiong II, MD [address] [facility] [address] [facility] [place] [address] PCP - General Internal Medicine 02/14/24
--- OUTSIDE RECORDS SUMMARY | 2025-01-26 01:17 | XMS_ITS | Clinical Summary ---
Author Organization [facility] Address [address] [facility] [address] [place] [address] Phone Care Team Providers Care Comparator Operator Name Role Phone Unavailable Primary Care [...] 2:51 PM CDT Height 160 cm (5' 3) 01/20/2023 2:51 PM CDT Body Mass Index [...] this topic Medical Devices Implanted Type Area Labor Employment Associate Device Identifier Shelf Expiration Date Model / Serial / Lot Seamguard Endogia 60 Blk [id number] - [id number] Implanted:Qt y: 1 on 01/20/2023 by Waqas Vaughn MD at [facility] Biological N/A: Stomach [employer] [id number] 03/18/2025 12BSGTRI 60B / / [id number] Seamguard Endogia 60 Blk [id number] - [id number] Implanted:Qt y: 1 on 01/20/2023 by Waqas Vaughn MD at [facility] Biological N/A: Stomach [employer] [id number] 03/18/2025 12BSGTRI 60B / / [id number] Seamguard Endogia 60 Prpl [id number] - [id number] Implanted:Qt y: 1 on 01/20/2023 by Waqas Vaughn MD at [facility] Biological N/A: Stomach [employer] [id number] 11/15/2024 12BSGTRI 60P / / [id number] Seamguard Endogia 60 Prpl [id number] - [id number] Implanted:Qt y: 1 on 01/20/2023 by Waqas Vaughn MD at [facility] [employer] N/A: Stomach [employer] [id number] 11/15/2024 12BSGTRI 60P / / [id number] Seamguard Endogia 60 Prpl [id number] - [id number] Implanted:Qt y: 1 on 01/20/2023 by Waqas Vaughn MD at [facility] N/A: Stomach [employer] [id number] 04/26/2025 12BSGTRI 60P / / [id number] Screw Screw Right: Foot Insurance [address] BLUE ACCESS/TRUE BLUE PPO [place] [address] RX [facility] [employer] RX [employer] PLANS (INTERNAL) [facility] Advance Directives For more information, please contact: [phone] * Full Code (Latest Code Status on File) Date Activated Date Inactivated Comments 01/20/2023 9:47 AM 01/21/2023 4:27 PM * Full Code Date Activated Date Inactivated Comments 01/20/2023 8:14 AM 01/20/2023 9:47 AM * Full Code Date Activated Date Inactivated Comments 01/15/2023 9:08 AM 01/15/2023 2:00 PM
--- OUTSIDE RECORDS SUMMARY | 2025-01-26 01:17 | XMS_ITS | Encounter Summary ---
Author Organization [facility] Healthcare Address [address] [place] [address] Care Team Providers Care Lapel Stitcher Name Role Phone Helene Chin MD Unavailable [phone] Iona Mcginnis MD Unavailable [phone] Mendoza Xiong MD Primary Care Provider [phone] Encounter Details Date Type Department Care Team (Late st Contact Info) Description 11/28/2024 Results Follow-Up [facility] Medical Group Convenient Care at [address] [address] Drea Ramos, [facility] [address] [place] [address] [address] [place] [address] Social History Tobacco Use Types [...] on filedocumented in this encounter Care Teams Lapel Stitcher Relationship Specialty Start Date End Date Mendoza Xiong MD [address] [place] [address] PCP - General Internal Medicine 02/22/24 Helene Chin MD Fellow Pulmonary Disease 08/10/23 Iona Mcginnis MD [address] [place] [address] Fellow Rheumatology 08/10/23 documented as of this encounter
--- OUTSIDE RECORDS SUMMARY | 2025-01-26 01:17 | XMS_ITS | Encounter Summary ---
Author Organization [facility] Health Address [address] [place] [address] Care Team Providers Care J2Ee Developer Name Role Phone Tyrese MCCULLOUGH MD, Mendoza Anderson Primary Care Provider + Reason for Visit * Reason Onset Date Comments Question 12/13/2024 Encounter Details Date Type Department Care Team (Late st Contact Info) Description 12/13/2024 Telephone [facility] - TRANSPORTATION DRIVER [address], [address] [place] [address] Apolonia Painting, JASMYN-COUNTER HAND [address] [place] [address] Question Social History Tobacco Use [...] Recorded Patient Health Questionnaire-2 Score 0 10/19/2024 [facility] [place] of Occupat ional Health - Occupational Stress [...] place to sleep or slept in a mcfp (including now)? No 06/25/2024 Desmet Depression Scale Answer Date Recorded Desmet Depression Scale Total 2 11/20/2024 The thought [...] any time in the past 12 m [facility], were you homeless or living in a mcfp (including now)? No 11/16/2024 Education Answer Date Recorded What is the highest level of school you have completed or the highest degree you have received? Some college, no degree 02/14/2024 Comments No Sex and Gender Information Value Date Recorded Sex Assigned at Not on file Legal Sex Female 11:39 AM ELECTRONICS ENGINEERING TECHNICIAN Gender Identity Not on file Sexual Orientation Not on file Occupation Industry Job Start Date Job End Date Stay at home mom Not on file Not on file Not on file documented as of this encounter Functional Status * Is person deaf or have serious hearing difficulty? Answer Date of Assessment Author No 11/16/2024 11:13 PM Anu Whittaker RN * Is person blind or have serious difficulty seeing? Answer Date of Assessment Author No 11/16/2024 11:13 PM Anu Whittaker RN * Does person have serious difficulty walking/climbing stairs? Answer Date of Assessment Author No 11/16/2024 11:13 PM Anu Whittaker RN * Does person have difficulty dressing/bathing? Answer Date of Assessment Author No 11/16/2024 11:13 PM Anu Whittaker RN * Does person have difficulty doing errands alone? Answer Date of Assessment Author No 11/16/2024 11:13 PM Anu Whittakre RN documented as of this encounter Mental Status * Does person have difficulty concentrating/remembering/making decisions? Answer Entry Date Author No 11/16/2024 11:13 PM Anu Whittaker RN documented in this encounter Miscellaneous Notes * Telephone Encounter - Beatriz Garcias - 12/13/2024 11:28 AM CDT Beverley from youth services calling to ask that the patient breast pump paper work be signed by a BRIM STRETCHER or a MD.. she will refax and pur the return fax number on paperwork.. patient is there at the moment documented in this encounter Plan of Treatment Upcoming Encounters Date Type Department Care Team (Late st Contact Info) Description 02/14/2025 11:00 AM CDT Office Visit [facility] - Rheumatology [address] [place] [address], [place] [phone] Zachary López MD [address] [place] [address] [place] [phone] 03/21/2025 10:30 AM CDT Office Visit [facility] - Internal Med [address] [place] [address], [place] [phone] Mendoza Xiong II, MD [address] DIV OF [facility] [place] [address] documented as of this encounter Visit Diagnoses Not on filedocumented in this encounter Care Teams J2Ee Developer Relationship Specialty Start Date End Date Mendoza Xiong II, MD [address] DIV OF [facility] [place] [address] PCP - General Internal Medicine 02/14/24 documented as of this encounter
--- OUTSIDE RECORDS SUMMARY | 2025-01-26 01:17 | XMS_ITS | Encounter Summary ---
Author Organization [facility] Healthcare Address [address] [place] [address] Care Team Providers Care Fork Lift Technician Name Role Phone Palmira Blanco MD Primary Care Provider Helene Chin MD Unavailable [phone] Iona Mcginnis MD Unavailable [phone] Ju Chirinos NP Primary Care Provider [phone] Mendoza Xiong MD Primary Care Provider [phone] Encounter Details Date Type Department Care Team (Late st Contact Info) Description 07/23/2023 Telephone [facility] [address] [facility] [address] [facility] [address] [place] [address] Aby Siddiqui, RN Social History [...] COVID: Suspected 08/23/2023 08/23/2023 08/23/2023 10:47 PM METAL CASKET ASSEMBLER Influenza, adult 08/23/2023 08/23/2023 08/30/2023 3:06 AM METAL CASKET ASSEMBLER COVID: Suspected 12/17/2023 12/17/2023 12/17/2023 4:22 PM CDT Rhino/Enterovirus 12/17/2023 12/17/2023 12/24/2023 3:05 AM CDT COVID: Suspected 11/27/2024 11/27/2024 11/27/2024 5:42 PM METAL CASKET ASSEMBLER documented as of this encounter Care Teams Fork Lift Technician Relationship Specialty Start Date End Date Palmira Blanco MD PCP - General Hematology 07/09/23 08/10/23 Ju Chirinos, JENNY [address] [place] [address] PCP - General Nurse Practitioner 08/11/23 02/21/24 Mendoza Xiong MD [address] [place] [address] PCP - General Internal Medicine 02/22/24 Helene Chin MD Fellow Pulmonary Disease 08/10/23 Iona Mcginnis MD [address] [place] [address] Fellow Rheumatology 08/10/23 documented as of this encounter
--- OUTSIDE RECORDS SUMMARY | 2025-01-26 01:17 | XMS_ITS | Encounter Summary ---
Author Organization [facility] Healthcare Address [address] [place] [address] Care Team Providers Care Nursing Information Systems Coordinator Name Role Phone Palmira Blanco MD Primary Care Provider Helene Chin MD Unavailable [phone] Iona Mcginnis MD Unavailable [phone] Ju Chirinos NP Primary Care Provider [phone] Mendoza Xiong MD Primary Care Provider [phone] Encounter Details Date Type Department Care Team (Late st Contact Info) Description 07/23/[address] [facility] [address] [facility] [address] [place] [address] Aby Siddiqui, RN Social History [...] COVID: Suspected 08/23/2023 08/23/2023 08/23/2023 10:[address] PROJECT MANAGER Influenza, adult 08/23/2023 08/23/2023 08/30/2023 3:[address] PROJECT MANAGER COVID: Suspected 12/17/2023 12/17/2023 12/17/2023 4:22 PM CDT Rhino/Enterovirus 12/17/2023 12/17/2023 12/24/2023 3:05 AM CDT COVID: Suspected 11/27/2024 11/27/2024 11/27/2024 5:[address] PROJECT MANAGER documented as of this encounter Care Teams Nursing Information Systems Coordinator Relationship Specialty Start Date End Date Palmira Blanco MD PCP - General Hematology 07/09/23 08/10/23 Ju Chirinos, JENNY [address] [place] [address] PCP - General Nurse Practitioner 08/11/23 02/21/24 Mendoza Xiong MD [address] [place] [address] PCP - General Internal Medicine 02/22/24 Helene Chin MD Fellow Pulmonary Disease 08/10/23 Iona Mcginnis MD [address] [place] [address] Fellow Rheumatology 08/10/23 documented as of this encounter
--- OUTSIDE RECORDS SUMMARY | 2025-01-26 01:17 | XMS_ITS | Referral Summary ---
Author Organization [facility] Address [address] [place] [address] Care Team Providers Care Associate Director Regulatory Affairs Name Role Phone Helene Chin MD Unavailable [phone] Iona Mcginnis MD Unavailable [phone] Mendoza Xiong MD Primary Care Provider Encounters Date Type Department Care Team Description 11/28/2024 Results Follow-Up [facility] Medical Group Convenient Care at [address] [phone] Drea Ramos PA 11/28/2024 1:15 PM FONDANT MACHINE OPERATOR Ancillary Procedure [facility] Medical Group Imaging at [address] [phone] Rib pain on left side 11/27/2024 5:15 PM FONDANT MACHINE OPERATOR Office Visit [facility] Medical Group Convenient Care at [address] [address] Emely Resendiz NP Rib pain on left side (Primary Dx) 11/23/2024 Telephone [facility] Neuro Sleep [address] [facility] 6th [address] [place] [address] Padmini Monahan DNP 11/23/2024 Telephone [facility] Neuro Sleep [address] [facility] 6[address] [place] [phone] Padmini Monahan DNP 11/23/2024 10:30 AM FONDANT MACHINE OPERATOR Telemedicine [facility] Neuro Sleep [address] [facility] [address] [facility] 6[address] [place] [address] Padmini Monahan DNP ABIEL (obstructive sleep apnea) (Primary Dx); Hypersomnia; Obesity (BMI 30-39.9) from Last 3 Months Allergies Active Allergy [...] by mouth daily 02/16/20 24 Active vit 36-hjrt-ajrzx-dha 27mg iron- 800 mcg-250 mg capsule Take [...] IgG and C-ANCA, requested detailed records from [facility]. - Bronch 05/26 at OSH reportedly inconclusive. Now s - CTA chest here (07/02): c/f sequelae of hemorrhage in LLL; polygonal CORI nodule. 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 - Autoimmune workup: FUENTES 1:2560, ANIBAL+ with negative Sm, SSA/B, Annette-1, DEPUTY FIRE MARSHAL, Scl70; anti-centromere 2.1, anti-GBM negative; ESR 58, [...] to establish here. 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 (08/09/2023): Found on [...] Comments Blood Pressure 138/66 11/27/2024 5:15 PM FONDANT MACHINE OPERATOR Pulse 110 11/27/2024 5:15 PM FONDANT MACHINE OPERATOR Temperature 37.6 C (99.6 F) 11/27/2024 5:15 PM FONDANT MACHINE OPERATOR Respiratory Rate 16 11/27/2024 5:15 PM FONDANT MACHINE OPERATOR Oxygen Saturation 98% 11/27/2024 5:15 PM FONDANT MACHINE OPERATOR Inhaled Oxygen Concentration - - Weight 88.9 kg (196 lb) 11/27/2024 5:15 PM FONDANT MACHINE OPERATOR Height 160 cm (5' 3) 08/15/2024 7:31 PM FONDANT MACHINE OPERATOR Body Mass Index 34.72 08/15/2024 7:31 PM FONDANT MACHINE OPERATOR Plan of Treatment Not on file Goals [...] as needed Medical Devices Implanted Type Area National Stormwater Leader Device Identifier Shelf Expiration Date Model / Serial / Lot Screw Right: Foot Procedures Procedure Name Priority Date/Time Associated Diagnosis Comments XR RIBS LEFT W PA CHEST Schedule ALAN, Read ALAN (Appt Today, Awaiting Results) 11/28/2024 1:24 PM FONDANT MACHINE OPERATOR Rib pain on left side POC INFLUENZA A/B, COVID-19 ANTIGEN Routine 11/27/2024 5:41 PM FONDANT MACHINE OPERATOR Rib pain on left side HEPATITIS PANEL, ACUTE Timed 07/02/2023 6:39 PM CDT from Last 3 Months or Most Recently Relevant to Health Maintenance Results * XR Ribs Left W PA Chest 3 or More Views (11/28/2024 1:24 PM FONDANT MACHINE OPERATOR) Anatomical Region Laterality Modality Rib, Chest Left Digital Radiogra phy 11/28/2024 4:02 PM FONDANT MACHINE OPERATOR Narrative 11/28/2024 4:07 PM FONDANT MACHINE OPERATOR EXAM DESCRIPTION: XR RIBS LEFT W [...] signed by Deni MIRANDA T: Report ID: [id number] Reading Location: [place] [address] Procedure Note Deni Calhoun MD - 11/28/2024 [...] signed by Deni MIRANDA T: Report ID: [id number] Reading Location: [place] [address] Emely Resendiz JOB COACH/JOB DEVELOPER IMG XR PROCEDURES Final Re sult * POC Influenza A/B, COVID-19 antigen (11/27/2024 5:41 PM FONDANT MACHINE OPERATOR) Influenza A Ag, POC Negative Negative [facility] Influenza B Ag, POC Negative Negative [facility] COVID-19 Ag POC Presumptive Negative Presumptive Negative, Invalid [facility] Nasal 11/27/2024 5:41 PM FONDANT MACHINE OPERATOR Emely Resendiz NP POINT OF CARE TEST ORDERAB LES Final Result Performing Organization Address City/[facility] Co de Phone Number [facility] [address] * Hepatitis panel, acute Blood (07/02/2023 6:39 PM CDT) Hep A IgM Nonreactive Nonreactive Hep B core IgM Nonreactive Nonreactive [facility] Hep C Ab Nonreactive Nonreactive [facility] Comment:Antibodies to HCV no t detected. Does NOT exclude the possibility of recent exposure to HCV. Current interpretive data was last revised on 22 HepBsAg Nonreactive Nonreactive [facility] Blood 07/02/2023 6:39 PM CDT 07/02/2023 7:02 PM CDT Darien Moody MD LAB MICROBIOLOGY - GENERAL ORDERABLES Final Result Performing Organization Address City/[facility] Co de Phone Number [facility] Department [place] [address] from Last 3 Months or Most Recently Relevant to Health Maintenance [place] [address] [facility] Advance Directives For more information, please contact: [phone] * Full Code (Latest Code Status on File) Date Activated Date Inactivated Comments 08/25/2023 5:50 PM 08/26/2023 7:45 PM * Full Code Date Activated Date Inactivated Comments 07/01/2023 1:26 PM 07/09/2023 10:18 PM * Full Code Date Activated Date Inactivated Comments 06/26/2023 12:56 AM 06/26/2023 5:43 PM Care Teams Associate Director Regulatory Affairs Relationship Specialty Start Date End Date Mendoza Xoing MD [address] [place] [address] PCP - General Internal Medicine 02/22/24 Helene Chin MD Fellow Pulmonary Disease 08/10/23 Iona Mcginnis MD [address] [place] [address] Fellow Rheumatology 08/10/23
--- OUTSIDE RECORDS SUMMARY | 2025-01-26 01:17 | XMS_ITS | Encounter Summary ---
Author Organization [facility] Health Address [address] [place] [address] Care Team Providers Care Head Animal Trainer Name Role Phone Tyrese MCCULLOUGH MD, Mendoza Anderson Primary Care Provider + Reason for Visit * Reason Onset Date Comments Maternal Medicine 03/16/2024 Appointment 03/16/2024 Encounter Details Date Type Department Care Team (Late st Contact Info) Description 03/16/2024 Telephone [facility] - WASH DRILLER HELPER [address] [place] [address] Drew Huber MD [address] [place] [address] Maternal Medicine; Appointment Social History [...] received? 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 Not on file Not on file documented as of this encounter Miscellaneous Notes * Telephone Encounter - Danna Damian, RADHA - 03/17/2024 8:13 AM CDT Appt offered 04/06 LMP 02/03 referred from IM for psoriatic arthritis, microscopic polyangiitis, ABIEL, GERD, [...] Office Visit [facility] - Rheumatology [address] [place] [phone] Zachary López MD [address] [place] [address] [address] [place] [phone] 03/21/2025 10:30 AM CDT Office Visit [facility] - Internal Med [address] [place] [phone] Mendoza Xiong II, MD [address] [place] [address] [address] DIV OF [facility] [place] [address] documented as of this encounter Visit Diagnoses Not on filedocumented in this encounter Care Teams Head Animal Trainer Relationship Specialty Start Date End Date Mendoza Xiong II, MD [address] [place] [address] [address]L DIV OF [facility] [place] [address] PCP - General Internal Medicine 02/14/24 documented as of this encounter
--- OUTSIDE RECORDS SUMMARY | 2025-01-26 01:17 | XMS_ITS | Clinical Summary ---
Author Organization [facility] Address [address] [place] [address] Care Team Providers Care Steel Worker Name Role Phone Helene Chin MD Unavailable [phone] Iona Mcginnis MD Unavailable [phone] Mendoza Xiong MD Primary Care Provider Allergies [...] by mouth daily 02/16/20 24 Active vit 56-zrvi-qyane-dha 27mg iron- 800 mcg-250 mg capsule Take [...] IgG and C-ANCA, requested detailed records from [facility]. - Bronch 05/26 at OSH reportedly inconclusive. Now s - CTA chest here (07/02): c/f sequelae of hemorrhage in LLL; polygonal CORI nodule. 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 - Autoimmune workup: FUENTES 1:2560, ANIBAL+ with negative Sm, SSA/B, Annette-1, LEARNING AND DEVELOPMENT OFFICER, Scl70; anti-centromere 2.1, anti-GBM negative; ESR [...] CDT): Presented with complaint of lightheadedness, occipital PARAR, and tingling in fingertips. 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 Overview (08/09/2023): Found on [...] Department Care Team Description 11/28/2024 1:15 PM STATION JAILER Ancillary Procedure [facility] Medical Group Imaging at [address] [phone] Rib pain on left side 11/28/2024 Results Follow-Up [facility] Medical Group Convenient Care at [address] [address] Drea Ramos PA 11/27/2024 5:15 PM STATION JAILER Office Visit [facility] Medical Group Convenient Care at [address] [address] Emely Resendiz, LICENSED MIDWIFE Rib pain on left side (Primary Dx) 11/23/2024 10:30 AM STATION JAILER Telemedicine [facility] Neuro Sleep [address] [facility] 6th [address] [place] [address] Padmini Monahan DNP ABIEL (obstructive sleep apnea) (Primary Dx); Hypersomnia; Obesity (BMI 30-39.9) 11/23/2024 Telephone [facility] Neuro Sleep [address] [place] [address] Padmini Monahan DNP 11/23/2024 Telephone [facility] Neuro Sleep [address] [place] [address] Padmini Monahan DNP from Last 3 Months Immunizations Immunization Administration [...] Comments Blood Pressure 138/66 11/27/2024 5:15 PM STATION JAILER Pulse 110 11/27/2024 5:15 PM STATION JAILER Temperature 37.6 C (99.6 F) 11/27/2024 5:15 PM STATION JAILER Respiratory Rate 16 11/27/2024 5:15 PM STATION JAILER Oxygen Saturation 98% 11/27/2024 5:15 PM STATION JAILER Inhaled Oxygen Concentration - - Weight 88.9 kg (196 lb) 11/27/2024 5:15 PM STATION JAILER Height 160 cm (5' 3) 08/15/2024 7:31 PM STATION JAILER Body Mass Index 34.72 08/15/2024 7:31 PM STATION JAILER Plan of Treatment Health Maintenance Due Date [...] change(05/09 8:24 AM CDT) No Ju Seth, RN Note: Problem: Chronic Pain Goals: 1. Minimize further functional decline 2. Maximize quality of life 3. Control pain Strategies: - Activity/exercise program recommendation - Conservative stepwise pain medicine strategy with multi-disciplinary approach - Recommend healthy lifestyle strategies and compensatory methods as needed Medical Devices Implanted Type Area Supervisor Feed House Device Identifier Shelf Expiration Date Model / Serial / Lot Screw Right: Foot Procedures Procedure Name Priority Date/Time Associated Diagnosis Comments XR RIBS LEFT W PA CHEST Schedule ALAN, Read ALAN (Appt Today, Awaiting Results) 11/28/2024 1:24 PM STATION JAILER Rib pain on left side POC INFLUENZA A/B, COVID-19 ANTIGEN Routine 11/27/2024 5:41 PM STATION JAILER Rib pain on left side HEPATITIS PANEL, ACUTE Timed 07/02/2023 6:39 PM CDT from Last 3 Months or Most Recently Relevant to Health Maintenance Results * XR Ribs Left W PA Chest 3 or More Views (11/28/2024 1:24 PM STATION JAILER) Anatomical Region Laterality Modality Rib, Chest Left Digital Radiogra phy 11/28/2024 4:02 PM STATION JAILER Narrative 11/28/2024 4:07 PM STATION JAILER EXAM DESCRIPTION: XR RIBS LEFT W PA [...] signed by Deni MIRANDA T: Report ID: [id number] Reading Location: [id number] Procedure Note Deni Calhoun MD - 11/28/2024 [...] Deni Calhoun M.D. MJ T: Report ID: [id number] Reading Location: [place] [address] Emely Resendiz NP IMG XR PROCEDURES Final Re sult * POC Influenza A/B, COVID-19 antigen (11/27/2024 5:41 PM STATION JAILER) [facility] Influenza A Ag, POC Negative Negative [facility] Influenza B Ag, POC Negative Negative [facility] COVID-19 Ag POC Presumptive Negative Presumptive Negative, Invalid [facility] Nasal 11/27/2024 5:41 PM STATION JAILER Emely Resendiz NP POINT OF CARE TEST ORDERAB LES Final Result [facility] [address] [place] [address] * Hepatitis panel, acute Blood (07/02/2023 6:39 PM CDT) Pathologist [facility] Hep A IgM Nonreactive Nonreactive Hep B core IgM Nonreactive Nonreactive [facility] Hep C Ab Nonreactive Nonreactive [facility] Comment:Antibodies to HCV no t detected. Does NOT exclude the possibility of recent exposure to HCV. Current interpretive data was last revised on 22 HepBsAg Nonreactive [facility] Blood 07/02/2023 6:39 PM CDT 07/02/2023 7:02 PM CDT us Darien Moody MD LAB MICROBIOLOGY - GENERAL ORDERABLES Final Result [facility] [place] [address] from Last 3 Months or Most Recently Relevant to Health Maintenance Insurance [facility] Advance Directives For more information, please contact: [phone] * Full Code (Latest Code Status on File) Date Activated Date Inactivated Comments 08/25/2023 5:50 PM 08/26/2023 7:45 PM * Full Code Date Activated Date Inactivated Comments 07/01/2023 1:26 PM 07/09/2023 10:18 PM * Full Code Date Activated Date Inactivated Comments 06/26/2023 12:56 AM 06/26/2023 5:43 PM Care Teams Steel Worker Relationship Specialty Start Date End Date Mendoza Xiong MD [address] [place] [address] PCP - General Internal Medicine 02/22/24 Helene Chin MD Fellow Pulmonary Disease 08/10/23 Iona Mcginnis MD [address] [place] [address] Fellow Rheumatology 08/10/23
--- NOTE | 2025-01-26 06:24 | WPDHPUPDATE1 ---
History and Physical Update Update Date/Time: 01/26/25 06:24 History and Physical has been reviewed, including an updated exam of the patient. There are NO changes in the patient's condition. Risks, benefits, and alternatives have been discussed and questions answered. Patient agrees to proceed with procedure.
--- NOTE | 2025-01-26 06:49 | P.PNAN_ITS ---
Anes - Initial Pre Proc Eval Procedure: Operation Date: 01/26/25 07:30 Proposed Procedures p Robotic Assisted Laparoscopic Incarcerated Recurrent Ventral Hernia Repair with Mesh, Possible Open - René Mcneill MD s Laparoscopic Bilateral Salpingectomy - Daniele Mitchell MD Date/Time: 01/26/25 06:49 Surgeon: René Mcneill MD Pre Op Diagnosis: incarcerated recurrent ventral incisonal hernia, Patient Data Age: 34 Gender: F Height: 1.6 m Weight: 89 kg Allergies Allergy/AdvReac Type Severity Reaction Status Date / Time amoxicillin Allergy Severe Swelling Verified 01/16/25 09:39 of Lip/Tongue/Throat zolpidem (From Ambien) Allergy Severe Rash Verified 01/16/25 09:39 adhesive tape Allergy Intermediate Rash, Verified 01/16/25 09:39 Pulled skin off clindamycin Allergy Swelling Verified 01/16/25 09:39 of Lip/Tongue/Throat sulfamethoxazole (From Allergy Hives Verified 01/16/25 09:39 Bactrim) trimethoprim (From Bactrim) Allergy Hives Verified 01/16/25 09:39 Home Medications ?Medication ?Instructions ?Recorded ?Confirmed ?Type pantoprazole 40 mg tablet,delayed 40 mg PO DAILY #90 tabs 01/04/23 01/16/25 Rx release clobetasol 0.05 % scalp solution 1 applic topical DAILY PRN itching 08/30/24 01/16/25 History cyclobenzaprine 10 mg tablet 10 mg PO HS 08/30/24 01/16/25 History ferrous sulfate 325 mg (65 mg 325 mg PO DAILY 08/30/24 01/16/25 History iron) tablet folic acid 1 mg tablet 1 mg PO DAILY 08/30/24 01/16/25 History azathioprine 100 mg tablet 150 mg PO DAILY 12/13/24 01/16/25 History certolizumab pegol 200 mg/mL 200 mg subcut ONCE 12/13/24 01/16/25 History subcutaneous syringe kit (Cimzia) sennosides 8.6 mg tablet (senna) 8.6 mg PO HS 01/16/25 01/16/25 History Patient hx anesthesia problems: none Family hx anesthesia problems: none Results Review: All pre-operative results and documents have been reviewed as part of the pre- operative evaluation. [facility] Past Medical History Medical History Pneumonia Abdominal wall pain GERD without esophagitis COVID-19 Chronic, continuous use of opioids oxycodone Bronchocentric granulomatosis 2011 Open wound of umbilical region (~04/27/20) History of jejunostomy tube placement Immunosuppression due to drug therapy Insomnia Asthma Hx of gangrene (~07/2019) gangrenous gall bladder, ruptured GB History of sepsis (~10/2019) perforated duodenum from surgical procedure Morbid obesity (Unknown) Psoriatic arthritis (Unknown) Allergies Asthma Surgical History Surgical History H/O gastric sleeve History of foot surgery 2008 - ORIF fracture 5th metatarsal. History of abdominal surgery 2018 - exploratory la History of tonsillectomy History of cholecystectomy (~07/2019) 05/05/21 Laparoscopic cholecystectomy with intraoperative cholangiogram 2. Extensive lysis of adhesions greater than 1 hour (laparoscopic) 3. Excision of chronic granulating wound tract right upper quadrant. 4. Repair with sutures of moderate size umbilical hernia. 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 Lives with her and 3 children. Smoking packs per day: 1 Smoking cigarettes per day: 20.0 Years smoked: 10 Smoking pack-years: 10.00 Smoking status: Former smoker Tobacco type: cigarettes Second hand tobacco smoke exposure: No Smoking end date: 06/01/17 Alcohol intake: current Drinks per week: 1 Substance use: never Substance use type: does not use Do You Feel Safe in your Home?: Yes Lack of Transportation: No Lack of Food: Sometimes True Current Housing: I Have Housing Concerned About Future Housing: No Difficulty Paying Gas/Electric Bills: No Difficulty Paying for Meds: No Currently Unemployed: No Education: High School Diploma/GED Difficulty w/ Childcare or Family Care: No Living arrangements: with family Occupation/Education: occupation Gender identity (if verbalized by the patient): Female Sexual Orientation (if Verbalized by the Patient): Straight or Heterosexual Spiritual care concerns: No Agree to blood products: Yes Anes - Eval Final PreProcedure Day of Procedure 01/26/25 06:49 Patient weight: obese Heart: regular rate and rhythm Lungs: clear to auscultation Airway: Mallampati scale class II Neurological: alert and oriented Last oral intake: >/= 8 hours ASA classification: III Emergent: no Anesthetic plan: proceed Anesthesia type and monitoring: general ETT and standard monitoring Results Review: All pre-operative results and documents have been reviewed as part of the pre- operative evaluation. Informed Consent: The patient's anesthetic plan and its attendant risks and benefits were discussed with the patient/family/POA. Questions were solicited and answers provided to the satisfaction of the patient/family/POA.
[2025-01-26] MEDS: LACTATED RINGERS 1,000 ML 30 ML IV CONT ×2 (07:15→11:26)
[2025-01-26] MEDS: SCOPOLAMINE 1 MG PATCH 1 PATCH TRANSDERM (07:15)
[2025-01-26] MEDS: ACETAMINOPHEN 500 MG TABLET 1000 MG PO (07:15)
[2025-01-26] MEDS: KETOROLAC 15 MG/ML VIAL (*BKC) IV PUSH (07:15)
--- NOTE | 2025-01-26 07:16 | PM.IMHP ---
H&P: HPI History of Present Illness Date/Time: 01/26/25 07:16 Chief Complaint: Incisional hernia Narrative: Ms. Bailey returns to the for recheck of her incisional hernia. She was sent after her last visit for a CT scan which showed large ventral hernia near the umbilicus contains the central third of the transverse colon, essentially stable from prior exam. She is currently 7-weeks post-, and is planning a tubal ligation with Dr. Jerry Mitchell, and would like to coordinate surgeries if possible. She denies changes to the hernia since her initial visit two weeks ago - no pain, nausea, or vomiting, or change in bowel habits. She has history of partial laparoscopic cholecystectomy in 2018 after which she had post-operative complications with possible bile leak and development of a fistula that required post-operative wound care. She was evaluated by Dr. Leo Uribe in 2020 due to chronic abdominal wound and recurrent gallbladder related symptoms. She underwent laparoscopic cholecystectomy with IOC, extensive lysis of adhesions, excision of chronic granulating wound tract of the RUQ and umbilical hernia repair with sutures only, no mesh. Also has history of gastric sleeve in 2022 and lost 100lbs, which she has kept off. Review of Systems Review of Systems: The remainder of the review of systems to include constitutional, HEENT, cardiovascular, respiratory, GI, , integumentary, musculoskeletal, endocrine, immunologic, hematologic, psychiatric, and neurologic are all negative except for which is mentioned above in the HPI. [facility] Past Medical History Medical History Pneumonia Abdominal wall pain GERD without esophagitis COVID-19 Chronic, continuous use of opioids oxycodone Bronchocentric granulomatosis 2012 Open wound of umbilical region (~04/27/20) History of jejunostomy tube placement Immunosuppression due to drug therapy Insomnia Asthma Hx of gangrene (~07/2019) gangrenous gall bladder, ruptured GB History of sepsis (~10/2019) perforated duodenum from surgical procedure Morbid obesity (Unknown) Psoriatic arthritis (Unknown) Allergies Asthma Surgical History Surgical History H/O gastric sleeve History of foot surgery 2008 - ORIF fracture 5th metatarsal. History of abdominal surgery 2018 -2020 - exploratory la History of tonsillectomy History of cholecystectomy (~07/2019) 05/05/21 Laparoscopic cholecystectomy with intraoperative cholangiogram 2. Extensive lysis of adhesions greater than 1 hour (laparoscopic) 3. Excision of chronic granulating wound tract right upper quadrant. 4. Repair with sutures of moderate size umbilical hernia. 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 Lives with her and 3 children. Smoking packs per day: 1 Smoking cigarettes per day: 20.0 Years smoked: 10 Smoking pack-years: 10.00 Smoking status: Former smoker Tobacco type: cigarettes Second hand tobacco smoke exposure: No Smoking end date: 06/01/17 Alcohol intake: current Drinks per week: 1 Substance use: never Substance use type: does not use Do You Feel Safe in your Home?: Yes Lack of Transportation: No Lack of Food: Sometimes True Current Housing: I Have Housing Concerned About Future Housing: No Difficulty Paying Gas/Electric Bills: No Difficulty Paying for Meds: No Currently Unemployed: No Education: High School Diploma/GED Difficulty w/ Childcare or Family Care: No Living arrangements: with family Occupation/Education: occupation Gender identity (if verbalized by the patient): Female Sexual Orientation (if Verbalized by the Patient): Straight or Heterosexual Spiritual care concerns: No Agree to blood products: Yes Meds Home Medications and Allergies Home Medications ?Medication ?Instructions ?Recorded ?Confirmed ?Type pantoprazole 40 mg tablet,delayed 40 mg PO DAILY #90 tabs 01/04/23 01/16/25 Rx release clobetasol 0.05 % scalp solution 1 applic topical DAILY PRN itching 08/30/24 01/16/25 History cyclobenzaprine 10 mg tablet 10 mg PO HS 08/30/24 01/16/25 History ferrous sulfate 325 mg (65 mg 325 mg PO DAILY 08/30/24 01/16/25 History iron) tablet folic acid 1 mg tablet 1 mg PO DAILY 08/30/24 01/16/25 History azathioprine 100 mg tablet 150 mg PO DAILY 12/13/24 01/16/25 History certolizumab pegol 200 mg/mL 200 mg subcut ONCE 12/13/24 01/16/25 History subcutaneous syringe kit (Cimzia) sennosides 8.6 mg tablet (senna) 8.6 mg PO HS 01/16/25 01/16/25 History Allergies Allergy/AdvReac Type Severity Reaction Status Date / Time amoxicillin Allergy Severe Swelling Verified 01/16/25 09:39 of Lip/Tongue/Throat zolpidem (From Ambien) Allergy Severe Rash Verified 01/16/25 09:39 adhesive tape Allergy Intermediate Rash, Verified 01/16/25 09:39 Pulled skin off clindamycin Allergy Swelling Verified 01/16/25 09:39 of Lip/Tongue/Throat sulfamethoxazole (From Allergy Hives Verified 01/16/25 09:39 Bactrim) trimethoprim (From Bactrim) Allergy Hives Verified 01/16/25 09:39 Exam Const: General: comfortable and no acute distress HENMT: Ears: TM's normal bilaterally Face/Nose/Sinus: Normal nares present Mouth: Yes moist mucous membranes Eyes: General: appearance normal, both eyes and all related structures Sclera: sclerae normal Pupils: Equal, round and reactive pupils present EOM: EOMs intact bilaterally Neck: Neck: supple and no JVD Resp: Effort & Inspection: normal respiratory effort Auscultation: clear to auscultation bilaterally Cardio: Rate: regular rate Rhythm: regular rhythm GI: Other: Soft, obese with recurrent incarcerated incisional ventral hernia in the periumbilical and lower epigastric region. Resolving psoriasis lesions in the infraumbilical area. Well healed laparoscopic port site scars. Minimally tender. Skin: General skin exam: normal color and no rashes or lesions noted Neuro: General: gait normal Speech: normal speech Motor exam (neuro): 5/5 motor strength present throughout Sensory Exam: normal sensation Extrem: General: normal to inspection Psych: Mental Status: mental status grossly normal Affect: normal affect Assessment and Plan Assessment and plan (1) Incisional hernia without obstruction or gangrene: Code(s): K43.2 - Incisional hernia without obstruction or gangrene Status: Acute Assessment and Plan: CT shows portion of mid transverse colon incarcerated without obstruction in the recurrent periumbilical ventral hernia. The defect measures approx 4.[address] scan. Because of the incarcerated transverse colon, I would recommend elective repair. My initial thoughts would be for a approach where a small open incision is made and the transverse colon is reduced and then the defect is closed with sutures to allow achieving a pneumoperitoneum. At that point then, would have Dr. Jerry Mitchell come in to do laparoscopic tubal ligation, and then after the tubal is done, then to place a piece of mesh laparoscopically via robotic approach. Risks, benefits, indications, and expected outcomes were discussed with the patient and/or family members. Risks to include bleeding and possible need for blood transfusion, injury to other organs, infection and possible infection of mesh if mesh is placed, and risks for recurrence of the hernia was discussed. Specifically the risk for chronic pain after hernia repair was discussed as well. They understand and I have answered all their questions. They wished to proceed with surgery as outlined above.
--- NOTE | 2025-01-26 07:22 | WPDHPUPDATE1 ---
History and Physical Update Update Date/Time: 01/26/25 07:22 History and Physical has been reviewed, including an updated exam of the patient. There are NO changes in the patient's condition. Risks, benefits, and alternatives have been discussed and questions answered. Patient agrees to proceed with procedure.
[2025-01-26] MEDS: ceFAZolin 2 GM/D5W 50 ML 2 GM/50 ML BAG IVPB (07:38)
[2025-01-26 07:54] LABS: BEDSIDEPREGUCG Negative (Negative)
[2025-01-26] MEDS: LIDO 1%/EPINEPHRINE 1:100,000 50 ML VIAL 30 ML INFILTRATE (08:30)
[2025-01-26] MEDS: BUPivacaine HCL 0.5% 10 ML AMP 30 ML INFILTRATE (08:31)
--- NOTE | 2025-01-26 08:38 | P.OP_ITS ---
Procedure Note - Detailed Date of Procedure 01/26/25 Pre-op Diagnosis incarcerated recurrent ventral incisonal hernia, Sterilization Post-op Diagnosis Same Procedure Performed Robotic bilateral salpingectomy Surgeon Daniele Mitchell MD Anesthesia General Indications 34 year old desires permanent sterilization Findings Large ventral. Tubes ovaries appear within limits Description of Procedure Patient was prepped draped sterile fashion placed dorsal lithotomy position. A 16 Bulgarian catheter was placed bladder. Weighted speculum placed posterior fornix of the vagina. Anterior lip of the cervix grasped with a single-tooth tenaculum. The Chery's cannula inserted and attached to the single-tooth to be used for uterine manipulation the gloves were changed. Dr. Horvath proceeded to dock the robot. Once this was accomplished. The left fallopian tube was grasped and using a linear incision was removed from its attachment to the uterine beginning and the ovary. This was passed off the table. In similar fashion on the right the tube was from the ovary by sharp dissection with monopolar cautery. It was cut at its origin the uterus passed off the table. Hemostasis was assured blood loss was estimated 5cc to this point. Dr. Bentley proceeded to repair the hernia from that point. Estimated Blood Loss 5 Packing No Pathology Yes Complications No immediate complications Condition Stable Disposition No change
--- NOTE | 2025-01-26 08:53 | S_PTH ---
PATIENT: Apolonia Bailey LOC: [facility] U#:[id number] AGE/SX: 34/F ROOM: RE01/26/[address]: René Mcneill MD : 1990 BED: DIS: 01/26/2025 SPEC #: [id number] RECD: 01/26/25 10:57 STATUS: MADDIE REReji #: [id number] PABLO: 01/26/25 08:[address]: Daniele Zarate DEPT: [facility] Surgical RECD BY: Ilsa Damian ENTERED: 01/26/25 10:57 SP TYPE: Surgical OTHR DR: René Mcneill MD Tissues: A - Fallopian Tube Bilateral Procedures: Gross and Microscopic Level 2 Hematoxylin and Eosin Stain
[2025-01-26] MEDS: ceFAZolin SODIUM 1 GM VIAL IV PUSH (10:49)
--- NOTE | 2025-01-26 11:33 | PM.OP ---
Procedure Note - Brief Procedure Note - Brief Date of procedure: 01/26/25 Incarcerated recurrent supraumbilical ventral incisonal hernia, Post-op diagnosis: Other (Incarcerated recurrent supraumbilical ventral incisional hernia, incarcerated right upper quadrant incisional hernia) Procedure performed: Robotic assisted laparoscopic recurrent supraumbilical incisional hernia repair with [employer] Ventralight ST mesh Robotic assisted laparoscopic incarcerated right upper quadrant incisional hernia repair without mesh. Surgeon: René Mcneill MD Medicare Sales Executive: FRANCISCA Obregon Anesthesia: GETA Findings: Patient a 4x4cm supraumbilical recurrent incarcerated incisional hernia. Contents of the hernia that were incarcerated included transverse colon and omentum. There was also 2x2cm right upper quadrant abdominal wall incisional hernia with omentum incarcerated within it. The 2 defects were by greater than 10cm. Implants: Bard Ventralight ST mesh [id number] placed in a intraperitoneal onlay position. Estimated blood loss (mL): 50 Drains: No Packing: No Pathology: None sent Complications: No immediate complications Condition: Stable Disposition: PACU
[2025-01-26] MEDS: fentaNYL CITRATE INJ (*CRX) 100 MCG/2 ML VIAL 25 MCG IV PUSH ×4 (12:02→13:06)
[2025-01-26] MEDS: ONDANSETRON INJ 4 MG/2 ML VIAL IV PUSH (12:02)
[2025-01-26] MEDS: oxyCODONE HCL (*CRX) 5 MG TAB IR PO (13:20)
--- NOTE | 2025-01-28 15:10 | P.OP_ITS ---
Procedure Note - Detailed Date of Procedure 01/28/25 Pre-op Diagnosis Recurrent incarcerated recurrent ventral incisonal hernia. Post-op Diagnosis Other (Recurrent incarcerated incisional hernia and primary incarcerated right upper quadrant abdominal port site incisional hernia) Procedure Performed Robotic assisted laparoscopic recurrent incisional hernia repair with Bard Ventralight ST mesh Robotic assisted incarcerated right upper quadrant incisional port site hernia repair without mesh. Surgeon René Mcneill MD Senior Cyber Security Analyst [facility] Anesthesia General Indications Patient is a 34-year-old female who previously had a laparoscopic cholecystectomy. She had a port site at the umbilicus which now developed an incisional hernia. Incarcerated in the hernia defect on CT scan was a portion of the transverse colon. She was not have any symptoms of a bowel obstruction. She has also recently and wishes to have surgical sterilization at the same setting the patient is going to have a robotic assisted laparoscopic bilateral tubal ligation by Dr. Jerry Mitchell and I will repair the port site incarcerated incisional hernia. Findings The patient had a incarcerated port site incisional hernia in the periumbilical region. The defect measures 4x4cm. Incarcerated within the hernia defect was transverse colon and omentum. Also noted during the surgery was a 2x2cm right upper quadrant port site incisional hernia with incarcerated omentum. This was not appreciated prior to surgery. The distance between the 2 hernia defects on the abdominal wall was approximately 8cm. The 2 defects were closed separately, with the periumbilical incisional hernia defect repaired with mesh in a intraperitoneal onlay position and the right upper quadrant port site incisional hernia repair done primarily with a nonabsorbable 0 V lock suture. Description of Procedure After informed consent was obtained patient brought to the operating room she was placed supine position and general endotracheal anesthesia was administered. The patient was then placed in to lithotomy in stirrups and the abdomen and perineum was then prepped and draped usual sterile fashion. Time-out was then performed correctly identifying the patient as well as procedure to be performed. Dr. Jerry Mitchell then proceeded to further position the patient and placed a uterine manipulator and Mc catheter. The patient was given perioperative IV antibiotics. I then started procedure by gaining access into the abdomen by placing a 5mm Optiview port in left upper quadrant with a direct optical insertion. Once inside the abdomen insufflated to adequate pneumoperitoneum of 15mmHg of CO2. Upon insufflation of the abdomen I could see there was omentum and the transverse colon easily fell out of the defect with gentle external pressure on the hernia sac. With this being the case we could see around the defect and incarcerated omentum to see the pelvis. I then placed additional robotic trocar ports in the left lateral abdominal wall and actually placed an 8mm trocar port through the periumbilical hernia defect all under direct visualization. The [employer] robot was then brought to the patient's bedside and docked. Robotic instruments were then advanced into the abdomen under direct visualization. Dr. Jerry Mitchell then proceeded to perform robotic assisted laparoscopic bilateral salpingectomy. Details of his procedure can be found in his operative note. Once he was done the patient was then repositioned and the uterine manipulator was removed. I then repositioned the de Edvin robot at the patient's bedside and removed the trocar port coming through the periumbilical hernia defect. The skin was temporarily closed with a towel clamp to achieve a pneumoperitoneum. I then proceeded to switch out the 5mm left upper quadrant trocar port to a 10mm bedside anesthesiology physician assistant trocar port. The Edvin robot arms were then attached to the de Edvin ports and then robotic instruments were advanced back into the abdomen under direct visualization. I then scrubbed out the procedure sent down to the Edvin robot console to perform my portion of the surgery. I 1st started by reducing all the omentum out of the hernia sac. This done with robotic JAZMIN bridget. Once all the omentum was out the hernia sac I then measured the hernia defect and it was 4x4cm. I also notice that there was omentum adherent to the right upper quadrant abdominal wall and after perform adhesiolysis of this omentum I found a portion of the omentum incarcerated within a small 2x2cm port site incisional hernia from the patient's prior gallbladder surgery. The omentum was reduced out of the small hernia defect with robotic scissor dissection. I then proceeded to close this small 2x2cm port site incisional hernia defect primarily with a running nonabsorbable 0 V lock suture. The defect closed very nicely without any tension on the closure. Approximately 8cm away in the abdominal wall in the periumbilical p osition was the periumbilical recurrent incisional hernia. This 4x4cm defect was then closed primarily with placement of a running#1 PDS suture. Some of the preperitoneal fat around the area was resected with robotic hook dissection. This tissue which was resected was removed from the abdomen through the left upper quadrant 10mm trocar port site. Once the periumbilical defect was closed without any tension I then proceeded to place a piece of Bard Ventralight ST mesh measuring 15cm in length by 10cm in width. The mesh was introduced into the abdomen through the bedside anesthesiology physician assistant port site and the mesh had a self expanding positioning device attached to the mesh. There was a suture in the central portion of the mesh which was pulled transfascially to approximate the mesh to the undersurface and the anterior abdominal wall centered on the closed defect and the plicated diastasis in the epigastric region of the abdomen. The mesh was situated such as long axis of the mesh was parallel to the long axis of the abdomen. The barrier surface the mesh was placed intra-abdominal viscera and the prosthetic surface of the mesh was in contact with the undersurface of the anterior abdominal wall. I then proceeded to secure the mesh circumferentially to the undersurface of the anterior abdominal wall with multiple running 2-0 absorbable V lock sutures. There was at least 5cm overlap of the mesh with the closed defect. The mesh did not cover the primarily closed right upper quadrant trocar port fascial defect hernia repair. I then removed the positioning device on the mesh in all the portions of the ring were accounted for when it was removed from the abdomen. I then placed 1 more additional absorbable 2-0 V lock sutures through the central portion of mesh to further approximate the mesh to the undersurface of the anterior abdominal wall. The mesh laid very nicely with a small amount of tension to accommodate and reduced wrinkling after the pneumoperitoneum was released. I inspected the omentum and transverse colon these were fine without evidence of injury or bleeding. I then proceeded to remove all the trocar ports under direct visualization all port sites appeared hemostatic. The abdomen was then allowed to decompress. I irrigated all the port sites sterile saline solution. Hemostasis was good. I then closed the 10mm right upper quadrant trocar port fa scial defect with a 0 Vicryl suture at the fascial level. The other 8mm trocar ports in the left lateral abdominal wall also closed utilizing 0 Vicryl sutures placed transfascially fashion with the suture assist device laparoscopically. I then irrigated out the incision with sterile saline solution hemostasis was good. All the skin incisions were then approximated utilizing a running subcuticular 4-0 Monocryl suture. The incisions were then cleaned and skin glue and sterile dressings and an abdominal binder was placed. The patient tolerated the procedure well no complications. All sponges, needles, and instrument counts were correct at the end procedure. EBL was _30__cc. The patient was awakened and taken to recovery in stable and satisfactory condition. Implants Bard Ventralight ST mesh [id number] placed in an intraperitoneal onlay position beneath the anterior abdominal wall. Estimated Blood Loss 30 Drains No Packing No Pathology None sent Complications No immediate complications Condition Stable Disposition PACU [facility] Billing Surgery - Charge Forward: Surgery Billing
== END 2025-01-26 15:00 | disposition home or self-care (01) ==
PROVIDERS: Obstetrics & Gynecology; Visit Provider Surgery
PROC: (CPT 49616; principal; 2025-01-26 07:30)
PROC: (CPT 49320; 2025-01-26 07:30)
DX: Z30.2 Encounter for sterilization (principal); N83.8 Other noninflammatory disorders of ovary, fallopian tube and broad ligament; K43.0 Incisional hernia with obstruction, without gangrene; K21.9 Gastro-esophageal reflux disease without esophagitis; J45.909 Unspecified asthma, uncomplicated; G47.00 Insomnia, unspecified; L40.50 Arthropathic psoriasis, unspecified; Z79.891 Long term (current) use of opiate analgesic; Z98.890 Other specified postprocedural states; Z90.49 Acquired absence of other specified parts of digestive tract; Z98.84 Bariatric surgery status; Z93.4 Other artificial openings of gastrointestinal tract status; Z87.891 Personal history of nicotine dependence; Z80.49 Family history of malignant neoplasm of other genital organs
CPT/HCPCS: 58661; 49616; S2900 ×2; 36415; 86850; 86900; 86901; 88302; A9270; C1781; J0690; J1100; J1885; J2003; J2004; J2250; J2405; J2704; J3010; J7030; J7120